=== PATIENT | female | born 1965 | race Caucasian/White ===

== ENCOUNTER → 2017-10-26 08:35 | Outpatient (CLI) | payer OTHER, MEDICARE, SELFPAY ==
[2017-03-03 15:40] VITALS: BMI 24.5
[2017-10-26 09:55] LABS: AST(SGOT) 18 U/L (15-37); Alanine Aminotransfer ALT/SGPT 27 U/L (13-56); Albumin, Serum 3.3 g/dL (3.2-5.0); Alkaline Phosphatase 72 U/L (45-117); Bilirubin, Direct 0.06 mg/dL (0.00-0.30); Cholesterol 113 mg/dL (200); Globulin 3.8 g/dL (2.2-4.2); High Density Lipoprotein 45 mg/dL; Protein, Total 7.1 g/dL (6.4-8.2); Triglycerides 105 mg/dL; Very Low Density Lipoprotein 21 mg/dL (5-40)
== END ==
PROVIDERS: Family Provider Family Medicine; PCP Family Medicine; Visit Provider Internal Medicine Cardiovascular Disease
DX: E78.5 Hyperlipidemia, unspecified (principal); Z79.899 Other long term (current) drug therapy
CPT/HCPCS: 36415; 80061; 80076

== ENCOUNTER 2018-01-06 17:26 | Emergency (ER) | payer OTHER, MEDICARE, SELFPAY ==
[2017-03-03 15:40] VITALS: BMI 24.5
[2018-01-06 17:27] VITALS: BP 118/72; PULSE 72; RESP 16; TEMP 36.8; O2SAT 99; BMI 22.3
--- NOTE | 2018-01-06 17:52 | RAD_ITS ---
STUDY: X-RAY CHEST REASON FOR EXAM: Female, 52 years old. CHEST PRESSURE SINCE YESTERDAY. HAD A HEART ATTACK WITH STENT A YEAR AGO TECHNIQUE: Single AP portable view of the chest. COMPARISON: 03.02.17 FINDINGS: There is hyperinflation of the lungs consistent with chronic obstructive lung disease (COPD). There is no demonstrated pleural abnormality. Normal size heart. Normal mediastinum and chata. Normal visualized pulmonary arteries. Normal visualized aortic arch and descending thoracic aorta. Normal visualized thoracic spine. Normal visualized ribs, clavicles, and shoulders. There is no demonstrated abnormality of the visualized soft tissue structures of the upper abdomen. RAD/Chest 1 View (Portable) IMPRESSION: COPD Electronically Signed: Shaq Chong MD at 18:21 EDT , Service support ,
--- NOTE | 2018-01-06 17:52 | EKG12_ITS ---
Test Reason : CP Blood Pressure : / mmHG Vent. Rate : 059 BPM Atrial Rate : 059 BPM P-R Int : 124 ms QRS Dur : 084 ms QT Int : 390 ms P-R-T Axes : 045 -26 036 degrees QTc Int : 386 ms Sinus bradycardia with sinus arrhythmia Low voltage QRS (LIMB LEADS) Confirmed by JUAN CARLOS MEYER, JO ANN ([id number]), fan mail editor KEISHA GUNDERSON ([id number]) on 01/11/2018 1:56:46 PM Referred By: ABHI Confirmed By:JO ANN RANGEL MD
[2018-01-06 18:18] LABS: Absolute Lymphocyte Count 1.43 X10^3/ul (0.83-4.51); Absolute Neutrophil Count 2.9 X10^3/uL (2.0-7.7); Basophil# 0.02 X10^3/uL; Basophil% 0.4 % (0-1); Eosinophils% 2.1 % (0-5); Hematocrit 40.5 % (37-47); Hemoglobin 13.5 g/dl (12.0-15.0); Lymphocyte # 1.43 X10^3/ul (4.0); Lymphocyte % 29.5 % (19-41); Mean Corp Hgb Conc 33.3 g/gl (32-36); Mean Corpuscular Hgb 29.7 pg (27.0-32.0); Mean Platelet Vol. 9.5 fl (6.2-12.0); Monocyte# 0.43 X10^3/uL; Monocyte% 8.9 % (0-10); Neutrophil # 2.85 X10^3/uL (2.7-7.7); Neutrophil % 58.9 % (47-70); POSITIVE COUNT NO; POSITIVE DIFFERENTIAL NO; POSITIVE MORPHOLOGY NO; Platelet Count 272 K/mm3 (150-450); RBC Distribution Width CV 13.1 % (11.6-14.6); Red Blood Count 4.55 M/mm3 (4.2-5.4); White Blood Count 4.8 K/mm3 (4.4-11.0)
[2018-01-06 18:27] LABS: Anion Gap 5 (5-15); BUN 10 mg/dL (7-18); Calcium,Total 9.2 mg/dL (8.5-10.1); Chloride 107 mmol/L (98-107); Creatinine, Serum 0.72 mg/dL (0.55-1.02); EST Glomerular Filtration Rate 91 mL/min (>60); Est Glom Filt Rate - Afr Amer 110 mL/min (>60); Estimated Creatinine Clearance 69.75 ml/min; Glucose 90 mg/dL (74-106); Potassium 3.3 mmol/L (3.5-5.1); Sodium Level 139 mmol/L (136-145)
[2018-01-06 18:32] VITALS: BP 102/57; PULSE 56; RESP 19; O2SAT 100; O2SAT 99
--- NOTE | 2018-01-06 18:56 | ED.VISSUMM ---
- ER Visit Summary Date of Service: 01/06/18 Chief Complaint: Chest pain History of Present Illness: The patient is a 52 F who presents for evaluation of chest pain described as an aching sensation and mild which began yesterday. She states it was not going away because she has had a stent in the past she wanted to get checked out. She thought perhaps it was related to caring wet laundry that was heavy the day before. She denies any nausea vomiting diaphoresis dyspnea lightheadedness or palpitations. Physical Examination: Afebrile vital signs are stable Gen: Well-nourished well-developed Head: Normocephalic atraumatic Eyes: Perrl EOMI ENT: TMs clear no rhinorrhea moist mucous membranes Neck: Supple no lymphadenopathy no JVD nontender CVS: Regular rate rhythm no murmurs normal S1-S2 Respiratory: No distress clear to auscultation bilaterally chest nontender barrel chested Abdomen: Soft nontender nondistended normal bowel sounds no masses Back: Nontender Extremity: Nontender no edema Skin: Normal color no rash Neuro: alert orientated ?3 CN II-XII intact normal strength sensation reflexes gait cerebellar Psych: Normal affect normal mood Test Results: EKG shows a sinus rhythm at a rate of 59. Potassium 3.3. Troponin is negative and this is greater than 24 hour troponin constant symptoms. Chest x-ray negative for acute. GERMÁN score 2 out of 7. Emergency Department Course and Treatment: Patient with a negative troponin after 24 hours of symptoms. To be discharged home to follow-up return if worsening Impression: 1. Chest pain This note was generated with [employer] dictation software. It may contain incorrect words, spelling, and punctuation that were not noted in review of the chart prior to signing ED Disposition - Plan for ED Patient: Disposition: Home or Assisted Living Chief Complaint: Chest Pain Instructions: ED Chest Pain Atypical Unkn Cause Referrals: Arron Soto MD [Primary Care Provider] - 3-5 Days if not improving
[2018-01-06 19:01] VITALS: BP 101/59; PULSE 55; PULSE 56; RESP 16; RESP 17; O2SAT 98; O2SAT 99
== END 2018-01-06 19:23 | disposition home or self-care (01) ==
PROVIDERS: Emergency Provider Emergency Medicine; Family Provider Family Medicine; PCP Family Medicine
DX: R07.9 Chest pain, unspecified (principal); I25.10 Atherosclerotic heart disease of native coronary artery without angina pectoris; E78.00 Pure hypercholesterolemia, unspecified; G35 Multiple sclerosis; Z95.5 Presence of coronary angioplasty implant and graft; Z87.891 Personal history of nicotine dependence; Z79.82 Long term (current) use of aspirin; Z79.899 Other long term (current) drug therapy
CPT/HCPCS: 71045; 80048; 84484; 85025; 93005; 99285; A4216

== ENCOUNTER → 2018-05-12 09:05 | Outpatient (CLI) | payer OTHER, MEDICARE, SELFPAY ==
[2017-03-03 15:40] VITALS: BMI 24.5
[2018-05-12 10:44] LABS: AST(SGOT) 25 U/L (15-37); Alanine Aminotransfer ALT/SGPT 29 U/L (13-56); Albumin, Serum 3.5 g/dL (3.2-5.0); Alkaline Phosphatase 61 U/L (45-117); Bilirubin, Direct 0.15 mg/dL (0.00-0.30); Cholesterol 138 mg/dL (200); Globulin 3.8 g/dL (2.2-4.2); High Density Lipoprotein 53 mg/dL; Protein, Total 7.3 g/dL (6.4-8.2); Triglycerides 89 mg/dL; Very Low Density Lipoprotein 18 mg/dL (5-40)
== END ==
PROVIDERS: Family Provider Family Medicine; PCP Family Medicine; Referring Provider Internal Medicine Cardiovascular Disease; Visit Provider Internal Medicine Cardiovascular Disease
DX: E78.5 Hyperlipidemia, unspecified (principal); Z79.899 Other long term (current) drug therapy
CPT/HCPCS: 36415; 80061; 80076

== ENCOUNTER → 2018-11-10 06:58 | Outpatient (CLI) | payer OTHER, MEDICARE, SELFPAY ==
[2017-03-03 15:40] VITALS: BMI 24.5
[2018-09-25 14:42] VITALS: BMI 22.4
[2018-11-10 07:49] LABS: AST(SGOT) 22 U/L (15-37); Alanine Aminotransfer ALT/SGPT 27 U/L (13-56); Albumin, Serum 3.5 g/dL (3.2-5.0); Alkaline Phosphatase 70 U/L (45-117); Bilirubin, Direct 0.09 mg/dL (0.00-0.30); Cholesterol 119 mg/dL (200); Globulin 3.3 g/dL (2.2-4.2); High Density Lipoprotein 48 mg/dL; Protein, Total 6.8 g/dL (6.4-8.2); Triglycerides 92 mg/dL; Very Low Density Lipoprotein 18 mg/dL (5-40)
== END ==
PROVIDERS: Family Provider Family Medicine; PCP Family Medicine; Referring Provider Internal Medicine Cardiovascular Disease; Visit Provider Internal Medicine Cardiovascular Disease
DX: I25.10 Atherosclerotic heart disease of native coronary artery without angina pectoris (principal); E78.5 Hyperlipidemia, unspecified; Z95.5 Presence of coronary angioplasty implant and graft
CPT/HCPCS: 36415; 80061; 80076

== ENCOUNTER → 2019-05-16 07:26 | Outpatient (CLI) | payer OTHER, MEDICARE, SELFPAY ==
[2017-03-03 15:40] VITALS: BMI 24.5
[2019-05-07 13:41] VITALS: BMI 21.7
[2019-05-16 08:54] LABS: AST(SGOT) 20 U/L (15-37); Alanine Aminotransfer ALT/SGPT 21 U/L (13-56); Albumin, Serum 3.4 g/dL (3.2-5.0); Alkaline Phosphatase 66 U/L (45-117); Cholesterol 120 mg/dL (200); Globulin 3.5 g/dL (2.2-4.2); High Density Lipoprotein 48 mg/dL; Protein, Total 6.9 g/dL (6.4-8.2); Triglycerides 81 mg/dL; Very Low Density Lipoprotein 16 mg/dL (5-40)
== END ==
PROVIDERS: Family Provider Family Medicine; PCP Family Medicine; Referring Provider Internal Medicine Cardiovascular Disease; Visit Provider Internal Medicine Cardiovascular Disease
DX: E78.00 Pure hypercholesterolemia, unspecified (principal)
CPT/HCPCS: 36415; 80061; 80076

== ENCOUNTER → 2019-05-18 12:42 | Outpatient (CLI) | payer OTHER, MEDICARE, SELFPAY ==
[2017-03-03 15:40] VITALS: BMI 24.5
[2019-05-07 13:41] VITALS: BMI 21.7
--- NOTE | 2019-05-18 12:43 | STEWCON_ITS ---
Reason For Study: Pre-Op, CAD Stress Results Protocol: Gerard Protocol Maximum Predicted HR: 167 bpm Target HR: 142 bpm % Maximum Predicted HR: 81 % DurationHeart Rate Stage (mm:ss) (bpm) BP Comment Baseline 57 118/70No Chest Pain; 4 ML Diluted Definity Given Gerard Protocol Stage I 3:00 91 128/72No Chest Pain Gerard Protocol Stage II 3:00 108 134/66No Chest Pain Gerard Protocol Stage III 4:00 136 164/70No Chest Pain; Mild Dyspnea Recovery 69 114/68No Chest Pain Stress Duration: 10:00 mm:ss Maximum Stress HR: 136 bpm METS: 10 Baseline Echocardiogram Findings The estimated ejection fraction is 65 %. Stress Echo Wall motion Data Resting WM Intermediate WM Stress WM Resting Wall Motion Wall Motion Stress No regional wall motion No regional wall motion abnormalities noted. abnormalities noted. EKG Data Normal intervals are noted. The baseline ECG displays normal sinus rhythm. The patient exercised according to the regular Gerard protocol for a total duration of 10:00. The maximum heart rate attained was 151 beats per minute. This was 90% of maximum predicted heart rate. The patient exercised into stage 3 of the Gerard protocol. During stress, there were no ST or T wave changes noted to suggest ischemia. No clinical angina was noted. Interpretation Summary The estimated ejection fraction is 65 %. Normal, adequate, treadmill echocardiogram. Negative for ischemia by EKG and echocardiographic criteria. No anginal symptoms noted. Rare PACs noted. Appropriate blood pressure response to exercise. Average exercise capacity for age. Test terminated due to dyspnea. Final LVEF of 75%. Decreased sensitivity due to poor echo windows requiring Definity enhancing agent. Patient tolerated procedure well. No complications. The study was technically difficult. Contrast injection was performed. Ordering Physician: Carson De La Torre Referring Physician: Arron Soto Performed By: Ashwini Thomson, DARVIN, RVT
== END ==
PROVIDERS: Family Provider Family Medicine; PCP Family Medicine; Referring Provider Internal Medicine Cardiovascular Disease; Visit Provider Internal Medicine Cardiovascular Disease
DX: Z01.818 Encounter for other preprocedural examination (principal); I25.10 Atherosclerotic heart disease of native coronary artery without angina pectoris; Z95.5 Presence of coronary angioplasty implant and graft
CPT/HCPCS: 93017; 93350; Q9957; A4216; C8928

== ENCOUNTER → 2019-06-28 09:50 | Outpatient (CLI) | payer OTHER, MEDICARE, SELFPAY ==
[2017-03-03 15:40] VITALS: BMI 24.5
[2019-05-07 13:41] VITALS: BMI 21.7
--- NOTE | 2019-06-28 10:00 | RAD_ITS ---
STUDY: X-RAY - LUMBAR SPINE REASON FOR EXAM: Female, 54 years old. Chronic low back pain with radiation into the right. TECHNIQUE: 5 view(s) of the lumbar spine were obtained. COMPARISON: None FINDINGS: Increased lumbar lordosis. There is no substantial scoliosis. There is a normal alignment of the vertebrae. Advanced disc narrowing with discogenic sclerosis at L4-5. Normal to minimal disc narrowing at other lumbar levels. Mild degenerative facet arthrosis at L4-5. The soft tissue structures are unremarkable. RAD/L/S Spine Min 4 Views IMPRESSION: Exaggerated lumbar lordosis without scoliosis. Advanced focal degenerative disc findings with discogenic sclerosis and mild posterior facet arthrosis at L4-5. Minimal degenerative changes at other lumbar levels. Electronically Signed: Estefani Denney MD at 17:05 EST , Service support ,
== END ==
PROVIDERS: Family Provider Family Medicine; PCP Family Medicine; Referring Provider Anesthesiology Pain Medicine; Visit Provider Anesthesiology Pain Medicine
DX: M51.37 Other intervertebral disc degeneration, lumbosacral region (principal)
CPT/HCPCS: 72110

== ENCOUNTER → 2019-09-04 11:06 | Outpatient (CLI) | payer MEDICARE, SELFPAY ==
[2017-03-03 15:40] VITALS: BMI 24.5
[2019-05-07 13:41] VITALS: BMI 21.7
--- NOTE | 2019-09-04 11:16 | MRI_ITS ---
STUDY: MRI LUMBAR SPINE WITHOUT CONTRAST REASON FOR EXAM: Female, 54 years old. Spondylosis radiculopathy TECHNIQUE: Standardized fat and water weighted pulse sequences were obtained in the sagittal and axial planes. COMPARISON: 28 June 2019 plain films FINDINGS: Lumbar spine is intact and aligned. There is mixed marrow osteopenic and degenerative conversion. There are age-related changes in the discs, endplates and facets. Paraspinous soft tissues are intact with a dilated cisterna chyli. Conus medullaris terminates at L1 with normal cauda equina. Canal is widely patent at all levels. L4-L5 has an asymmetric right disc bulge with proximity of disc material to the right exiting L4 nerve root in the lateral recess without anatomic compression. The right foramen is mildly stenotic with patent left foramen. Remainder of the levels are patent foramen. Lateral recesses are patent at all levels. MRI/Spine Lumbar (Routine) IMPRESSION: 1. Widely patent canal, no neural compression. 2. Age-related spondylosis. 3. Presumed osteopenia, possible osteoporosis. Attention to bone density advised. Electronically Signed: Keanu Ledezma, at 18:19 EST Tel , Service support ,
== END ==
PROVIDERS: PCP Family Medicine; Referring Provider Anesthesiology Pain Medicine; Visit Provider Anesthesiology Pain Medicine
DX: M51.17 Intervertebral disc disorders with radiculopathy, lumbosacral region (principal); M47.27 Other spondylosis with radiculopathy, lumbosacral region
CPT/HCPCS: 72148

== ENCOUNTER → 2019-12-13 07:22 | Outpatient (CLI) | payer OTHER, MEDICARE, SELFPAY ==
[2017-03-03 15:40] VITALS: BMI 24.5
[2019-12-07 10:23] VITALS: BMI 21.5
[2019-12-13 08:03] LABS: AST(SGOT) 23 U/L (15-37); Alanine Aminotransfer ALT/SGPT 29 U/L (13-56); Albumin, Serum 3.5 g/dL (3.2-5.0); Alkaline Phosphatase 77 U/L (45-117); Bilirubin, Direct 0.14 mg/dL (0.00-0.30); Cholesterol 116 mg/dL (200); Globulin 3.5 g/dL (2.2-4.2); High Density Lipoprotein 48 mg/dL; Triglycerides 93 mg/dL; Very Low Density Lipoprotein 19 mg/dL (5-40)
== END ==
PROVIDERS: PCP Family Medicine; Referring Provider Internal Medicine Cardiovascular Disease; Visit Provider Internal Medicine Cardiovascular Disease
DX: E78.00 Pure hypercholesterolemia, unspecified (principal); E78.5 Hyperlipidemia, unspecified
CPT/HCPCS: 36415; 80061; 80076

== ENCOUNTER 2020-01-03 12:08 | Emergency (ER) | payer OTHER, MEDICARE, SELFPAY ==
[2017-03-03 15:40] VITALS: BMI 24.5
[2019-12-07 10:23] VITALS: BMI 21.5
[2020-01-03 12:09] VITALS: BP 113/77; PULSE 75; RESP 16; TEMP 35.5; O2SAT 97; BMI 21.7
--- NOTE | 2020-01-03 12:25 | RAD_ITS ---
STUDY: X-RAY - LEFT FOOT CLINICAL: Female, 54 years old. PAIN/STS. HX FALL TECHNIQUE: 3 view(s) of the foot. COMPARISON: None. FINDINGS: Normal talus, calcaneus, and tarsal bones. Normal visualized subtalar, talonavicular, calcaneocuboid, tarsal and tarsometatarsal articulations. There is nondisplaced fracture at the base of the fifth metatarsal. Normal metatarsophalangeal joint of the great toe. Normal tibial and fibular sesamoid bones. Normal interphalangeal joint of the great toe. Normal phalanges of the great toe. Normal second through fifth metatarsophalangeal joints. Normal interphalangeal joints and phalanges of the lesser toes. The soft tissue structures are unremarkable. RAD/Foot min 3 Views IMPRESSION: There is nondisplaced fracture at the base of the fifth metatarsal. Electronically Signed: Michael Resendiz, at 13:16 EDT Tel , Service support ,
--- NOTE | 2020-01-03 12:25 | RAD_ITS ---
STUDY: X-RAY - LEFT ANKLE REASON FOR EXAM: Female, 54 years old. PAIN/STS. HX FALL TECHNIQUE: 3 view(s) of the ankle. COMPARISON: None. FINDINGS: Normal visualized distal tibia and fibula. Normal medial and lateral malleoli. Normal tibiotalar articulation and ankle mortise. Normal visualized talus and calcaneus. There is nondisplaced fracture at the base of the fifth metatarsal. The visualized subtalar, talonavicular, calcaneocuboid and tarsal articulations are normal. The soft tissue structures are unremarkable. RAD/Ankle min 3 Views IMPRESSION: There is nondisplaced fracture at the base of the fifth metatarsal. Electronically Signed: Michael Resendiz, at 13:17 EDT Tel , Service support ,
--- NOTE | 2020-01-03 12:25 | ED.DCSUM_ITS ---
History of Present Illness Chief Complaint: Lower Extremity Injury Informant: Patient Onset: Days Mechanism/Context: Fall, Trip Quality of Pain: Aching Narrative: Patient is a 54-year-old female presenting with pain and injury to her left foot and ankle. Patient's foot became tangled in the chair she was sitting in on Tuesday, when she fell off. Patient twisted her left foot and landed on her left elbow. Her elbow has gotten better but she is had persistent pain and swelling of her left foot. Patient taken Tylenol for pain relief with no significant relief. She did start wrapping with an Philip bandage today at the recommendation of her daughter. Her sustain any head injury. She is on Plavix. She denies any other complaints at this time. Past Medical History - Allergies and Home Meds Allergies/Adverse Reactions: Allergies egg Allergy (Verified 01/03/20 12:16) Hives sulfamethoxazole [From Bactrim] Allergy (Verified 01/03/20 12:16) Unknown trimethoprim [From Bactrim] Allergy (Verified 01/03/20 12:16) Unknown Penicillins Adverse Reaction (Verified 01/03/20 12:16) Vomiting Primary Care Physician: Arron Soto MD [Primary Care Provider] - Past Medical History: - - Coronary artery disease, hyperlipidemia, history of SVT, multiple sclerosis Surgical History: cholecystectomy, - - , breast biopsy Smoking Status: Former smoker - Family History Maternal Family History: Family History (Last Reviewed 12/07/19 @ 10:23 by Yamilex Gutiérrez) Mother CAD (coronary artery disease) Father CAD (coronary artery disease) Family History: Reports: Heart Disease Paternal Family History: Family History (Last Reviewed 12/07/19 @ 10:23 by Yamilex Gutiérrez) Mother CAD (coronary artery disease) Father CAD (coronary artery disease) Family History: Reports: Heart Disease Review of Systems General: Denies: Chills, Fever, Sweats Eyes: Denies: Visual changes - bilaterally, Diplopia ENT: Denies: Rhinorrhea, Sore throat Cardiovascular: Denies: Chest pain, Palpitations Respiratory: Denies: Dyspnea, Cough, Dyspnea on exertion Gastrointestinal: Denies: Abdominal pain, Nausea, Vomiting, Diarrhea Genitourinary: Denies: Dysuria, Hematuria, Frequency Musculoskeletal: Reports: Swelling - Left foot, Extremity Pain - Left foot. Denies: Back pain Skin: Denies: Rash, Wounds Neurological: Denies: Headache, Weakness, Numbness Physical Exam Vital Signs/Narrative: Vital Signs Temp Pulse Resp BP Pulse Ox 01/03/20 12:09 96 F L 75 16 113/77 97 Inital Vital Signs reviewed: Yes General: Well nourished, Well developed Head: Normocephalic, Atraumatic Eyes: Perrl, EOMI ENT: No trauma. Negative for: Nasal trauma Neck: Nontender, Full ROM Cardiovascular: Regular rate, Regular rhythm, No murmurs Respiratory: No distress, CTA bilaterally, Chest nontender Back: Nontender Extremeties: Upper extremities, normal range of motion, no joint effusions, no deformity. Left lower extremity: Knee?normal range of motion, no swelling. Lower leg?no fibular head tenderness, no deformity, no significant edema, no calf tenderness. Ankle?no bony tenderness, normal range of motion, edema present. Normal Azul test. Foot?tenderness palpation over the lateral distal metatarsals. No obvious deformity. Soft tissue swelling is present. No ecchymosis present. Normal range of motion. Skin: Normal color, No rash Neurological: Alert, Oriented x3, Cranial nerves II-XII grossly intact, Normal Strength, Normal Sensation Psychological: Normal affect Diagnostic/Tx/Re-eval Clinical Impression(s) from Imaging Studies Ankle X-Ray 01/03/20 12:25 IMPRESSION: There is nondisplaced fracture at the base of the fifth metatarsal. Electronically Signed: Michael Resendiz, at 13:17 EDT Tel , Service support , Foot X-Ray 01/03/20 12:25 IMPRESSION: There is nondisplaced fracture at the base of the fifth metatarsal. Electronically Signed: Michael Resendiz, at 13:16 EDT Tel , Service support , - Medical Decision Making Is evaluated for injury to her left foot 3 days ago. She is been walking on it since. She is been taking Tylenol with some relief of her pain. She has swelling with tenderness palpation at the lateral midfoot but no obvious deformity. She is neurovascular intact. X-ray of the ankle and foot obtained. Patient does have fracture of the fifth metatarsal. Discussed the case with hugo olson on-call, Dr. Andrews, follow-up in 1 week as well as a walking boot. Patient supplied with a walking boot emergency room. She will take ibuprofen at home. She declined a prescription for [place]. Patient is counseled on signs and symptoms requiring return to the emergency room. Patient verbalizes agreement and understand this plan. Patient discharged home in stable and improved condition. ED Disposition - Plan for ED Patient: Disposition: Home or Assisted Living Diagnosis: Nondisplaced fracture of fifth left metatarsal bone Instructions: ED FOOT FRACTURE Referrals: Arron Soto MD [Primary Care Provider] - Talya Andrews DPM [STAFF PHYSICIAN] - Additional Instructions: Alternate Tylenol and ibuprofen for pain. Please wear your boot whenever you are walking. You may continue to walk on it. Try to rest, ice and elevate the leg as much as possible. Please follow-up with podiatry in 1 week.
== END 2020-01-03 13:55 | disposition home or self-care (01) ==
PROVIDERS: Emergency Provider Emergency Medicine; PCP Family Medicine
DX: S92.355A Nondisplaced fracture of fifth metatarsal bone, left foot, initial encounter for closed fracture (principal); W01.0XXA Fall on same level from slipping, tripping and stumbling without subsequent striking against object, initial encounter; Y93.9 Activity, unspecified; Y92.9 Unspecified place or not applicable; I25.10 Atherosclerotic heart disease of native coronary artery without angina pectoris; E78.5 Hyperlipidemia, unspecified; G35 Multiple sclerosis; I47.1 Supraventricular tachycardia; Z79.02 Long term (current) use of antithrombotics/antiplatelets; Z79.82 Long term (current) use of aspirin; Z79.899 Other long term (current) drug therapy; Z87.891 Personal history of nicotine dependence
CPT/HCPCS: 73610; 73630; 99283

== ENCOUNTER → 2020-01-10 14:36 | Outpatient (CLI) | payer OTHER, MEDICARE, SELFPAY ==
[2017-03-03 15:40] VITALS: BMI 24.5
[2020-01-03 12:09] VITALS: BMI 21.7
[2020-01-10 17:57] LABS: Vitamin D,25 Hydroxy 40.4 ng/mL
== END ==
PROVIDERS: PCP Family Medicine; Referring Provider Podiatrist; Visit Provider Podiatrist
DX: E55.9 Vitamin D deficiency, unspecified (principal); S92.353A Displaced fracture of fifth metatarsal bone, unspecified foot, initial encounter for closed fracture
CPT/HCPCS: 36415; 82306

== ENCOUNTER → 2020-06-26 07:30 | Outpatient (CLI) | payer OTHER, MEDICARE, SELFPAY ==
[2017-03-03 15:40] VITALS: BMI 24.5
[2020-06-16 11:24] VITALS: BMI 21.4
[2020-06-26 09:18] LABS: AST(SGOT) 24 U/L (15-37); Alanine Aminotransfer ALT/SGPT 33 U/L (13-56); Albumin, Serum 3.6 g/dL (3.2-5.0); Alkaline Phosphatase 75 U/L (45-117); Bilirubin, Direct 0.12 mg/dL (0.00-0.30); Cholesterol 114 mg/dL (200); Globulin 3.6 g/dL (2.2-4.2); High Density Lipoprotein 51 mg/dL; Protein, Total 7.2 g/dL (6.4-8.2); Triglycerides 70 mg/dL; Very Low Density Lipoprotein 14 mg/dL (5-40)
== END ==
PROVIDERS: PCP Family Medicine; Referring Provider Internal Medicine Cardiovascular Disease; Visit Provider Internal Medicine Cardiovascular Disease
DX: E78.00 Pure hypercholesterolemia, unspecified (principal)
CPT/HCPCS: 36415; 80061; 80076

== ENCOUNTER → 2020-12-08 10:49 | Outpatient (CLI) | payer OTHER, MEDICARE, SELFPAY ==
[2017-03-03 15:40] VITALS: BMI 24.5
[2020-06-16 11:24] VITALS: BMI 21.4
--- NOTE | 2020-12-08 10:55 | MRI_ITS ---
STUDY: MRI BRAIN WITH AND WITHOUT CONTRAST REASON FOR EXAM: Female, 55 years old. MS TECHNIQUE: Standardized multiplanar fat and water weighted pulse sequences were obtained. iv dotarem 10cc was administered for the contrast portion of the examination. COMPARISON: None. FINDINGS: There is mild cerebral atrophy with widening of the extra-axial spaces and ventricular dilatation. There are periventricular white matter hyperintensities and typical geographic distribution of multiple sclerosis without evidence of restricted diffusion or enhancement to suggest active demyelination. There is no thinning of the corpus callosum or myelin vacuolization. There is no demonstrated infratentorial involvement. Normal bilateral basal ganglia. Normal thalami. There is no extra-axial fluid accumulation. Normal venous enhancement. There is no enhancing intra-axial or extra-axial abnormality. Normal sella turcica, pituitary gland, infundibular stalk, optic chiasm and hypothalamus. Normal tectal plate and pineal gland. Normal midbrain, nae and medulla. Normal cerebellum. Normal basal cisterns. MRI/Brain W/WO Contrast IMPRESSION: White matter plaques without evidence of active demyelination. Electronically Signed: Tianna Oconnor MD at 8:31 EDT Tel , Service support ,
== END ==
PROVIDERS: PCP Family Medicine; Referring Provider Psychiatry & Neurology Neurology; Visit Provider Psychiatry & Neurology Neurology
DX: G35 Multiple sclerosis (principal)
CPT/HCPCS: 70553; A9575

== ENCOUNTER → 2021-01-06 10:50 | Outpatient (CLI) | payer OTHER, MEDICARE, SELFPAY ==
[2017-03-03 15:40] VITALS: BMI 24.5
[2020-12-26 10:39] VITALS: BMI 21.4
[2021-01-01 09:37] LABS: AST(SGOT) 22 U/L (15-37); Alanine Aminotransfer ALT/SGPT 28 U/L (13-56); Albumin, Serum 3.6 g/dL (3.2-5.0); Alkaline Phosphatase 74 U/L (45-117); Bilirubin, Direct 0.12 mg/dL (0.00-0.30); Cholesterol 128 mg/dL (200); Globulin 3.5 g/dL (2.2-4.2); High Density Lipoprotein 51 mg/dL; Protein, Total 7.1 g/dL (6.4-8.2); Triglycerides 77 mg/dL; Very Low Density Lipoprotein 15 mg/dL (5-40)
--- NOTE | 2021-01-06 10:51 | ECHOCS_ITS ---
Reason For Study: CAD Procedure This was a 2D Doppler, Color Flow transthoracic echocardiogram. Technically difficult study due to patients body habitus. Contrast injection performed. The study was technically difficult. Contrast injection was performed. Exam performed in department. Left Ventricle Normal LV size. Left ventricular systolic function is normal. The estimated ejection fraction is 55 %. No evidence for diastolic dysfunction. No regional wall motion abnormalities noted. Right Ventricle Normal RV size. Normal systolic function. Atria Normal left atrium. Normal right atrium. No doppler evidence for ASD. Mitral Valve There is no mitral annular calcification. Normal mitral valve. Trivial mitral valve insufficiency. Tricuspid Valve Normal tricuspid valve. Mild to moderate (1-2+) tricuspid valve insufficiency. Right ventricular systolic pressure estimated to be 32 mmHg. Aortic Valve Trisinus/trileaflet aortic valve. Mild diffuse aortic valve thickening. Mild focal aortic valve calcification. Pulmonic Valve The pulmonic valve is not well visualized. Great Vessels The aortic root is not well visualized. Pericardium/Pleural No pericardial effusion. Medication 22 gauge I.V. with prn adaptor inserted into right arm. Diluted definity 3ml given slow IV push to enhance endocardial definition. MMode/2D Measurements & Calculations LVIDd: 3.8 cm IVSd: 0.69 cm LA dimension: 2.6 cm LVIDs: 2.6 cm LVPWd: 0.86 cm RVDd: 2.9 cm FS: 31.2 % LAV(MOD-sp4): 32.3 ml LA A4 area: 13.3 cm2 RA A4 area: 11.2 cm2 Time Measurements MV dec time: 0.17 sec Doppler Measurements & Calculations MV E max valdemar: 86.7 cm/sec Med Peak E' Valdemar: 10.7 cm/sec MV V2 max: 83.9 cm/sec MV A max valdemar: 66.6 cm/sec E/E' med: 8.1 MV max P.8 mmHg MV E/A: 1.3 MV V2 mean: 39.3 cm/sec MV mean P.78 mmHg MV V2 VTI: 28.9 cm MV P1/2t max valdemar: 83.9 cm/sec Ao V2 max: 95.3 cm/sec LV V1 max: 83.8 cm/sec MV P1/2t: 82.4 msec Ao max P.6 mmHg LV V1 max P.8 mmHg MV dec slope: 298.3 cm/sec2 MVA(P1/2t): 2.7 cm2 PA V2 max: 65.7 cm/sec TR max valdemar: 268.2 cm/sec TR max P.8 mmHg ECHO/Echo Complete W/ Contrast Interpretation Summary The study was technically difficult. Contrast injection was performed. Left ventricular systolic function is normal. The estimated ejection fraction is 55 %. Trivial mitral valve insufficiency. Mild to moderate (1-2+) tricuspid valve insufficiency. Mild diffuse aortic valve thickening. Mild focal aortic valve calcification. Right ventricular systolic pressure estimated to be 32 mmHg. No evidence for diastolic dysfunction. Ordering Physician: Tan Luque Referring Physician: Arron Soto Performed By: Alec Payan RCS
== END ==
PROVIDERS: Internal Medicine Cardiovascular Disease; PCP Family Medicine; Referring Provider Internal Medicine Cardiovascular Disease; Visit Provider Internal Medicine Cardiovascular Disease
DX: E78.00 Pure hypercholesterolemia, unspecified (principal); Z95.5 Presence of coronary angioplasty implant and graft; I25.10 Atherosclerotic heart disease of native coronary artery without angina pectoris; I25.5 Ischemic cardiomyopathy; I47.1 Supraventricular tachycardia; E78.5 Hyperlipidemia, unspecified
CPT/HCPCS: 36415; 80061; 80076; 93306; Q9957; A4216; C8929; J3490

== ENCOUNTER → 2021-01-19 10:13 | Outpatient (CLI) | payer OTHER, MEDICARE, SELFPAY ==
[2017-03-03 15:40] VITALS: BMI 24.5
[2020-06-16 11:24] VITALS: BMI 21.4
[2020-12-26 10:39] VITALS: BMI 21.4
--- NOTE | 2021-01-19 12:32 | NEURO ---
NCS and/or EMG Patient Report Ordering Doctor: Talya Andrews DATE OF SERVICE: 01/19/21 Indication: Intermittent pain involving the left foot. Symptoms have been present since a 5th metatarsal fracture in 2019. The distribution of the discomfort is variable, sometimes affecting the instep, other times involving the hell or lateral aspect of the foot. No associated numbness or weakness of intrinsic foot muscles. Chronic back pain without clear radicular features. Findings: Nerve conduction studies were performed in the right and left lower extremities. The right peroneal motor study recording the extensor digitorum brevis showed a normal amplitude, normal distal latency and normal conduction velocity. No conduction block or focal slowing was present across the fibular neck. The right tibial motor study recording the abductor hallucis brevis showed a normal amplitude, normal distal latency and normal conduction velocity. Right sural sensory response showed a normal amplitude and conduction velocity. Right superficial peroneal sensory response showed a borderline amplitude and normal conduction velocity. Right medial plantar sensory response showed a normal amplitude and conduction velocity. Right lateral plantar sensory response showed a normal amplitude and conduction velocity. The left peroneal motor study recording the extensor digitorum brevis showed a normal amplitude, normal distal latency and normal conduction velocity. No conduction block or focal slowing was present across the fibular neck. The left tibial motor study recording the abductor hallucis brevis showed a normal amplitude, normal distal latency and normal conduction velocity. Left sural sensory response showed a normal amplitude and conduction velocity. Left superficial peroneal sensory response showed a slightly reduced amplitude and normal conduction velocity. Left medial plantar sensory response showed a normal amplitude and conduction velocity. Left lateral plantar sensory response was not obtainable due to technical limitations (excessive artifact). Needle EMG of the left lower extremity muscles was performed. The lumbar paraspinal muscles could not be sample due to presence of a skin rash at the sampling site. No denervation was present in any muscle. All motor unit morphology, activation and recruitment patterns were normal (sampled muscles included: tibialis anterior, extensor hallucis longus, gastrocnemius, vastus medialis, peroneus longus). Needle EMG of the right lower extremity was not performed due to a paucity of abnormal findings in the symptomatic (left) extremity. Impression: This is an equivocal study. There is no electrophysiologic evidence of lumbosacral radiculopathy or peripheral neuropathy in the left lower extremity. The slightly reduced and asymmetric left superficial peroneal sensory response is of unclear significance. This may be a red carrizales, as the expected distribution of sensory deficit with this type of lesion does not match the patient's current symptomatology. That said, an isolated, non-localizing, left superficial peroneal sensory neuropathy cannot be entirely excluded by this study. Barron Chandler D.O.
== END ==
PROVIDERS: PCP Family Medicine; Referring Provider Podiatrist; Visit Provider Podiatrist
DX: G57.52 Tarsal tunnel syndrome, left lower limb (principal); M54.17 Radiculopathy, lumbosacral region
CPT/HCPCS: 95886; 95912

== ENCOUNTER → 2021-03-13 07:55 | Outpatient (CLI) | payer OTHER, MEDICARE, SELFPAY ==
[2017-03-03 15:40] VITALS: BMI 24.5
[2020-12-26 10:39] VITALS: BMI 21.4
[2021-03-13 09:35] LABS: Anion Gap 2 (5-15); BUN 12 mg/dL (7-18); BUN/Creat Ratio 21.8 RATIO (10-20); Calcium,Total 8.7 mg/dL (8.5-10.1); Chloride 105 mmol/L (98-107); Creatinine, Serum 0.55 mg/dL (0.55-1.02); EST Glomerular Filtration Rate 122 mL/min (>60); Est Glom Filt Rate - Afr Amer 147 mL/min (>60); Glucose 87 mg/dL (74-106); Sodium Level 137 mmol/L (136-145)
== END ==
PROVIDERS: PCP Family Medicine; Referring Provider Internal Medicine Cardiovascular Disease; Visit Provider Internal Medicine Cardiovascular Disease
DX: R60.9 Edema, unspecified (principal)
CPT/HCPCS: 36415; 80048

== ENCOUNTER 2021-07-26 08:53 | Inpatient (IN) | payer OTHER, MEDICARE, SELFPAY ==
[2017-03-03 15:40] VITALS: BMI 24.5
[2021-07-26] VITALS (13 sets, daily range): BP systolic 79–147; BP diastolic 43–84; PULSE 76–122; RESP 16–20; TEMP 36.3–37.4; O2SAT 92–100; BMI 22.1; BMI 21.7
--- NOTE | 2021-07-26 09:19 | CT_ITS ---
STUDY: CT ABDOMEN AND PELVIS WITH CONTRAST REASON FOR EXAM: Female, 56 years old. abdominal pain RADIATION DOSAGE (If Supplied By Facility): CTDIvol = ( 12.96 ) mGy, DLP = ( 284.48 ) mGycm TECHNIQUE: Transaxial images were obtained from the dome of the diaphragm to the symphysis pubis without oral contrast. IV 100mL Isovue-370 was administered. Sagittal and coronal images were reconstructed. Individualized dose optimization techniques were used for this CT. COMPARISON: None. FINDINGS: The visualized lung bases are unremarkable. The visualized portions of the heart are within normal limits. 1.5 cm cyst in the anterior segment the right lobe of the liver. There is non-visualization of the gallbladder, which may be secondary to either contraction or a prior cholecystectomy. Normal spleen. Normal pancreas. Normal bilateral adrenal glands. Normal right kidney. Normal left kidney. Normal visualized stomach. Normal small intestine. There are multiple colonic diverticula consistent with diverticulosis. There is non-visualization of the appendix. Normal abdominal aorta. Normal inferior vena cava. Normal retroperitoneum. Normal urinary bladder. Normal abdominal wall. Normal osseous structures. CT/Abdomen/Pelvis W IV Cont ONLY IMPRESSION: Normal enhanced CT of the abdomen and pelvis. Electronically Signed: Jarad Rascon MD at 11:42 EST Tel , Service support ,
--- NOTE | 2021-07-26 09:21 | EKG12_ITS ---
Test Reason : Blood Pressure : / mmHG Vent. Rate : 103 BPM Atrial Rate : 103 BPM P-R Int : 114 ms QRS Dur : 068 ms QT Int : 350 ms P-R-T Axes : 045 001 056 degrees QTc Int : 458 ms Sinus tachycardia Low voltage QRS (Limb Leads) Confirmed by JUAN CARLOS MYEER, JO ANN ([id number]), city editor EVA PETERS ([id number]) on 07/29/2021 10:44:17 AM Referred By: ANI Confirmed By:JO ANN RANGEL MD
--- NOTE | 2021-07-26 09:21 | EDS_ITS ---
HPI HPI - GI History of Present Illness Chief Complaint: GI Bleed Narrative Narrative: 56-year-old female with history of hyperlipidemia, hypertension, CAD, cardiac stent, currently taking aspirin and Plavix presenting with nausea/vomiting. She admits to some epigastric pain as well. She states that yesterday she vomited and thought it was due to eating some [place] style hot dogs. She states that earlier this morning she started vomiting again and noticed some blood in her vomit. Patient states her epigastric pain is much worse now. She denies history of GERD or gastric ulcers. Patient states has had her gallbladder removed. Patient had 2 bowel movements with out melena or blood. Patient has a history of pancreatitis and states she is not a drinker. She is not had fever or chills. Denies any trauma. No urinary complaints. [facility] Medical History Acute ST elevation myocardial infarction Atherosclerotic heart disease of [place] coronary artery without angina pectoris Hyperlipidemia Ischemic cardiomyopathy Long-term use of high-risk medication Multiple sclerosis Paroxysmal supraventricular tachycardia Smoking addiction SVT (supraventricular tachycardia) Home Medications aspirin 81 mg PO DAILY@0800 tab 03/06/17 [Rx Last Taken Unknown] Rebif 44 mcg SC DIRECTED 07/20/17 [History Last Taken Unknown] baclofen 10 mg tablet 10 mg PO Q8H PRN tab 05/07/19 [History Last Taken Unknown] gabapentin 300 mg capsule 300 mg PO TID 05/07/19 [History Last Taken Unknown] pramipexole 0.75 mg tablet 0.375 mg PO TID tab 05/07/19 [History Last Taken Unknown] lidocaine 5 % topical patch 1 patch TOPICAL DAILY PRN 12/07/19 [History Last Taken Unknown] atorvastatin 80 mg tablet 80 mg PO QHS #90 tab 11/07/20 [Rx Last Taken Unknown] clopidogrel 75 mg tablet 75 mg PO QDAY #90 tab 11/07/20 [Rx Last Taken Unknown] metoprolol tartrate 25 mg tablet 25 mg PO BID #180 tab 11/07/20 [Rx Last Taken Unknown] furosemide 20 mg tablet 20 mg PO DAILY #30 tab 03/05/21 [Rx Last Taken Unknown] potassium chloride 20 mEq tablet,extended release 20 meq PO DAILY #30 tab 03/05/21 [Rx Last Taken Unknown] azithromycin 250 mg tablet See Rx Instructions PO .COMPLEX #6 tab 06/20/21 [Rx Last Taken Unknown] Allergy/AdvReac Type Severity Reaction Status Date / Time egg Allergy Hives Verified 07/26/21 08:56 sulfamethoxazole Allergy Unknown Verified 07/26/21 08:56 [From Bactrim] trimethoprim [From Bactrim] Allergy Unknown Verified 07/26/21 08:56 Penicillins AdvReac Vomiting Verified 07/26/21 08:56 Family History Mother CAD (coronary artery disease) Father CAD (coronary artery disease) Surgical History History of History of coronary artery stent placement (03/02/17) Social History Smoking Status: Never smoker how long ago did patient quit smokin03/02/2017 alcohol intake: never substance use type: does not use ROS ROS ED Constitutional Constitutional ED: Denies chills or fever(s) ENT ENT ED: Denies rhinorrhea or sore throat Cardiovascular Cardiovascular: Denies chest pain or palpitations Respiratory/Chest Respiratory/Chest: Denies cough or dyspnea Gastrointestinal Gastrointestinal: Reports abdominal pain, nausea, vomiting and other Details: Hematemesis Genitourinary Genitourinary ED: Denies dysuria or hematuria Musculoskeletal Musculoskeletal: Denies arthralgias, myalgias or neck pain Integumentary Denies rash Neurologic Neurologic: Denies headache(s), paresthesias or weakness Psychiatric Psychiatric: Denies anxiety or depression EXAM Physical Exam Const Vital Signs: 07/26/21 08:54 07/26/21 12:49 Temperature 97.4 F L Temperature Source Temporal Pulse Rate 103 H 76 Respiratory Rate 16 16 Blood Pressure 147/84 H 142/80 H Blood Pressure Mean 105 100 Pulse Ox 98 97 Oxygen Delivery Method Room Air Room Air Positive well nourished General Appearance ED: NAD; Negative for pallor HEENT Reports moist mucous membranes normocephalic and atraumatic Eyes PERRL and EOMs intact bilaterally General Eye ED: Negative for pale conjunctiva or scleral icterus Neck no lymphadenopathy and supple Resp normal respiratory effort and clear to auscultation bilaterally Cardio regular rate and regular rhythm GI Palpation: tender epigastric Neuro CN's II-XII intact bilaterally Sensorium / Orientation: alert, oriented to person, oriented to place and o riented to time Motor Exam: strength 5/5 throughout Psych mental status grossly normal and thought process normal Skin General Skin Exam: Negative for jaundice or pallor MDM MDM MDM Narrative Medical decision making narrative: 56-year-old female presenting with nausea/vomiting and hematemesis. She states is not dizzy or lightheaded. She is unsure why she is vomiting. New onset nausea vomiting yesterday while eating hotdogs and then later this morning she had hematemesis. Patient is reporting epigastric pain as well. No history of gastric ulcer that she knows of. She states she has no history of GI bleed. Patient given morphine, Zofran, Protonix and a Protonix drip was started. EKG is performed and shows a sinus rhythm with a ventricular rate of 103 bpm. There is no sign of ischemic change. CBC shows no leukocytosis however hemoglobin is 8.3 initially acutely dropped from greater than 13 but his comparison is many years ago. Patient was typed and screened. Platelets are normal. Renal function and electrolytes are normal. Her BUN is slightly elevated with a similar creatinine from previous and likely this is due to blood in the bowel. LFTs are unremarkable. Urinalysis negative. CT of the abdomen pelvis is performed and there is no acute intra-abdominal abnormality. Patient was reevaluated and she is feeling comfortable. I spoke with Dr. Rutledge regarding this patient and he did also recommend admission and Protonix drip. Patient was discussed with hospitalist for admission. Impression: 1. Upper GI bleed 2. Epigastric pain Lab Data Attestation: I reviewed the patient's lab results. Labs: Laboratory Results - last 24 hr 07/26/21 07/26/21 07/26/21 09:33 09:33 10:20 WBC 5.6 RBC 3.56 L Hgb 8.3 L Hct 28.1 L MCV 78.9 L MCH 23.3 L MCHC 29.5 L RDW Std Deviation 46.3 H RDW Coeff of [place] 16.1 H Plt Count 332 MPV 9.1 Immature Gran % (Auto) 0.200 Neut % (Auto) 69.6 Lymph % (Auto) 18.8 L [place] % (Auto) 8.8 Eos % (Auto) 2.1 Baso % (Auto) 0.5 Absolute Neuts (auto) 3.9 Absolute Lymphs (auto) 1.05 Nucleated RBC % 0 Sodium 139 Potassium 4.5 Chloride 109 H Carbon Dioxide 26.0 Anion Gap 4 L BUN 31 H Creatinine 0.49 L Estim Creat Clear Calc 97.89 Est GFR (MDRD) Af Amer 170 Est GFR (MDRD) Non-Af 140 BUN/Creatinine Ratio 63.7 H Glucose 92 Calcium 8.1 L Total Bilirubin 0.20 AST 17 ALT 33 Alkaline Phosphatase 51 Total Protein 6.1 L Albumin 2.7 L Globulin 3.4 Albumin/Globulin Ratio 0.8 L Lipase 99 Urine Color Urine Clarity Urine pH Ur Specific [place] Urine Protein Urine Glucose (UA) Urine Ketones Urine Occult Blood Urine Nitrite Urine Bilirubin Urine Urobilinogen Ur Leukocyte Esterase Urine RBC Urine WBC Ur Squamous Epith Cells Urine Bacteria Urine Mucus Blood Type AB POSITIVE Antibody Screen NEGATIVE 07/26/21 10:20 WBC RBC Hgb Hct MCV MCH MCHC RDW Std Deviation RDW Coeff of [place] Plt Count MPV Immature Gran % (Auto) Neut % (Auto) Lymph % (Auto) [place] % (Auto) Eos % (Auto) Baso % (Auto) Absolute Neuts (auto) Absolute Lymphs (auto) Nucleated RBC % Sodium Potassium Chloride Carbon Dioxide Anion Gap BUN Creatinine Estim Creat Clear Calc Est GFR (MDRD) Af Amer Est GFR (MDRD) Non-Af BUN/Creatinine Ratio Glucose Calcium Total Bilirubin AST ALT Alkaline Phosphatase Total Protein Albumin Globulin Albumin/Globulin Ratio Lipase Urine Color Yellow Urine Clarity Clear Urine pH 6.5 Ur Specific [place] 1.010 Urine Protein Negative Urine Glucose (UA) Normal Urine Ketones 5 H Urine Occult Blood Negative Urine Nitrite Negative Urine Bilirubin Negative Urine Urobilinogen Normal Ur Leukocyte Esterase Negative Urine RBC 0 SEEN Urine WBC 0 SEEN Ur Squamous Epith Cells 0 SEEN Urine Bacteria 0 SEEN Urine Mucus 0 SEEN Blood Type Antibody Screen Radiography Diagnostic Testing: Clinical Impression(s) from Imaging Studies Abdomen/Pelvis CT 07/26/21 09:19 IMPRESSION: Normal enhanced CT of the abdomen and pelvis. Electronically Signed: Jarad Rascon MD at 11:42 EST Tel , Service support , Discharge Plan Triage Chief Complaint: GI Bleed ED Provider: Ludwig Flannery Dx/Rx/DC Orders Prescriptions: No Action pramipexole 0.75 mg tablet 0.375 mg PO TID RF: 0 gabapentin 300 mg capsule 300 mg PO TID RF: 0 lidocaine 5 % adhesive patch,medicated 1 patch TOPICAL DAILY PRN (Reason: Pain Score 1-10) RF: 0 azithromycin [Zithromax Z-Lobo] 250 mg tablet See Rx Instructions PO .COMPLEX Qty: 6 RF: 0 aspirin 81 MG tablet 81 mg PO DAILY@0800 RF: 0 Rebif 44 mcg SC DIRECTED RF: 0 baclofen 10 mg tablet 10 mg PO Q8H PRN (Reason: Pain Score 1-10) RF: 0 atorvastatin 80 mg tablet 80 mg PO QHS Qty: 90 RF: 4 clopidogrel 75 mg tablet 75 mg PO QDAY Qty: 90 RF: 4 metoprolol tartrate 25 mg tablet 25 mg PO BID Qty: 180 RF: 4 furosemide 20 mg tablet 20 mg PO DAILY Qty: 30 RF: 11 potassium chloride 20 mEq tablet extended release 20 meq PO DAILY Qty: 30 RF: 11 Primary Care Provider: Francisco Hong
[2021-07-26 09:44] LABS: Absolute Lymphocyte Count 1.05 X10^3/uL (0.83-4.51); Absolute Neutrophil Count 3.9 X10^3/uL (2.0-7.7); Basophil# 0.03 X10^3/uL; Basophil% 0.5 % (0-1); Eosinophil# 0.12 X10^3/uL; Eosinophils% 2.1 % (0-5); Hematocrit 28.1 % (37-47); Hemoglobin 8.3 g/dL (12.0-15.0); Lymphocyte # 1.05 X10^3/ul (0.83-4.51); Lymphocyte % 18.8 % (19-41); Mean Corp Hgb Conc 29.5 g/dL (32-36); Mean Corpuscular Hgb 23.3 pg (27.0-32.0); Mean Corpuscular Volume 78.9 fL (81-99); Mean Platelet Vol. 9.1 fl (6.2-12.0); Monocyte# 0.49 X10^3/uL; Monocyte% 8.8 % (0-10); NRBC Flagged by Analyzer 0 % (0-5); Neutrophil # 3.89 X10^3/uL (2.7-7.7); Neutrophil % 69.6 % (47-70); Platelet Count 332 K/mm3 (150-450); RBC Distribution Width CV 16.1 % (11.6-14.6); RBC Distribution Width SD 46.3 fl (35.1-43.9); Red Blood Count 3.56 M/mm3 (4.2-5.4); White Blood Count 5.6 K/mm3 (4.4-11.0)
[2021-07-26 09:58] LABS: ALB/GLOB Ratio 0.8 RATIO (0.9-2.4); AST(SGOT) 17 U/L (15-37); Alanine Aminotransfer ALT/SGPT 33 U/L (13-56); Albumin, Serum 2.7 g/dL (3.2-5.0); Alkaline Phosphatase 51 U/L (45-117); Anion Gap 4 (5-15); BUN 31 mg/dL (7-18); BUN/Creat Ratio 63.7 RATIO (10-20); Calcium,Total 8.1 mg/dL (8.5-10.1); Chloride 109 mmol/L (98-107); Creatinine, Serum 0.49 mg/dL (0.55-1.02); EST Glomerular Filtration Rate 140 mL/min (>60); Est Glom Filt Rate - Afr Amer 170 mL/min (>60); Estimated Creatinine Clearance 97.89 ml/min; Globulin 3.4 g/dL (2.2-4.2); Glucose 92 mg/dL (74-106); Lipase 99 U/L (73-393); Potassium 4.5 mmol/L (3.5-5.1); Protein, Total 6.1 g/dL (6.4-8.2); Sodium Level 139 mmol/L (136-145)
[2021-07-26] MEDS: Morphine 4 MG/ML Syringe IV ×2 (10:05→15:24)
[2021-07-26] MEDS: Ondansetron 4 MG/2 ML Vial IV ×2 (10:05→23:48)
[2021-07-26] MEDS: 0.9% Normal Saline 1,000 ML 1000 ML IV (10:05)
[2021-07-26 10:30] LABS: Bacteria 0 SEEN /hpf (None Seen); Mucous, Urine 0 SEEN /hpf (<or=2+); Red Blood Cells-Urine 0 SEEN /hpf (0-5); Squamous Epithelial Cells - UA 0 SEEN /hpf (5-10); White Blood Cells 0 SEEN /hpf (0-5)
[2021-07-26 10:36] LABS: Color, Urine Yellow (Yellow); Glucose, Dipstick Normal (Normal); Ketone-Dipstick 5 mg/dl (Negative); Leukocyte Esterase-Dipstick Negative /ul (Negative); Nitrite-Dipstick Negative (Negative); Occult Blood-Urine Negative /ul (Negative); Protein-Dipstick Negative (Negative); Urine Bilirubin Dipstick Negative (Negative); Urine Clarity Clear (Clear); Urine Urobilinogen Normal (Normal); Urine pH 6.5 (5.0 - 8.0)
--- NOTE | 2021-07-26 13:23 | NURSING ---
MED SURG TERELETSREID UPPER GI BLEED
--- NOTE | 2021-07-26 13:53 | PCM.HP.STD ---
Documented by User: Taj DICKINSON 07/26/21 14:31 HPI - General General Date of Admission: 07/26/21 Date of Service: 07/26/21 Chief Complaint: Hematemesis HPI Narrative GENNY PIERCE is a 56-year-old female who presents to the ED at [facility] on 07/26/2021 with a 1 day history of hematemesis. Patient reports that last night and shortly after having dinner she suffered an episode of hematemesis, patient ignored this initial episode and proceeded to go to bed. Patient states that earlier this morning she started vomiting again and noticed blood in her vomit once more. Patient is now also reporting some epigastric pain that is progressively gotten worse over the course of the evening. Patient denies any bright red blood per rectum or dark melanotic stools. Patient denies any recent NSAID use, although she is on aspirin and Plavix for CAD status post stenting placed in 2016. Patient follows with Dr. Luque. Patient denies chest pain, shortness of breath, palpitations, sputum production, fever, or chills. Vital signs in the ED are temperature of 97.4 ?F, HR of 103, BP of 147/84, RR of 16 and patient is currently satting 98% on room air. CBC shows WBCs of 5.6, hemoglobin of 8.3 and platelets at 332. BMP shows sodium at 139, potassium 4.5, creatinine at 0.49 and calcium at 8.1. UA obtained in the ED was unremarkable. CT of the abdomen/pelvis was unremarkable. Patient was started on Protonix in the ED and will be transferred to the floor for management and evaluation of hematemesis. [facility] Medical History (Updated 07/26/21 @ 14:18 by Taj DICKINSON) Acute ST elevation myocardial infarction Atherosclerotic heart disease of [place] coronary artery without angina pectoris Hyperlipidemia Ischemic cardiomyopathy Long-term use of high-risk medication Multiple sclerosis Paroxysmal supraventricular tachycardia Smoking addiction SVT (supraventricular tachycardia) Home Medications aspirin 81 mg PO DAILY@0800 tab 03/06/17 [Rx Last Taken Unknown] Rebif 44 mcg SC DIRECTED 07/20/17 [History Last Taken Unknown] baclofen 10 mg tablet 10 mg PO Q8H PRN tab 05/07/19 [History Last Taken Unknown] gabapentin 300 mg capsule 300 mg PO TID 05/07/19 [History Last Taken Unknown] pramipexole 0.75 mg tablet 0.375 mg PO TID tab 05/07/19 [History Last Taken Unknown] lidocaine 5 % topical patch 1 patch TOPICAL DAILY PRN 12/07/19 [History Last Taken Unknown] atorvastatin 80 mg tablet 80 mg PO QHS #90 tab 11/07/20 [Rx Last Taken Unknown] clopidogrel 75 mg tablet 75 mg PO QDAY #90 tab 11/07/20 [Rx Last Taken Unknown] metoprolol tartrate 25 mg tablet 25 mg PO BID #180 tab 11/07/20 [Rx Last Taken Unknown] furosemide 20 mg tablet 20 mg PO DAILY #30 tab 03/05/21 [Rx Last Taken Unknown] potassium chloride 20 mEq tablet,extended release 20 meq PO DAILY #30 tab 03/05/21 [Rx Last Taken Unknown] azithromycin 250 mg tablet See Rx Instructions PO .COMPLEX #6 tab 06/20/21 [Rx Last Taken Unknown] Allergy/AdvReac Type Severity Reaction Status Date / Time egg Allergy Hives Verified 07/26/21 08:56 sulfamethoxazole Allergy Unknown Verified 07/26/21 08:56 [From Bactrim] trimethoprim [From Bactrim] Allergy Unknown Verified 07/26/21 08:56 Penicillins AdvReac Vomiting Verified 07/26/21 08:56 Family History (Updated 07/26/21 @ 14:13 by Taj DICKINSON) Mother CAD (coronary artery disease) Father CAD (coronary artery disease) CVA (cerebral vascular accident) Surgical History History of History of coronary artery stent placement (03/02/17) Social History (Updated 07/26/21 @ 14:14 by Taj DICKINSON) Smoking Status: Former smoker quit date: 07/26/17 pack-years: 18 how long ago did patient quit smokin03/02/2017 alcohol intake: current alcohol intake frequency: holidays/special occasions only substance use type: does not use ROS Constitutional Constitutional: Reports weakness; Denies anorexia, change in weight, chills, fatigue, fever(s), malaise, night sweats or other Eyes Eyes: Denies blurry vision, change in eye color, change in vision, discharge from eye(s), double vision, erythema, eye pain, loss of vision or other ENT HEENT: Denies abnormal hearing, dysphagia, ear pain, epistaxis, headache(s), hearing loss, nasal congestion, nasal discharge, post nasal drip, sinus pressure, sore throat or other Cardiovascular Cardiovascular: Denies chest pain, claudication, dyspnea on exertion, edema, lightheadedness, orthopnea, palpitations, paroxysmal nocturnal dyspnea, rapid heart rate, syncope or other Respiratory/Chest Respiratory/Chest: Denies cough, dyspnea, excessive phlegm production, hemoptysis, productive cough, shortness of breath at rest, shortness of breath with exertion, wheezing or other Gastrointestinal Gastrointestinal: Reports abdominal pain, hematemesis and vomiting; Denies coffee ground emesis, constipation, diarrhea, dyspepsia, hematochezia, loose stools, melena, nausea or other Genitourinary Genitourinary: Denies burning urination, difficulty urinating, dysuria, hematuria, nocturia, urinary frequency, urinary hesitancy, urinary incontinence, urinary urgency or other Musculoskeletal Musculoskeletal: Denies arthralgias, back pain, joint pain, joint stiffness, joint swelling, myalgias, neck pain or other Neurologic Neurologic: Denies abnormal gait, abnormal speech, confusion, disequilibrium, dizziness, focal weakness, headache(s), numbness, paresthesias, seizure-like activity, seizures, syncope, tingling, tremor(s) or other Psychiatric Psychiatric: Denies anxiety, depression, homicidal ideation, suicidal ideation or other Endocrine Endocrinology: Denies change in body appearance, cold intolerance, excessive sweating, heat intolerance, polydipsia, polyuria or other Hematologic/Lymphatic Hematologic/Lymphatic: Denies anemia, easy bleeding, easy bruising, lymphadenopathy or other Allergic/Immunologic Allergic/Immunologic: Denies rhinitis, hives, eczemia, asthma or other Vital Signs Vital Signs Vital Signs: 07/26/21 08:54 07/26/21 12:49 Temperature 97.4 F L Temperature Source Temporal Pulse Rate 103 H 76 Respiratory Rate 16 16 Blood Pressure 147/84 H 142/80 H Blood Pressure Mean 105 100 Pulse Ox 98 97 Oxygen Delivery Method Room Air Room Air Weight Weight: 117 lb Body Mass Index (BMI) 22.1 Physical Exam Const alert and oriented x3 General Appearance: cooperative HEENT normocephalic, head/scalp atraumatic and hearing grossly normal bilaterally Eyes PERRL, EOMs intact bilaterally and conjunctivae normal Neck no lymphadenopathy, supple and no JVD Resp normal respiratory effort, no retractions, no use of accessory muscles and clear to auscultation bilaterally Cardio regular rate, regular rhythm, no murmurs and no JVD GI normal to inspection, nondistended, normoactive bowel sounds and soft to palpation Palpation: tender epigastric Extremity normal to inspection, full ROM and no clubbing, cyanosis or edema Skin no rashes or lesions noted, no wounds, skin turgor normal and no jaundice Neuro CN's II-XII intact bilaterally Psych affect normal Results Lab / Micro Data Result Diagrams: 07/26/21 09:33 07/26/21 09:33 Labs: Laboratory Results - last 24 hr 07/26/21 09:33: WBC 5.6, RBC 3.56 L, Hgb 8.3 L, Hct 28.1 L, MCV 78.9 L, MCH 23.3 L, MCHC 29.5 L, RDW Std Deviation 46.3 H, RDW Coeff of [place] 16.1 H, Plt Count 332, MPV 9.1, Immature Gran % (Auto) 0.200, Neut % (Auto) 69.6, Lymph % (Auto) 18.8 L, [place] % (Auto) 8.8, Eos % (Auto) 2.1, Baso % (Auto) 0.5, Absolute Neuts (auto) 3.9, Absolute Lymphs (auto) 1.05, Nucleated RBC % 0 07/26/21 09:33: Sodium 139, Potassium 4.5, Chloride 109 H, Carbon Dioxide 26.0, Anion Gap 4 L, BUN 31 H, Creatinine 0.49 L, Estim Creat Clear Calc 97.89, Est GFR (MDRD) Af Amer 170, Est GFR (MDRD) Non-Af 140, BUN/Creatinine Ratio 63.7 H, Glucose 92, Calcium 8.1 L, Total Bilirubin 0.20, AST 17, ALT 33, Alkaline Phosphatase 51, Total Protein 6.1 L, Albumin 2.7 L, Globulin 3.4, Albumin/Globulin Ratio 0.8 L, Lipase 99 07/26/21 10:20: Blood Type AB POSITIVE, Antibody Screen NEGATIVE 07/26/21 10:20: Urine Color Yellow, Urine Clarity Clear, Urine pH 6.5, Ur Specific [place] 1.010, Urine Protein Negative, Urine Glucose (UA) Normal, Urine Ketones 5 H, Urine Occult Blood Negative, Urine Nitrite Negative, Urine Bilirubin Negative, Urine Urobilinogen Normal, Ur Leukocyte Esterase Negative, Urine RBC 0 SEEN, Urine WBC 0 SEEN, Ur Squamous Epith Cells 0 SEEN, Urine Bacteria 0 SEEN, Urine Mucus 0 SEEN Radiology Impression Abdomen/Pelvis CT 07/26/21 09:19 IMPRESSION: Normal enhanced CT of the abdomen and pelvis. Electronically Signed: Jarad Rascon MD at 11:42 EST Tel , Service support , Assessment & Plan Assessment/Plan (1) Hematemesis: (2) Acute blood loss anemia: PLAN: Patient is a 56-year-old female who presents to the ED at [facility] on 07/26/2021 with a chief complaint of hematemesis. Patient will be admitted for management and evaluation of suspected upper GI bleed. 1) hematemesis with acute blood loss anemia Patient presents with a 1 day history of multiple episodes of hematemesis with progressively worsening epigastric pain. Vital signs are currently stable and do not demonstrate any evidence of hemodynamic compromise. Hemoglobin is 8.3, baseline appears around 10. Patient denies any bright red blood per rectum, blood on the toilet paper or dark melanotic stools. Plan; admit to PCU, continue PPI infusion, GI consult ordered, n.p.o. at midnight for suspected endoscopy in a.m., hold aspirin and Plavix regimen, serial H&H every 6 hours ordered, CBC and BMP in a.m. 2) CAD status post stent Patient had prior PCI with stent to the LAD in 2016. Patient follows with Dr. Luque and is on aspirin and Plavix. Hold aspirin and Plavix secondary to #1. 3) ischemic cardiomyopathy Echocardiogram obtained in December 2020 demonstrated normal LV systolic function and an estimated EF of 55% with no evidence of diastolic dysfunction. Patient home medication regimen includes Lasix and metoprolol. We will continue once verified. 4) history of multiple sclerosis Not in acute exacerbation, on Rebif. DVT prophylaxis - Low risk, not indicated. CODE STATUS: Full code Advance care planning: Patient does not have a healthcare power of creel cleaner or living will. Patients Letha Pierce is to make medical decisions for patient in the event that she could not herself. Patient seen by Taj Fernández PA-C, under the supervision of Dr. Reyes. Documented by User: Dr. Иван Reyes, DO 07/26/21 19:06 HPI - General General Date of Admission: 07/26/21 [facility] Medical History (Updated 07/26/21 @ 14:18 by Taj DICKINSON) Acute ST elevation myocardial infarction Atherosclerotic heart disease of [place] coronary artery without angina pectoris Hyperlipidemia Ischemic cardiomyopathy Long-term use of high-risk medication Multiple sclerosis Paroxysmal supraventricular tachycardia Smoking addiction SVT (supraventricular tachycardia) Home Medications aspirin 81 mg PO DAILY@0800 tab 03/06/17 [Rx Last Taken Unknown] Rebif 44 mcg SC DIRECTED 07/20/17 [History Last Taken Unknown] baclofen 10 mg tablet 10 mg PO Q8H PRN tab 05/07/19 [History Last Taken Unknown] gabapentin 300 mg capsule 300 mg PO TID 05/07/19 [History Last Taken Unknown] pramipexole 0.75 mg tablet 0.375 mg PO TID tab 05/07/19 [History Last Taken Unknown] lidocaine 5 % topical patch 1 patch TOPICAL DAILY PRN 12/07/19 [History Last Taken Unknown] atorvastatin 80 mg tablet 80 mg PO QHS #90 tab 11/07/20 [Rx Last Taken Unknown] clopidogrel 75 mg tablet 75 mg PO QDAY #90 tab 11/07/20 [Rx Last Taken Unknown] metoprolol tartrate 25 mg tablet 25 mg PO BID #180 tab 11/07/20 [Rx Last Taken Unknown] furosemide 20 mg tablet 20 mg PO DAILY #30 tab 03/05/21 [Rx Last Taken Unknown] potassium chloride 20 mEq tablet,extended release 20 meq PO DAILY #30 tab 03/05/21 [Rx Last Taken Unknown] azithromycin 250 mg tablet See Rx Instructions PO .COMPLEX #6 tab 06/20/21 [Rx Last Taken Unknown] Allergy/AdvReac Type Severity Reaction Status Date / Time egg Allergy Hives Verified 07/26/21 08:56 sulfamethoxazole Allergy Unknown Verified 07/26/21 08:56 [From Bactrim] trimethoprim [From Bactrim] Allergy Unknown Verified 07/26/21 08:56 Penicillins AdvReac Vomiting Verified 07/26/21 08:56 Family History (Updated 07/26/21 @ 14:13 by Taj DICKINSON) Mother CAD (coronary artery disease) Father CAD (coronary artery disease) CVA (cerebral vascular accident) Surgical History History of History of coronary artery stent placement (03/02/17) Social History (Updated 07/26/21 @ 14:14 by Taj DICKINSON) Smoking Status: Former smoker quit date: 07/26/17 pack-years: 18 how long ago did patient quit smokin03/02/2017 alcohol intake: current alcohol intake frequency: holidays/special occasions only substance use type: does not use Results Lab / Micro Data Result Diagrams: 07/26/21 09:33 07/26/21 09:33 Charges/Coding Addendum Addendum: Patient was seen and examined independently of Taj Fernández, she came to the ER today at [facility] with complaints of vomiting of blood today. Patient has had no previous history of gastric ulcer or gastritis according to the patient. On examination she appeared frail and older than her stated age, she does not appear to be in any distress. Vital signs as documented. Skin warm and dry and without overt rashes. Neck without JVD, thyroid appears normal, trachea is midline, neck is supple. Lungs clear, normal air movement was noted. Heart exam notable for regular rhythm, normal sounds and absence of murmurs, rubs or gallops. Abdomen unremarkable and without evidence of organomegaly, masses, or abdominal aortic enlargement, bowel sounds are present in all 4 quadrants, no abdominal tenderness was noted. Extremities nonedematous, no cyanosis was noted, no clubbing was noted. Neuro: Cranial nerves II through XII are grossly intact, no focal motor deficits were noted, sensation to light touch and pinprick is intact, motor exam 5/5 throughout. Psych: Patient is alert and oriented x3, she does not appear anxious or depressed, she does not appear agitated. Labs were remarkable for hemoglobin of 8.3, BUN was 31, urinalysis was unremarkable. Dr. Rutledge was contacted by the emergency room, he advised to place the patient on a Protonix drip, patient will be admitted to the hospital, she will be transfused 2 units of packed red blood cells, she will undergo endoscopy tomorrow. Her Plavix and aspirin will be held at this time. I have reviewed Taj Fernández's history and physical including his medical assessment and plan of care and endorse it. Visit Charges Inpatient E&M: 22876 Init Hosp L3
--- NOTE | 2021-07-26 18:57 | ED.RN ---
1840: Dr Deng notified of VS. Orders infusion of 1 unit. Recheck BP at 92/67, 116, 95% Physician aware.
[2021-07-26 19:18] LABS: Hematocrit 21.1 % (37-47); Hemoglobin 6.1 g/dL (12.0-15.0)
--- NOTE | 2021-07-26 19:55 | ED.RN ---
This RN took over care at 1900. Morphine reassessment not done.
--- NOTE | 2021-07-26 22:15 | PCS.PANDOC ---
PANDEMIC DOCUMENTATION INITIATED: Date: 03/30/2021 Time: 190
[2021-07-26] MEDS: Atorvastatin Calcium 80 MG Tablet PO (22:46)
--- NOTE | 2021-07-26 23:00 | CON.PCM.GI_ITS ---
HPI Consult Data Date of Consult: 07/27/21 HPI Narrative HPI Narrative: GENNY PIERCE, is a 56 F who presents to the ED at [facility] on 07/26/2021 with a 1 day history of hematemesis. She has a past medical history of ST segment elevation DE status post PTCA with stents in LAD in 2017. She also has a history of hyperlipidemia, multiple sclerosis and SVT. Patient reports that last night and shortly after having dinner she suffered an episode of hematemesis, patient ignored this initial episode and proceeded to go to bed. Patient states that earlier this morning she started vomiting again and noticed blood in her vomit once more. Vital signs in the ED are temperature of 97.4 ?F, HR of 103, BP of 147/84, RR of 16 and patient is currently satting 98% on room air. CBC shows WBCs of 5.6, hemoglobin of 8.3 and platelets at 332. BMP shows sodium at 139, potassium 4.5, creatinine at 0.49 and calcium at 8.1. UA obtained in the ED was unremarkable. CT of the abdomen/pelvis was unremarkable. Patient was started on Protonix in the ED and will be transferred to the floor for management and evaluation of hematemesis. [facility] Medical History (Updated 07/26/21 @ 14:18 by Taj DICKINSON) Acute ST elevation myocardial infarction Atherosclerotic heart disease of [place] coronary artery without angina pectoris Hyperlipidemia Ischemic cardiomyopathy Long-term use of high-risk medication Multiple sclerosis Paroxysmal supraventricular tachycardia Smoking addiction SVT (supraventricular tachycardia) Home Medications aspirin 81 mg PO DAILY@0800 tab 03/06/17 [Rx Last Taken Unknown] Rebif 44 mcg SC DIRECTED 07/20/17 [History Last Taken Unknown] baclofen 10 mg tablet 10 mg PO PRN PRN tab 05/07/19 [History Last Taken Unknown] gabapentin 300 mg capsule 300 mg PO TID 05/07/19 [History Last Taken Unknown] pramipexole 0.75 mg tablet 0.375 mg PO TID tab 05/07/19 [History Last Taken Unknown] lidocaine 5 % topical patch 1 patch TOPICAL PRN PRN 12/07/19 [History Last Taken Unknown] atorvastatin 80 mg tablet 80 mg PO QHS #90 tab 11/07/20 [Rx Last Taken Unknown] clopidogrel 75 mg tablet 75 mg PO QDAY #90 tab 11/07/20 [Rx Last Taken Unknown] azithromycin [Zithromax Z-Lobo] See Rx Instructions PO .COMPLEX 07/26/21 [History Last Taken Unknown] furosemide 20 mg PO DAILY 07/26/21 [History Last Taken Unknown] metoprolol tartrate 25 mg PO BID 07/26/21 [History Last Taken Unknown] potassium chloride 20 meq PO DAILY 07/26/21 [History Last Taken Unknown] Allergy/AdvReac Type Severity Reaction Status Date / Time egg Allergy Hives Verified 07/26/21 08:56 sulfamethoxazole Allergy Unknown Verified 07/26/21 08:56 [From Bactrim] trimethoprim [From Bactrim] Allergy Unknown Verified 07/26/21 08:56 Penicillins AdvReac Vomiting Verified 07/26/21 08:56 Family History (Updated 07/26/21 @ 14:13 by Taj DICKINSON) Mother CAD (coronary artery disease) Father CAD (coronary artery disease) CVA (cerebral vascular accident) Surgical History History of History of coronary artery stent placement (03/02/17) Social History (Updated 07/26/21 @ 14:14 by Taj DICKINSON) Smoking Status: Former smoker quit date: 07/26/17 pack-years: 18 how long ago did patient quit smokin03/02/2017 alcohol intake: current alcohol intake frequency: holidays/special occasions only substance use type: does not use ROS Review of Systems ROS Unobtainable: other Constitutional Constitutional: Denies fatigue, fever(s), poor appetite, weight gain or weight loss ENT HEENT: Denies mouth lesions Cardiovascular Cardiovascular: Denies abdominal bloating, abdominal edema or abdominal pain Respiratory/Chest Respiratory/Chest: Denies change in mental status, change in phlegm color, chest congestion or chest tightness Gastrointestinal Gastrointestinal: Reports hematemesis and nausea; Denies belching, bloating, change in bowel habits, change in stool character, chewing difficulty, coffee ground emesis, constipation, cramping, diarrhea, dyspepsia, dysphagia, early satiety, excessive flatus, fecal incontinence, heartburn, hematochezia, hemorrhoids, loose stools, melena, odynophagia, rectal bleeding, tenesmus, vomiting or weight changes Genitourinary Genitourinary: Denies abdominal discomfort, burning urination or itching Musculoskeletal Musculoskeletal: Reports as per HPI; Denies muscle weakness or myalgias Integumentary Integumentary: Denies jaundice Neurologic Neurologic: Denies lack of coordination or weakness Psychiatric Psychiatric: Denies confusion, depression, memory loss, mood swings, paranoia or suicidal ideation Endocrine Endocrinology: Denies systems reviewed and no addt'l complaints, except as documented Hematologic/Lymphatic Hematologic/Lymphatic: Denies anemia, easy bleeding, easy bruising or lymphadenopathy Allergic/Immunologic Allergic/Immunologic: Denies systems reviewed and no addt'l complaints, except as documented Physical Exam Const alert General Appearance: cooperative Orientation / Consciousness: oriented to person HEENT hearing grossly normal bilaterally Head and Scalp: normal to inspection Face and Sinus: face symmetric Nose: external nose normal Mouth: oral and palatal mucosa normal Eyes conjunctivae normal General Eye: normal appearance of both eyes Neck full ROM General: normal visual inspection Lymph Lymphatic: no lymphadenopathy noted Chest inspection of chest normal and palpation of chest normal Chest: symmetrical chest wall rise Resp normal respiratory effort Effort and Inspection: able to speak in complete sentences Cardio regular rate GI non-distended Percussion: normal to percussion Rectal Exam: deferred Neuro Speech: speech normal Gait (Neuro): normal gait Lab / Micro Data Result Diagrams: 07/27/21 05:58 07/27/21 05:58 Labs: Laboratory Results - last 24 hr 07/26/21 10:10: Crossmatch See Detail 07/26/21 10:10: Crossmatch See Detail 07/26/21 10:20: Blood Type AB POSITIVE, Antibody Screen NEGATIVE 07/26/21 18:54: Hgb 6.1 L, Hct 21.1 L 07/27/21 01:37: Hgb 7.3 L, Hct 23.4 L 07/27/21 05:58: WBC 5.6, RBC 2.75 L, Hgb 7.4 L, Hct 23.7 L, MCV 86.2 D, MCH 26.9 L, MCHC 31.2 L D, RDW Std Deviation 51.2 H, RDW Coeff of Rosette 16.4 H, Plt Count 261, MPV 9.6, Immature Gran % (Auto) 0.200, Neut % (Auto) 57.9, Lymph % (Auto) 30.4, [place] % (Auto) 10.1 H, Eos % (Auto) 0.9, Baso % (Auto) 0.5, Absolute Neuts (auto) 3.3, Absolute Lymphs (auto) 1.71, Nucleated RBC % 0 07/27/21 05:58: Sodium 142, Potassium 4.0, Chloride 115 H, Carbon Dioxide 23.0, Anion Gap 4 L, BUN 39 H, Creatinine 0.46 L, Estim Creat Clear Calc 104.27, Est GFR (MDRD) Af Amer 181, Est GFR (MDRD) Non-Af 150, BUN/Creatinine Ratio 84.8 H, Glucose 104, Calcium 7.1 L 07/27/21 05:58: PT 15.0 H, INR 1.2, APTT 28.9 Micro: Microbiology 07/27/21 10:15 Nasal Secretion SARS-CoV-2 Antigen (Rapid) - Final Radiology Impression Abdomen/Pelvis CT 07/26/21 09:19 IMPRESSION: Normal enhanced CT of the abdomen and pelvis. Electronically Signed: Jarad Rascon MD at 11:42 EST Tel , Service support , Assessment & Plan Assessment/Plan (1) Hematemesis: PLAN: The differential diagnosis does include a Ligia-Weiner tear in the setting of anticoagulation and antiplatelet therapy. Also differential diagnosis would be peptic ulcer disease, AVMs and less likely malignancy. She was explained alternatives, risk, benefits including not withstanding bleeding, infection, sepsis, perforation, need for emergent surgery . She will have an ASA of 3. (2) Acute blood loss anemia: Charges/Coding Visit Charges Inpatient E&M: 28470 Init Hosp L2
[2021-07-26] MEDS: 0.9% Normal Saline 1,000 ML 125 ML IV (23:21)
[2021-07-26] MEDS: Pramipexole Di-HCl 0.25 MG Tablet 0.75 MG PO (23:49)
[2021-07-26] MEDS: Acetaminophen 325 MG Tablet 650 MG PO (23:49)
[2021-07-27] VITALS (20 sets, daily range): BP systolic 81–130; BP diastolic 51–79; PULSE 97–131; RESP 16–18; TEMP 36.6–37.6; O2SAT 83–100; BMI 22.1
[2021-07-27 01:54] LABS: Hematocrit 23.4 % (37-47); Hemoglobin 7.3 g/dL (12.0-15.0)
[2021-07-27] MEDS: proCHLORPERazine 10 MG/2 ML Vial 5 MG IV (05:32)
[2021-07-27] MEDS: Morphine 2 MG/ML Syringe 1 MG IV (05:33)
--- NOTE | 2021-07-27 05:55 | EKG12_ITS ---
Test Reason : AM EKG Blood Pressure : / mmHG Vent. Rate : 111 BPM Atrial Rate : 111 BPM P-R Int : 126 ms QRS Dur : 064 ms QT Int : 290 ms P-R-T Axes : 068 -11 031 degrees QTc Int : 394 ms Sinus tachycardia Nonspecific ST and T wave abnormality Abnormal ECG When compared with ECG of 26-JUL-2021 09:52, MANUAL COMPARISON REQUIRED, DATA IS UNCONFIRMED Confirmed by CATHERINE MEYER, MINDY ([id number]), acquisition editor EVA PETERS ([id number]) on 07/28/2021 7:38:11 AM Referred By: DR BALBUENA Confirmed By:MINDY ALEXANDER MD
[2021-07-27 07:01] LABS: Absolute Lymphocyte Count 1.71 X10^3/uL (0.83-4.51); Absolute Neutrophil Count 3.3 X10^3/uL (2.0-7.7); Basophil# 0.03 X10^3/uL; Basophil% 0.5 % (0-1); Eosinophil# 0.05 X10^3/uL; Eosinophils% 0.9 % (0-5); Hematocrit 23.7 % (37-47); Hemoglobin 7.4 g/dL (12.0-15.0); Lymphocyte # 1.71 X10^3/ul (0.83-4.51); Lymphocyte % 30.4 % (19-41); Mean Corp Hgb Conc 31.2 g/dL (32-36); Mean Corpuscular Hgb 26.9 pg (27.0-32.0); Mean Corpuscular Volume 86.2 fL (81-99); Mean Platelet Vol. 9.6 fl (6.2-12.0); Monocyte# 0.57 X10^3/uL; Monocyte% 10.1 % (0-10); NRBC Flagged by Analyzer 0 % (0-5); Neutrophil # 3.26 X10^3/uL (2.7-7.7); Neutrophil % 57.9 % (47-70); Platelet Count 261 K/mm3 (150-450); RBC Distribution Width CV 16.4 % (11.6-14.6); RBC Distribution Width SD 51.2 fl (35.1-43.9); Red Blood Count 2.75 M/mm3 (4.2-5.4); White Blood Count 5.6 K/mm3 (4.4-11.0)
[2021-07-27 07:06] LABS: International Normalized Ratio 1.2
[2021-07-27 07:07] LABS: Partial Thromboplast Time 28.9 Seconds (24.1-36.2)
[2021-07-27 07:20] LABS: Anion Gap 4 (5-15); BUN 39 mg/dL (7-18); BUN/Creat Ratio 84.8 RATIO (10-20); Calcium,Total 7.1 mg/dL (8.5-10.1); Chloride 115 mmol/L (98-107); Creatinine, Serum 0.46 mg/dL (0.55-1.02); EST Glomerular Filtration Rate 150 mL/min (>60); Est Glom Filt Rate - Afr Amer 181 mL/min (>60); Estimated Creatinine Clearance 104.27 ml/min; Glucose 104 mg/dL (74-106); Sodium Level 142 mmol/L (136-145)
[2021-07-27] MEDS: 0.9% Saline Lock 10 ML Syringe IV (09:20)
[2021-07-27] MEDS: Lactated Ringers 1,000 ML 100 ML IV (11:00)
--- NOTE | 2021-07-27 11:02 | OP.CCLET_ITS ---
04/21/2022 Francisco Hong Re : Upper GI endoscopy procedure for Helena Azul Dear Hal This procedure was performed on Tuesday, July 27, 2021. My impressions and recommendations are as follows: Impressions : - LA Grade B reflux esophagitis. - Dieulafoy lesion of stomach. - Clotted blood in the entire stomach. - Normal second portion of the duodenum. - No specimens collected. Recommendations : - Return [facility] to [facility] care. - Use a proton pump inhibitor IV 8 mg every 8 hours via drip today. - Clear liquid diet today. - Return to my office in 2 weeks. - The patient has taken no previous anticoagulant or antiplatelet agents. - No aspirin, ibuprofen, naproxen, or other non-steroidal anti-inflammatory drugs for 7 days. My findings are described in the full procedure note, which is enclosed. If I can be of further assistance, please feel free to contact me at . Sincerely, Mike Rutledge, 07/27/2021 11:02:29 AM This report has been signed electronically.
--- NOTE | 2021-07-27 11:02 | OP.EGD_ITS ---
Patient Name: Helena Azul Procedure Date: 07/27/2021 10:12 AM Date of : 1965 Age: 56 Procedure: Upper GI endoscopy Indications: Coffee-ground emesis, Hematemesis Providers: Mike Rutledge DO Medicines: See the Anesthesia note for documentation of the administered medications Patient Profile: This is a 56 year old female. Refer to note in patient chart for documentation of history and physical. Patient has symptoms of acute vomiting. The symptoms first began 01,. Complications: No immediate complications. Procedure: Pre-Anesthesia Assessment: - Prior to the procedure, a History and Physical was performed, and patient medications and allergies were reviewed. The patient is competent. The risks and benefits of the procedure and the sedation options and risks were discussed with the patient. All questions were answered and informed consent was obtained. Patient identification and proposed procedure were verified by the physician in the pre-procedure area. Mental Status Examination: alert and oriented. Airway Examination: normal oropharyngeal airway and neck mobility. Respiratory Examination: clear to auscultation. CV Examination: normal. Prophylactic Antibiotics: The patient does not require prophylactic antibiotics. Prior Anticoagulants: The patient has taken no previous anticoagulant or antiplatelet agents. After reviewing the risks and benefits, the patient was deemed in satisfactory condition to undergo the procedure. The anesthesia plan was to use moderate sedation / analgesia (conscious sedation). Immediately prior to administration of medications, the patient was re-assessed for adequacy to receive sedatives. The heart rate, respiratory rate, oxygen saturations, blood pressure, adequacy of pulmonary ventilation, and response to care were monitored throughout the procedure. The physical status of the patient was re-assessed after the procedure. After obtaining informed consent, the endoscope was passed under direct vision. Throughout the procedure, the patient's blood pressure, pulse, and oxygen saturations were monitored continuously. The Endoscope was introduced through the mouth, and advanced to the second part of duodenum. The upper GI endoscopy was accomplished without difficulty. The patient tolerated the procedure well. Moderate Sedation: Moderate (conscious) sedation was administered by the endoscopy nurse and supervised by the endoscopist. The patient's oxygen saturation, heart rate, blood pressure and response to care were monitored. Total physician intraservice time was 15 minutes. Moderate (conscious) sedation was personally administered by an anesthesia professional. The following parameters were monitored: oxygen saturation, heart rate, blood pressure, and response to care. Total physician intraservice time was 15 minutes. Scope In: 10:25:16 AM Scope Out: 10:47:50 AM Total Procedure Duration Time 0 hours 22 minutes 34 seconds Findings: LA Grade B (one or more mucosal breaks greater than 5 mm, not extending between the tops of two mucosal folds) esophagitis with no bleeding was found 34 to 35 cm from the incisors. A Dieulafoy lesion with oozing bleeding and stigmata of recent bleeding was found in the gastric fundus. Area was successfully injected with 5 mL of a 1:10,000 solution of epinephrine for drug delivery. Coagulation for hemostasis using argon beam at 0.3 liters/minute and 20 [place]mond was successful. To repair the defect, the tissue edges were approximated and four hemostatic clips were successfully placed. Closure of the defect was successful. There was no bleeding at the end of the procedure. Clotted blood was found in the entire examined stomach. The second portion of the duodenum was normal. Impression: - LA Grade B reflux esophagitis. - Dieulafoy lesion of stomach. - Clotted blood in the entire stomach. - Normal second portion of the duodenum. - No specimens collected. Recommendation: - Return patient to [facility] for ongoing care. - Use a proton pump inhibitor IV 8 mg every 8 hours via drip today. - Clear liquid diet today. - Return to my office in 2 weeks. - The patient has taken no previous anticoagulant or antiplatelet agents. - No aspirin, ibuprofen, naproxen, or other non-steroidal anti-inflammatory drugs for 7 days. Procedure Code(s): --- Professional --- 59215, Esophagogastroduodenoscopy, flexible, transoral; with control of bleeding, any method 09635, 59, Esophagogastroduodenoscopy, flexible, transoral; with directed submucosal injection(s), any substance 44521, 59, Moderate sedation services provided by the same physician or other qualified health managed care liaison performing the diagnostic or therapeutic service that the sedation supports, requiring the presence of an independent trained observer to assist in the monitoring of the patient's level of consciousness and physiological status; initial 15 minutes of intraservice time, patient age 5 years or older 76677, 59, Moderate sedation services provided by the same physician or other qualified health managed care liaison performing the diagnostic or therapeutic service that the sedation supports, requiring the presence of an independent trained observer to assist in the monitoring of the patient's level of consciousness and physiological status; initial 15 minutes of intraservice time, patient age 5 years or older CPT copyright 2017 [employer]. All rights reserved. The codes documented in this report are preliminary and upon asbestos siding mechanic review may be revised to meet current compliance requirements. Mike Rutledge DO 07/27/2021 11:02:29 AM This report has been signed electronically. Number of Addenda: 1 Note Initiated On: 07/27/2021 10:12 AM Addendum Number: 1 Addendum Date: 04/21/2022 7:08:42 AM MAC was used instead of moderate sedation for the patient. Mike Rutledge DO 04/21/2022 7:08:49 AM This report has been signed electronically.
--- NOTE | 2021-07-27 11:34 | CASEMGMT ---
Addendum entered by Laurita Rubi 07/27/21 13:05: 1208 Pt still out of dept for testing. Gilberto RN CM Original Note: This RN CM to room to complete CM assessment and pt is out of dept for EGD. This RN CM to attempt again later. Gilberto ESCALONA CM
[2021-07-27] MEDS: Pramipexole Di-HCl 0.25 MG Tablet 0.75 MG PO (12:32)
--- NOTE | 2021-07-27 13:12 | PN.HOSP_ITS ---
Documented by User: Taj DICKINSON 07/27/21 13:38 Subjective Subjective Patient is a 56-year-old female comfortably resting in bed status post endoscopy. Patient denies development of any new symptoms overnight. Does not appear in acute distress. Objective Data Objective Data Vital Signs: Vital Signs Temp Pulse Resp BP Pulse Ox 98.2 F 110 H 16 109/79 93 07/27/21 12:30 07/27/21 12:30 07/27/21 12:30 07/27/21 12:30 07/27/21 12:30 Oxygen Flow Rate (L/min) 2 Oxygen Delivery Method Room Air Weight: 117 lb 1.047 oz Body Mass Index (BMI) 22.1 Intake & Output: Intake and Output for Last 24 Hours 07/25/21 07/26/21 07/27/21 23:59 23:59 23:59 Intake Total 2089 1361.25 / 1361.25 Balance 2089 1361.25 / 1361.25 Lab / Micro Data Result Diagrams: 07/27/21 05:58 07/27/21 05:58 Labs: Laboratory Results - last 24 hr 07/26/21 10:10: Crossmatch See Detail 07/26/21 10:10: Crossmatch See Detail 07/26/21 18:54: Hgb 6.1 L, Hct 21.1 L 07/27/21 01:37: Hgb 7.3 L, Hct 23.4 L 07/27/21 05:58: WBC 5.6, RBC 2.75 L, Hgb 7.4 L, Hct 23.7 L, MCV 86.2 D, MCH 26.9 L, MCHC 31.2 L D, RDW Std Deviation 51.2 H, RDW Coeff of Rosette 16.4 H, Plt Count 261, MPV 9.6, Immature Gran % (Auto) 0.200, Neut % (Auto) 57.9, Lymph % (Auto) 30.4, [place] % (Auto) 10.1 H, Eos % (Auto) 0.9, Baso % (Auto) 0.5, Absolute Neuts (auto) 3.3, Absolute Lymphs (auto) 1.71, Nucleated RBC % 0 07/27/21 05:58: Sodium 142, Potassium 4.0, Chloride 115 H, Carbon Dioxide 23.0, Anion Gap 4 L, BUN 39 H, Creatinine 0.46 L, Estim Creat Clear Calc 104.27, Est GFR (MDRD) Af Amer 181, Est GFR (MDRD) Non-Af 150, BUN/Creatinine Ratio 84.8 H, Glucose 104, Calcium 7.1 L 07/27/21 05:58: PT 15.0 H, INR 1.2, APTT 28.9 Micro: Microbiology 07/27/21 10:15 Nasal Secretion SARS-CoV-2 Antigen (Rapid) - Final Physical Exam Const alert, oriented x3 and no apparent distress HEENT head/scalp atraumatic and moist oral mucous membranes Head and Scalp: normocephalic Eyes PERRL, EOMs intact bilaterally and conjunctivae normal Neck no lymphadenopathy, supple and no JVD Resp normal respiratory effort, no retractions, no use of accessory muscles and clear to auscultation bilaterally Cardio regular rate, regular rhythm, no murmurs and no JVD GI normal to inspection, nondistended, normoactive bowel sounds, soft to palpation and non-tender Extremity normal to inspection, full ROM and no clubbing, cyanosis or edema Peripheral Pulses: Yes pulses 2+ throughout Neuro CN's II-XII intact bilaterally Psych affect normal Assessment & Plan Assessment/Plan (1) Hematemesis: (2) Acute blood loss anemia: PLAN: Day 1 Discharge planning: Current plan is for patient to be discharged home. 1) hematemesis with acute blood loss anemia Patient transfused 2 units of PRBCs overnight due to hemoglobin dropping below 7. Hemoglobin currently 7.4. Patient underwent EGD this morning and results are as follows; grade B reflux esophagitis, dielufoy lesion of the stomach and clotted blood throughout the stomach, normal duodenum. Patient is to maintain on IV PPI today, remain on a clear liquid diet, follow-up with Dr. Rutledge in 2 weeks, hold aspirin, Plavix and NSAIDs for the next 7 days. We will continue to monitor overnight. 2) CAD status post stent Patient had prior PCI with stent to the LAD in 2016. Patient follows with Dr. Luque and is on aspirin and Plavix. Hold aspirin and Plavix secondary to #1. 3) ischemic cardiomyopathy Echocardiogram obtained in December 2020 demonstrated normal LV systolic function and an estimated EF of 55% with no evidence of diastolic dysfunction. Patient home medication regimen includes Lasix and metoprolol. We will continue once verified. 4) history of multiple sclerosis Not in acute exacerbation, on Rebif. 5) HTN Continue metoprolol, hold Lasix. DVT prophylaxis - Low risk, not indicated. Patient seen by Taj Fernández PA-C, under the supervision of Dr. Davis. Documented by User: Dr. Clive Davis MD 07/27/21 14:16 Objective Data Lab / Micro Data Result Diagrams: 07/27/21 05:58 07/27/21 05:58 Assessment & Plan Addt'l Comments This patient was seen in conjunction with Taj Fernández PA-C. I have independently interviewed and examined the patient and reviewed pertinent histor ical, laboratory, and other data. Please refer to Taj Fernández PA-C's note for details of this patient's presentation, findings, and recommendations. I have reviewed Taj Fernández PA-C's note and concur with documented findings. In brief, patient is a 56-year-old lady who presented with hematemesis admitted to monitored bed with consultation placed to general surgery. Patient underwent EGD findings - LA Grade B reflux esophagitis. - Dieulafoy lesion of stomach. - Clotted blood in the entire stomach. - Normal second portion of the duodenum. - No specimens collected. Physical Examination: GENERAL: cooperative HEENT: Atraumatic; EYES; Anicteric, Normal Conjunctiva NECK; supple, normal thyroid, RESPIRATORY: Diminished to auscultation CARDIOVASCULAR: Regular S1 S2, GI: soft, normoactive bowel sounds, : No Renal angle tenderness; EXTREMITIES: No edema, no clubbing, MUSCULOSKELETAL: no muscle waisting NEURO: Awake; no lateralizing signs. SKIN: No Rash PSYCH; Flat affect Assessment: 1. Upper GI bleed secondary to esophagitis as well as Dieulafoy lesion of stomach 2. Coronary artery disease with previous stent placement in LAD 3. Multiple sclerosis 4. Essential hypertension 5. PSVT Recommendations: 1. I have discussed the results of my overview and impressions with the patient 2. Options for management were reviewed Charges/Coding Visit Charges Inpatient E&M: 53155 Subs Hosp L3
[2021-07-27] MEDS: CLARIFY ORDER NOTE (13:54)
[2021-07-27] MEDS: Gabapentin 300 MG Capsule PO ×2 (13:54→21:19)
[2021-07-27] MEDS: Acetaminophen 325 MG Tablet 650 MG PO (13:58)
[2021-07-27 14:33] LABS: Magnesium 1.7 mg/dL (1.6-2.6)
--- NOTE | 2021-07-27 14:50 | CASEMGMT ---
IQRA TAMAYO assessment: Face to face with pt for initial transition planning/care coordination assessment. IQRA TAMAYO introduced self and role at [facility], pt voices understanding and consents to assessment. Pt is sitting up in bed in no distress on room air. Pt is A/Ox4 and answers all questions appropriately. Care providers, pharmacy, and demographics verified. Presentation: Pt c/o blood in emesis x2, abd burning and pt is on blood thinners Admitting dx: Hematemesis PCP: Hal Specialists: Ene, cardio; Fadi, neuro for MS Preferred [facility]acy[facility] Insurance: [employer] A/B Prescription Benefit: [employer] Living Will/HPOA: Pt states does not have LW/HPOA but would like AD info and info provided. LNOK: Letha Azul, ; Iram Hope, daughter Living Arrangements: Pt lives with in mobile home with 2 steps in and states no concerns at home. Pt is independent with ADL's. Transportation: Pt states drives self and states no transportation concerns. DME/HHC: Pt has a walker and walk-in shower. Pt states no need for any further DME. Pt states no hx of HHC or SNF. Pt states no concerns with going home at time of discharge. Pt is on disability. Pt states does not smoke cigarettes or drink ETOH. Pt voices no further concerns/needs. CM to follow for any further discharge planning/needs. Advised pt to ask for CM if any further questions/concerns/needs arise, voices understanding. Pt Goal: Home Plan: [place] IQRA TAMAYO
[2021-07-27] MEDS: Pramipexole Di-HCl 0.125 MG Tablet 0.375 MG PO (21:19)
[2021-07-27] MEDS: Atorvastatin Calcium 80 MG Tablet PO (21:22)
[2021-07-27] MEDS: Baclofen 10 MG Tablet PO (21:22)
[2021-07-28] VITALS (13 sets, daily range): BP systolic 83–100; BP diastolic 46–64; PULSE 89–108; RESP 16–18; TEMP 36.7–38; O2SAT 89–100
[2021-07-28] MEDS: Gabapentin 300 MG Capsule PO ×3 (05:44→21:36)
[2021-07-28] MEDS: Pramipexole Di-HCl 0.125 MG Tablet 0.375 MG PO ×3 (05:44→21:36)
[2021-07-28] MEDS: 0.9% Saline Lock 10 ML Syringe IV ×2 (08:05→14:46)
[2021-07-28 08:46] LABS: Absolute Lymphocyte Count 1.34 X10^3/uL (0.83-4.51); Absolute Neutrophil Count 7.2 X10^3/uL (2.0-7.7); Basophil# 0.03 X10^3/uL; Basophil% 0.3 % (0-1); Eosinophil# 0.15 X10^3/uL; Eosinophils% 1.6 % (0-5); Lymphocyte # 1.34 X10^3/ul (0.83-4.51); Lymphocyte % 14.3 % (19-41); Mean Corp Hgb Conc 31.4 g/dL (32-36); Mean Corpuscular Volume 85.9 fL (81-99); Mean Platelet Vol. 9.7 fl (6.2-12.0); Monocyte# 0.65 X10^3/uL; Monocyte% 6.9 % (0-10); NRBC Flagged by Analyzer 0 % (0-5); Neutrophil # 7.15 X10^3/uL (2.7-7.7); Neutrophil % 76.5 % (47-70); POSITIVE COUNT YES; Platelet Count 202 K/mm3 (150-450); RBC Distribution Width CV 17.1 % (11.6-14.6); Red Blood Count 1.63 M/mm3 (4.2-5.4); White Blood Count 9.4 K/mm3 (4.4-11.0)
[2021-07-28 08:56] LABS: Differential Indicated SCAN CRITERIA MET; Hemoglobin 4.4 g/dL (12.0-15.0)
[2021-07-28 09:24] LABS: Anion Gap 3 (5-15); BUN 17 mg/dL (7-18); BUN/Creat Ratio 34.8 RATIO (10-20); Calcium,Total 7.5 mg/dL (8.5-10.1); Chloride 112 mmol/L (98-107); Creatinine, Serum 0.49 mg/dL (0.55-1.02); EST Glomerular Filtration Rate 140 mL/min (>60); Est Glom Filt Rate - Afr Amer 169 mL/min (>60); Estimated Creatinine Clearance 97.89 ml/min; Glucose 104 mg/dL (74-106); Potassium 3.3 mmol/L (3.5-5.1); Sodium Level 143 mmol/L (136-145)
[2021-07-28] MEDS: Potassium Chloride Oral Tablet 20 MEQ PO ×2 (09:52→10:28)
[2021-07-28] MEDS: Baclofen 10 MG Tablet PO ×2 (10:28→18:50)
--- NOTE | 2021-07-28 12:18 | PCM.PN.HOSP ---
Documented by User: Taj DICKINSON 07/28/21 12:25 Subjective Subjective Patient is a 56-year-old female lying in bed, alert and orient x3. Patient denies development of any new symptoms overnight. Does not appear in acute distress. Objective Data Objective Data Vital Signs: Vital Signs Temp Pulse Resp BP Pulse Ox 98.4 F 103 H 16 89/63 L 100 07/28/21 12:00 07/28/21 12:00 07/28/21 12:00 07/28/21 12:00 07/28/21 12:00 Oxygen Flow Rate (L/min) 2 Oxygen Delivery Method Nasal Cannula Weight: 117 lb 1.047 oz Body Mass Index (BMI) 22.1 Intake & Output: Intake and Output for Last 24 Hours 07/26/21 07/27/21 07/28/21 23:59 23:59 23:59 Intake Total 2089 2231.25 / 2231.25 340 / 340 Balance 2089 2231.25 / 2231.25 340 / 340 Lab / Micro Data Result Diagrams: 07/28/21 06:45 07/28/21 06:45 Labs: Laboratory Results - last 24 hr 07/26/21 10:10: Crossmatch See Detail 07/26/21 10:10: Crossmatch See Detail 07/27/21 13:00: Magnesium 1.7 07/28/21 06:45: WBC 9.4, RBC 1.63 L, Hgb 4.4 L*, Hct 14.0 L, MCV 85.9, MCH 27.0, MCHC 31.4 L, RDW Std Deviation 54.0 H, RDW Coeff of Rosette 17.1 H, Plt Count 202, MPV 9.7, Immature Gran % (Auto) 0.400, Neut % (Auto) 76.5 H, Lymph % (Auto) 14.3 L, [place] % (Auto) 6.9, Eos % (Auto) 1.6, Baso % (Auto) 0.3, Absolute Neuts (auto) 7.2, Absolute Lymphs (auto) 1.34, Nucleated RBC % 0, Differential Comment COMMENT, Diff Path Review December07/28/21 06:45: Sodium 143, Potassium 3.3 L, Chloride 112 H, Carbon Dioxide 28.0, Anion Gap 3 L, BUN 17, Creatinine 0.49 L, Estim Creat Clear Calc 97.89, Est GFR (MDRD) Af Amer 169, Est GFR (MDRD) Non-Af 140, BUN/Creatinine Ratio 34.8 H, Glucose 104, Calcium 7.5 L Micro: Microbiology 07/27/21 10:15 Nasal Secretion SARS-CoV-2 Antigen (Rapid) - Final Physical Exam Const alert, oriented x3 and no apparent distress HEENT head/scalp atraumatic and moist oral mucous membranes Head and Scalp: normocephalic Eyes PERRL, EOMs intact bilaterally and conjunctivae normal Neck no lymphadenopathy, supple and no JVD Resp normal respiratory effort, no retractions, no use of accessory muscles and clear to auscultation bilaterally Cardio regular rhythm, no murmurs and no JVD GI normal to inspection, nondistended, normoactive bowel sounds, soft to palpation and non-tender Extremity normal to inspection, full ROM and no clubbing, cyanosis or edema Peripheral Pulses: Yes pulses 2+ throughout Skin no rashes or lesions noted, no wounds, skin turgor normal and no jaundice Neuro CN's II-XII intact bilaterally Psych affect normal Assessment & Plan Assessment/Plan (1) Acute blood loss anemia: (2) Hematemesis: PLAN: Day 2 Discharge planning: Current plan is for patient to be discharged home. 1) hematemesis with acute blood loss anemia Patient hemoglobin dropped to 4.4 this morning, despite EGD management and prior transfusion. Patient underwent EGD on 07/27/21 and results are as follows; grade B reflux esophagitis, dielufoy lesion of the stomach and clotted blood throughout the stomach, normal duodenum. Patient is to maintain on IV PPI today, remain on a clear liquid diet, follow-up with Dr. Rutledge in 2 weeks, hold aspirin, Plavix and NSAIDs for the next 7 days. We will continue serial H&H's every 6 hours and transfuse patient 2 more units of PRBCs. 2) CAD status post stent Patient had prior PCI with stent to the LAD in 2016. Patient follows with Dr. Luque and is on aspirin and Plavix. Hold aspirin and Plavix secondary to #1. 3) ischemic cardiomyopathy Echocardiogram obtained in December 2020 demonstrated normal LV systolic function and an estimated EF of 55% with no evidence of diastolic dysfunction. Patient home medication regimen includes Lasix and metoprolol. We will continue once verified. 4) history of multiple sclerosis Not in acute exacerbation, on Rebif. 5) HTN Continue metoprolol, hold Lasix. DVT prophylaxis - Low risk, not indicated. Patient seen by Taj Fernández PA-C, under the supervision of Dr. Davis. Documented by User: Dr. Clive Davis MD 07/28/21 12:51 Objective Data Lab / Micro Data Result Diagrams: 07/28/21 06:45 07/28/21 06:45 Assessment & Plan Addt'l Comments This patient was seen in conjunction with Taj Fernández PA-C. I have independently interviewed and examined the patient and reviewed pertinent historical, laboratory, and other data. Please refer to Taj Fernández PA-C's note for details of this patient's presentation, findings, and recommendations. I have reviewed Taj Fernández PA-C's note and concur with documented findings. In brief, patient is a 56-year-old lady who presented with hematemesis admitted to monitored bed with consultation placed to general surgery. Patient underwent EGD findings - LA Grade B reflux esophagitis. - Dieulafoy lesion of stomach. - Clotted blood in the entire stomach. - Normal second portion of the duodenum. - No specimens collected. 07/28/2021. Significant drop in patient hemoglobin level down to 4.4. An order was given for patient to be transfused with 2 unit PRBC with posttransfusion H&H ordered did review patient electrolyte significant for potassium of 3.3 replace per protocol Physical Examination: GENERAL: cooperative HEENT: Atraumatic; EYES; Anicteric, Normal Conjunctiva NECK; supple, normal thyroid, RESPIRATORY: Diminished to auscultation CARDIOVASCULAR: Regular S1 S2, GI: soft, normoactive bowel sounds, : No Renal angle tenderness; EXTREMITIES: No edema, no clubbing, MUSCULOSKELETAL: no muscle waisting NEURO: Awake; no lateralizing signs. SKIN: No Rash PSYCH; Flat affect Assessment: 1. Upper GI bleed secondary to esophagitis as well as Dieulafoy lesion of stomach 2. Coronary artery disease with previous stent placement in LAD 3. Multiple sclerosis 4. Essential hypertension 5. PSVT 6. Hypokalemia Recommendations: 1. I have discussed the results of my overview and impressions with the patient 2. Options for management were reviewed Charges/Coding Visit Charges Inpatient E&M: 48696 [facility] Hosp L3
[2021-07-28] MEDS: Acetaminophen 325 MG Tablet 650 MG PO ×2 (12:35→18:50)
[2021-07-28 13:31] LABS: Pathologist Review Reviewed
[2021-07-28] MEDS: Potassium Chloride 10mEq/100mL 10 MEQ/100 ML IV.SOLN. 100 MEQ IV BOLUS ×4 (14:46→18:15)
[2021-07-28 15:58] LABS: Hematocrit 23.6 % (37-47); Hemoglobin 7.5 g/dL (12.0-15.0)
[2021-07-28 19:23] LABS: Hemoglobin 7.3 g/dL (12.0-15.0)
--- NOTE | 2021-07-28 20:51 | PN.GI_ITS ---
Subjective Subjective Helena says that she is feeling well. She denies headache. She does not have any abdominal pain. She says that she has not had any bowel movements. She tolerated a diet. She receives IV potassium and 2 units of packed red blood cells today. Objective Data Objective Data Vital Signs: Vital Signs Temp Pulse Resp BP Pulse Ox 98.2 F 90 16 95/54 L 96 07/28/21 15:50 07/28/21 15:50 07/28/21 15:50 07/28/21 15:50 07/28/21 15:50 Oxygen Flow Rate (L/min) 1 Oxygen Delivery Method Nasal Cannula Weight: 117 lb 1.047 oz Body Mass Index (BMI) 22.1 Intake & Output: Intake and Output for Last 24 Hours 07/26/21 07/27/21 07/28/21 23:59 23:59 23:59 Intake Total 2089 / 2089 2231.25 / 2231.25 1720 / 1720 Balance 2089 / 2089 2231.25 / 2231.25 1720 / 1720 Lab / Micro Data Result Diagrams: 07/28/21 19:00 07/28/21 06:45 Labs: Laboratory Results - last 24 hr 07/26/21 10:10: Crossmatch See Detail 07/26/21 10:10: Crossmatch See Detail 07/28/21 06:45: WBC 9.4, RBC 1.63 L, Hgb 4.4 L*, Hct 14.0 L, MCV 85.9, MCH 27.0, MCHC 31.4 L, RDW Std Deviation 54.0 H, RDW Coeff of [place] 17.1 H, Plt Count 202, MPV 9.7, Immature Gran % (Auto) 0.400, Neut % (Auto) 76.5 H, Lymph % (Auto) 14.3 L, [place] % (Auto) 6.9, Eos % (Auto) 1.6, Baso % (Auto) 0.3, Absolute Neuts (auto) 7.2, Absolute Lymphs (auto) 1.34, Nucleated RBC % 0, Differential Comment COMMENT, Diff Path Review Reviewed 07/28/21 06:45: Sodium 143, Potassium 3.3 L, Chloride 112 H, Carbon Dioxide 28.0, Anion Gap 3 L, BUN 17, Creatinine 0.49 L, Estim Creat Clear Calc 97.89, Est GFR (MDRD) Af Amer 169, Est GFR (MDRD) Non-Af 140, BUN/Creatinine Ratio 34.8 H, Glucose 104, Calcium 7.5 L 07/28/21 15:50: Hgb 7.5 L, Hct 23.6 L 07/28/21 19:00: Hgb 7.3 L, Hct 23.0 L Micro: Microbiology 07/27/21 10:15 Nasal Secretion SARS-CoV-2 Antigen (Rapid) - Final Physical Exam Const alert General Appearance: cooperative Orientation / Consciousness: oriented to person HEENT hearing grossly normal bilaterally Head and Scalp: normal to inspection Face and Sinus: face symmetric Nose: external nose normal Mouth: oral and palatal mucosa normal Eyes conjunctivae normal General Eye: normal appearance of both eyes Neck full ROM General: normal visual inspection Lymph Lymphatic: no lymphadenopathy noted Chest inspection of chest normal and palpation of chest normal Chest: symmetrical chest wall rise Resp normal respiratory effort Effort and Inspection: able to speak in complete sentences Cardio regular rate GI non-distended Percussion: normal to percussion Rectal Exam: deferred Neuro Speech: speech normal Gait (Neuro): normal gait Assessment & Plan Assessment/Plan (1) Acute blood loss anemia: PLAN: Blood loss anemia secondary to DeilaFoy lesion status post endoscopic treatment. She remains on PPI drip. Hopefully her hemoglobin is stable tomorrow. She cannot go back on anticoagulation for the next week. If she is DC tomorrow she will need to have a hemoglobin on Tuesday and Tuesday. I would like to see if stable for week on medical therapy which would be twice a day PPI therapy and liquid Carafate for the next 4 weeks before reintroducing aspirin. Charges/Coding Visit Charges Inpatient E&M: 77220 Subs Hosp L2
[2021-07-28] MEDS: Atorvastatin Calcium 80 MG Tablet PO (21:36)
[2021-07-29] VITALS (11 sets, daily range): BP systolic 96–116; BP diastolic 51–68; PULSE 94–106; RESP 16–18; TEMP 36.8–37.5; O2SAT 93–96
[2021-07-29] MEDS: Baclofen 10 MG Tablet PO ×2 (03:39→14:35)
[2021-07-29 05:25] LABS: Absolute Lymphocyte Count 0.91 X10^3/uL (0.83-4.51); Absolute Neutrophil Count 6.6 X10^3/uL (2.0-7.7); Basophil# 0.02 X10^3/uL; Basophil% 0.2 % (0-1); Eosinophil# 0.34 X10^3/uL; Hematocrit 22.4 % (37-47); Hemoglobin 7.1 g/dL (12.0-15.0); Lymphocyte # 0.91 X10^3/ul (0.83-4.51); Lymphocyte % 10.6 % (19-41); Mean Corp Hgb Conc 31.7 g/dL (32-36); Mean Corpuscular Hgb 28.5 pg (27.0-32.0); Mean Platelet Vol. 9.8 fl (6.2-12.0); Monocyte# 0.71 X10^3/uL; Monocyte% 8.3 % (0-10); NRBC Flagged by Analyzer 0 % (0-5); Neutrophil # 6.55 X10^3/uL (2.7-7.7); Neutrophil % 76.5 % (47-70); Platelet Count 179 K/mm3 (150-450); RBC Distribution Width CV 17.9 % (11.6-14.6); RBC Distribution Width SD 58.5 fl (35.1-43.9); Red Blood Count 2.49 M/mm3 (4.2-5.4); White Blood Count 8.6 K/mm3 (4.4-11.0)
[2021-07-29 05:49] LABS: Anion Gap 4 (5-15); BUN 10 mg/dL (7-18); BUN/Creat Ratio 26.7 RATIO (10-20); Calcium,Total 7.4 mg/dL (8.5-10.1); Chloride 107 mmol/L (98-107); Creatinine, Serum 0.37 mg/dL (0.55-1.02); EST Glomerular Filtration Rate 190 mL/min (>60); Est Glom Filt Rate - Afr Amer 230 mL/min (>60); Estimated Creatinine Clearance 129.64 ml/min; Glucose 98 mg/dL (74-106); Potassium 3.6 mmol/L (3.5-5.1); Sodium Level 139 mmol/L (136-145)
[2021-07-29] MEDS: Pramipexole Di-HCl 0.125 MG Tablet 0.375 MG PO ×3 (06:13→21:57)
[2021-07-29] MEDS: Gabapentin 300 MG Capsule PO ×3 (06:13→22:00)
--- NOTE | 2021-07-29 10:32 | PCM.DC ---
Discharge Instructions Diet Discharge Diet: No restrictions Activity Discharge Activity: Return to Normal Activity Weight Bearing Status: Weight bearing as tolerated Dressing / Incision Call your doctor if you observe: Fever of 101 or Higher, Numbness or Tingling, Shortness of breath, Dizziness, Chest pain, Increased palpitations (irregular heartbeat) and Calf discomfort Follow Up Care Please Follow Up With: Primary care provider When: Within the next two weeks. Test Results: Test results from this visit will be discussed in further detail at your follow-up appointment, if applicable. Discharge Plan Admission Admit Date/Time: 07/26/21 13:53 Primary Reason for Your Visit: Hematemesis Attending Provider: Clive Davis Primary Care Provider: Francisco Hong Discharge Orders/Prescriptions Prescriptions: New pantoprazole [Protonix] 40 mg tablet,delayed release (DR/EC) 40 mg PO BID Qty: 60 RF: 0 sucralfate [Carafate] 100 mg/mL suspension 10 ml PO BID Qty: 1000 RF: 0 Continued pramipexole 0.75 mg tablet 0.375 mg PO TID RF: 0 gabapentin 300 mg capsule 300 mg PO TID RF: 0 lidocaine 5 % adhesive patch,medicated 1 patch TOPICAL PRN PRN (Reason: Pain Score 1-10/10) RF: 0 furosemide 20 mg tablet 20 mg PO DAILY RF: 0 metoprolol tartrate 25 mg tablet 25 mg PO BID RF: 0 potassium chloride 20 mEq tablet extended release 20 meq PO DAILY RF: 0 Rebif 44 mcg SC MOWEFR RF: 0 baclofen 10 mg tablet 10 mg PO PRN PRN (Reason: Pain Score 1-10/10) RF: 0 atorvastatin 80 mg tablet 80 mg PO QHS Qty: 90 RF: 4 Held aspirin 81 MG tablet 81 mg PO DAILY@0800 RF: 0 Hold Instructions: Resume as instructed by Dr. Rutledge. clopidogrel 75 mg tablet 75 mg PO QDAY Qty: 90 RF: 4 Hold Instructions: Hold until told to resume by Dr. Rutledge. Discontinued azithromycin [Zithromax Z-Lobo] 250 mg tablet See Rx Instructions PO .COMPLEX RF: 0 Referrals / Follow Up: Mike Rutledge DO [STAFF PHYSICIAN] - Within 2 Weeks Francisco Hong MD [Primary Care Provider] - Within 1 Week Disposition Disposition (needs filled in before D/C Order can be placed): Home, Self Care
[2021-07-29] MEDS: Acetaminophen 325 MG Tablet 650 MG PO ×2 (10:34→18:39)
[2021-07-29] MEDS: Potassium Chloride Oral Tablet 20 MEQ 40 MEQ PO (11:28)
--- NOTE | 2021-07-29 12:05 | CASEMGMT ---
This RN CM to room and pt states no concerns with going home at time of discharge but pt/daughter do inquire about script for shower chair. Script obtained and provided to pt. Pt still c/o dizziness with ambulation to bathroom. Bree GUAMAN aware, voices understanding. Pt is still receiving blood transfusion at this time. SStaten IQRA CM
--- NOTE | 2021-07-29 14:00 | PCM.PN.HOSP ---
Documented by User: Taj DICKINSON 07/29/21 14:08 Subjective Subjective Patient is a 56-year-old female lying in bed, alert and orient x3. Patient denies development of any new symptoms overnight. Does not appear in acute distress. Objective Data Objective Data Vital Signs: Vital Signs Temp Pulse Resp BP Pulse Ox 98.5 F 101 H 16 116/63 96 07/29/21 12:33 07/29/21 12:33 07/29/21 12:33 07/29/21 12:33 07/29/21 12:33 Oxygen Flow Rate (L/min) 1 Oxygen Delivery Method Room Air Weight: 117 lb 1.047 oz Body Mass Index (BMI) 22.1 Intake & Output: Intake and Output for Last 24 Hours 07/27/21 07/28/21 07/29/21 23:59 23:59 23:59 Intake Total 2231.25 / 2231.25 2079 / 2079 420 / 420 Balance 2231.25 / 2231.25 2079 / 2079 420 / 420 Lab / Micro Data Result Diagrams: 07/29/21 04:48 07/29/21 04:48 Labs: Laboratory Results - last 24 hr 07/26/21 10:10: Crossmatch See Detail 07/28/21 15:50: Hgb 7.5 L, Hct 23.6 L 07/28/21 19:00: Hgb 7.3 L, Hct 23.0 L 07/29/21 04:48: WBC 8.6, RBC 2.49 L, Hgb 7.1 L, Hct 22.4 L, MCV 90.0, MCH 28.5, MCHC 31.7 L, RDW Std Deviation 58.5 H, RDW Coeff of [place] 17.9 H, Plt Count 179, MPV 9.8, Immature Gran % (Auto) 0.400, Neut % (Auto) 76.5 H, Lymph % (Auto) 10.6 L, [place] % (Auto) 8.3, Eos % (Auto) 4.0, Baso % (Auto) 0.2, Absolute Neuts (auto) 6.6, Absolute Lymphs (auto) 0.91, Nucleated RBC % 0 07/29/21 04:48: Sodium 139, Potassium 3.6, Chloride 107, Carbon Dioxide 28.0, Anion Gap 4 L, BUN 10, Creatinine 0.37 L, Estim Creat Clear Calc 129.64, Est GFR (MDRD) Af Amer 230, Est GFR (MDRD) Non-Af 190, BUN/Creatinine Ratio 26.7 H, Glucose 98, Calcium 7.4 L, Magnesium 2.0 Micro: Microbiology 07/27/21 10:15 Nasal Secretion SARS-CoV-2 Antigen (Rapid) - Final Physical Exam Const alert, oriented x3 and no apparent distress HEENT head/scalp atraumatic and moist oral mucous membranes Head and Scalp: normocephalic Eyes PERRL, EOMs intact bilaterally and conjunctivae normal Neck no lymphadenopathy, supple and no JVD Resp normal respiratory effort, no retractions, no use of accessory muscles and clear to auscultation bilaterally Cardio regular rate, regular rhythm, no murmurs and no JVD GI normal to inspection, nondistended, normoactive bowel sounds, soft to palpation and non-tender Extremity normal to inspection, full ROM and no clubbing, cyanosis or edema Skin no rashes or lesions noted, no wounds and skin turgor normal Neuro CN's II-XII intact bilaterally Psych affect normal Assessment & Plan Assessment/Plan (1) Hematemesis: (2) Acute blood loss anemia: PLAN: Day 3 Discharge planning: Current plan is for patient to be discharged home when medically ready. Patient was supposed to discharge home today 07/29/2021, although still anemic and with reports of dizziness. Discharge was subsequently delayed. 1) hematemesis with acute blood loss anemia Patient's hemoglobin has been difficult to manage as it is still 7.1, despite transfusion of 4 units of PRBCs since being admitted. Patient underwent EGD on 07/27/21 and results are as follows; grade B reflux esophagitis, dielufoy lesion of the stomach and clotted blood throughout the stomach, normal duodenum. Patient is to maintain on IV PPI today, advance diet as tolerated, follow-up with Dr. Rutledge in 2 weeks, hold aspirin, Plavix and NSAIDs for the next 7 days. We will continue serial H&H's every 6 hours and transfuse patient 1 more unit of PRBCs. 2) dizziness Likely secondary to #1. Plan as above, obtain orthostatic vitals. 3) CAD status post stent Patient had prior PCI with stent to the LAD in 2016. Patient follows with Dr. Luque and is on aspirin and Plavix. Hold aspirin and Plavix secondary to #1. 4) ischemic cardiomyopathy Echocardiogram obtained in December 2020 demonstrated normal LV systolic function and an estimated EF of 55% with no evidence of diastolic dysfunction. Patient home medication regimen includes Lasix and metoprolol. We will continue once verified. 5) history of multiple sclerosis Not in acute exacerbation, on Rebif. 6) HTN Continue metoprolol, hold Lasix. DVT prophylaxis - Low risk, not indicated. Patient seen by Taj Fernández PA-C, under the supervision of Dr. Davis. Documented by User: Dr. Clive Davis MD 07/29/21 14:33 Objective Data Lab / Micro Data Result Diagrams: 07/29/21 04:48 07/29/21 04:48 Assessment & Plan Addt'l Comments This patient was seen in conjunction with Taj Fernández PA-C. I have independently interviewed and examined the patient and reviewed pertinent historical, laboratory, and other data. Please refer to Taj Fernández PA-C's note for details of this patient's presentation, findings, and recommendations. I have reviewed Taj Fernández PA-C's note and concur with documented findings. In brief, patient is a 56-year-old lady who presented with hematemesis admitted to monitored bed with consultation placed to general surgery. Patient underwent EGD findings - LA Grade B reflux esophagitis. - Dieulafoy lesion of stomach. - Clotted blood in the entire stomach. - Normal second portion of the duodenum. - No specimens collected. 07/28/2021. Significant drop in patient hemoglobin level down to 4.4. An order was given for patient to be transfused with 2 unit PRBC with posttransfusion H&H ordered did review patient electrolyte significant for potassium of 3.3 replace per protocol 07/29/2021. Patient hemoglobin still remains low. Patient also complains of feeling lightheaded upon standing. Decision was made to keep patient for 1 additional day. She was also transfused 1 unit PRBC. Physical Examination: GENERAL: cooperative HEENT: Atraumatic; EYES; Anicteric, Normal Conjunctiva NECK; supple, normal thyroid, RESPIRATORY: Diminished to auscultation CARDIOVASCULAR: Regular S1 S2, GI: soft, normoactive bowel sounds, : No Renal angle tenderness; EXTREMITIES: No edema, no clubbing, MUSCULOSKELETAL: no muscle waisting NEURO: Awake; no lateralizing signs. SKIN: No Rash PSYCH; Flat affect Assessment: 1. Upper GI bleed secondary to esophagitis as well as Dieulafoy lesion of stomach 2. Coronary artery disease with previous stent placement in LAD 3. Multiple sclerosis 4. Essential hypertension 5. PSVT 6. Hypokalemia Recommendations: 1. I have discussed the results of my overview and impressions with the patient 2. Options for management were reviewed Charges/Coding Visit Charges Inpatient E&M: 71014 Subs Hosp L3
--- NOTE | 2021-07-29 19:04 | EX.PCM.PN.GI ---
Subjective Subjective Patient underwent endoscopy and was discovered to have bleeding at the GE junction. She received 3 units of packed red blood cells. She is not seeing any signs of bleeding today. She has been on PPI drip and has been tolerating her diet. Objective Data Objective Data Vital Signs: Vital Signs Temp Pulse Resp BP Pulse Ox 98.5 F 99 16 106/66 96 07/29/21 12:33 07/29/21 15:27 07/29/21 12:33 07/29/21 15:27 07/29/21 16:29 Oxygen Flow Rate (L/min) 1 Oxygen Delivery Method Room Air Weight: 117 lb 1.047 oz Body Mass Index (BMI) 22.1 Intake & Output: Intake and Output for Last 24 Hours 07/27/21 07/28/21 07/29/21 23:59 23:59 23:59 Intake Total 2231.25 / 2231.25 2079 / 0 1170 / 1170 Balance 2231.25 / 2231.25 2079 / 2079 1170 / 1170 Lab / Micro Data Result Diagrams: 07/29/21 04:48 07/29/21 04:48 Labs: Laboratory Results - last 24 hr 07/26/21 10:10: Crossmatch See Detail 07/28/21 19:00: Hgb 7.3 L, Hct 23.0 L 07/29/21 04:48: WBC 8.6, RBC 2.49 L, Hgb 7.1 L, Hct 22.4 L, MCV 90.0, MCH 28.5, MCHC 31.7 L, RDW Std Deviation 58.5 H, RDW Coeff of [place] 17.9 H, Plt Count 179, MPV 9.8, Immature Gran % (Auto) 0.400, Neut % (Auto) 76.5 H, Lymph % (Auto) 10.6 L, [place] % (Auto) 8.3, Eos % (Auto) 4.0, Baso % (Auto) 0.2, Absolute Neuts (auto) 6.6, Absolute Lymphs (auto) 0.91, Nucleated RBC % 0 07/29/21 04:48: Sodium 139, Potassium 3.6, Chloride 107, Carbon Dioxide 28.0, Anion Gap 4 L, BUN 10, Creatinine 0.37 L, Estim Creat Clear Calc 129.64, Est GFR (MDRD) Af Amer 230, Est GFR (MDRD) Non-Af 190, BUN/Creatinine Ratio 26.7 H, Glucose 98, Calcium 7.4 L, Magnesium 2.0 Micro: Microbiology 07/27/21 10:15 Nasal Secretion SARS-CoV-2 Antigen (Rapid) - Final Physical Exam Const alert General Appearance: cooperative Orientation / Consciousness: oriented to person HEENT hearing grossly normal bilaterally Head and Scalp: normal to inspection Face and Sinus: face symmetric Nose: external nose normal Mouth: oral and palatal mucosa normal Eyes conjunctivae normal General Eye: normal appearance of both eyes Neck full ROM General: normal visual inspection Lymph Lymphatic: no lymphadenopathy noted Chest inspection of chest normal and palpation of chest normal Chest: symmetrical chest wall rise Resp normal respiratory effort Effort and Inspection: able to speak in complete sentences Cardio regular rate GI non-distended Percussion: normal to percussion Neuro Gait (Neuro): normal gait Assessment & Plan Assessment/Plan (1) Acute blood loss anemia: PLAN: Patient is doing well and tolerating a diet. She will remain on PPI therapy. I would not want to start her anticoagulation back in time though her hemoglobin is stable. She also may require p.o. endoscopy tomorrow if her hemoglobin keeps trending down below 7. Transfuse for hemoglobin below 7. (2) Hematemesis: PLAN: Hematemesis secondary to upper GI bleed from anticoagulation and Charges/Coding Visit Charges Inpatient E&M: 33472 Subs Hosp L2
[2021-07-29] MEDS: Atorvastatin Calcium 80 MG Tablet PO (21:54)
[2021-07-30] MEDS: 0.9% Saline Lock 10 ML Syringe IV (00:13)
[2021-07-30 03:00] VITALS: BP 121/60; PULSE 99; RESP 16; TEMP 37; O2SAT 94
[2021-07-30 06:54] LABS: Absolute Lymphocyte Count 0.95 X10^3/uL (0.83-4.51); Absolute Neutrophil Count 6.8 X10^3/uL (2.0-7.7); Basophil# 0.04 X10^3/uL; Basophil% 0.4 % (0-1); Eosinophil# 0.36 X10^3/uL; Hematocrit 27.5 % (37-47); Lymphocyte # 0.95 X10^3/ul (0.83-4.51); Lymphocyte % 10.7 % (19-41); Mean Corp Hgb Conc 32.7 g/dL (32-36); Mean Corpuscular Hgb 29.1 pg (27.0-32.0); Mean Platelet Vol. 10.4 fl (6.2-12.0); Monocyte# 0.74 X10^3/uL; Monocyte% 8.3 % (0-10); NRBC Flagged by Analyzer 0 % (0-5); Neutrophil # 6.79 X10^3/uL (2.7-7.7); Neutrophil % 76.2 % (47-70); Platelet Count 205 K/mm3 (150-450); RBC Distribution Width CV 17.1 % (11.6-14.6); RBC Distribution Width SD 54.8 fl (35.1-43.9); Red Blood Count 3.09 M/mm3 (4.2-5.4); White Blood Count 8.9 K/mm3 (4.4-11.0)
[2021-07-30 07:08] LABS: Anion Gap 6 (5-15); BUN 7 mg/dL (7-18); Calcium,Total 7.7 mg/dL (8.5-10.1); Chloride 110 mmol/L (98-107); Creatinine, Serum 0.41 mg/dL (0.55-1.02); EST Glomerular Filtration Rate 171 mL/min (>60); Est Glom Filt Rate - Afr Amer 206 mL/min (>60); Estimated Creatinine Clearance 116.99 ml/min; Glucose 95 mg/dL (74-106); Potassium 3.7 mmol/L (3.5-5.1); Sodium Level 143 mmol/L (136-145)
[2021-07-30] MEDS: Acetaminophen 325 MG Tablet 650 MG PO (07:49)
[2021-07-30] MEDS: Potassium Chloride Oral Tablet 20 MEQ 40 MEQ PO (07:49)
[2021-07-30] MEDS: Pramipexole Di-HCl 0.125 MG Tablet 0.375 MG PO (07:50)
[2021-07-30 07:53] VITALS: O2SAT 93
[2021-07-30 09:11] VITALS: BP 121/72; PULSE 109; RESP 18; TEMP 36.8; O2SAT 93
--- NOTE | 2021-07-30 09:11 | PCM.DC ---
Discharge Instructions Diet Discharge Diet: No restrictions Activity Weight Bearing Status: Weight bearing as tolerated Dressing / Incision Call your doctor if you observe: Fever of 101 or Higher, Numbness or Tingling, Shortness of breath, Dizziness, Chest pain, Increased palpitations (irregular heartbeat) and Calf discomfort Follow Up Care Please Follow Up With: Primary care provider Test Results: Test results from this visit will be discussed in further detail at your follow-up appointment, if applicable. Discharge Plan Admission Admit Date/Time: 07/26/21 13:53 Primary Reason for Your Visit: Hematemesis Attending Provider: Clive Davis Primary Care Provider: Francisco Hong Discharge Orders/Prescriptions Prescriptions: New pantoprazole [Protonix] 40 mg tablet,delayed release (DR/EC) 40 mg PO BID Qty: 60 RF: 0 sucralfate [Carafate] 100 mg/mL suspension 10 ml PO BID Qty: 1000 RF: 0 sucralfate [Carafate] 100 mg/mL suspension 10 ml PO BID Qty: 600 RF: 0 polysaccharide iron complex [Ferrex 150] 150 mg iron Capsule 150 mg PO DAILYCM Qty: 0 RF: 0 Continued pramipexole 0.75 mg tablet 0.375 mg PO TID RF: 0 gabapentin 300 mg capsule 300 mg PO TID RF: 0 lidocaine 5 % adhesive patch,medicated 1 patch TOPICAL PRN PRN (Reason: Pain Score 1-10/10) RF: 0 furosemide 20 mg tablet 20 mg PO DAILY RF: 0 metoprolol tartrate 25 mg tablet 25 mg PO BID RF: 0 potassium chloride 20 mEq tablet extended release 20 meq PO DAILY RF: 0 Rebif 44 mcg SC MOWEFR RF: 0 baclofen 10 mg tablet 10 mg PO PRN PRN (Reason: Pain Score 1-10/10) RF: 0 atorvastatin 80 mg tablet 80 mg PO QHS Qty: 90 RF: 4 Held aspirin 81 MG tablet 81 mg PO DAILY@0800 RF: 0 Hold Instructions: Resume as instructed by Dr. Rutledge. clopidogrel 75 mg tablet 75 mg PO QDAY Qty: 90 RF: 4 Hold Instructions: Hold until told to resume by Dr. Rutledge. Discontinued azithromycin [Zithromax Z-Lobo] 250 mg tablet See Rx Instructions PO .COMPLEX RF: 0 Referrals / Follow Up: Mike Rutledge DO [STAFF PHYSICIAN] - 08/12/21 1:30 pm Francisco Hong MD [Primary Care Provider] - Within 1 Week (Please call to setup a follow up appointment. ) Disposition Disposition (needs filled in before D/C Order can be placed): Home, Self Care
[2021-07-30 09:14] VITALS: PULSE 109
[2021-07-30] MEDS: Baclofen 10 MG Tablet PO (09:14)
[2021-07-30] MEDS: Metoprolol Tartrate 25 MG Tablet PO (09:14)
--- NOTE | 2021-07-30 09:16 | PCM.DC.SUM ---
Documented by User: SHAHRAM Cade 07/30/21 09:25 Providers Date of Admission: 07/26/21 Primary Care Physician: Dr. Francisco Hong MD Consultations 07/26/21 13:58 Consult: Gastroenterology Routine Consulting Provider: [facility] Reason for Consult: Hematemesis EMERGENT Consult: No MD Notified: Yes Date Notified: 07/26/21 Time Notified: 13:58 Method of Notification: Verbal Reason For Visit: HEMATEMESIS Diagnosis Discharge Diagnosis (1) Acute blood loss anemia: Status: Acute Code(s): D62 - Acute posthemorrhagic anemia (2) Hematemesis: Status: Acute Code(s): K92.0 - Hematemesis Medications at Discharge Home Medications aspirin 81 mg PO DAILY@0800 tab 03/06/17 Rebif 44 mcg SC MOWEFR 07/20/17 baclofen 10 mg tablet 10 mg PO PRN PRN tab 05/07/19 gabapentin 300 mg capsule 300 mg PO TID 05/07/19 pramipexole 0.75 mg tablet 0.375 mg PO TID tab 05/07/19 lidocaine 5 % topical patch 1 patch TOPICAL PRN PRN 12/07/19 atorvastatin 80 mg tablet 80 mg PO QHS #90 tab 11/07/20 clopidogrel 75 mg tablet 75 mg PO QDAY #90 tab 11/07/20 furosemide 20 mg PO DAILY 07/26/21 metoprolol tartrate 25 mg PO BID 07/26/21 potassium chloride 20 meq PO DAILY 07/26/21 pantoprazole [Protonix] 40 mg PO BID #60 tab 07/29/21 sucralfate [Carafate] 10 ml PO BID #1000 ml 07/29/21 polysaccharide iron complex [Ferrex 150] 150 mg PO DAILYCM #0 cap 07/30/21 sucralfate [Carafate] 10 ml PO BID #600 ml 07/30/21 Hospital Course Operations None Procedures EGD Summary of Care Provided Minutes Spent on Discharge: 25 Hospital Course: Patient is a 56-year-old female who originally came in with a GI bleed. Patient underwent EGD with Dr. Rutledge which demonstrated LA grade B esophagitis with no bleeding, until Delfin lesion with oozing bleeding and stigmata of recent bleeding was found at the gastric fundus and was injected with epinephrine and treated with argon beam for hemostasis. 4 hemostatic clips were successfully placed. Patient will be discharged home on pantoprazole, sucralfate, iron. Patient given instructions to follow-up with Dr. Rutledge as scheduled. Patient will need to contact her primary care physician for follow-up blood work. It is recommended that patient have a CBC on 07/31/2021 as well as 08/03/2021 to monitor hemoglobin levels. Patient is to avoid aspirin, ibuprofen, naproxen and other nonsteroidal anti-inflammatory drugs for 7 days. Physical Exam Const alert, oriented x3 and no apparent distress General Appearance: cooperative HEENT normocephalic and head/scalp atraumatic Eyes conjunctivae normal and no scleral icterus Neck supple General: trachea midline Resp normal respiratory effort, normal air movement and clear to auscultation bilaterally Cardio regular rate, regular rhythm, S1 normal heart sound, S2 normal heart sound and peripheral pulses 2+ throughout GI normal to inspection, nondistended, normoactive bowel sounds, soft to palpation and non-tender Extremity no clubbing, cyanosis or edema General Extremity: no tenderness to palpation of joints or extremities Skin skin turgor normal General Skin Exam: no breakdown Lesions: no lesions Rashes: no rashes Neuro oriented x3, moves all extremities, no focal motor deficits and no sensory deficits noted Psych affect normal Appearance: appropriate Weight / BMI Weight Weight: 117 lb 1.047 oz Body Mass Index (BMI) 22.1 ABG / Lab / Microbiology Data Result Diagrams: 07/30/21 06:35 07/30/21 05:35 Laboratory: Laboratory Results - last 24 hr 07/26/21 10:10: Crossmatch See Detail 07/30/21 05:35: Sodium 143, Potassium 3.7, Chloride 110 H, Carbon Dioxide 27.0, Anion Gap 6, BUN 7, Creatinine 0.41 L, Estim Creat Clear Calc 116.99, Est GFR (MDRD) Af Amer 206, Est GFR (MDRD) Non-Af 171, BUN/Creatinine Ratio 17.0, Glucose 95, Calcium 7.7 L 07/30/21 06:35: WBC 8.9, RBC 3.09 L, Hgb 9.0 L, Hct 27.5 L, MCV 89.0, MCH 29.1, MCHC 32.7, RDW Std Deviation 54.8 H, RDW Coeff of Rosette 17.1 H, Plt Count 205, MPV 10.4, Immature Gran % (Auto) 0.400, Neut % (Auto) 76.2 H, Lymph % (Auto) 10.7 L, [place] % (Auto) 8.3, Eos % (Auto) 4.0, Baso % (Auto) 0.4, Absolute Neuts (auto) 6.8, Absolute Lymphs (auto) 0.95, Nucleated RBC % 0 Microbiology: Microbiology 07/27/21 10:15 Nasal Secretion SARS-CoV-2 Antigen (Rapid) - Final D/C Instructions Discharge Diet: No restrictions Weight Bearing Status: Weight bearing as tolerated Call your doctor if you observe: Fever of 101 or Higher, Numbness or Tingling, Shortness of breath, Dizziness, Chest pain, Increased palpitations (irregular heartbeat) and Calf discomfort Please Follow Up With: Primary care provider When: Within the next two weeks. Meaningful Use Info Meaningful Use Diagnoses (Choose all that apply): None applicable Discharge Plan Admission Admit Date/Time: 07/26/21 13:53 Primary Reason for Your Visit: Hematemesis Attending Provider: Clive Davis Primary Care Provider: Francisco Hong Discharge Orders/Prescriptions Prescriptions: New pantoprazole [Protonix] 40 mg tablet,delayed release (DR/EC) 40 mg PO BID Qty: 60 RF: 0 sucralfate [Carafate] 100 mg/mL suspension 10 ml PO BID Qty: 1000 RF: 0 sucralfate [Carafate] 100 mg/mL suspension 10 ml PO BID Qty: 600 RF: 0 polysaccharide iron complex [Ferrex 150] 150 mg iron Capsule 150 mg PO DAILYCM Qty: 0 RF: 0 Continued pramipexole 0.75 mg tablet 0.375 mg PO TID RF: 0 gabapentin 300 mg capsule 300 mg PO TID RF: 0 lidocaine 5 % adhesive patch,medicated 1 patch TOPICAL PRN PRN (Reason: Pain Score 1-1010) RF: 0 furosemide 20 mg tablet 20 mg PO DAILY RF: 0 metoprolol tartrate 25 mg tablet 25 mg PO BID RF: 0 potassium chloride 20 mEq tablet extended release 20 meq PO DAILY RF: 0 Rebif 44 mcg SC MOWEFR RF: 0 baclofen 10 mg tablet 10 mg PO PRN PRN (Reason: Pain Score 1-1010) RF: 0 atorvastatin 80 mg tablet 80 mg PO QHS Qty: 90 RF: 4 Held aspirin 81 MG tablet 81 mg PO DAILY@0800 RF: 0 Hold Instructions: Resume as instructed by Dr. Rutledge. clopidogrel 75 mg tablet 75 mg PO QDAY Qty: 90 RF: 4 Hold Instructions: Hold until told to resume by Dr. Rutledge. Discontinued azithromycin [Zithromax Z-Lobo] 250 mg tablet See Rx Instructions PO .COMPLEX RF: 0 Referrals / Follow Up: Mike Rutledge DO [STAFF PHYSICIAN] - 08/12/21 1:30 pm Francisco Hong MD [Primary Care Provider] - Within 1 Week (Please call to set up an appointment as well as have follow up CBC ordered. ) Disposition Disposition (needs filled in before D/C Order can be placed): Home, Self Care Documented by User: Dr. Clive Davis MD 07/30/21 11:37 Providers Date of Admission: 07/26/21 Reason For Visit: HEMATEMESIS Medications at Discharge Home Medications aspirin 81 mg PO DAILY@0800 tab 03/06/17 Rebif 44 mcg SC MOWEFR 07/20/17 baclofen 10 mg tablet 10 mg PO PRN PRN tab 05/07/19 gabapentin 300 mg capsule 300 mg PO TID 05/07/19 pramipexole 0.75 mg tablet 0.375 mg PO TID tab 05/07/19 lidocaine 5 % topical patch 1 patch TOPICAL PRN PRN 12/07/19 atorvastatin 80 mg tablet 80 mg PO QHS #90 tab 11/07/20 clopidogrel 75 mg tablet 75 mg PO QDAY #90 tab 11/07/20 furosemide 20 mg PO DAILY 07/26/21 metoprolol tartrate 25 mg PO BID 07/26/21 potassium chloride 20 meq PO DAILY 07/26/21 pantoprazole [Protonix] 40 mg PO BID #60 tab 07/29/21 sucralfate [Carafate] 10 ml PO BID #1000 ml 07/29/21 polysaccharide iron complex [Ferrex 150] 150 mg PO DAILYCM #0 cap 07/30/21 sucralfate [Carafate] 10 ml PO BID #600 ml 07/30/21 Hospital Course Operations None Summary of Care Provided Minutes Spent on Discharge: 35 Hospital Course: This patient was seen in conjunction with SHAHRAM Cade . I have independently interviewed and examined the patient and reviewed pertinent historical, laboratory, and other data. Please refer to SHAHRAM Cade note for details of this patient's presentation, findings, and recommendations. I have reviewed SHAHRAM Cade note and concur with documented findings. In brief, patient is a 56-year-old lady who presented with hematemesis admitted to monitored bed with consultation placed to general surgery. Patient underwent EGD findings - LA Grade B reflux esophagitis. - Dieulafoy lesion of stomach. - Clotted blood in the entire stomach. - Normal second portion of the duodenum. - No specimens collected. 07/28/2021. Significant drop in patient hemoglobin level down to 4.4. An order was given for patient to be transfused with 2 unit PRBC with posttransfusion H&H ordered did review patient electrolyte significant for potassium of 3.3 replace per protocol 07/29/2021. Patient hemoglobin still remains low. Patient also complains of feeling lightheaded upon standing. Decision was made to keep patient for 1 additional day. She was also transfused 1 unit PRBC. Assessment: 1. Upper GI bleed secondary to esophagitis as well as Dieulafoy lesion of stomach 2. Coronary artery disease with previous stent placement in LAD 3. Multiple sclerosis 4. Essential hypertension 5. PSVT 6. Hypokalemia Hospital course: As documented above ed ABG / Lab / Microbiology Data Result Diagrams: 07/30/21 06:35 07/30/21 05:35 Discharge Plan Admission Admit Date/Time: 07/26/21 13:53 Primary Reason for Your Visit: Hematemesis Attending Provider: Clive Davis Primary Care Provider: Francisco Hong Discharge Orders/Prescriptions Prescriptions: New pantoprazole [Protonix] 40 mg tablet,delayed release (DR/EC) 40 mg PO BID Qty: 60 RF: 0 sucralfate [Carafate] 100 mg/mL suspension 10 ml PO BID Qty: 1000 RF: 0 sucralfate [Carafate] 100 mg/mL suspension 10 ml PO BID Qty: 600 RF: 0 polysaccharide iron complex [Ferrex 150] 150 mg iron Capsule 150 mg PO DAILYCM Qty: 0 RF: 0 Continued pramipexole 0.75 mg tablet 0.375 mg PO TID RF: 0 gabapentin 300 mg capsule 300 mg PO TID RF: 0 lidocaine 5 % adhesive patch,medicated 1 patch TOPICAL PRN PRN (Reason: Pain Score 1-1010) RF: 0 furosemide 20 mg tablet 20 mg PO DAILY RF: 0 metoprolol tartrate 25 mg tablet 25 mg PO BID RF: 0 potassium chloride 20 mEq tablet extended release 20 meq PO DAILY RF: 0 Rebif 44 mcg SC MOWEFR RF: 0 baclofen 10 mg tablet 10 mg PO PRN PRN (Reason: Pain Score 1-1010) RF: 0 atorvastatin 80 mg tablet 80 mg PO QHS Qty: 90 RF: 4 Held aspirin 81 MG tablet 81 mg PO DAILY@0800 RF: 0 Hold Instructions: Resume as instructed by Dr. Rutledge. clopidogrel 75 mg tablet 75 mg PO QDAY Qty: 90 RF: 4 Hold Instructions: Hold until told to resume by Dr. Rutledge. Discontinued azithromycin [Zithromax Z-Lobo] 250 mg tablet See Rx Instructions PO .COMPLEX RF: 0 Referrals / Follow Up: Mike Rutledge DO [STAFF PHYSICIAN] - 08/12/21 1:30 pm Francisco Hong MD [Primary Care Provider] - Within 1 Week (Please call to set up an appointment as well as have follow up CBC ordered. ) Disposition Disposition (needs filled in before D/C Order can be placed): Home, Self Care Charges/Coding Visit Charges Inpatient E&M: 38043 Disch Hosp Hospital Course Consultations Consultations: Consultations 07/26/21 13:58 Consult: Gastroenterology Routine Consulting Provider: [facility] Reason for Consult: Hematemesis EMERGENT Consult: No MD Notified: Yes Date Notified: 07/26/21 Time Notified: 13:58 Method of Notification: Verbal Operations None
== END 2021-07-30 11:05 | disposition home or self-care (01) | DRG 378 ==
LOC: ED 10:05 → PCU 17:47
PROVIDERS: Anesthesiology; Emergency Medicine; Internal Medicine Gastroenterology; Physician Assistant; Admitting Provider Internal Medicine; Emergency Provider Student in an Organized Health Care Education/Training Program; PCP Family Medicine; Visit Provider Internal Medicine
PROC: 0DJ08ZZ Inspection of Upper Intestinal Tract, Via Natural or Artificial Opening Endoscopic (ICD-10-PCS; CPT 43235; principal; 2021-07-27 11:55)
DX: K31.82 Dieulafoy lesion (hemorrhagic) of stomach and duodenum (principal); D62 Acute posthemorrhagic anemia; I47.1 Supraventricular tachycardia; K21.00 Gastro-esophageal reflux disease with esophagitis, without bleeding; I95.9 Hypotension, unspecified; E78.5 Hyperlipidemia, unspecified; R42 Dizziness and giddiness; E83.51 Hypocalcemia; E87.6 Hypokalemia; G35 Multiple sclerosis; I10 Essential (primary) hypertension; I25.10 Atherosclerotic heart disease of native coronary artery without angina pectoris; I25.2 Old myocardial infarction; I25.5 Ischemic cardiomyopathy; Z87.19 Personal history of other diseases of the digestive system; Z95.5 Presence of coronary angioplasty implant and graft; Z90.49 Acquired absence of other specified parts of digestive tract; Z79.82 Long term (current) use of aspirin; Z79.02 Long term (current) use of antithrombotics/antiplatelets; Z79.899 Other long term (current) drug therapy; Z87.891 Personal history of nicotine dependence
CPT/HCPCS: 36415; 74177; 80048; 80053; 81001; 83690; 83735; 85014; 85018; 85025; 85610; 85730; 86850; 86900; 86901; 86920; 87426; 93005; 99284; 99406; J7030; J7040; J7120; P9016; Q9967; A4216; J0610; J2405

== ENCOUNTER → 2021-07-31 07:01 | Outpatient (CLI) | payer OTHER, MEDICARE, SELFPAY ==
[2017-03-03 15:40] VITALS: BMI 24.5
[2021-07-31 08:17] LABS: Absolute Lymphocyte Count 1.05 X10^3/uL (0.83-4.51); Absolute Neutrophil Count 7.8 X10^3/uL (2.0-7.7); Basophil# 0.04 X10^3/uL; Basophil% 0.4 % (0-1); Eosinophil# 0.21 X10^3/uL; Eosinophils% 2.1 % (0-5); Hemoglobin 10.2 g/dL (12.0-15.0); Lymphocyte # 1.05 X10^3/ul (0.83-4.51); Lymphocyte % 10.5 % (19-41); Mean Corp Hgb Conc 31.9 g/dL (32-36); Mean Corpuscular Hgb 28.8 pg (27.0-32.0); Mean Corpuscular Volume 90.4 fL (81-99); Mean Platelet Vol. 10.5 fl (6.2-12.0); Monocyte# 0.83 X10^3/uL; Monocyte% 8.3 % (0-10); NRBC Flagged by Analyzer 0 % (0-5); Neutrophil # 7.84 X10^3/uL (2.7-7.7); Neutrophil % 78.2 % (47-70); Platelet Count 286 K/mm3 (150-450); RBC Distribution Width CV 17.5 % (11.6-14.6); RBC Distribution Width SD 57.8 fl (35.1-43.9); Red Blood Count 3.54 M/mm3 (4.2-5.4)
[2021-07-31 08:18] LABS: Erythrocyte Sedimentation Rate 13 mm/hr (0-30)
[2021-07-31 08:35] LABS: ALB/GLOB Ratio 0.6 RATIO (0.9-2.4); AST(SGOT) 19 U/L (15-37); Alanine Aminotransfer ALT/SGPT 30 U/L (13-56); Albumin, Serum 2.3 g/dL (3.2-5.0); Alkaline Phosphatase 51 U/L (45-117); Anion Gap 6 (5-15); BUN 12 mg/dL (7-18); BUN/Creat Ratio 23.5 RATIO (10-20); Calcium,Total 8.3 mg/dL (8.5-10.1); Chloride 107 mmol/L (98-107); Creatinine, Serum 0.51 mg/dL (0.55-1.02); EST Glomerular Filtration Rate 133 mL/min (>60); Est Glom Filt Rate - Afr Amer 161 mL/min (>60); Globulin 3.7 g/dL (2.2-4.2); Glucose 94 mg/dL (74-106); Potassium 3.6 mmol/L (3.5-5.1); Sodium Level 141 mmol/L (136-145)
[2021-07-31 08:39] LABS: Vitamin B12 > 2000 pg/mL (211-911)
[2021-07-31 08:40] LABS: Ferritin 11 ng/mL (8-252); Iron 21 ug/dL (50-170); Iron Binding Capacity,Total 292 ug/dL (250-450); PERCENT IRON SATURATION 7.2 % (15.0-55.0)
== END ==
PROVIDERS: PCP Family Medicine; Referring Provider Internal Medicine Gastroenterology; Visit Provider Internal Medicine Gastroenterology
DX: D62 Acute posthemorrhagic anemia (principal)
CPT/HCPCS: 36415; 80053; 82607; 82728; 83540; 83550; 85025; 85652; 86140

== ENCOUNTER → 2021-08-03 07:16 | Outpatient (CLI) | payer OTHER, MEDICARE, SELFPAY ==
[2017-03-03 15:40] VITALS: BMI 24.5
[2021-08-03 08:02] LABS: Erythrocyte Sedimentation Rate 44 mm/hr (0-30)
== END ==
PROVIDERS: PCP Family Medicine; Referring Provider Internal Medicine Gastroenterology; Visit Provider Internal Medicine Gastroenterology
DX: D62 Acute posthemorrhagic anemia (principal)
CPT/HCPCS: 36415; 85652

== ENCOUNTER → 2021-08-04 10:47 | Outpatient (CLI) | payer OTHER, MEDICARE, SELFPAY ==
[2017-03-03 15:40] VITALS: BMI 24.5
[2021-08-04 11:10] LABS: Absolute Lymphocyte Count 1.42 X10^3/uL (0.83-4.51); Absolute Neutrophil Count 6.5 X10^3/uL (2.0-7.7); Basophil# 0.05 X10^3/uL; Basophil% 0.5 % (0-1); Eosinophil# 0.31 X10^3/uL; Eosinophils% 3.3 % (0-5); Hematocrit 30.1 % (37-47); Hemoglobin 9.4 g/dL (12.0-15.0); Lymphocyte # 1.42 X10^3/ul (0.83-4.51); Lymphocyte % 15.3 % (19-41); Mean Corp Hgb Conc 31.2 g/dL (32-36); Mean Corpuscular Hgb 28.7 pg (27.0-32.0); Monocyte# 0.96 X10^3/uL; Monocyte% 10.4 % (0-10); NRBC Flagged by Analyzer 0 % (0-5); Neutrophil # 6.47 X10^3/uL (2.7-7.7); Platelet Count 506 K/mm3 (150-450); RBC Distribution Width CV 18.1 % (11.6-14.6); RBC Distribution Width SD 61.2 fl (35.1-43.9); Red Blood Count 3.27 M/mm3 (4.2-5.4); White Blood Count 9.3 K/mm3 (4.4-11.0)
== END ==
PROVIDERS: PCP Family Medicine; Referring Provider Nurse Practitioner Family; Visit Provider Nurse Practitioner Family
DX: D62 Acute posthemorrhagic anemia (principal)
CPT/HCPCS: 36415; 85025

== ENCOUNTER → 2021-08-10 08:34 | Outpatient (CLI) | payer OTHER, MEDICARE, SELFPAY ==
[2017-03-03 15:40] VITALS: BMI 24.5
[2021-08-10 09:03] LABS: Absolute Lymphocyte Count 1.72 X10^3/uL (0.83-4.51); Absolute Neutrophil Count 4.9 X10^3/uL (2.0-7.7); Basophil# 0.04 X10^3/uL; Basophil% 0.5 % (0-1); Eosinophil# 0.21 X10^3/uL; Eosinophils% 2.8 % (0-5); Hematocrit 34.2 % (37-47); Hemoglobin 10.3 g/dL (12.0-15.0); Lymphocyte # 1.72 X10^3/ul (0.83-4.51); Lymphocyte % 23.1 % (19-41); Mean Corp Hgb Conc 30.1 g/dL (32-36); Mean Corpuscular Volume 96.3 fL (81-99); Mean Platelet Vol. 8.3 fl (6.2-12.0); Monocyte% 8.1 % (0-10); NRBC Flagged by Analyzer 0 % (0-5); Neutrophil # 4.85 X10^3/uL (2.7-7.7); Neutrophil % 65.2 % (47-70); Platelet Count 517 K/mm3 (150-450); RBC Distribution Width CV 18.2 % (11.6-14.6); RBC Distribution Width SD 64.5 fl (35.1-43.9); Red Blood Count 3.55 M/mm3 (4.2-5.4); White Blood Count 7.4 K/mm3 (4.4-11.0)
== END ==
PROVIDERS: PCP Family Medicine; Referring Provider Nurse Practitioner Family; Visit Provider Nurse Practitioner Family
DX: D62 Acute posthemorrhagic anemia (principal)
CPT/HCPCS: 36415; 85025

== ENCOUNTER → 2021-08-12 14:15 | Outpatient (CLI) | payer OTHER, MEDICARE, SELFPAY ==
[2017-03-03 15:40] VITALS: BMI 24.5
[2021-08-14 13:07] LABS: Anti-Centromere B Ab <0.2 AI (0.0-0.9); Anti-Chromatin <0.2 AI (0.0-0.9); Anti-Jo <0.2 AI (0.0-0.9); Anti-Scleroderma-70 AB <0.2 AI (0.0-0.9); RNP Ab 0.3 AI (0.0-0.9); SJOGREN'S Anti-SS-A test < 0.2 AI (0.0-0.9); SJOGREN'S Anti-SS-B test < 0.2 AI (0.0-0.9); Smith Ab <0.2 AI (0.0-0.9)
[2021-08-14 23:38] LABS: Anti-dsDNA Ab <1 IU/mL (0-9)
[2021-08-18 16:08] LABS: Dilute Prothrombin Time (dPT) 40.8 sec (0.0-47.6); Dilute Russell Viper Venom 36.7 sec (0.0-47.0); PTT-LA 31.8 sec (0.0-51.9); Protein C Antigen 115 % (60-150); Protein C, Functional 148 % (73-180); Protein S, Free 94 % (61-136); Thrombin Time 18.4 sec (0.0-23.0); dPT Confirm Ratio 1.22 Ratio (0.00-1.34)
[2021-08-18 18:26] LABS: Anti-Thrombin 3 AG, Immunol 111 % (72-124); Antithrombin 3 Function 134 % (75-135); Interpretation Comment: (.); Protein S, Funtional 97 % (63-140); Protein S, Total 139 % (60-150)
== END ==
PROVIDERS: PCP Family Medicine; Visit Provider Internal Medicine Gastroenterology
DX: I21.3 ST elevation (STEMI) myocardial infarction of unspecified site (principal)
CPT/HCPCS: 36415; 81241; 85245; 85300; 85301; 85302; 85303; 85305; 85306; 86225; 86235

== ENCOUNTER 2021-12-03 06:29 | Day surgery (SDC) | payer OTHER, MEDICARE, SELFPAY ==
[2017-03-03 15:40] VITALS: BMI 24.5
[2021-12-03] VITALS (7 sets, daily range): BP systolic 90–109; BP diastolic 55–75; PULSE 60–71; RESP 16; TEMP 36.3–36.6; O2SAT 93–97; BMI 21.7
[2021-12-03] MEDS: Lactated Ringers 1,000 ML 15 ML IV (06:54)
--- NOTE | 2021-12-03 07:44 | PCM.HP.BLA ---
History and Physical Date of Admission: 12/03/21 GENNY PIERCE, is a 56 F who presents to the office today for Last seen as [facility] inpatient 07/29/21 for acute blood loss anemia and hematemesis. She presented to [facility] ED 07/26/21 following repeated episodes of hematemesis. At last visit she was doing well and was discharged 07/30/21. EGD performed 07/27/21 with LA Grade B reflux esophagitis; Dieulafoy lesion of stomach; Clotted blood in entire stomach. During hospitalization she required blood transfusion, 2 units PRBC on 07/28/21. Hemoglobin 10.3 on 08/10/21. States she is doing overall well since discharged. Continues to feel tired but is feeling more energetic each day. Denies repeat episodes of bleeding. Reporting all day headaches that last all day and are not affected by Tylenol, states it may be related to MS diagnosis. States she is hungry more often. ROS Const Constitutional: Positive for fatigue, headache(s) and weight change Eyes Eyes: Positive for blurry vision, irritation and eye pain ENT ENT: Positive for headache(s) Resp Respiratory: Positive for wheezing Gastro GI: Positive for constipation Musc Musculoskeletal: Positive for back pain, stiffness and restless legs Neuro Neurology: Positive for headache(s) and restless legs Endo Endocrine: Positive for fatigue, increased hunger and weight change Aller/Imm Allergy/Immunologic: Positive for wheezing Exam Const General: cooperative and comfortable Nutritional Appearance: average body habitus and well nourished [facility] Head: normal to inspection Ears: hearing grossly normal bilaterally Nose: external nose normal Face and sinus: normal facial exam Mouth: oral mucosae normal Throat: posterior oropharynx normal Eyes General: appearance normal, both eyes and all related structures Neck Neck: normal visual inspection Chest Chest palpation & inspection: normal inspection of the chest and normal palpation of entire chest wall Resp Effort & Inspection: normal respiratory effort Auscultation: Bilateral: Clear to Auscultation Cardio Palpation: normal PMI Rate: regular rate Rhythm: regular rhythm GI Inspection: normal to inspection Auscultation: normal bowel sounds Percussion: normal to percussion Palpation: no hepatosplenomegaly Skin General: no rashes or lesions noted Neuro General: patient alert Extrem General: normal to inspection Psych Affect: normal affect Quality Reporting Tobacco Screening ([facility]) Smoking Status: Former smoker Assessment and Plan Assessment and Plan (1) Acute ST elevation myocardial infarction: Status: Chronic Orders: Orders: AT III Func / Immunol Today Lupus Anticoagulant Comp Today Protein C Defic. Profile Today Protein S Defic. Profile Today Fact V Leiden Mutation Today Von Willebrand Factor Activity Today Plan - Dr. Mckeon Friend, DO: Or work-up to see why she reported arterial thrombus and Bactrim 2014 when she had her acute contact. (2) Anemia: Status: Acute Plan - Dr. Mckeon Friend, DO: Was found to be anemic secondary to upper GI bleed. This was secondary to a delafouy lesion. It was treated endoscopically and hemoglobin has increased from 4.4-10.7. Repeat upper endoscopy. I have re-examined the patient. There are no clinical changes since date of exam.
--- NOTE | 2021-12-03 07:45 | EGD_PTH ---
PATIENT: GENNY PIERCE LOC: EN U#:[id number] AGE/SX: 56/F ROOM: RE12/03/[address]: Dr. Mike Rutledge DO : 1965 BED: DIS: 12/03/2021 SPEC #: [id number] RECD: 12/03/21 10:28 STATUS: IRIS WILLAM #: [id number] WILLI: 12/03/21 07:[address]: Mike Rutledge DEPT: SURGICAL PATHOLOGY RECD BY: Lawanda Montalvo ENTERED: 12/03/21 13:32 SP TYPE: EGD BIOPSY MIGUEL DR: Dr. Francisco Hong MD Tissues: A - Esophagus, NOS B - Gastric mucous membrane C - Duodenum, NOS Procedures: Special Stain Group II Surgery Specimen Level IV Alcian Blue/PAS (control) HEADER OPERATION: EGD ([facility] [place]) with biopsies PRE-OP DIAGNOSIS: Anemia TISSUE SUBMITTED: A ? Distal esophagus biopsy, B ? Gastric antrum biopsy, C ? Duodenum biopsy MICROSCOPIC DIAGNOSIS A. Distal esophagus, biopsy: Fragments of gastroesophageal mucosa with moderate chronic inflammation. Intestinal metaplasia (goblet cell metaplasia) is not identified. See comment. B. Gastric antrum, biopsy: Moderate chronic active gastritis. See comment. C. Duodenum, biopsy: Fragments of duodenal mucosa, no pathologic diagnosis. SJ:rg 12/04/2021 COMMENT A. Alcian blue/PAS stain with matched control is used in the evaluation of the specimen. B. The results of immunohistochemistry for Helicobacter pylori will be reported separately ([id number]). MICROSCOPIC DESCRIPTION Slides are reviewed. GROSS DESCRIPTION A - Received in fixative is one container labeled with the patient's name and designated distal esophagus biopsy. The specimen consists of multiple irregular fragments of light peck soft tissue that in aggregate measure 1 x 0.4 x 0.1 cm. The specimen is totally submitted in one cassette. B - Received in fixative is one container labeled with the patient's name and designated gastric antrum biopsy. The specimen consists of two irregular fragments of light peck soft tissue that in aggregate measure 0.6 x 0.3 x 0.1 cm. The specimen is totally submitted in one cassette. C - Received in fixative is one container labeled with the patient's name and designated duodenum biopsy. The specimen consists of two irregular fragments of light peck soft tissue that in aggregate measure 1 x 0.3 x 0.1 cm. The specimen is totally submitted in one cassette. / SJ:rg 12/03/2021 TC:3 CPT: 63221 x3, 13419
--- NOTE | 2021-12-03 07:45 | IMM_PTH ---
PATIENT: GENNY PIERCE LOC: EN U#:[id number] AGE/SX: 56/F ROOM: RE12/03/[address]: Dr. Mike Rutledge DO : 1965 BED: DIS: 12/03/2021 SPEC #: [id number] RECD: 12/03/21 12:58 STATUS: IRIS WILLAM #: [id number] WILLI: 12/03/21 07:[address]: Mike Rutledge DEPT: IMMUNOHISTOCHEMISTRY RECD BY: Lina Almaguer ENTERED: 12/03/21 12:58 SP TYPE: IMMUNO OTHR DR: Dr. Francisco Hong MD Tissues: B - Stomach, NOS Procedures: H Pylori (initial) PHYSICIAN & INSTITUTION [place] [address] SPECIMEN INFORMATION: Tissue Source: B ? Gastric antrum, biopsy Clinical Info: Anemia Specimen Number: [id number] CPT code: 35297 METHODOLOGY: Deparaffinized sections of prefer/formalin-fixed tissue or PAP/DQ stained slides are incubated with monoclonal/polyclonal antibodies/oligonucleotide probes. Localization is made via biotin free immunoperoxidase method. Appropriate controls are performed and reacted as expected. Results on target cell population are indicated in the following table: RESULTS: ANTIBODY / CLONE RESULT Block B H Pylori (polyclonal) positive These tests were developed and their performance characteristics determined by [facility]. They may not have been cleared or approved by the U.S. Food and Drug Administration. The FDA has determined that such clearance or approval is not necessary. The above immunohistochemical/dualISH markers are ordered and reviewed by the Pathologist. INTERPRETATION: B. Gastric antrum, biopsy: Positive for a few Helicobacter pylori organisms. SJ:juliet 12/04/2021
--- NOTE | 2021-12-03 08:06 | OP.CCLET_ITS ---
05/13/2022 Francisco Hong Re : Upper GI endoscopy procedure for Helena Azul Dear Hal This procedure was performed on November. My impressions and recommendations are as follows: Impressions : - LA Grade A reflux esophagitis. Biopsied. - Small hiatal hernia. - Non-bleeding erosive gastropathy. Biopsied. - Erythematous duodenopathy. Biopsied. Recommendations : - Discharge patient to home. - Resume previous diet. - Continue present medications. - Await pathology results. - Repeat upper endoscopy in 1 year for surveillance based on pathology results. My findings are described in the full procedure note, which is enclosed. If I can be of further assistance, please feel free to contact me at . Sincerely, Mike Rutledge, 12/03/2021 8:06:09 AM This report has been signed electronically.
--- NOTE | 2021-12-03 08:06 | OP.EGD_ITS ---
Patient Name: Helena Azul Procedure Date: 12/03/2021 7:43 AM Date of : 1965 Age: 56 Procedure: Upper GI endoscopy Indications: Iron deficiency anemia, Hematemesis Providers: Mike Rutledge DO Medicines: Sedation Required Anesthesia Staff Assistance Patient Profile: This is a 56 year old female. Refer to note in patient chart for documentation of history and physical. Patient has symptoms. She is status post EGD for treatment of bleeding within the past three months. Complications: No immediate complications. Procedure: Pre-Anesthesia Assessment: - Prior to the procedure, a History and Physical was performed, and patient medications and allergies were reviewed. The risks and benefits of the procedure and the sedation options and risks were discussed with the patient. All questions were answered and informed consent was obtained. Patient identification and proposed procedure were verified by the physician in the pre-procedure area. Mental Status Examination: alert and oriented. Airway Examination: normal oropharyngeal airway and neck mobility. Respiratory Examination: clear to auscultation. CV Examination: normal. Prophylactic Antibiotics: The patient does not require prophylactic antibiotics. Prior Anticoagulants: The patient has taken no previous anticoagulant or antiplatelet agents. After reviewing the risks and benefits, the patient was deemed in satisfactory condition to undergo the procedure. The anesthesia plan was to use moderate sedation / analgesia (conscious sedation). Immediately prior to administration of medications, the patient was re-assessed for adequacy to receive sedatives. The heart rate, respiratory rate, oxygen saturations, blood pressure, adequacy of pulmonary ventilation, and response to care were monitored throughout the procedure. The physical status of the patient was re-assessed after the procedure. After obtaining informed consent, the endoscope was passed under direct vision. Throughout the procedure, the patient's blood pressure, pulse, and oxygen saturations were monitored continuously. The gastroscope was introduced through the mouth, and advanced to the second part of duodenum. The upper GI endoscopy was accomplished without difficulty. The patient tolerated the procedure well. Moderate Sedation: Moderate (conscious) sedation was personally administered by an anesthesia professional. The following parameters were monitored: oxygen saturation, heart rate, blood pressure, respiratory rate, EKG, adequacy of pulmonary ventilation, and response to care. Total physician intraservice time was 15 minutes. Scope In: 7:52:25 AM Scope Out: 7:59:04 AM Total Procedure Duration Time 0 hours 6 minutes 39 seconds Findings: LA Grade A (one or more mucosal breaks less than 5 mm, not extending between tops of 2 mucosal folds) esophagitis with no bleeding was found 37 to 40 cm from the incisors. Biopsies were taken with a cold forceps for histology. Verification of patient identification for the specimen was done. Estimated blood loss was minimal. A small hiatal hernia was present. A few localized, 5 mm non-bleeding erosions were found in the gastric antrum. There were no stigmata of recent bleeding. Biopsies were taken with a cold forceps for histology. Verification of patient identification for the specimen was done. Estimated blood loss was minimal. Patchy mildly erythematous mucosa without active bleeding and with no stigmata of bleeding was found in the first portion of the duodenum. Biopsies were taken with a cold forceps for histology. Verification of patient identification for the specimen was done. Estimated blood loss was minimal. Impression: - LA Grade A reflux esophagitis. Biopsied. - Small hiatal hernia. - Non-bleeding erosive gastropathy. Biopsied. - Erythematous duodenopathy. Biopsied. Recommendation: - Discharge patient to home. - Resume previous diet. - Continue present medications. - Await pathology results. - Repeat upper endoscopy in 1 year for surveillance based on pathology results. Procedure Code(s): --- Professional --- 68339, Esophagogastroduodenoscopy, flexible, transoral; with biopsy, single or multiple CPT copyright 2017 [employer]. All rights reserved. The codes documented in this report are preliminary and upon sales product manager review may be revised to meet current compliance requirements. Mike Rutledge DO 12/03/2021 8:06:09 AM This report has been signed electronically. Number of Addenda: 1 Note Initiated On: 12/03/2021 7:43 AM Addendum Number: 1 Addendum Date: 05/13/2022 6:29:32 AM MAC was used as sedation for this procedure. Mike Rutledge DO 05/13/2022 6:29:38 AM This report has been signed electronically.
== END 2021-12-03 23:59 | disposition home or self-care (01) ==
LOC: EN 06:30 → AC 06:30
PROVIDERS: PCP Family Medicine; Referring Provider Family Medicine; Visit Provider Internal Medicine Gastroenterology
PROC: 0DJ08ZZ Inspection of Upper Intestinal Tract, Via Natural or Artificial Opening Endoscopic (ICD-10-PCS; CPT 43235; principal; 2021-12-03 07:40)
DX: K21.00 Gastro-esophageal reflux disease with esophagitis, without bleeding (principal); G35 Multiple sclerosis; K44.9 Diaphragmatic hernia without obstruction or gangrene; K31.9 Disease of stomach and duodenum, unspecified; B96.81 Helicobacter pylori [H. pylori] as the cause of diseases classified elsewhere; D50.9 Iron deficiency anemia, unspecified; I25.10 Atherosclerotic heart disease of native coronary artery without angina pectoris; I10 Essential (primary) hypertension; E78.5 Hyperlipidemia, unspecified; G25.81 Restless legs syndrome; Z78.0 Asymptomatic menopausal state; I25.2 Old myocardial infarction; Z79.899 Other long term (current) drug therapy; Z87.891 Personal history of nicotine dependence; Z95.5 Presence of coronary angioplasty implant and graft
CPT/HCPCS: 43239; 87426; 88305; 88313; 88342; C9803; J7120

== ENCOUNTER → 2022-01-18 | Outpatient (CLI) | payer OTHER, MEDICARE, SELFPAY ==
[2017-03-03 15:40] VITALS: BMI 24.5
[2022-01-18 12:36] LABS: Absolute Lymphocyte Count 1.67 X10^3/uL (0.83-4.51); Absolute Neutrophil Count 3.6 X10^3/uL (2.0-7.7); Basophil# 0.02 X10^3/uL; Basophil% 0.3 % (0-1); Eosinophil# 0.15 X10^3/uL; Eosinophils% 2.5 % (0-5); Hematocrit 40.8 % (37-47); Hemoglobin 13.6 g/dL (12.0-15.0); Lymphocyte # 1.67 X10^3/ul (0.83-4.51); Lymphocyte % 28.1 % (19-41); Mean Corp Hgb Conc 33.3 g/dL (32-36); Mean Corpuscular Hgb 30.8 pg (27.0-32.0); Mean Corpuscular Volume 92.5 fL (81-99); Monocyte# 0.52 X10^3/uL; Monocyte% 8.8 % (0-10); NRBC Flagged by Analyzer 0 % (0-5); Neutrophil # 3.56 X10^3/uL (2.7-7.7); Platelet Count 232 K/mm3 (150-450); RBC Distribution Width CV 12.8 % (11.6-14.6); RBC Distribution Width SD 43.5 fl (35.1-43.9); Red Blood Count 4.41 M/mm3 (4.2-5.4); Reticulocyte Count 1.36 % (0.5-1.5); White Blood Count 5.9 K/mm3 (4.4-11.0)
[2022-01-18 13:34] LABS: Ferritin 124 ng/mL (8-252); Iron 69 ug/dL (50-170); Iron Binding Capacity,Total 233 ug/dL (250-450); PERCENT IRON SATURATION 29.6 % (15.0-55.0)
[2022-01-20 21:00] LABS: H. PYLORI STOOL AG Negative (Negative)
== END | disposition home or self-care (01) ==
LOC: LAB 12:00
PROVIDERS: PCP Family Medicine; Referring Provider Nurse Practitioner Adult Health; Visit Provider Nurse Practitioner Adult Health
DX: D64.9 Anemia, unspecified (principal)
CPT/HCPCS: 36415; 82728; 83540; 83550; 85025; 85045

== ENCOUNTER → 2022-02-05 | Outpatient (CLI) | payer OTHER, MEDICARE, SELFPAY ==
[2017-03-03 15:40] VITALS: BMI 24.5
[2022-02-05 08:59] LABS: AST(SGOT) 27 U/L (15-37); Alanine Aminotransfer ALT/SGPT 29 U/L (13-56); Albumin, Serum 3.3 g/dL (3.2-5.0); Alkaline Phosphatase 62 U/L (45-117); Bilirubin, Direct 0.12 mg/dL (0.00-0.30); Cholesterol 115 mg/dL (200); Globulin 3.7 g/dL (2.2-4.2); High Density Lipoprotein 51 mg/dL; Triglycerides 65 mg/dL; Very Low Density Lipoprotein 13 mg/dL (5-40)
== END | disposition home or self-care (01) ==
LOC: LAB 07:23
PROVIDERS: PCP Family Medicine; Referring Provider Internal Medicine Cardiovascular Disease; Visit Provider Internal Medicine Cardiovascular Disease
DX: E78.00 Pure hypercholesterolemia, unspecified (principal); E78.5 Hyperlipidemia, unspecified
CPT/HCPCS: 36415; 80061; 80076

== ENCOUNTER → 2022-02-08 | Outpatient (CLI) | payer OTHER, MEDICARE, SELFPAY ==
[2017-03-03 15:40] VITALS: BMI 24.5
[2022-02-08 11:36] LABS: T4 Free Direct 1.04 ng/dL (0.76-1.46); Thyroid Stim Hormone (TSH) 1.89 uIU/mL (0.358-3.74)
== END | disposition home or self-care (01) ==
LOC: LAB 09:54
PROVIDERS: Nurse Practitioner Family; PCP Family Medicine; Referring Provider Internal Medicine Cardiovascular Disease; Visit Provider Internal Medicine Cardiovascular Disease
DX: R53.83 Other fatigue (principal); R00.2 Palpitations
CPT/HCPCS: 36415; 84439; 84443

== ENCOUNTER → 2022-02-19 | Outpatient (CLI) | payer OTHER, MEDICARE, SELFPAY ==
[2017-03-03 15:40] VITALS: BMI 24.5
--- NOTE | 2022-02-19 11:29 | STRESSREP ---
Stress Test Report Date: 02-19-2022 Procedure: Pharmacologic stress nuclear imaging study Indications: Chest pain; CAD; PCI Consent: Per the patient Procedure: The patient underwent pharmacologic (Regadenoson 0.4mg ) evaluation with a peak heart rate of 118 beats per minute (71%predicted maximal heart rate) and a peak blood pressure of 110/78 mmHg. The baseline ECG demonstrated normal sinus rhythm. The peak pharmacologic ECG demonstrated no obvious ECG changes. There were no cardiac dysrhythmias pretest, during pharmacologic infusion, or recovery. There was no complaint of chest discomfort during pharmacologic infusion or recovery. The examination was discontinued secondary to completion of protocol. Impression: 1. Pharmacologic (Regadenoson) evaluation 2. Peak pharmacologic ECG with no obvious ECG changes. 3. There were no cardiac dysrhythmias pretest, during pharmacologic infusion, or recovery. 4. Nuclear images pending Myocardial perfusion imaging study: Technique: The patient was injected with 11.6 millicuries of technetium 99m Cardiolite and subsequently rest SPECT Cardiolite nuclear imaging was obtained in the horizontal long, vertical long, and short axis views. The patient underwent pharmacologic (Regadenoson) evaluation with a peak heart rate of 118 beats per minute (71% percent predicted maximal heart rate) and a peak blood pressure of 110/78 mmHg. The patient was injected with 33.7 millicuries of technetium 99m Cardiolite and subsequently stress SPECT Cardiolite nuclear imaging was obtained in the horizontal long, vertical long, and short axis views. A gated Cardiolite study at peak stress was obtained. Interpretation: Rest and stress SPECT Cardiolite nuclear imaging status post realignment, normalization, and attenuation correction demonstrate relative uniform tracer uptake and myocardial perfusion appearing within normal limits. There is end systolic thickening and brightening. The gated Cardiolite study demonstrates myocardial thickening and inward wall motion. The reported LVEF is 83%. Impression: 1. Rest and stress SPECT Cardiolite nuclear imaging demonstrate relative uniform tracer uptake and myocardial perfusion appearing within normal limits. 2. The gated Cardiolite study reports an LVEF of 83%. This note was generated with [employer] software. It may contain incorrect words, spelling, and punctuation that were not noted in checking the note before signing.
== END | disposition home or self-care (01) ==
LOC: CVS 06:07
PROVIDERS: PCP Family Medicine; Referring Provider Nurse Practitioner Family; Visit Provider Nurse Practitioner Family
DX: I25.5 Ischemic cardiomyopathy (principal); I47.1 Supraventricular tachycardia; Z95.5 Presence of coronary angioplasty implant and graft; R53.83 Other fatigue; I25.10 Atherosclerotic heart disease of native coronary artery without angina pectoris
CPT/HCPCS: 78452; 93017; A9500; A4216; J2785

== ENCOUNTER → 2022-03-03 | Outpatient (CLI) | payer OTHER, MEDICARE, SELFPAY ==
[2017-03-03 15:40] VITALS: BMI 24.5
--- NOTE | 2022-03-03 09:41 | US_ITS ---
STUDY: ABDOMINAL ULTRASOUND - RIGHT UPPER QUADRANT REASON FOR VISIT: Female, 56 years old . Six-month history of right upper quadrant pain. Prior cholecystectomy. TECHNIQUE: Ultrasound evaluation of the right upper quadrant was performed with real-time and static douglass-scale imaging. TECHNICAL QUALITY: Adequate. COMPARISON: None. FINDINGS: Liver: The liver measures 13.1 cm. There is normal echogenicity of the liver. The bile ducts are within normal limits. There is hepatic color flow. The direction of portal flow is hepatopetal. There is a 1.9 cm x 1.4 cm x 0.9 cm cyst in the right lobe of the liver. Gallbladder: The patient is status post cholecystectomy. Common Bile Duct (C.B.D.): The common bile duct measures 2.9 mm. Pancreas: Normal size of the head, body and tail of the pancreas. There is normal echogenicity of the pancreas. There is no demonstrated pancreatic mass or cyst. Right Kidney: Normal size of the right kidney. The right kidney measures 11.7 cm x 5 cm x 3.8 cm. Normal renal cortex. The right cortex measures 1.0 cm. There is no demonstrated renal mass or cyst. There is no right hydronephrosis. US/Abdomen Limited IMPRESSION: Status post cholecystectomy. Small cyst in the anterior aspect of the right lobe of the liver. Electronically Signed: Owen Dobson MD at 14:21 EDT ,
== END | disposition home or self-care (01) ==
LOC: US 09:40
PROVIDERS: PCP Family Medicine; Referring Provider Nurse Practitioner Adult Health; Visit Provider Nurse Practitioner Adult Health
DX: R10.11 Right upper quadrant pain (principal)
CPT/HCPCS: 76705

== ENCOUNTER → 2022-04-01 | Outpatient (CLI) | payer OTHER, MEDICARE, SELFPAY ==
[2017-03-03 15:40] VITALS: BMI 24.5
[2022-04-01 10:03] LABS: Absolute Lymphocyte Count 0.82 X10^3/uL (0.83-4.51); Basophil# 0.04 X10^3/uL; Basophil% 0.7 % (0-1); Eosinophil# 0.41 X10^3/uL; Eosinophils% 6.9 % (0-5); Hematocrit 43.6 % (37-47); Hemoglobin 14.1 g/dL (12.0-15.0); Lymphocyte # 0.82 X10^3/ul (0.83-4.51); Lymphocyte % 13.9 % (19-41); Mean Corp Hgb Conc 32.3 g/dL (32-36); Mean Corpuscular Hgb 30.4 pg (27.0-32.0); Mean Platelet Vol. 9.8 fl (6.2-12.0); Monocyte# 0.64 X10^3/uL; Monocyte% 10.8 % (0-10); NRBC Flagged by Analyzer 0 % (0-5); Neutrophil % 67.5 % (47-70); Platelet Count 209 K/mm3 (150-450); RBC Distribution Width CV 12.2 % (11.6-14.6); RBC Distribution Width SD 42.4 fl (35.1-43.9); Red Blood Count 4.64 M/mm3 (4.2-5.4); White Blood Count 5.9 K/mm3 (4.4-11.0)
[2022-04-01 10:31] LABS: ALB/GLOB Ratio 0.9 RATIO (0.9-2.4); AST(SGOT) 22 U/L (15-37); Alanine Aminotransfer ALT/SGPT 30 U/L (13-56); Albumin, Serum 3.4 g/dL (3.2-5.0); Alkaline Phosphatase 58 U/L (45-117); Amylase 44 U/L (25-115); Anion Gap 2 (5-15); BUN 13 mg/dL (7-18); BUN/Creat Ratio 22.6 RATIO (10-20); Calcium,Total 8.9 mg/dL (8.5-10.1); Chloride 104 mmol/L (98-107); Creatinine, Serum 0.57 mg/dL (0.55-1.02); EST Glomerular Filtration Rate 116 mL/min (>60); Est Glom Filt Rate - Afr Amer 140 mL/min (>60); Globulin 3.7 g/dL (2.2-4.2); Glucose 86 mg/dL (74-106); LDH 171 U/L (84-246); Lipase 155 U/L (73-393); Potassium 4.9 mmol/L (3.5-5.1); Protein, Total 7.1 g/dL (6.4-8.2); Sodium Level 138 mmol/L (136-145)
[2022-04-02 15:08] LABS: Endomysial Antibody IgA Negative (Negative)
[2022-04-03 14:26] LABS: Immunoglobulin A 171 mg/dL (87-352); t-Transglutaminase IgA <2 U/mL (0-3)
[2022-04-08 08:09] LABS: Albumin 3.7 g/dL (2.9-4.4); Alpha-1-Globulins 0.2 g/dL (0.0-0.4); Alpha-2-Globulins 0.7 g/dL (0.4-1.0); Cytoplasmic Ab (C-ANCA) <1:20 titer (Neg:<1:20); IgG, Quant 1038 mg/dL (586-1602); Immunoglobulin A 160 mg/dL (87-352); Immunoglobulin E 1245 IU/mL (6-495); Immunoglobulin G, Subclass 1 742 mg/dL (248-810); Immunoglobulin G, Subclass 2 147 mg/dL (130-555); Immunoglobulin G, Subclass 3 41 mg/dL (15-102); Immunoglobulin G, Subclass 4 25 mg/dL (2-96); Immunoglobulin M 31 mg/dL (26-217); PROEL- TOTAL PROTEIN 6.4 g/dL (6.0-8.5)
[2022-04-08 10:25] LABS: Carbohydrate AG 19-9 5 U/mL (0-35); IMMUNOFIXATION RESULT,S Comment: (.)
[2022-04-08 10:26] LABS: Gastrin, Serum 35 pg/mL (0-115); Perinuclear Ab (P-ANCA) <1:20 titer (Neg:<1:20)
[2022-04-09 18:45] LABS: Immunoglobulin G 1038
== END | disposition home or self-care (01) ==
PROVIDERS: PCP Family Medicine; Visit Provider Nurse Practitioner Adult Health
DX: R10.816 Epigastric abdominal tenderness (principal); R10.11 Right upper quadrant pain
CPT/HCPCS: 36415; 80053; 82150; 82784; 82785; 82787; 82941; 83516; 83615; 83690; 84165; 85025; 86255; 86256; 86301; 86334

== ENCOUNTER → 2022-04-11 | Outpatient (CLI) | payer OTHER, MEDICARE, SELFPAY ==
[2017-03-03 15:40] VITALS: BMI 24.5
[2022-04-15 17:05] LABS: Fats, Neutral Normal (.); Fats, Total Normal (.)
[2022-04-18 14:15] LABS: Pancreatic Elastase, Fecal 128 (>200)
== END | disposition home or self-care (01) ==
LOC: LABSPEC 08:37
PROVIDERS: PCP Family Medicine; Visit Provider Nurse Practitioner Adult Health
DX: R10.816 Epigastric abdominal tenderness (principal); R10.11 Right upper quadrant pain
CPT/HCPCS: 82653; 82705

== ENCOUNTER → 2022-05-27 | Outpatient (CLI) | payer OTHER, MEDICARE, SELFPAY ==
[2017-03-03 15:40] VITALS: BMI 24.5
[2022-05-27 10:22] LABS: Erythrocyte Sedimentation Rate 6 mm/hr (0-30)
[2022-05-27 10:24] LABS: Absolute Neutrophil Count 4.4 X10^3/uL (2.0-7.7); Basophil# 0.04 X10^3/uL; Basophil% 0.6 % (0-1); Eosinophil# 0.21 X10^3/uL; Eosinophils% 3.3 % (0-5); Lymphocyte % 15.7 % (19-41); Mean Corp Hgb Conc 32.6 g/dL (32-36); Mean Corpuscular Hgb 30.8 pg (27.0-32.0); Mean Corpuscular Volume 94.5 fL (81-99); Mean Platelet Vol. 9.8 fl (6.2-12.0); Monocyte# 0.69 X10^3/uL; Monocyte% 10.8 % (0-10); NRBC Flagged by Analyzer 0 % (0-5); Neutrophil % 69.3 % (47-70); Platelet Count 234 K/mm3 (150-450); RBC Distribution Width CV 12.5 % (11.6-14.6); RBC Distribution Width SD 43.3 fl (35.1-43.9); Red Blood Count 4.55 M/mm3 (4.2-5.4); White Blood Count 6.4 K/mm3 (4.4-11.0)
[2022-05-27 11:05] LABS: ALB/GLOB Ratio 0.9 RATIO (0.9-2.4); AST(SGOT) 26 U/L (15-37); Alanine Aminotransfer ALT/SGPT 32 U/L (13-56); Albumin, Serum 3.4 g/dL (3.2-5.0); Alkaline Phosphatase 59 U/L (45-117); Amylase 47 U/L (25-115); Anion Gap 6 (5-15); BUN 14 mg/dL (7-18); BUN/Creat Ratio 23.5 RATIO (10-20); CRP < 2.90 mg/L (0.0-3.0); Calcium,Total 9.2 mg/dL (8.5-10.1); Chloride 103 mmol/L (98-107); EST Glomerular Filtration Rate 111 mL/min (>60); Est Glom Filt Rate - Afr Amer 134 mL/min (>60); Globulin 3.7 g/dL (2.2-4.2); Glucose 86 mg/dL (74-106); Lipase 145 U/L (73-393); Potassium 4.3 mmol/L (3.5-5.1); Protein, Total 7.1 g/dL (6.4-8.2); Sodium Level 137 mmol/L (136-145)
[2022-05-29 12:24] LABS: Anti-Mitochondrial AB <20.0 Units (0.0-20.0)
[2022-06-04 15:08] LABS: Albumin 3.6 g/dL (2.9-4.4); Alpha-1-Globulins 0.3 g/dL (0.0-0.4); Alpha-2-Globulins 0.8 g/dL (0.4-1.0); Gamma Globulin 1.1 g/dL (0.4-1.8); Immunoglobulin A 164 mg/dL (87-352); Immunoglobulin E 1320 IU/mL (6-495); Immunoglobulin G 1078 mg/dL (586-1602); Immunoglobulin M 34 mg/dL (26-217); PROEL- TOTAL PROTEIN 6.7 g/dL (6.0-8.5)
[2022-06-06 15:51] LABS: Anti-Smooth Muscle ABS 6 Units (0-19)
== END | disposition home or self-care (01) ==
LOC: LAB 09:38
PROVIDERS: PCP Family Medicine; Visit Provider Nurse Practitioner Adult Health
DX: R10.13 Epigastric pain (principal)
CPT/HCPCS: 36415; 80053; 82150; 82784; 82785; 83516; 83690; 84165; 85025; 85652; 86140; 86334

== ENCOUNTER → 2022-06-03 | Outpatient (CLI) | payer OTHER, MEDICARE, SELFPAY ==
[2017-03-03 15:40] VITALS: BMI 24.5
--- NOTE | 2022-06-03 08:49 | RAD_ITS ---
STUDY: UPPER GI, SMALL BOWEL FOLLOW-THROUGH REASON FOR EXAM: Female, 57 years old. Persistent stomach pain getting worse RADIATION DOSAGE (If Supplied By Facility): CTDIvol = ( ) mGy, DLP = ( ) mGycm. Individualized dose optimization techniques were used for this CT.? FLUOROSCOPY TIME (if supplied): ( 1:07 ) minutes/seconds. 8 fluoroscopic films obtained along with 4 AP films of the small bowel follow-through and a spot film of the terminal ileum. TECHNIQUE: Air-contrast COMPARISON: None. FINDINGS: Telesales Manager film demonstrates retained stool throughout the colon. There is no evidence of free air, mild degenerative bony changes. Swallowing was initiated normally, no nasopharyngeal reflux or aspiration. No Zenker''s diverticulum on the lateral view. Normal peristaltic activity noted in the proximal mid and distal esophagus. There is a small hiatal hernia and evidence of GE reflux. Stomach distends normally without evidence of rugal fold enlargement or mucosal ulceration. The duodenal C-loop is not elongated and demonstrates a normal mucosal pattern. Barium was then followed through the small bowel with serial films. There is a normal mucosal pattern of the jejunum and ileum, no submucosal thickening or abnormal separation of bowel loops noted. Transit time to the terminal ileum was 15 minutes, which is suggestive of hypermotility. Spot films of the terminal ileum do not show any mucosal abnormality. RAD/Upper GI/w Small Bowel IMPRESSION: Small hiatal hernia and evidence of GE reflux No evidence of suspicious mucosal ulceration in the esophagus stomach or duodenum No evidence of mucosal thickening or abnormal separation of bowel loops to suspect an inflammatory process Transit time to the terminal ileum was only about 15 minutes which suggests hypermotility Electronically Signed: Dioni Oconnell MD at 10:22 EDT ,
== END | disposition home or self-care (01) ==
LOC: RAD 08:48
PROVIDERS: PCP Family Medicine; Referring Provider Nurse Practitioner Adult Health; Visit Provider Nurse Practitioner Adult Health
DX: R10.13 Epigastric pain (principal)
CPT/HCPCS: 74246; 74248

== ENCOUNTER → 2022-06-16 | Outpatient (CLI) | payer OTHER, MEDICARE, SELFPAY ==
[2017-03-03 15:40] VITALS: BMI 24.5
--- NOTE | 2022-06-16 06:31 | MRI_ITS ---
STUDY: MR MRCP WITHOUT CONTRAST REASON FOR EXAM: Female, 57 years old. epigastric pain, radiates to back TECHNIQUE: Standard MRCP technique was utilized. Three-dimensional reconstruction images of the biliary tree provided. COMPARISON: CT 07/26/2021 FINDINGS: Gall Bladder: Gall bladder is surgically absent. Cystic duct: Normal with no demonstrated fixed filling defect. Intrahepatic ducts: Normal visualized intrahepatic ducts with no demonstrated fixed filling defect, dilation or stricture. Common hepatic duct: Normal with no demonstrated fixed filling defect, dilation or stricture. Common bile duct: Normal with no demonstrated fixed filling defect, dilation or stricture. Pancreatic duct: Normal with no demonstrated fixed filling defect, dilation or stricture. Simple T2 bright well-defined hepatic cysts measure up to 1.2 cm. No solid hepatic masses. No required imaging follow-up needed given high likelihood of benign nature. T2 bright cystic lesion in the right retrocrural region is stable since prior CT of 2020, likely representing a benign developmental cyst, doubtful significance. No required imaging follow-up needed given high likelihood of benign nature. Heterogeneous signal intensity of bone marrow without bone marrow edema demonstrated. MRI/MRCP Abdomen without Contrast IMPRESSION: Normal MR Cholangiopancreatography (MRCP). Electronically Signed: Morro Pearce (Brooks), at 9:22 EDT ,
== END | disposition home or self-care (01) ==
LOC: MRI 06:31
PROVIDERS: PCP Family Medicine; Referring Provider Nurse Practitioner Adult Health; Visit Provider Nurse Practitioner Adult Health
DX: R10.13 Epigastric pain (principal)
CPT/HCPCS: 74181

== ENCOUNTER → 2022-10-15 | Outpatient (CLI) | payer OTHER, MEDICARE, SELFPAY ==
[2017-03-03 15:40] VITALS: BMI 24.5
[2022-10-15 09:14] LABS: AST(SGOT) 26 U/L (15-37); Alanine Aminotransfer ALT/SGPT 32 U/L (13-56); Albumin, Serum 3.5 g/dL (3.2-5.0); Alkaline Phosphatase 59 U/L (45-117); Bilirubin, Direct 0.15 mg/dL (0.00-0.30); Cholesterol 112 mg/dL (200); Globulin 3.6 g/dL (2.2-4.2); High Density Lipoprotein 43 mg/dL; Protein, Total 7.1 g/dL (6.4-8.2); Triglycerides 65 mg/dL; Very Low Density Lipoprotein 13 mg/dL (5-40)
== END | disposition home or self-care (01) ==
LOC: LAB 07:47
PROVIDERS: PCP Family Medicine; Referring Provider Internal Medicine Cardiovascular Disease; Visit Provider Internal Medicine Cardiovascular Disease
DX: E78.00 Pure hypercholesterolemia, unspecified (principal)
CPT/HCPCS: 36415; 80061; 80076

== ENCOUNTER → 2022-12-06 | Outpatient (CLI) | payer OTHER, MEDICARE, SELFPAY ==
[2017-03-03 15:40] VITALS: BMI 24.5
--- NOTE | 2022-12-06 11:35 | MRI_ITS ---
HISTORY: MS. Sharp head and neck pain for several months. TECHNIQUE: Multiplanar and multisequence MR images of the brain were obtained before and after the intravenous administration of 10 cc Clariscan. 366 images. COMPARISON: 12/08/2020. FINDINGS: BRAIN PARENCHYMA: Multiple foci and small zones of increased T2 FLAIR signal in the bilateral cerebral white matter, some with a perpendicular orientation to the lateral ventricles, as well as involvement of the callosal septal interface similar to prior. No enhancing lesion in the brain parenchyma. No abnormal focus of restricted diffusion. No acute intracranial hemorrhage identified. CSF SPACES: Chronic mild volume loss. No significant midline shift or other mass effect.No extra-axial fluid collection. VASCULAR SYSTEM: Major intracranial flow voids are maintained. PARANASAL SINUSES AND MASTOID AIR CELLS: Bilateral maxillary sinus because of thickening. ORBITS: Symmetric contents. Symmetric signal and morphology of the optic nerves. MRI/Brain W/WO Contrast IMPRESSION: Chronic white matter changes without enhancement or restricted diffusion, compatible with nonacute demyelinating disease in a patient with a history of multiple sclerosis. Electronically Signed: Nohemy Craig MD at 12:38 EDT ,
[2022-12-06 12:06] LABS: CREATININE FINGERSTICK < 0.9 mg/dL (0.55-1.02); EGFR FINGERSTICK > 60.0000 mL/min (>60)
== END | disposition home or self-care (01) ==
LOC: MRI 10:58
PROVIDERS: PCP Family Medicine; Referring Provider Psychiatry & Neurology Neurology; Visit Provider Psychiatry & Neurology Neurology
DX: G35 Multiple sclerosis (principal)
CPT/HCPCS: 70553; A9575

== ENCOUNTER → 2023-03-08 | Outpatient (CLI) | payer OTHER, MEDICARE, SELFPAY ==
[2017-03-03 15:40] VITALS: BMI 24.5
--- NOTE | 2023-03-08 08:08 | MRI_ITS ---
INDICATION: NECK PAIN, headaches, hx MS EXAMINATION: MRI - MR Spine Cervical WO/W Contrast TECHNIQUE: Multiplanar and multisequence MR images of the cervical spine were performed. COMPARISON: FINDINGS: VERTEBRAE: Normal vertebral bodies and posterior elements. VERTEBRAL ALIGNMENT: Normal, including the craniocervical junction and cervicothoracic junction. No spondylolisthesis. There is preservation of the normal cervical lordosis. CERVICAL SPINAL CORD: Unremarkable in signal and morphology. C2/C3: Normal disc height and morphology. Normal spinal canal and neuroforamina. C3/C4: Normal disc height and morphology. Normal spinal canal and neuroforamina. C4/C5: Normal disc height and morphology. Normal spinal canal and neuroforamina. C5/C6: There is mild disc osteophyte complex with effacement of the ventral CSF space. There is no significant foraminal or spinal canal stenosis. . C6/C7: There is mild disc osteophyte complex with effacement of the ventral CSF space. There is no significant foraminal or spinal canal stenosis. C7/T1: There is mild disc osteophyte complex with effacement of the ventral CSF space. There is no significant foraminal or spinal canal stenosis NECK SOFT TISSUES: No prevertebral soft tissue swelling. There is no cervical adenopathy. No abnormal contrast enhancement is identified although post contrast images are limited secondary to patient motion. MRI/Spine Cervical W/WO Contrast IMPRESSION: Mild disc osteophyte complexes in the lower cervical spine with mild effacement of the ventral CSF space as described. No abnormal contrast enhancement is identified although post contrast images are limited secondary to patient motion. Electronically Signed: Carson Jerome, at 11:20 EDT ,
[2023-03-08 08:46] LABS: CREATININE FINGERSTICK < 0.9 mg/dL (0.55-1.02); EGFR FINGERSTICK > 60.0000 mL/min (>60)
== END | disposition home or self-care (01) ==
LOC: MRI 08:03
PROVIDERS: PCP Family Medicine; Referring Provider Physician Assistant; Visit Provider Physician Assistant
DX: M54.2 Cervicalgia (principal)
CPT/HCPCS: 72156; A9575

== ENCOUNTER → 2023-04-04 | Outpatient (CLI) | payer OTHER, MEDICARE, SELFPAY ==
[2017-03-03 15:40] VITALS: BMI 24.5
--- NOTE | 2023-04-04 09:05 | RAD_ITS ---
INDICATION: SOB, EXAMINATION/TECHNIQUE: X-RAY - XR Chest 2 Views COMPARISON: Chest x-ray from 01/06/2018. FINDINGS: Support devices: None. No focal consolidations, effusions, or sizable pneumothorax. Cardiomediastinal silhouette is within normal limits. Stable coronary stent is noted. No acute findings in the bones or soft tissues. RAD/Chest PA and Lateral IMPRESSION: No radiographic evidence of acute cardiopulmonary disease. Electronically Signed: Kwabena Capellan DO at 10:44 EDT ,
[2023-04-04 09:45] LABS: Absolute Lymphocyte Count 1.26 X10^3/uL (0.83-4.51); Absolute Neutrophil Count 3.3 X10^3/uL (2.0-7.7); Basophil# 0.02 X10^3/uL; Basophil% 0.4 % (0-1); Eosinophil# 0.16 X10^3/uL; Hematocrit 44.7 % (37-47); Hemoglobin 14.6 g/dL (12.0-15.0); Lymphocyte # 1.26 X10^3/ul (0.83-4.51); Lymphocyte % 23.8 % (19-41); Mean Corp Hgb Conc 32.7 g/dL (32-36); Mean Corpuscular Hgb 30.7 pg (27.0-32.0); Mean Corpuscular Volume 94.1 fL (81-99); Mean Platelet Vol. 9.5 fl (6.2-12.0); Monocyte# 0.55 X10^3/uL; Monocyte% 10.4 % (0-10); NRBC Flagged by Analyzer 0 % (0-5); Neutrophil # 3.29 X10^3/uL (2.7-7.7); Platelet Count 214 K/mm3 (150-450); RBC Distribution Width CV 12.3 % (11.6-14.6); RBC Distribution Width SD 42.8 fl (35.1-43.9); Red Blood Count 4.75 M/mm3 (4.2-5.4); White Blood Count 5.3 K/mm3 (4.4-11.0)
[2023-04-04 10:41] LABS: BNP,B-Type NATRIURETIC PEPTIDE 26.7 pg/mL (0-100)
[2023-04-04 11:31] LABS: Anion Gap 4 (5-15); BUN 16 mg/dL (7-18); BUN/Creat Ratio 24.5 RATIO (10-20); Calcium,Total 9.4 mg/dL (8.5-10.1); Chloride 103 mmol/L (98-107); Creatinine, Serum 0.65 mg/dL (0.55-1.02); EST Glomerular Filtration Rate 99 mL/min (>60); Est Glom Filt Rate - Afr Amer 120 mL/min (>60); Glucose 92 mg/dL (74-106); Sodium Level 136 mmol/L (136-145); T4 Free Direct 1.05 ng/dL (0.76-1.46); Thyroid Stim Hormone (TSH) 2.62 uIU/mL (0.358-3.74)
== END | disposition home or self-care (01) ==
LOC: RAD 09:04
PROVIDERS: PCP Family Medicine; Referring Provider Nurse Practitioner Family; Visit Provider Nurse Practitioner Family
DX: R06.09 Other forms of dyspnea (principal); I47.1 Supraventricular tachycardia; I25.10 Atherosclerotic heart disease of native coronary artery without angina pectoris; I25.5 Ischemic cardiomyopathy; E78.5 Hyperlipidemia, unspecified; R53.83 Other fatigue
CPT/HCPCS: 36415; 71046; 80048; 83880; 84439; 84443; 85025

== ENCOUNTER → 2023-04-27 | Outpatient (CLI) | payer OTHER, MEDICARE, SELFPAY ==
[2017-03-03 15:40] VITALS: BMI 24.5
--- NOTE | 2023-04-27 06:00 | ECHOD_ITS ---
Reason For Study: SOB Procedure This was a 2D Doppler, Color Flow transthoracic echocardiogram. Exam performed in department. Left Ventricle Normal size and thickness. The left ventricular ejection fraction is 65 %. Normal diastology for age. Right Ventricle Normal right ventricle. Atria The left and right atria are normal. Mitral Valve Trivial mitral valve insufficiency. Tricuspid Valve Mild tricuspid valve insufficiency. Normal pulmonary artery pressure. Aortic Valve The aortic valve is not well visualized in the short axis view. Pulmonic Valve The pulmonic valve is not well visualized. Great Vessels Normal sized aortic root. Pericardium/Pleural No pericardial effusion. MMode/2D Measurements & Calculations LVIDd: 4.3 cm IVSd: 0.79 cm LAV(MOD-sp4): 19.7 ml LVIDs: 2.8 cm LVPWd: 0.80 cm RVDd: 2.5 cm FS: 34.2 % LVAd ap4: 18.0 cm2 SV(MOD-sp4): 23.1 ml SV(sp4-el): 25.2 ml LVLd ap4: 6.6 cm EDV(MOD-sp4): 39.7 ml EDV(sp4-el): 41.6 ml LVAs ap4: 10.4 cm2 LVLs ap4: 5.6 cm ESV(MOD-sp4): 16.6 ml ESV(sp4-el): 16.4 ml EF(MOD-sp4): 58.2 % EF(sp4-el): 60.6 % LA A4 area: 10.0 cm2 LA dimension(2D): 3.0 cm RA A4 area: 6.5 cm2 TAPSE: 2.2 cm Time Measurements MV dec time: 0.26 sec Doppler Measurements & Calculations MV E max valdemar: 52.1 cm/sec Lat Peak E' Valdemar: 10.1 cm/sec Med Peak E' Valdemar: 11.5 cm/sec MV A max valdemar: 59.2 cm/sec E/E' lat: 5.2 E/E' med: 4.5 MV E/A: 0.88 MV V2 max: 63.1 cm/sec MV dec slope: 207.1 cm/sec2 Ao V2 max: 99.7 cm/sec MV max P.6 mmHg Ao max P.0 mmHg MV V2 mean: 46.8 cm/sec Ao V2 mean: 70.3 cm/sec MV mean P.93 mmHg Ao mean P.2 mmHg MV V2 VTI: 23.3 cm Ao V2 VTI: 21.9 cm AV (velocity ratio): 0.76 LV V1 max: 79.2 cm/sec TR max valdemar: 255.3 cm/sec LV V1 max P.5 mmHg TR max P.1 mmHg LV V1 mean P.3 mmHg LV V1 mean: 52.5 cm/sec LV V1 VTI: 16.6 cm ECHO/Echo Complete Interpretation Summary The left ventricular ejection fraction is 65 %. Mild tricuspid valve insufficiency. Ordering Physician: Taj Lang Referring Physician: Taj Lang Performed By: Khalida Vera RCS
--- NOTE | 2023-04-27 12:46 | STRESSREP_ITS ---
Stress Test Report Date: 04/27/2023 Procedure: Pharmacologic stress nuclear imaging study Indications: Dyspnea Consent: Per the patient Procedure: The patient underwent pharmacologic (Regadenoson 0.4mg ) evaluation with a peak heart rate of 98 beats per minute (59%predicted maximal heart rate) and a peak blood pressure of 102/72 mmHg. The baseline ECG demonstrated nonspecific ST changes. The peak pharmacologic ECG demonstrated no ischemic changes There was no complaint of chest discomfort during pharmacologic infusion or recovery. The patient was injected with 10.7 millicuries of technetium 99m Cardiolite and subsequently rest SPECT Cardiolite nuclear imaging was obtained in the horizontal long, vertical long, and short axis views. The patient underwent pharmacologic (Regadenoson) evaluation. The patient was injected with 32.7 millicuries of technetium 99m Cardiolite and subsequently stress SPECT Cardiolite nuclear imaging was obtained in the horizontal long, vertical long, and short axis views. A gated Cardiolite study at peak stress was obtained. The examination was stopped secondary to completion of protocol. Rest and stress SPECT Cardiolite nuclear imaging status post realignment, normalization, and attenuation correction demonstrate no fixed or reversible perfusion defects. There is end systolic thickening and brightening. The gated Cardiolite study demonstrates myocardial thickening and inward wall motion. The reported LVEF is 79%. Impression: 1. Pharmacologic (Regadenoson) evaluation 2. Peak pharmacologic ECG with no ischemic changes. 3. There were no cardiac dysrhythmias pretest, during pharmacologic infusion, or recovery. 5. Rest and stress SPECT Cardiolite nuclear imaging demonstrate relative uniform tracer uptake and myocardial perfusion appearing within normal limits. 6. The gated Cardiolite study reports an LVEF of 79%. This note was generated with [employer] software. It may contain incorrect words, spelling, and punctuation that were not noted in checking the note before signing.
== END | disposition home or self-care (01) ==
LOC: CVS 05:56
PROVIDERS: PCP Family Medicine; Referring Provider Nurse Practitioner Family; Visit Provider Nurse Practitioner Family
DX: G35 Multiple sclerosis (principal); I47.1 Supraventricular tachycardia; R06.09 Other forms of dyspnea; I25.10 Atherosclerotic heart disease of native coronary artery without angina pectoris; I25.5 Ischemic cardiomyopathy; E78.5 Hyperlipidemia, unspecified; R53.83 Other fatigue
CPT/HCPCS: 78452; 93017; 93306; A9500; A4216; J2785

== ENCOUNTER → 2023-05-13 | Outpatient (CLI) | payer OTHER, MEDICARE, SELFPAY ==
[2017-03-03 15:40] VITALS: BMI 24.5
[2023-05-13 08:10] LABS: Hematocrit 44.2 % (37-47); Hemoglobin 14.2 g/dL (12.0-15.0); Mean Corp Hgb Conc 32.1 g/dL (32-36); Mean Corpuscular Hgb 30.2 pg (27.0-32.0); Mean Platelet Vol. 9.4 fl (6.2-12.0); Platelet Count 243 K/mm3 (150-450); RBC Distribution Width CV 12.4 % (11.6-14.6); RBC Distribution Width SD 43.5 fl (35.1-43.9); White Blood Count 4.7 K/mm3 (4.4-11.0)
[2023-05-13 08:48] LABS: AST(SGOT) 22 U/L (15-37); Alanine Aminotransfer ALT/SGPT 30 U/L (13-56); Albumin, Serum 3.5 g/dL (3.2-5.0); Alkaline Phosphatase 65 U/L (45-117); Anion Gap 1 (5-15); BUN 10 mg/dL (7-18); BUN/Creat Ratio 15.6 RATIO (10-20); Bilirubin, Direct 0.13 mg/dL (0.00-0.30); Calcium,Total 9.3 mg/dL (8.5-10.1); Chloride 104 mmol/L (98-107); Cholesterol 126 mg/dL (200); Creatinine, Serum 0.64 mg/dL (0.55-1.02); EST Glomerular Filtration Rate 102 mL/min (>60); Est Glom Filt Rate - Afr Amer 123 mL/min (>60); Globulin 3.6 g/dL (2.2-4.2); Glucose 92 mg/dL (74-106); High Density Lipoprotein 55 mg/dL; Potassium 4.3 mmol/L (3.5-5.1); Protein, Total 7.1 g/dL (6.4-8.2); Sodium Level 136 mmol/L (136-145); Triglycerides 74 mg/dL; Very Low Density Lipoprotein 15 mg/dL (5-40)
== END | disposition home or self-care (01) ==
LOC: LAB 07:37
PROVIDERS: Nurse Practitioner Family; PCP Family Medicine; Referring Provider Physician Assistant; Visit Provider Physician Assistant
DX: G35 Multiple sclerosis (principal); E78.00 Pure hypercholesterolemia, unspecified
CPT/HCPCS: 36415; 80053; 80061; 82248; 85027

== ENCOUNTER → 2023-11-04 | Outpatient (CLI) | payer OTHER, MEDICARE, SELFPAY ==
[2017-03-03 15:40] VITALS: BMI 24.5
[2023-11-04 10:45] LABS: AST(SGOT) 23 U/L (15-37); Alanine Aminotransfer ALT/SGPT 27 U/L (13-56); Albumin, Serum 3.5 g/dL (3.2-5.0); Alkaline Phosphatase 60 U/L (45-117); Anion Gap 5 (5-15); BUN 15 mg/dL (7-18); BUN/Creat Ratio 26.5 RATIO (10-20); Calcium,Total 9.3 mg/dL (8.5-10.1); Chloride 105 mmol/L (98-107); Creatinine, Serum 0.57 mg/dL (0.55-1.02); EST Glomerular Filtration Rate 117 mL/min (>60); Est Glom Filt Rate - Afr Amer 142 mL/min (>60); Globulin 3.5 g/dL (2.2-4.2); Glucose 81 mg/dL (74-106); Magnesium 2.4 mg/dL (1.6-2.6); Potassium 4.3 mmol/L (3.5-5.1); Sodium Level 138 mmol/L (136-145)
[2023-11-04 11:18] LABS: Cholesterol 122 mg/dL (200); High Density Lipoprotein 54 mg/dL; Triglycerides 76 mg/dL; Very Low Density Lipoprotein 15 mg/dL (5-40)
== END | disposition home or self-care (01) ==
LOC: LAB 08:12
PROVIDERS: Nurse Practitioner Family; PCP Family Medicine; Referring Provider Internal Medicine Cardiovascular Disease; Visit Provider Internal Medicine Cardiovascular Disease
DX: R00.2 Palpitations (principal); R06.09 Other forms of dyspnea; E78.00 Pure hypercholesterolemia, unspecified
CPT/HCPCS: 36415; 80053; 80061; 83735

== ENCOUNTER 2023-11-17 08:52 | Day surgery (SDC) | payer OTHER, MEDICARE, SELFPAY ==
[2017-03-03 15:40] VITALS: BMI 24.5
[2023-11-17] VITALS (8 sets, daily range): BP systolic 87–104; BP diastolic 58–66; PULSE 64–86; RESP 14–16; TEMP 36.1–36.4; O2SAT 94–100; BMI 20.8
--- NOTE | 2023-11-17 | GASB_PTH ---
PATIENT: GENNY PIERCE LOC: EN U#:[id number] AGE/SX: 58/F ROOM: RE11/17/[address]: Dr. Mike Rutledge DO : 1965 BED: DIS: 11/17/2023 SPEC #: [id number] RECD: 11/17/23 13:28 STATUS: IRIS WILLAM #: [id number] WILLI: 11/17/23 00:[address]: Mike Rutledge DEPT: SURGICAL PATHOLOGY RECD BY: Audi Pedersen ENTERED: 11/17/23 13:29 SP TYPE: Gastric Bx MIGUEL DR: Dr. Francisco Hong MD Tissues: A - Gastric mucous membrane B - Duodenum, NOS Procedures: Surgery Specimen Level IV HEADER OPERATION: EGD biopsy PRE-OP DIAGNOSIS: Right upper quadrant abdominal pain, Constipation TISSUE SUBMITTED: A- Antrum biopsy, B- Duodenum biopsy MICROSCOPIC DIAGNOSIS A. Antrum, biopsy: Moderate gastritis. See microscopic description and comment. B. Duodenum, biopsy: Fragments of duodenal mucosa with mild non-specific chronic inflammation. [facility] 11/18/23 COMMENT A. The results of immunohistochemistry for Helicobacter pylori will be reported separately ([id number]). MICROSCOPIC DESCRIPTION Slides are reviewed. A. The specimen shows fragments of gastric mucosa with chronic inflammatory cell infiltrates in the lamina propria consisting of lymphocytes and plasma cells, consistent with moderate chronic gastritis. GROSS DESCRIPTION A. Received in fixative is one container labeled with the patient's name and designated Antrum biopsy. The specimen consists of two irregular fragments of light peck soft tissue that in aggregate measure 0.6 x 0.5 x 0.1 cm. The specimen is totally submitted in one cassette. B. Received in fixative is one container labeled with the patient's name and designated Duodenum biopsy. The specimen consists of two irregular fragments of light peck soft tissue that in aggregate measure 0.6 x 0.3 x 0.1 cm. The specimen is totally submitted in one cassette. [facility] 11/17/23 TC:3 CPT:08527w9
[2023-11-17] MEDS: Lactated Ringers 1,000 ML 15 ML IV (09:16)
--- NOTE | 2023-11-17 10:00 | IMM_PTH ---
PATIENT: GENNY PIERCE LOC: EN U#:[id number] AGE/SX: 58/F ROOM: RE11/17/[address]: Dr. Mike Rutledge DO : 1965 BED: DIS: 11/17/2023 SPEC #: [id number] RECD: 11/17/23 16:06 STATUS: IRIS WILLAM #: [id number] WILLI: 11/17/23 10:[address]: Mike Rutledge DEPT: IMMUNOHISTOCHEMISTRY RECD BY: Quique Claudio ENTERED: 11/17/23 16:06 SP TYPE: IMMUNO OTHR DR: Dr. Francisco Hong MD Tissues: A - Stomach, NOS Procedures: H Pylori (initial) PHYSICIAN & INSTITUTION [place] [id number] SPECIMEN INFORMATION: Tissue Source: A. Antrum biopsy Clinical Info: Right upper quadrant abdominal pain, Constipation Specimen Number: [id number] CPT code: 87928 METHODOLOGY: Deparaffinized sections of prefer/formalin-fixed tissue or PAP/DQ stained slides are incubated with monoclonal/polyclonal antibodies/oligonucleotide probes. Localization is made via biotin free immunoperoxidase method. Appropriate controls are performed and reacted as expected. Results on target cell population are indicated in the following table: RESULTS: ANTIBODY / CLONE RESULT Block A H Pylori (polyclonal) negative These tests were developed and their performance characteristics determined by [facility]. They may not have been cleared or approved by the U.S. Food and Drug Administration. The FDA has determined that such clearance or approval is not necessary. The above immunohistochemical/dualISH markers are ordered and reviewed by the Pathologist. INTERPRETATION: A. Antrum, biopsy: Negative for Helicobacter pylori organisms. BRYAN/ 11/18/23
--- NOTE | 2023-11-17 10:10 | HP.PCM_ITS ---
History and Physical Date of Admission: 11/17/23 GENNY PIERCE, is a 58 F who presents to the office today for *[facility] hospitalization 07.26.21-07.30.21 for management of GIB with PRBC transfusion required. ? CT abd/pel 07.26.21 hepatic cyst; colonic diverticulosis ? EGD 07.27.21 LA Grade B esophagitis; dieulafoy lesion of stomach; clotted blood throughout stomach. No specimens. GI outpatient: ? Biochemical 07.31.21 CBC, ESR, CMP, TIBC, ferritin without pertinent abnormality? Iron L21, CRP H17.3, B12 >2000 ? Biochemical 08.03.21 ESR H44 OV 08.12.21 doing well since discharge and feeling more energetic each day ? Biochemical 08.12.21 Anti-dbl strand DNA, AT III, Factor V leiden, lupus, CONCEPCIÓN comp, protein C, protein S, von Willebrand without pertinent abnormality ? EGD 12.03.21 LA Grade A esophagitis; small hiatal hernia; non- bleeding erosive gastropathy, gastritis; erythematous duodenopathy. 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 H.pylori + OV 5.01.03 with intermittent dysphagia that she feels is r/t MS diagnosis. Start flagyl and tetracycline ? Biochemical 6.02.03 CBC, LFT, ferritin, iron, TIBC (L233), retic, lipid, TSH, T4 without pertinent abnormality ? Stool h.pylori WNL OV 7.03.05 with RUQ discomfort ? US abd 03.03.22 hepatic measurement 13.1cm with normal echogenicity, cyst remains; normal pancreas; s/p cholecystectomy OV 04.01.22 RUQ pain, sometimes postprandial continues. ? Biochemical 04.01.22 CBC, CMP, LDH, gastrin, amylase, lipase, CA 19-9, LAKESHA, CONCEPCIÓN comp, ANCA, celiac, MADDISON without pertinent abnormality ? IgE H1245 ? Stool fat WNL? Elastase L128 OV 05.27.22 continues to have pain ? Biochemical 05.27.22 CBC, ESR, CMP/LFT, CRP, lipase, LAKESHA, MADDISON, AMA, ASM without pertinent abnormality? IgE H1320 ? Upper GI SBFT 06.03.22 colonic fecal retention; small hiatal hernia; GE reflux; ?hypermotility of small bowel ? MRCP 11.2.22 without acute/chronic finding OV 11.8.22 with epigastric pain. Zenpep continues increase of dosing caused nausea; did not improve pain. OV 1.10.23 Start amitriptyline, continue Zenpep OV 3..23 attempt baclofen next time pain occurs. Stop zenpep and amitriptyline OV 3..24 RUQ burning or aching pain progressively worsening over the last month that can last hours 3-4 days a week.Pressure or laying down with help. Unsure of aggravating factors, although at times it may occur soon after eating. Nausea frequent after eating, vomiting infrequently but did occur couple days ago. Taking baclofen taken rarely. ROS Const Constitutional: Positive for fatigue; No fever(s), frequent falls, headache(s), weakness or weight change ENT ENT: No headache(s) or difficulty swallowing Cardio Cardiology: No leg pain with exertion Gastro GI: Positive for abdominal pain, nausea/dyspepsia and vomiting; No bloating, change in bowel habits, constipation, diarrhea, heartburn, difficulty swallowing, excessive flatus, Vomiting blood/hematemesis or Blood in stool Musc Musculoskeletal: Positive for back pain and restless legs; No joint pain, joint swelling, muscle cramps, muscle weakness, numbness, stiffness, tingling, Arthritis, sciatica, leg pain at night or leg pain with exertion Skin Skin: No dry skin, lesions, itchy eyes or rash Neuro Neurology: Positive for restless legs; No behavioral changes, unsteady gait/balance, weakness, frequent falls, headache(s), numbness, tingling, tremor(s), Increased tone in limbs, paralysis or seizures Psych Psychiatric: No anxiety, No behavioral changes, No depression, No paranoia, No Compulsive Behavior, No hyperactivity, No inattentiveness, No obsessions/compulsions, No Temper Tantrums and No suicidal ideation Endo Endocrine: Positive for fatigue; No weight change Aller/Imm Allergy/Immunologic: No itchy eyes Peter/Lymp Hematologic/Lymphatic: No easy bleeding or easy bruising Exam Const General: cooperative, healthy appearing and comfortable Nutritional Appearance: average body habitus Orientation: alert, awake and oriented x3 Quality Reporting Tobacco Screening ([facility] 138) Smoking Status: Former smoker Assessment and Plan Assessment and Plan (1) RUQ abdominal pain: Status: Chronic (2) Constipation: Status: Chronic Plan: 57-year-old white female months for outpatient cardiovascular follow-up of her history of hypercholesterolemia, hypertension, CAD status post STEMI status post LAD thrombectomy and DONNIE, PSVT, multiple sclerosis and continued smoker.?She presented on 03/02/17 with right-sided chest pain and her EKG showed acute anterior ST elevation myocardial infarction.? She underwent emergent angioplasty and stenting of her ostial LAD receiving a 3.5X 16 Synergy drug-eluting stent.? Her RCA and left circumflex were angiographically normal.? Her LV at the time was 45%. An echocardiogram post procedure on 03/03/17 showed an EF of 45% with anterior apex and inferior apex akinesis. Repeat echocardiogram dated 04/21/17 demonstrated complete resolution of her anterior ischemia with an EF around 55- 60%, and an RVSP of 23 mmHg. She was evaluated at [facility] emergency department on 07/26/2021 for GI bleed. 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 she received 4 hemostatic clips and total 5 units PRBC. She had a repeat upper endoscopy that did show it was healed and she had normal improvement of her hemoglobin. Currently she is on aspirin and Plavix, atorvastatin and metoprolol for her coronary artery disease. She comes back in for the evaluation of Persistent epigastric and right upper quadrant pain. She was determined to be H. pylori positive on her repeat upper endoscopy and was treated for H. pylori. She had stool antigen that confirmed H. pylori was resolved. She still maintains a same weight around 112 pounds but she does not eat much because of her abdominal pain. She denies any chest pain or shortness of breath. Her CT scan abdomen pelvis had shown severe constipation along with retained food in her stomach. She has not had a gastric emptying study. She does have daily nausea but does not throw up on a daily basis. She still does suffer from nicotine addiction. The differential diagnosis for her abdominal pain does include superior mesenteric artery syndrome, gastroparesis, celiac artery syndrome, IBS. She will undergo gastric emptying study, CT angiography of the abdomen pelvis. Pending with a show she would likely also need an upper endoscopy. She is okay with this plan. Orders: Orders CTA Abd/Pelvis W/WO Contrast Today K55.1 - Chronic vascular disorders of intestine Gastric Emptying Study Today R14.0 - Abdominal distension (gaseous) I have examined the patient and the H&P has been reviewed. There are no clinical changes since date of exam.
--- NOTE | 2023-11-17 10:53 | OP.CCLET_ITS ---
11/17/2023 Francisco Hong Re : Upper GI endoscopy procedure for Helena Azul Dear Hal This procedure was performed on November. My impressions and recommendations are as follows: Impressions : - Normal esophagus. - Erythematous mucosa in the gastric body. Biopsied. - Erythematous duodenopathy. Biopsied. Recommendations : - Discharge patient to home. - Resume previous diet. - Continue present medications. My findings are described in the full procedure note, which is enclosed. If I can be of further assistance, please feel free to contact me at . Sincerely, Mike Rutledge, 11/17/2023 10:52:48 AM This report has been signed electronically.
--- NOTE | 2023-11-17 10:53 | OP.EGD_ITS ---
Patient Name: Helena Azul Procedure Date: 11/17/2023 10:11 AM Date of : 1965 Age: 58 Procedure: Upper GI endoscopy Indications: Epigastric abdominal pain Providers: Mike Rutledge DO Medicines: Monitored Anesthesia Care Patient Profile: This is a 58 year old female. Refer to note in patient chart for documentation of history and physical. Complications: No immediate complications. Procedure: Pre-Anesthesia Assessment: - Prior to the procedure, a History and Physical was performed, and patient medications and allergies were reviewed. The patient is competent. The risks and benefits of the procedure and the sedation options and risks were discussed with the patient. All questions were answered and informed consent was obtained. Patient identification and proposed procedure were verified by the physician in the pre-procedure area. Mental Status Examination: alert and oriented. Airway Examination: normal oropharyngeal airway and neck mobility. Respiratory Examination: clear to auscultation. CV Examination: normal. Prophylactic Antibiotics: The patient does not require prophylactic antibiotics. Prior Anticoagulants: The patient has taken no anticoagulant or antiplatelet agents. ASA Grade Assessment: II - A patient with mild systemic disease. After reviewing the risks and benefits, the patient was deemed in satisfactory condition to undergo the procedure. The anesthesia plan was to use monitored anesthesia care (MAC). Immediately prior to administration of medications, the patient was re-assessed for adequacy to receive sedatives. The heart rate, respiratory rate, oxygen saturations, blood pressure, adequacy of pulmonary ventilation, and response to care were monitored throughout the procedure. The physical status of the patient was re-assessed after the procedure. After obtaining informed consent, the endoscope was passed under direct vision. Throughout the procedure, the patient's blood pressure, pulse, and oxygen saturations were monitored continuously. The Endoscope was introduced through the mouth, and advanced to the second part of duodenum. The upper GI endoscopy was accomplished without difficulty. The patient tolerated the procedure well. Scope In: 10:40:26 AM Scope Out: 10:43:48 AM Total Procedure Duration Time 0 hours 3 minutes 22 seconds Findings: The examined esophagus was normal. Patchy mildly erythematous mucosa without bleeding was found in the gastric body. Biopsies were taken with a cold forceps for histology. Verification of patient identification for the specimen was done. Estimated blood loss was minimal. Biopsies were taken with a cold forceps for Helicobacter pylori testing. Verification of patient identification for the specimen was done. Patchy mildly erythematous mucosa without active bleeding and with no stigmata of bleeding was found in the duodenal bulb. Biopsies were taken with a cold forceps for histology. Verification of patient identification for the specimen was done. Estimated blood loss was minimal. Impression: - Normal esophagus. - Erythematous mucosa in the gastric body. Biopsied. - Erythematous duodenopathy. Biopsied. Recommendation: - Discharge patient to home. - Resume previous diet. - Continue present medications. Procedure Code(s): --- Professional --- 54362, Esophagogastroduodenoscopy, flexible, transoral; with biopsy, single or multiple CPT copyright 2021 [employer]. All rights reserved. The codes documented in this report are preliminary and upon news photographer review may be revised to meet current compliance requirements. Mike Rutledge DO 11/17/2023 10:52:48 AM This report has been signed electronically. Number of Addenda: 0 Note Initiated On: 11/17/2023 10:11 AM
== END 2023-11-17 11:57 | disposition home or self-care (01) ==
LOC: EN 08:53 → AC 08:56
PROVIDERS: PCP Family Medicine; Referring Provider Family Medicine; Visit Provider Internal Medicine Gastroenterology
PROC: 0DJ08ZZ Inspection of Upper Intestinal Tract, Via Natural or Artificial Opening Endoscopic (ICD-10-PCS; CPT 43235; principal; 2023-11-17 09:55)
DX: R10.11 Right upper quadrant pain (principal); K59.00 Constipation, unspecified; I10 Essential (primary) hypertension; I25.10 Atherosclerotic heart disease of native coronary artery without angina pectoris; I25.2 Old myocardial infarction; E78.00 Pure hypercholesterolemia, unspecified; K31.89 Other diseases of stomach and duodenum; Z79.899 Other long term (current) drug therapy; Z79.02 Long term (current) use of antithrombotics/antiplatelets; K29.70 Gastritis, unspecified, without bleeding
CPT/HCPCS: 43239; 88305; 88342; J7120; J2405

== ENCOUNTER → 2023-11-18 | Outpatient (CLI) | payer OTHER, MEDICARE, SELFPAY ==
[2017-03-03 15:40] VITALS: BMI 24.5
--- NOTE | 2023-11-18 07:03 | CT_ITS ---
STUDY: CTA ABDOMEN AND PELVIS WITH CONTRAST REASON FOR EXAM: Female, 58 years old. Weight loss and abdominal pain. Patient has history of superior mesenteric artery syndrome. RADIATION DOSAGE (If Supplied By Facility): CTDIvol = ( 17.38 ) mGy, DLP = ( 295.70 ) mGycm TECHNIQUE: Transaxial images were obtained from the dome of the diaphragm to the symphysis pubis without oral contrast. IV 75mL [id number]-[id number] was administered. Sagittal and coronal images were reconstructed. Individualized dose optimization techniques were used for this CT. COMPARISON: Comparison is made with prior examination dated July 26, 2021. FINDINGS: The visualized lung bases are unremarkable. The visualized portions of the heart are within normal limits. Stable 1.5 cm x 1.2 cm cyst in the anterior aspect of the medial portion of the right lobe of the liver. The patient is status post cholecystectomy. There is an 8.5 mm x 6.9 mm cyst in the central portion of the spleen. Normal pancreas. Normal bilateral adrenal glands. Normal right kidney. Normal left kidney. Normal visualized stomach. Normal small intestine. There are multiple colonic diverticula consistent with diverticulosis. The appendix is visualized and appears normal. There is scattered atherosclerotic calcification of the abdominal aorta, without a demonstrated aneurysm. No evidence of superior mesenteric artery syndrome. Normal inferior vena cava. Normal retroperitoneum. Normal urinary bladder. Enlarged fibroid uterus. Normal abdominal wall. Normal osseous structures. CT/CTA Abd/Pelvis W/WO Contrast IMPRESSION: Small hepatic cysts. Small splenic cyst. Scattered sigmoid diverticulosis. Electronically Signed: Owen Dobson MD at 9:41 EDT ,
== END | disposition home or self-care (01) ==
LOC: CT 07:02
PROVIDERS: PCP Family Medicine; Referring Provider Internal Medicine Gastroenterology; Visit Provider Internal Medicine Gastroenterology
DX: K55.1 Chronic vascular disorders of intestine (principal)
CPT/HCPCS: 74174; Q9967; A4216

== ENCOUNTER → 2023-11-22 | Outpatient (CLI) | payer OTHER, MEDICARE, SELFPAY ==
[2017-03-03 15:40] VITALS: BMI 24.5
--- NOTE | 2023-11-22 10:06 | NM_ITS ---
CLINICAL: 58-year-old female with history of postprandial abdominal pain. SEMI-SOLID PHASE 99m Tc SULFUR COLLOID GASTRIC EMPTYING STUDY COMPARISON: None available FINDINGS: The patient was administered 1.2 mCi of 99m Tc sulfur colloid mixed with oatmeal and consumed per os. Image acquisitions in the anterior-posterior projections were obtained for 60 minutes. There is prompt visualization of the stomach. There is no gastroesophageal reflux identified. First order kinetics are maintained throughout the duration of the acquisitions. The T ? linear fit was extrapolated to be 76.43 minutes, (Normal: 12-56 minutes). NM/Gastric Emptying Study IMPRESSION: 1. ABNORMAL 99m Tc sulfur colloid semi-solid phase (oatmeal) gastric emptying imaging examination. A. There is delayed semi-solid phase gastric emptying compared to normal controls. (Vicky et al, J Nucl Med Tech 38: 186, 2010). Electronically Signed: Jarad Yip DO at 10:05 EDT ,
== END | disposition home or self-care (01) ==
LOC: NM 10:06
PROVIDERS: PCP Family Medicine; Referring Provider Internal Medicine Gastroenterology; Visit Provider Internal Medicine Gastroenterology
DX: R14.0 Abdominal distension (gaseous) (principal)
CPT/HCPCS: 78264; A9541

== ENCOUNTER → 2024-03-30 | Outpatient (CLI) | payer OTHER, MEDICARE, SELFPAY ==
[2017-03-03 15:40] VITALS: BMI 24.5
[2024-03-30 07:58] LABS: AST(SGOT) 23 U/L (15-37); Alanine Aminotransfer ALT/SGPT 25 U/L (13-56); Albumin, Serum 3.3 g/dL (3.2-5.0); Alkaline Phosphatase 63 U/L (45-117); Bilirubin, Direct 0.15 mg/dL (0.00-0.30); Cholesterol 117 mg/dL (200); Globulin 3.5 g/dL (2.2-4.2); High Density Lipoprotein 57 mg/dL; Protein, Total 6.8 g/dL (6.4-8.2); Triglycerides 90 mg/dL; Very Low Density Lipoprotein 18 mg/dL (5-40)
== END | disposition home or self-care (01) ==
LOC: LAB 07:06
PROVIDERS: PCP Family Medicine; Referring Provider Nurse Practitioner Family; Visit Provider Nurse Practitioner Family
DX: E78.00 Pure hypercholesterolemia, unspecified (principal)
CPT/HCPCS: 36415; 80061; 80076

== ENCOUNTER → 2024-04-09 | Outpatient (CLI) | payer OTHER, MEDICARE, SELFPAY ==
[2017-03-03 15:40] VITALS: BMI 24.5
[2024-04-09 10:44] LABS: Absolute Lymphocyte Count 1.38 X10^3/uL (0.83-4.51); Absolute Neutrophil Count 4.1 X10^3/uL (2.0-7.7); Basophil# 0.04 X10^3/uL; Basophil% 0.6 % (0-1); Eosinophil# 0.18 X10^3/uL; Eosinophils% 2.9 % (0-5); Hematocrit 43.8 % (37-47); Hemoglobin 13.9 g/dL (12.0-15.0); Lymphocyte # 1.38 X10^3/ul (0.83-4.51); Lymphocyte % 22.3 % (19-41); Mean Corp Hgb Conc 31.7 g/dL (32-36); Mean Corpuscular Volume 91.3 fL (81-99); Mean Platelet Vol. 9.5 fl (6.2-12.0); Monocyte% 8.1 % (0-10); NRBC Flagged by Analyzer 0 % (0-5); Neutrophil # 4.07 X10^3/uL (2.7-7.7); Neutrophil % 65.6 % (47-70); Platelet Count 242 K/mm3 (150-450); RBC Distribution Width CV 13.1 % (11.6-14.6); White Blood Count 6.2 K/mm3 (4.4-11.0)
[2024-04-09 11:23] LABS: BNP,B-Type NATRIURETIC PEPTIDE 71.1 pg/mL (0-100)
[2024-04-09 12:11] LABS: Anion Gap 4 (5-15); BUN 13 mg/dL (7-18); BUN/Creat Ratio 24.5 RATIO (10-20); Calcium,Total 9.7 mg/dL (8.5-10.1); Chloride 102 mmol/L (98-107); Creatinine, Serum 0.53 mg/dL (0.55-1.02); EST Glomerular Filtration Rate 126 mL/min (>60); Est Glom Filt Rate - Afr Amer 152 mL/min (>60); Glucose 88 mg/dL (74-106); Magnesium 2.4 mg/dL (1.6-2.6); Potassium 4.8 mmol/L (3.5-5.1); Sodium Level 134 mmol/L (136-145)
== END | disposition home or self-care (01) ==
LOC: LAB 10:13
PROVIDERS: PCP Family Medicine; Referring Provider Nurse Practitioner Family; Visit Provider Nurse Practitioner Family
DX: R00.2 Palpitations (principal); R06.09 Other forms of dyspnea; I25.5 Ischemic cardiomyopathy
CPT/HCPCS: 36415; 80048; 83735; 83880; 85025

== ENCOUNTER → 2024-04-12 | Outpatient (CLI) | payer OTHER, MEDICARE, SELFPAY ==
[2017-03-03 15:40] VITALS: BMI 24.5
== END | disposition home or self-care (01) ==
LOC: PSN 10:28
PROVIDERS: PCP Family Medicine; Referring Provider Nurse Practitioner Family; Visit Provider Nurse Practitioner Family
DX: R06.09 Other forms of dyspnea (principal)
CPT/HCPCS: 94060; 94726; 94729

== ENCOUNTER → 2024-10-05 | Outpatient (CLI) | payer OTHER, MEDICARE, SELFPAY ==
[2017-03-03 15:40] VITALS: BMI 24.5
[2024-10-05 07:50] LABS: Absolute Lymphocyte Count 1.15 X10^3/uL (0.83-4.51); Absolute Neutrophil Count 4.7 X10^3/uL (2.0-7.7); Basophil# 0.03 X10^3/uL; Basophil% 0.5 % (0-1); Eosinophil# 0.17 X10^3/uL; Eosinophils% 2.6 % (0-5); Hematocrit 42.9 % (37-47); Hemoglobin 13.9 g/dL (12.0-15.0); Lymphocyte # 1.15 X10^3/ul (0.83-4.51); Lymphocyte % 17.5 % (19-41); Mean Corp Hgb Conc 32.4 g/dL (32-36); Mean Corpuscular Hgb 29.5 pg (27.0-32.0); Mean Corpuscular Volume 91.1 fL (81-99); Mean Platelet Vol. 9.3 fl (6.2-12.0); Monocyte# 0.51 X10^3/uL; Monocyte% 7.8 % (0-10); NRBC Flagged by Analyzer 0 % (0-5); Neutrophil % 71.3 % (47-70); Platelet Count 239 K/mm3 (150-450); RBC Distribution Width CV 12.2 % (11.6-14.6); RBC Distribution Width SD 41.1 fl (35.1-43.9); Red Blood Count 4.71 M/mm3 (4.2-5.4); White Blood Count 6.6 K/mm3 (4.4-11.0)
[2024-10-05 08:22] LABS: AST(SGOT) 16 U/L (15-37); Alanine Aminotransfer ALT/SGPT 27 U/L (13-56); Albumin, Serum 3.5 g/dL (3.2-5.0); Alkaline Phosphatase 64 U/L (45-117); Anion Gap 6 (5-15); BUN 12 mg/dL (7-18); BUN/Creat Ratio 19.4 RATIO (10-20); Bilirubin, Direct 0.15 mg/dL (0.00-0.30); Calcium,Total 9.6 mg/dL (8.5-10.1); Chloride 106 mmol/L (98-107); Cholesterol 117 mg/dL (200); Creatinine, Serum 0.62 mg/dL (0.55-1.02); EST Glomerular Filtration Rate 105 mL/min (>60); Est Glom Filt Rate - Afr Amer 128 mL/min (>60); Globulin 3.6 g/dL (2.2-4.2); Glucose 88 mg/dL (74-106); High Density Lipoprotein 54 mg/dL; Protein, Total 7.1 g/dL (6.4-8.2); Sodium Level 139 mmol/L (136-145); Triglycerides 67 mg/dL; Very Low Density Lipoprotein 13 mg/dL (5-40)
== END | disposition home or self-care (01) ==
LOC: LAB 07:24
PROVIDERS: Internal Medicine Cardiovascular Disease; PCP Family Medicine; Referring Provider Physician Assistant; Visit Provider Physician Assistant
DX: G35 Multiple sclerosis (principal); E78.00 Pure hypercholesterolemia, unspecified
CPT/HCPCS: 80053; 80061; 82248; 85025

== ENCOUNTER → 2025-03-01 | Outpatient (CLI) | payer OTHER, MEDICARE, SELFPAY ==
[2017-03-03 15:40] VITALS: BMI 24.5
[2025-03-01 09:31] LABS: AST(SGOT) 23 U/L (<=31); Alanine Aminotransfer ALT/SGPT 20 U/L (<=34); Albumin, Serum 3.9 g/dL (3.5-5.0); Alkaline Phosphatase 58 U/L (35-104); Anion Gap 10 (5-15); BUN 13 mg/dL (4-19); BUN/Creat Ratio 19.6 RATIO (10-20); Bilirubin, Direct 0.14 mg/dL (0.00-0.30); Calcium,Total 9.5 mg/dL (7.6-11.0); Carbon Dioxide 25.9 mmol/L (21.0-32.0); Chloride 103 mmol/L (98-108); Cholesterol 128 mg/dL (<=200); Globulin 2.8 g/dL (2.2-4.2); Glucose 90 mg/dL (70-99); Low Density Lipoprotein Calc. 64 mg/dL; Potassium 4.3 mmol/L (3.3-5.1); Triglycerides 72 mg/dL; Very Low Density Lipoprotein 14 mg/dL (5-40); cholesterol:hdl ratio screen 2.57
== END | disposition home or self-care (01) ==
LOC: LAB 07:58
PROVIDERS: Internal Medicine Cardiovascular Disease; PCP Family Medicine; Referring Provider Nurse Practitioner Family; Visit Provider Nurse Practitioner Family
DX: I21.3 ST elevation (STEMI) myocardial infarction of unspecified site (principal); I25.10 Atherosclerotic heart disease of native coronary artery without angina pectoris; R00.2 Palpitations; Z79.899 Other long term (current) drug therapy; E78.5 Hyperlipidemia, unspecified
CPT/HCPCS: 36415; 80053; 80061; 82248

== ENCOUNTER → 2025-04-04 | Outpatient (CLI) | payer OTHER, MEDICARE, SELFPAY ==
[2017-03-03 15:40] VITALS: BMI 24.5
== END | disposition home or self-care (01) ==
LOC: LAB 10:14
PROVIDERS: PCP Family Medicine; Visit Provider Physician Assistant Medical
DX: Z00.00 Encounter for general adult medical examination without abnormal findings (principal)

== ENCOUNTER → 2025-05-02 | Outpatient (CLI) | payer OTHER, MEDICARE, SELFPAY ==
[2017-03-03 15:40] VITALS: BMI 24.5
--- OUTSIDE RECORDS SUMMARY | 2025-05-02 06:09 | XMS RPT_ITS | CCD ---
Author Organization [facility] Care Team Providers Care Application Manager Name Role Phone Gregorio Byrd Unavailable Unavailable MD Wil, Carson Kovacs Unavailable [phone] Roof POST ADOPTION COORDINATOR, Taj Arcos Unavailable Vero Hyde Unavailable Unavailable IQRA Barrios, Cielo Chawla Unavailable Unavailabl latanya Barrios RN, Cielo Chawla Unavailable Unavailwilner Barrios RN, Cielo M Unavailable Unavailwilner Barrios RN, Cielo M Unavailable UnavailVero Goss Unavailable Unavailable IQRA Barrios, Cielo Chawla Unavailable UnavailDr. Francisco Calixto Primary Care Provider Dr. Francisco Matthews Referring Provider [phone] Mckeon Attending Provider [phone] Maria Del Rosario DICKINSON, TEENA Cahwla Attending Provider Dr. Mike Rutledge Other Provider [phone] Francisco Matthews Primary Care Provider Dr. Francisco Matthews Referring Provider [phone][address] Mckeon Attending Provider [phone] Neema POST ADOPTION COORDINATOR, POST ADOPTION COORDINATOR-C Cara Chawla Attending Provider Roof POST ADOPTION COORDINATOR, POST ADOPTION COORDINATOR-C Taj Arcos Attending Provider Roof POST ADOPTION COORDINATOR, POST ADOPTION COORDINATOR-C Taj Arcos Referring Provider Roof POST ADOPTION COORDINATOR, POST ADOPTION COORDINATOR-C Taj Arcos Other Provider [phone] Dr. Tan Luque Attending Provider Dr. Francisco Matthesw Primary Care Provider Dr. Francisco Matthews Referring Provider Dr. Francisco Matthews Primary Care Provider Hal, Dr. Singh Referring Provider Neema POST ADOPTION COORDINATOR, POST ADOPTION COORDINATOR-C Cara Chawla Attending Provider Dr. Francisco Matthews Primary Care Provider Hal, Dr. Singh Referring Provider Dr. Francisco Matthews Primary Care Provider Hal, Dr. Singh Referring Provider Roof POST ADOPTION COORDINATOR, POST ADOPTION COORDINATOR-C Taj Arcos Attending Provider Roof POST ADOPTION COORDINATOR, POST ADOPTION COORDINATOR-C Taj Arcos Referring Provider Roof POST ADOPTION COORDINATOR, POST ADOPTION COORDINATOR-C Taj Arcos Other Provider TEENA Smith Other Provider Dr. Loreta Duvall Attending Provider Víctor GUAMAN, Cara Kovacs Unavailable Milind MEYER, Dr. Barnard Unavailable Gamal MEYER, Dr. Chan Unavailable Abel MEYER, Genny Recinos Unavailable Hal MEYER, Francisco Rosas Unavailable Boy GRAYN, Norma Recinos Unavailable Unavailable Romana Lux MA Unavailable Unavailable Ese ([facility]), Hemanta Unavailable Unavailrebeca Soto MD, Arron Jose Unavailable Arnulfo GUAMAN, Sarah Cadena Unavailable Manjinder GUAMAN, Fermin Recinos Unavailable Sheila Dunbar Unavailable Unavailable Manjinder ESCALONA, Pepper L Unavailable Unavail able John GRAYN, Neida Unavailable Unavailable Lo ESCALONA, Sarah Jose Unavailable Unavaila era Pedersen LPN, Pao Unavailable Unavailable Hemant GRAYN, Jennifer K Unavailable Unavai krystian Baker PA-C, Amita Kovacs Unavailable [facility]Harrison Unavailable Unavailab le Car SUPERVISOR PASTE MIXING, Genny Chawla Unavailable Unavailab le [place] SUPERVISOR PASTE MIXING, Irene Leach Unavailable Unavailab le Vess SUPERVISOR PASTE MIXING, Neilee L Unavailable Unavailable Wengerd SUPERVISOR PASTE MIXING, Veronica Unavailable Unavailabl e [place] SUPERVISOR PASTE MIXING, Sulema N Unavailable Unavaila ble Unavailable Unavailable Dr. Francisco Matthews Primary Care Provider Dr. Francisco Matthews Referring Provider Dr. Loreta Duvall Attending Provider Dr. Mike Rutledge Attending Provider [phone] Maty, Dr. Mckeon Other Provider [phone] Hailey Carrasco MA Unavailable Unavailable FRANCISCO MATTHEWS Consulting Unavailable GARZA, CARA PAC Admitting Unavailable GARZA, CARA PAC Primary Care Unavailable GARZA, CARA PAC Attending Unavailable PROVIDER, UNKNOWN Consulting Unavailable PROVIDER, UNKNOWN Consulting Unavailable PROVIDER, UNKNOWN Consulting Unavailable KENDALL NAVARRO MD Primary Care Unavailable FRANCISCO MATTHEWS Consulting Unavailable KENDALL NAVARRO MD Attending Unavailable KENDALL NAVARRO MD Admitting Unavailable PROVIDER, UNKNOWN Consulting Unavailable PROVIDER, UNKNOWN Consulting Unavailable PROVIDER, UNKNOWN Consulting Unavailable KENDALL NAVARRO MD Primary Care Unavailable KENDALL NAVARRO MD Attending Unavailable FRANCISCO MATTHEWS Consulting Unavailable KENDALL NAVARRO MD Admitting Unavailable PROVIDER, UNKNOWN Consulting Unavailable PROVIDER, UNKNOWN Consulting Unavailable PROVIDER, UNKNOWN Consulting Unavailable Dr. Francisco Matthews MD Primary Care Provider Luisa Mcnair Attending Provider Luisa Mcnair Referring Provider Dr. Loreta Duvall MD Other Provider Dr. Francisco Matthews MD Referring Provider Dr. Loreta Duvall MD Attending Provider Dr. Francisco Matthews MD Primary Care Provider Precious POST ADOPTION COORDINATOR-CTaj Attending Provider Precious POST ADOPTION COORDINATOR-CTaj Referring Provider Dr. Francisco Matthews MD Referring Provider Neida Gamble Attending Provider Francisco Matthews Referring Unavailable Precious POST ADOPTION COORDINATORTaj Attending Unavailable Francisco Matthews Primary Care Unavailable Francisco Matthews Referring Unavailable Loreta Duvall Attending Unavailable Francisco Matthews Primary Care Unavailable Francisco Matthews Primary [facility] Unavailable Loreta Duvall Consulting Unavailable Luisa Smith Attending Unavailable Luisa Smith Referring Unavailable Neida Gamble Attending Unavail able Francisco Matthews Primary Care Unavailable Roof POST ADOPTION COORDINATOR, Taj H Attending Unavailable Roof POST ADOPTION COORDINATOR, Taj H Referring Unavailable Francisco Matthews Primary Care Unavailable Francisco Matthews Primary Care Unavailable Roof POST ADOPTION COORDINATOR, Taj H Attending Unavailable Roof POST ADOPTION COORDINATOR, Taj H Referring Unavailable Allergies Allergy Classification Reported Allergen(s) Allergy Type Date of Onset Reaction(s) Facility Eggs (1 source) egg Food Allergy [facility] Penicillin V (1 source) Penicillin V Drug Allergy Vomiting [facility]; [facility] Sulfonamides (antibiotic) (1 source) Sulfonamides (Antibiotic) Drug Allergy [facility]; [facility] (20 sources) egg; Translations: [EGGS] food allergy 03-09-20 17 [facility] Work Phone: (10 sources) Penicillins (Antibiotic) drug allergy 03-09-20 17 vomiting [facility] Work Phone: (11 sources) sulfamethoxazole / trimethoprim; Translations: [BACTRIM] drug allergy 03-09-20 17 [facility] Work Phone: (20 sources) Sulfonamides (Antibiotic) drug allergy 04-08-20 17 [facility] Work Phone: (19 sources) egg extract Drug Allergy 12-04-19 22 [facility] (20 sources) Penicillins; Translations: [Penicillins] Propensity to adverse reactions 12-04-19 22 Vomiting [facility] (19 sources) Sulfamethoxazole Drug Allergy 12-04-19 22 Unknown [facility] (19 sources) Trimethoprim Drug Allergy 12-04-19 22 Unknown [facility] (20 sources) Penicillin V Drug Allergy Vomiting [facility]; [facility] ([facility] source) Egg Drug allergy (disorder) [facility] (1 source) Penicillins Drug allergy (disorder) [facility] (1 source) egg extract Drug Allergy 04-04-20 25 [facility] (1 source) Sulfamethoxazole Drug Allergy 04-04-20 [facility] (1 source) Trimethoprim Drug Allergy 04-04-20 [facility] Medications Current Medications Medication Drug Class(es) Dates Sig (Normalized) Sig (Original) [id number] 200 actuat albuterol 0.09 mg/actuat metered dose inhaler (20 sources) beta2-Adrenergic Agonist Start: 10-08-2024 Albuterol Sulfate 90 mcg/actuation HFA aerosol inhaler Active 2 NMA INHALATION EVERY 4-6 HOURS as needed October 08, 2024 1:00am Start: 04-23-2024 take 2 puff(s) by in halation every four to six hours as needed Ventolin HFA 90 mcg/actuation aerosol inhaler ; 2 (two) puff(s) every 4-6hrs prn for 0 days Quantity: 1 {Each} Refills: 2 Ordered: 23-Apr-2024 ISI Carrasco Start: 23-Apr-2024 Start: 04-20-2018 End: 07-05-2019 take 2 puff(s) by inhalation every four hours as needed for cough Ventolin HFA 108 (90 Base) MCG/ACT Inhalation Aerosol Solution ; 2 (two) Puff Puff every four hours PRN cough or wheeze for 0 days Quantity: 1 {Inhalation} Refills: 0 Ordered: 05-Jul-2019 IQRA Blanchard Start: 20-Apr-2018 End: 05-Jul-2019 Status: Inactive Comments: pharm: change to VentolinDISPENSE WITH SPACER DEVICE Comment on above: pharm: change to Eduin tolinDISPENSE WITH SPACER DEVICE aspirin 81 mg delayed release oral tablet (20 sources) Nonsteroidal Anti-inflammatory Drug Start: 03-06-2017 take 1 tablet by mouth once daily Aspirin 81 MG tablet Active 81 mg PO DAILY@0800 0 March 06, 2017 12:00am take 1 tablet by mouth once ramsey y Aspirin 81 MG Oral Tablet Chewable ; 1 daily (81 MG) Atogepant (8 sources) Start: 10-11-2023 take 1 tablet by kyle th once daily Atogepant (Qulipta) 30 mg tablet Active 30 mg PO DAILY October 11, 2023 1:00am Start: 10-11-2023 take 1 tablet by kyle th once daily Atogepant (Qulipta) 30 mg tablet Active 30 mg PO DAILY October 11, 2023 12:00am Start: 10-11-2023 take 1 tablet by kyle th once daily Atogepant (Qulipta) 30 mg tablet Active 30 MG PO DAILY October 11, 2023 1:00am atorvastatin 40 mg oral tablet (20 sources) HMG-CoA Reductase Inhibitor Start: 10-08-2024 take 1 tablet by mouth once daily Atorvastatin 40 mg tablet Active 40 mg PO daily 90 3 October 08, 2024 1:00am Start: 03-06-2017 End: 10-08-2024 take 1 tablet by mouth at bedtime Atorvastatin 80 mg tablet Discontinued 80 mg PO AT BEDTIME 90 4 November 17, 2021 3:41pm October 04, 2022 10:50am baclofen 10 mg oral tablet (20 sources) gamma-Aminobutyric Acid-ergic Agonist Start: 04-09-2024 take 1 tablet by mouth twice daily Baclofen 10 mg tablet Active 10 mg PO TWICE A DAY April 09, 2024 9:18am Pain Score 1-10 Start: 05-07-2019 End: 10-11-2023 Baclofen 10 mg tablet Discon tinued 10 mg PO NEEDED as needed for Pain Score 1-10May 07, 2019 1:45pm October 11, 2023 1:15pm Start: 05-07-2019 End: 04-09-2024 take 1 tablet by mouth every eight hours as needed for pain Baclofen 10 mg tablet Discontinued 10 mg PO Q8H as needed for Pain Score 1-05/24October 11, 2023 1:14pm April 09, 2024 9:19am Start: 08-25-2017 End: 05-07-2019 take 5 mg by mouth every eight hours as needed Baclofen 10 mg tablet Discontinued 5 mg PO Q8H as needed September 25, 2018 3:43pm May 07, 2019 1:48pm Start: 08-25-2017 End: 05-07-2019 take 5 mg by mouth every eight hours Baclofen Discontinued 5 MG PO Q8H September 25, 2018 3:43pm May 07, 2019 1:48pm Start: 07-20-2017 End: 08-25-2017 take 1 tablet by mouth four times daily Baclofen 10 MG tablet Discontinued 10 mg PO .qid July 20, 2017 1:28pm August 25, 2017 11:59am Start: 03-09-2017 take 1 tablet by kyle four times daily BACLOFEN 10 MG TABS One tablet by mouth four times daily BACLOFEN [id number] Cielo Barrios RN Start: 03-02-2017 End: 07-20-2017 Baclofen 10 MG tablet Discon tinued 10 mg EVERY 8 HOURS March 02, 2017 12:00am July 20, 2017 1:34pm Comment on above: Medication taken as needed. takes 1/2 to 1 tab gabapentin 400 mg oral capsule (20 sources) Anti-epileptic Agent Start: 10-11-2023 take 1 capsule by mouth three times daily Gabapentin 400 mg capsule Active 400 mg PO THREE TIMES A DAY October 11, 2023 1:00am Start: 04-04-2023 End: 10-11-2023 Gabapentin 300 mg capsule Discontinued 400 mg PO THREE TIMES A DAY April 04, 2023 8:27am October 11, 2023 1:14pm nerve pain Start: 04-04-2023 End: 10-11-2023 take 400 mg by mouth three times daily Gabapentin Discontinued 400 MG PO THREE TIMES A DAY April 04, 2023 8:27am October 11, 2023 1:14pm Start: 05-07-2019 End: 04-04-2023 take 1 capsule by mouth three times daily Gabapentin 300 mg capsule Discontinued 300 mg PO THREE TIMES A DAY May 07, 2019 12:00am April 04, 2023 8:28am nerve pain 0.5 ml interferon beta-1a 0.088 mg/ml prefilled syringe (20 sources) Recombinant Human Interferon beta Start: 10-11-2023 Interferon Beta-1a (Albumin) (Rebif (With Albumin)) 44 mcg/0.5 mL syringe Active 0.5 ML SC 3 TIMES A WEEK October 11, 2023 1:13pm 44mcg mwf inj Start: 04-04-2023 End: 10-11-2023 Interferon Beta-1a (Albumin) (Rebif (With Albumin)) 44 mcg/0.5 mL syringe Active 0.5 mL SC MOWEFR October 11, 2023 1:13pm 44mcg mwf inj Start: 08-04-2021 End: 04-04-2023 Interferon Beta-1a (Albumin) (Rebif (With Albumin)) 44 mcg/0.5 mL syringe Discontinued 0.5 mL SC .COMPLEX August 04, 2021 1:00am April 04, 2023 8:28am 0.5 mL subcut Tuesday, Tuesday, Tuesday; Start: 08-04-2021 End: 04-04-2023 Interferon Beta-1a (Albumin) (Rebif (With Albumin)) 44 mcg/0.5 mL syringe Discontinued 0.5 ML SC .COMPLEX August 04, 2021 1:00am April 04, 2023 8:28am 0.5 mL subcut Tuesday, Tuesday, Tuesday; Start: 07-20-2017 End: 08-04-2021 Rebif Discontinued 44 ug SC MOWEFR July 20, 2017 1:32pm August 04, 2021 10:59am MS Start: 07-20-2017 End: 08-04-2021 Rebif Discontinued 44 ug SC MOWEFR July 20, 2017 12:32pm August 04, 2021 9:59am Start: 07-20-2017 End: 08-04-2021 Rebif Discontinued 44 MCG SC MOWEFR July 20, 2017 1:32pm August 04, 2021 10:59am Start: 03-09-2017 REBIF 44 MCG/0 .5ML SOSY as directed INTERFERON BETA-1A [id number] Cielo Barrios RN Start: 03-09-2017 REBIF 44 MCG/0 .5ML SOSY as directed INTERFERON BETA-1A [id number] Cielo Barrios RN Start: 03-02-2017 End: 07-20-2017 Rebif Discontinued 44 MCG SC EVERY OTHER DAY March 02, 2017 4:26pm July 20, 2017 1:34pm Start: 03-02-2017 End: 07-20-2017 Rebif Discontinued 44 ug SC EVERY OTHER DAY March 02, 2017 12:00am July 20, 2017 1:34pm Start: 03-02-2017 End: 07-20-2017 Rebif Discontinued 44 ug SC EVERY OTHER DAY March 01, 2017 11:00pm July 20, 2017 12:34pm Start: 03-02-2017 End: 07-20-2017 Rebif Discontinued 44 MCG SC EVERY OTHER DAY March 02, 2017 12:00am July 20, 2017 1:34pm VADIM, 44MCG/0.5 ML (Subcutaneous Solution) ; three times weekly (44 MCG/0.5ML) Comments: Tuesday, Tuesday, and Tuesday Comment on above: Tuesday, Tuesday, a nd Tuesday lidocaine 0.05 mg/mg medicated patch (20 sources) Antiarrhythmic, Amide Local Anesthetic Start: 12-07-2019 End: 10-11-2023 Lidocaine 5 % adhesive patch,medicated Active 1 NMA TOPICAL DAILY as needed for Pain Score -05/24October 11, 2023 1:15pm leave on most painful area for up to 12 hrs Start: 12-07-2019 End: 10-11-2023 Lidocaine 5 % adhesive patch ,medicated Discontinued 1 NMA TOPICAL NEEDED as needed for Pain Score -05/24December 07, 2019 12:00am October 11, 2023 1:15pm leave on most painful area for up to 12 hrs End: 03-06-2025 Lidocaine 5 % External Patch ; as needed (5 %) End: 06-Mar-2025 Status: Inactive Comments: Medication taken as needed. Comment on above: Medication taken as needed. pramipexole dihydrochloride 1 mg oral tablet (20 sources) Nonergot Dopamine Agonist Start: 04-09-2024 Pramipexole 1 mg tablet Active mg PO April 09, 2024 12:00am Start: 02-08-2022 End: 04-09-2024 take 1 tablet by mouth three times daily Pramipexole 0.75 mg tablet Discontinued 0.75 mg PO THREE TIMES A DAY February 08, 2022 8:58am April 09, 2024 9:17am restless legs Start: 05-07-2019 End: 02-08-2022 take 0.375 mg by mouth three times daily Pramipexole 0.75 mg tablet Discontinued 0.375 mg PO THREE TIMES A DAY May 07, 2019 12:00am February 08, 2022 8:59am restless legs Start: 05-07-2019 End: 02-08-2022 take 0.375 mg by mouth three times daily Pramipexole Discontinued 0.375 MG PO THREE TIMES A DAY May 07, 2019 12:00am February 08, 2022 8:59am Start: 03-02-2017 End: 05-07-2019 take 1 tablet by mouth three times daily as needed Pramipexole 0.5 MG tablet Discontinued 0.5 mg PO THREE TIMES A DAY as needed for RESTLESS LEG July 22, 2017 8:41pm May 07, 2019 1:46pm Pramipexole Dihy drochloride ; 1mg three times daily Comment on above: Medication taken as needed. Qulipta 30 mg tablet (20 sources) Qulipta 30 mg tablet ; 1 daily (30 mg) 60 actuat tiotropium 0.0025 mg/actuat inhalation spray (20 sources) Anticholinergic Start: 03-19-20 take 2 puff(s) by inhalation once daily tiotropium bromide 2.5 mcg/actuation mist for inhalation ; 2 puffs daily for 0 days Quantity: 1 {Each} Refills: 3 Ordered: 19-Mar-2025 ROWENA Garza Start: 19-Mar-2025 Start: 11-27-2024 take 2 puff(s) by in halation once daily tiotropium bromide 2.5 mcg/actuation mist for inhalation ; 2 puffs daily for 0 days Quantity: 1 {Each} Refills: 3 Ordered: 27-Nov-2024 ROWENA Garza Start: 27-Nov-2024 Start: 10-08-2024 take 2.5 ug by inhal ation once daily Tiotropium [place] (Spiriva Respimat) 2.5 mcg/actuation mist Active INHALATION DAILY October 08, 2024 1:00am Start: 07-18-2024 take 2 puff(s) by in halation once daily tiotropium bromide 2.5 mcg/actuation mist for inhalation ; 2 puffs daily for 0 days Quantity: 1 {Each} Refills: 3 Ordered: 18-Jul-2024 ROWENA Garza Start: 18-Jul-2024 Start: 04-23-2024 take 2 puff(s) by in halation once daily tiotropium bromide 2.5 mcg/actuation mist for inhalation ; 2 puffs daily for 0 days Quantity: 1 {Each} Refills: 3 Ordered: 23-Apr-2024 ISI Carrasco Start: 23-Apr-2024 Completed/Discontinued Medications Medication Drug Class(es) Dates Sig (Normalized) Sig (Original) amitriptyline hydrochloride 25 mg oral tablet (10 sources) Tricyclic Antidepressant Start: 08-24-2022 End: 11-10-2022 take 1 tablet by mouth at bedtime Amitriptyline 25 mg tablet Discontinued 25 mg PO AT BEDTIME 30 5 August 24, 2022 1:00am November 10, 2022 10:37am amylase [id number] unt / lipase [id number] unt / protease [id number] unt delayed release oral capsule (20 sources) take 1 capsule by mouth three times daily at mealtime Zenpep [id number] UNIT Oral Capsule Delayed Release Particles ; 1 three times daily with meals ([id number] UNIT) Status: Inactive ascorbic acid 500 mg oral tablet (20 sources) Start: 08-04-2021 End: 10-04-2022 take 1 tablet by mouth once daily Ascorbic Acid (Vitamin C) 500 mg tablet Discontinued 500 mg PO DAILY August 04, 2021 1:00am October 04, 2022 10:21am Start: 03-02-2017 End: 05-07-2019 take 1 tablet by mouth once daily Ascorbic Acid (Vitamin C) 1,000 MG tablet Discontinued 1000 mg PO DAILY March 02, 2017 12:00am May 07, 2019 1:45pm azithromycin 250 mg oral tablet (20 sources) Macrolide Antimicrobial Start: 06-20-2021 End: 07-29-2021 Azithromycin (Zithromax Z-Lobo) 250 mg tablet Discontinued 0 PO .COMPLEX July 26, 2021 9:55pm July 29, 2021 11:35am Check with primary doctor For 250 mg dose pack: take 500 mg today (day 1), then 250 mg for 4 days (days 2-5) PO Start: 01-01-2019 End: 01-04-2019 take 1 tablet by mouth once daily Azithromycin 500 MG Oral Tablet ; 1 (one) Tablet daily for 3 days Quantity: 3 {Tablet} Refills: 0 Ordered: 01-Jan-2019 MD Arron Soto Start: 01-Jan-2019 End: 04-Jan-2019 Status: Inactive benzonatate 100 mg oral capsule (20 sources) Non-narcotic Antitussive Start: 07-24-2024 End: 03-06-2025 benzonatate 100 mg capsule ; 1 (one) capsule three times daily, as needed for 0 days Quantity: 30 {Capsule} Refills: 0 Ordered: 06-Mar-2025 ISI Carrasco Start: 27-Aug-2024 End: 06-Mar-2025 Status: Inactive Comments: Medication taken as needed. Start: 06-25-2021 End: 08-06-2021 take 1 capsule by mouth three times daily as needed Tessalon Perles 100 MG Oral Capsule ; 1 (one) Cap three times daily as needed for cough for 0 days Quantity: 30 {Capsule} Refills: 0 Ordered: 06-Aug-2021 CESAR Pedersen Start: 25-Jun-2021 End: 06-Aug-2021 Status: Inactive Comments: Medication taken as needed. swallow whole Comment on above: Medication taken as needed. swallow whole Medication taken as needed. cephalexin 500 mg oral capsule (20 sources) Cephalosporin Antibacterial Start: 0 End: 0 take 1 capsule by mouth three times daily Cephalexin 500 MG Oral Capsule ; 1 (one) Capsule three times daily for 10 days Quantity: 30 {Capsule} Refills: 0 Ordered: 17-Mar-2020 MD Arron Soto Start: 17-Mar-2020 End: 27-Mar-2020 Status: Inactive Start: 10-11-2015 End: 10-21-2015 take 1 capsule by mouth three times daily CEPHALEXIN, 500MG (Oral Capsule) ; 1 Capsule three times daily for 10 days Quantity: 30 {Capsule} Refills: 0 Ordered: 05-Dec-2015 MD Francisco Matthews Start: 11-Oct-2015 End: 21-Oct-2015 Status: Inactive cetirizine hydrochloride 10 mg oral tablet (20 sources) Histamine-1 Receptor Antagonist Start: 01-01-2019 End: 12-03-2020 take 1 tablet by mouth once daily Cetirizine HCl 10 MG Oral Tablet ; 1 (one) Tablet Tablet daily for 0 days Quantity: 1 {Tablet} Refills: 0 Ordered: 03-Dec-2020 CESAR Lopez Start: 01-Jan-2019 End: 03-Dec-2020 Status: Inactive Comments: takes occasionally Comment on above: takes occasionally chlordiazePOXIDE hydrochloride 5 mg / clidinium bromide 2.5 mg oral capsule (20 sources) Anticholinergic, Benzodiazepine Start: 03-12-2016 End: 08-27-2016 take 1 capsule by mouth three times daily as needed for pain Librax 5-2.5 MG Oral Capsule ; 1 (one) Capsule Capsule three times daily PRN abdominal pain for 0 days Quantity: 12 {Capsule} Refills: 0 Ordered: 27-Aug-2016 CESAR Marcos Start: 12-Mar-2016 End: 27-Aug-2016 Status: Inactive clopidogrel 75 mg oral tablet (20 sources) [id number] Platelet Inhibitor Start: 08-11-2018 End: 05-23-2024 take 1 tablet by mouth once daily Clopidogrel 75 mg tablet Discontinued 75 mg PO daily 90 4 November 17, 2021 3:43pm October 04, 2022 10:50am Start: 08-25-2017 End: 08-11-2018 take 4 tablets by mouth once daily, then take 1 tablet by mouth once daily Clopidogrel 75 mg tablet Discontinued 75 mg PO daily 14 07August 25, 2017 12:10pm August 11, 2018 1:56pm Take 300 mg 1, followed by 75 mg daily. Start: 08-25-2017 End: 08-11-2018 take 300 mg by mouth once daily, then take 75 mg by mouth once daily Clopidogrel Discontinued 75 MG PO daily August 25, 2017 12:10pm August 11, 2018 1:56pm Take 300 mg 1, followed by 75 mg daily. Start: 08-25-2017 End: 08-25-2017 take 1 tablet by mouth once daily Clopidogrel 75 mg tablet Discontinued 75 mg PO daily August 25, 2017 1:00am August 25, 2017 12:11pm doxycycline hyclate 100 mg oral tablet (20 sources) Tetracycline-class Drug Start: 08-27-2024 End: 09-03-2024 doxycycline hyclate 100 mg tablet ; 1 (one) tablet two times daily for 7 days Quantity: 14 {Tablet} Refills: 0 Ordered: 27-Aug-2024 ROWENA Garza Start: 27-Aug-2024 End: 03-Sep-2024 Status: Inactive Start: 07-24-2024 End: 08-03-2024 doxycycline monohydrate 100 mg tablet ; 1 (one) tablet two times daily for 10 days Quantity: 20 {Tablet} Refills: 0 Ordered: 24-Jul-2024 ROWENA Garza Start: 24-Jul-2024 End: 03-Aug-2024 Status: Inactive Start: 06-28-2022 End: 07-08-2022 take 1 tablet by mouth twice daily Doxycycline Hyclate 100 MG Oral Tablet ; 1 (one) Tablet two times daily for 10 days Quantity: 20 {Tablet} Refills: 0 Ordered: 28-Jun-2022 ROWENA Garza Start: 28-Jun-2022 End: 08-Jul-2022 Status: Inactive Start: 06-25-2021 End: 07-02-2021 take 1 tablet by mouth twice daily Doxycycline Hyclate 100 MG Oral Tablet ; 1 (one) Tablet two times daily for 7 days Quantity: 14 {Tablet} Refills: 0 Ordered: 25-Jun-2021 ROWENA Garza Start: 25-Jun-2021 End: 02-Jul-2021 Status: Inactive Start: 08-16-2014 End: 08-26-2014 take 1 tablet by mouth twice daily DOXYCYCLINE HYCLATE, 100MG (Oral Tablet) ; 1 (one) Tablet BID for 10 days Quantity: 20 {Tablet} Refills: 0 Ordered: 16-Aug-2014 ROWENA Baker Start: 16-Aug-2014 End: 26-Aug-2014 Status: Inactive DULoxetine 60 mg delayed release oral capsule (19 sources) Serotonin and Norepinephrine Reuptake Inhibitor Start: 09-25-2018 End: 05-07-2019 take 1 capsule by mouth once daily Duloxetine 60 mg capsule,delayed release(DR/EC) Discontinued 60 mg PO DAILY September 25, 2018 1:00am May 07, 2019 1:46pm estrogens, conjugated (retirement) 0.625 mg/ml vaginal cream (20 sources) Estrogen Start: 03-13-2015 End: 08-27-2016 Premarin 0.625 MG/GM Vaginal Cream ; apply Cream Cream daily for 2 weeks and then 1-3 times per week to control symptoms for 0 days Quantity: 42.5 {Gram} Refills: 0 Ordered: 27-Aug-2016 CESAR Marcos Start: 13-Mar-2015 End: 27-Aug-2016 Status: Inactive Comments: apply to outer vaginal area and sana-urethral area Comment on above: apply to outer vaginal area and sana-ure thral area ferrous sulfate 325 mg oral tablet (20 sources) Start: 09-25-2018 End: 05-07-2019 take 1 tablet by mouth once daily Ferrous Sulfate (Feosol) 325 mg (65 mg iron) tablet Discontinued 325 mg PO DAILY September 25, 2018 1:00am May 07, 2019 1:46pm Start: 03-09-2017 take 1 tablet by kyle th once daily IRON 325 (65 Fe) MG TABS One tablet by mouth daily FERROUS SULFATE [id number] Cielo Barrios RN Start: 08-05-2016 End: 07-05-2019 take 1 tablet by mouth once daily Ferrous Sulfate 325 (65 Fe) MG Oral Tablet Delayed Release ; 1 (one) Tablet DR Tablet DR daily for 0 days Quantity: 30 {Tablet} Refills: 0 Ordered: 05-Jul-2019 IQRA Blanchard Start: 05-Aug-2016 End: 05-Jul-2019 Status: Inactive fluconazole 100 mg oral tablet (20 sources) Azole Antifungal Start: 08-10-2016 End: 08-15-2016 take 1 tablet by mouth once daily Fluconazole 100 MG Oral Tablet ; 1 (one) Tablet daily for 5 days Quantity: 5 {Tablet} Refills: 0 Ordered: 10-Aug-2016 MD Arron Soto Start: 10-Aug-2016 End: 15-Aug-2016 Status: Inactive Start: 10-16-2015 End: 12-05-2015 DIFLUCAN, 150MG (Oral Tablet ) ; 1 Tab single dose for 1 days Quantity: 1 {Tube} Refills: 1 Ordered: 05-Dec-2015 IQRA Blanchard Start: 16-Oct-2015 End: 05-Dec-2015 Status: Inactive furosemide 20 mg oral tablet (20 sources) Loop Diuretic Start: 03-05-2021 End: 02-08-2022 take 1 tablet by mouth once daily Furosemide 20 mg tablet Discontinued 20 mg PO DAILY July 26, 2021 9:55pm August 04, 2021 11:33am diuretic imipramine hydrochloride 25 mg oral tablet (20 sources) Tricyclic Antidepressant take 1 mg by mouth once daily IMIPRAMINE HCL, 25MG (Oral Tablet) ; daily (25 MG) Status: Inactive Comments: 1 to 2 tabs, rarely needs Comment on above: 1 to 2 tabs, rarely needs Iron (20 sources) Start: 07-20-2017 End: 09-25-2018 take 325 mg by mouth once daily Iron Discontinued 325 mg PO DAILY July 20, 2017 1:29pm September 25, 2018 3:43pm Start: 07-20-2017 End: 09-25-2018 take 325 mg by mouth once daily Iron Discontinued 325 mg PO DAILY July 20, 2017 12:29pm September 25, 2018 2:43pm Start: 07-20-2017 End: 09-25-2018 take 325 mg by mouth once daily Iron Discontinued 325 MG PO DAILY July 20, 2017 1:29pm September 25, 2018 3:43pm Start: 03-02-2017 End: 07-20-2017 take 65 mg by mouth once daily Iron Discontinued 65 MG PO DAILY March 02, 2017 4:34pm July 20, 2017 1:34pm Start: 03-02-2017 End: 07-20-2017 take 65 mg by mouth once daily Iron Discontinued 65 mg PO DAILY March 02, 2017 12:00am July 20, 2017 1:34pm Start: 03-02-2017 End: 07-20-2017 take 65 mg by mouth once daily Iron Discontinued 65 mg PO DAILY March 01, 2017 11:00pm July 20, 2017 12:34pm Start: 03-02-2017 End: 07-20-2017 take 65 mg by mouth once daily Iron Discontinued 65 MG PO DAILY March 02, 2017 12:00am July 20, 2017 1:34pm levoFLOXacin 500 mg oral tablet (20 sources) Quinolone Antimicrobial Start: 04-25-2019 End: 05-05-2019 take 1 tablet by mouth once daily Levaquin 500 MG Oral Tablet ; 1 (one) Tablet daily for 10 days Quantity: 10 {Tablet} Refills: 0 Ordered: 25-Apr-2019 MD Francisco Matthews Start: 25-Apr-2019 End: 05-May-2019 Status: Inactive Start: 06-27-2015 End: 07-07-2015 take 1 tablet by mouth once daily LEVOFLOXACIN, 500MG (Oral Tablet) ; 1 (one) Tablet daily for 10 days Quantity: 10 {Tablet} Refills: 0 Ordered: 27-Jun-2015 MD Genny Roman Start: 27-Jun-2015 End: 07-Jul-2015 Status: Inactive Dzglnv-Zypusewl-Oczvhdb (Zenpep) 40,000-126,000- 168,000 unit capsule,delayed release(DR/EC) (20 sources) Start: 08-24-2022 End: 11-10-2022 take 1 capsule by mouth once daily at mealtime Zuvxhb-Vweanznw-Magnzlt (Zenpep) 40,000-126,000- 168,000 unit capsule,delayed release(DR/EC) Discontinued 1 NMA PO THREE TIMES A DAY 300 3 August 24, 2022 2:45pm November 10, 2022 10:42am take one capsule with every meals and every snack Start: 08-24-2022 End: 11-10-2022 take 1 capsule by mouth once daily at mealtime Xavmyv-Wblynizf-Cruvmpt (Zenpep) 40,000-126,000- 168,000 unit capsule,delayed release(DR/EC) Discontinued 1 NMA PO THREE TIMES A DAY 300 August 24, 2022 1:45pm November 10, 2022 9:42am take one capsule with every meals and every snack Start: 08-24-2022 End: 11-10-2022 take 1 capsule by mouth once daily at mealtime Uonzun-Xplwqchn-Dkwifpw (Zenpep) 40,000-126,000- 168,000 unit capsule,delayed release(DR/EC) Discontinued 1 CAP PO THREE TIMES A DAY 300 August 24, 2022 2:45pm November 10, 2022 10:42am take one capsule with every meals and every snack Start: 04-20-2022 End: 08-24-2022 take 1 capsule by mouth once daily at mealtime Zlqpzh-Gxqtbkcq-Iozxvwh (Zenpep) 40,000-126,000- 168,000 unit capsule,delayed release(DR/EC) Discontinued 1 NMA PO THREE TIMES A DAY 300 1 April 20, 2022 12:00am August 24, 2022 2:46pm take one capsule with every meals and every snack Start: 04-20-2022 End: 08-24-2022 take 1 capsule by mouth once daily at mealtime Hsursz-Xicdnqps-Aenhssf (Zenpep) 40,000-126,000- 168,000 unit capsule,delayed release(DR/EC) Discontinued 1 NMA PO THREE TIMES A DAY 300 April 19, 2022 11:00pm August 24, 2022 1:46pm take one capsule with every meals and every snack Start: 04-20-2022 End: 08-24-2022 take 1 capsule by mouth once daily at mealtime Hmrjza-Khbltkht-Hjtcdbn (Zenpep) 40,000-126,000- 168,000 unit capsule,delayed release(DR/EC) Discontinued 1 CAP PO THREE TIMES A DAY 300 April 20, 2022 12:00am August 24, 2022 2:46pm take one capsule with every meals and every snack Start: 04-20-2022 take 1 capsule by [facility] once daily at mealtime Bneyaj-Ragwpilv-Yjjmbna (Zenpep) 40,000-126,000- 168,000 unit capsule,delayed release(DR/EC) Active 1 CAP PO THREE TIMES A DAY 300 April 20, 2022 12:00am take one capsule with every meals and every snack methylPREDNISolone 4 mg oral tablet (20 sources) Corticosteroid Start: 02-24-2017 End: 02-28-2017 Medrol 4 MG Oral Tablet Therapy Pack ; 1 (one) Tab Ther Pack as directed for 0 days Quantity: 1 {Package} Refills: 0 Ordered: 28-Feb-2017 ROWENA Baker Start: 24-Feb-2017 End: 28-Feb-2017 Status: Inactive metoclopramide 5 mg oral tablet (4 sources) Dopamine-2 Receptor Antagonist Start: 12-26-2023 End: 01-25-2024 take 1 tablet by mouth every six hours 30 minutes before mealtime Metoclopramide Hcl (Reglan) 5 mg tablet Discontinued 5 mg PO EVERY 6 HOURS 120 30 0 December 26, 2023 12:00am January 24, 2024 12:00am January 25, 2024 12:04am administer 30 minutes before meals metoprolol tartrate 25 mg oral tablet (20 sources) beta-Adrenergic Sukumar Start: 03-06-2017 End: 01-30-2025 take 1 tablet by mouth twice daily Metoprolol Tartrate 25 mg tablet Discontinued 25 mg PO TWICE A DAY 180 3 January 24, 2024 1:04pm January 30, 2025 8:11am blood pressure Hold for SBP metroNIDAZOLE 500 mg oral tablet (18 sources) Nitroimidazole Antimicrobial Start: 12-17-2021 End: 12-31-2021 take 1 tablet by mouth three times daily Metronidazole 500 mg tablet Discontinued 500 mg PO THREE TIMES A DAY 42 14 0 December 17, 2021 12:00am December 30, 2021 12:00am December 31, 2021 12:06am mirtazapine 15 mg oral tablet (4 sources) Start: 12-26-2023 End: 01-09-2024 take 1 tablet by mouth at bedtime Mirtazapine 15 mg tablet Discontinued 15 mg PO AT BEDTIME 14 14 December 26, 2023 12:00am January 08, 2024 12:00am January 09, 2024 12:05am nitrofurantoin, macrocrystals 25 mg / nitrofurantoin, monohydrate 75 mg oral capsule (20 sources) Nitrofuran Antibacterial Start: 03-07-2015 End: 03-13-2015 take 1 capsule by mouth twice daily MACROBID, 100MG (Oral Capsule) ; 1 (one) Capsule Capsule two times daily for 7 days Quantity: 14 {Capsule} Refills: 0 Ordered: 07-Mar-2015 MD Genny Roman Start: 07-Mar-2015 End: 13-Mar-2015 Status: Discontinued Drug Treatment Unknown - unknown (1 source) No information available. omeprazole 40 mg delayed release oral capsule (20 sources) Proton Pump Inhibitor Start: 02-05-2016 End: 08-27-2016 take 1 capsule by mouth once daily Omeprazole 40 MG Oral Capsule Delayed Release ; 1 (one) Capsule DR Capsule DR daily for 0 days Quantity: 30 {Capsule} Refills: 2 Ordered: 27-Aug-2016 CESAR Marcos Start: 05-Feb-2016 End: 27-Aug-2016 Status: Inactive pantoprazole 40 mg delayed release oral tablet (20 sources) Proton Pump Inhibitor Start: 02-01-2022 End: 12-21-2024 take 1 tablet by mouth once daily Pantoprazole (Protonix) 40 mg tablet,delayed release (DR/EC) Discontinued 40 mg PO DAILY 90 January 10, 2024 7:54am December 21, 2024 8:20am Start: 07-29-2021 End: 02-01-2022 take 1 tablet by mouth twice daily Pantoprazole (Protonix) 40 mg tablet,delayed release (DR/EC) Discontinued 40 mg PO TWICE A DAY 60 3 September 25, 2021 7:04pm February 01, 2022 11:25am polysaccharide iron complex 150 mg oral capsule (20 sources) Start: 07-30-2021 End: 02-18-2022 Polysaccharide Iron Complex (Ferrex 150) 150 mg iron Capsule Discontinued 150 mg PO DAILY WITH MEALS 0 0 July 30, 2021 1:00am February 18, 2022 8:14am potassium chloride 20 meq extended release oral tablet (20 sources) Start: 03-05-2021 End: 10-04-2022 take 1 tablet by mouth once daily Potassium Chloride 20 mEq tablet extended release Discontinued 20 meq PO DAILY July 26, 2021 9:55pm August 04, 2021 11:33am supplement predniSONE 20 mg oral tablet (20 sources) Start: 04-20-2018 End: 05-08-2018 take 3 tablets by mouth once daily, then take 2 tablets by mouth once daily, then take 1 tablet by mouth once daily, then take 0.5 tablet by mouth once daily PredniSONE 20 MG Oral Tablet ; 1 (one) Tablet as directed for 0 days Quantity: 20 {Tablet} Refills: 0 Ordered: 08-May-2018 CESAR Leiva Irene Leach Start: 20-Apr-2018 End: 08-May-2018 Status: Inactive Comments: Take 3tabs qd for 3 days thenTake 2tabs qd for 3 days thenTake 1tab qd for 3 days thenTake 1/2tab qd for 4 days. Comment on above: Take 3tabs qd for 3 days thenTake 2tabs qd for 3 days thenTake 1tab qd for 3 days thenTake 1/2tab qd for 4 days. rimegepant 75 mg disintegrating oral tablet (20 sources) Nurtec ODT 75 mg disintegrating tablet ; 1 every other day (75 mg) Status: Inactive sucralfate 100 mg/ml oral suspension (20 sources) Aluminum Complex Start: 12-11-2021 End: 02-08-2022 Sucralfate (Carafate) 100 mg/mL suspension Discontinued 10 mL PO before meals 1000 0 December 11, 2021 12:00am February 08, 2022 8:59am take three times a day, one hour before meals and two hours away from other medications for thirty days. Start: 07-30-2021 End: 08-04-2021 take 1 mL by mouth twice daily Sucralfate (Carafate) 1 00 mg/mL suspension Discontinued 10 mL PO TWICE A DAY 600 0 July 30, 2021 1:00am August 04, 2021 10:59am tetracycline hydrochloride 500 mg oral capsule (18 sources) Tetracycline-class Antimicrobial Start: 12-17-2021 End: 12-31-2021 take 1 capsule by mouth every six hours Tetracycline 500 mg capsule Discontinued 500 mg PO EVERY 6 HOURS 56 14 0 December 17, 2021 12:00am December 30, 2021 12:00am December 31, 2021 12:06am ticagrelor 90 mg oral tablet (20 sources) Start: 03-06-2017 End: 08-25-2017 take 1 tablet by mouth twice daily Ticagrelor 90 MG tablet Discontinued 90 mg PO TWICE A DAY 60 0 March 06, 2017 12:00am August 25, 2017 12:03pm End: 09-26-2017 take 1 tablet by mouth once daily Brilinta 90 MG Oral Tablet ; 1 daily (90 MG) End: 26-Sep-2017 Status: Discontinued tiZANidine 2 mg oral tablet (20 sources) Central alpha-2 Adrenergic Agonist Start: 03-09-2017 take 1 tablet by mouth three times daily TIZANIDINE HCL 2 MG TABS One tablet by mouth three times daily TIZANIDINE HCL [id number] Cielo Barrios RN Start: 03-02-2017 End: 09-25-2018 take 1 tablet by mouth every eight hours as needed for pain Tizanidine 2 MG tablet Discontinued 2 mg PO EVERY 8 HOURS NEEDED as needed for Pain March 02, 2017 12:00am September 25, 2018 3:44pm Problems Active Problems Problem Classification Problem Date Documented Da te Episodic/Chronic Abdominal pain (20 sources) Right upper quadrant pain; Translations: [Right upper quadrant pain] Episodic Acute bronchitis (20 sources) Acute bronchitis; Translations: [Acute bronchitis, unspecified] 06-25-2021 Episodic Acute myocardial infarction (20 sources) Acute ST segment elevation myocardial infarction; Translations: [ST elevation (STEMI) myocardial infarction of unspecified site] Onset: 03-07-2017 Chronic Acute posthemorrhagic anemia (19 sources) Acute posthemorrhagic anemia; Translations: [Acute posthemorrhagic anemia] 08-07-2021 Episodic Calculus of urinary tract (20 sources) History of calculus of kidney; Translations: [Personal history of urinary calculi] 06-20-2023 Episodic Cardiac dysrhythmias (20 sources) Paroxysmal supraventricular tachycardia; Translations: [Supraventricular tachycardia] Onset: 7 03-09-2017 Chronic Cardiac dysrhythmias (20 sources) Palpitations; Translations: [Palpitations] Onset: 5 Episodic Chronic obstructive pulmonary disease and bronchiectasis (20 sources) Chronic obstructive lung disease; Translations: [Chronic obstructive pulmonary disease, unspecified] Onset: 5 04-23-2024 Chronic Chronic obstructive pulmonary disease and bronchiectasis (20 sources) Bronchitis; Translations: [Bronchitis, not specified as acute or chronic] 09-21-2022 Episodic Conditions associated with dizziness or vertigo (20 sources) Vertigo; Translations: [Dizziness and giddiness] 02-28-2015 Episodic Coronary atherosclerosis and other heart disease (20 sources) Generalized ischemic myocardial dysfunction; Translations: [Atherosclerotic heart disease of [place] coronary artery without angina pectoris] Onset: 7 03-09-2017 Chronic Comment on above: Dr De La Torre, single LA D stent, nl stress echo 2019 PCI-DONNIE-LAD 03/02/17 Coronary atherosclerosis and other heart disease (11 sources) Presence of coronary angioplasty implant and graft; Translations: [Percutaneous transluminal coronary angioplasty status] Onset: 7 Episodic Deficiency and other anemia (19 sources) Anemia; Translations: [Anemia, unspecified] 08-12-2021 Episodic Deficiency and other anemia (1 source) Anemia, unspecified; Translations: [Anemia, unspecified] Episodic Deficiency and other anemia (20 sources) Iron deficiency anemia; Translations: [Iron deficiency anemia, unspecified] 07-08-2019 Episodic Disorders of lipid metabolism (20 sources) Hyperlipidemia; Translations: [Hyperlipidemia, unspecified] Onset: 7 03-09-2017 Chronic Comment on above: On high dose atorvas tatin 80 Esophageal disorders (20 sources) Gastro-esophageal reflux disease with esophagitis; Translations: [Gastroesophageal reflux disease with esophagitis] Chronic Fracture of lower limb (19 sources) Metatarsal bone fracture; Translations: [Nondisplaced fracture of fifth metatarsal bone, left foot, initial encounter for closed fracture] 01-04-2020 Episodic Gastritis and duodenitis (20 sources) Gastritis; Translations: [Gastritis, unspecified, without bleeding] Episodic Gastroduodenal ulcer (except hemorrhage) (6 sources) Peptic ulcer; Translations: [Peptic ulcer, site unspecified, unspecified as acute or chronic, without hemorrhage or perforation] Onset: 5 10-08-2024 Chronic Gastrointestinal hemorrhage (20 sources) Hematemesis; Translations: [Hematemesis] 08-07-2021 Episodic Genitourinary congenital anomalies (20 sources) 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; Translations: [Other specified congenital malformations of kidney] 06-20-2023 Chronic Genitourinary symptoms and ill-defined conditions (20 sources) Dysuria; Translations: [Dysuria] 03-07-2015 Episodic Headache; including migraine (20 sources) Pain in face; Translations: [Headache] 01-01-2019 Episodic Immunizations and screening for infectious disease (20 sources) Patient encounter status; Translations: [Encounter for screening for COVID-19] Episodic Intestinal infection (20 sources) Infection caused by Helicobacter pylori; Translations: [Other specified bacterial intestinal infections] Episodic Malaise and fatigue (20 sources) Fatigue; Translations: [Other fatigue] Episodic Menopausal disorders (20 sources) Atrophic vaginitis; Translations: [Postmenopausal atrophic vaginitis] 06-20-2023 Chronic Multiple sclerosis (20 sources) Multiple sclerosis; Translations: [Multiple sclerosis] Onset: 7 03-09-2017 Chronic Comment on above: Dr Logan Mycoses (20 sources) Candidiasis of mouth; Translations: [Candidal stomatitis] 01-01-2019 Episodic Nonmalignant breast conditions (20 sources) Mastodynia; Translations: [Mastodynia] 02-28-2015 Episodic Nonspecific chest pain (6 sources) Chest pain; Translations: [Chest pain, unspecified] Onset: 5 04-04-2025 Episodic Other aftercare (19 sources) H/O: high risk medication; Translations: [Other chcf (current) drug therapy] 07-22-2017 Episodic Other aftercare (3 sources) Long-term current use of drug therapy; Translations: [Other chcf (current) drug therapy] 05-01-2018 Episodic Other gastrointestinal disorders (18 sources) Dysphagia; Translations: [Dysphagia, unspecified] 12-17-2021 Episodic Other gastrointestinal disorders (12 sources) Dysphagia, unspecified; Translations: [Dysphagia, unspecified] Episodic Other gastrointestinal disorders (12 sources) Constipation; Translations: [Constipation, unspecified] 11-10-2022 Episodic Other gastrointestinal disorders (6 sources) Constipation, unspecified; Translations: [Constipation, unspecified] Episodic Other hematologic conditions (12 sources) Protein electrophoresis abnormal; Translations: [Other specified abnormalities of plasma proteins] 11-10-2022 Episodic Other infections; including parasitic (16 sources) History of Helicobacter pylori infection; Translations: [Personal history of other infectious and parasitic diseases] 09-21-2022 Episodic Other infections; including parasitic (6 sources) Personal history of other infectious and parasitic diseases; Translations: [Personal history of other infectious and parasitic diseases] Episodic Other lower respiratory disease (20 sources) Cough; Translations: [Acute cough] 09-21-2022 Episodic Other lower respiratory disease (10 sources) Dyspnea on exertion; Translations: [Other forms of dyspnea] 04-04-2023 Episodic Other lower respiratory disease (2 sources) Other forms of dyspnea; Translations: [Other respiratory abnormalities] 04-04-2023 Episodic Other lower respiratory disease (4 sources) Cough; Translations: [Acute cough] 09-21-2022 Episodic Other nervous system disorders (20 sources) Bilateral carpal tunnel syndrome; Translations: [Carpal tunnel syndrome, bilateral upper limbs] 06-20-2023 Chronic Other screening for suspected conditions (not mental disorders or infectious disease) (20 sources) Breast neoplasm screening status; Translations: [Encounter for screening mammogram for malignant neoplasm of breast] Onset: 01-01-2019 Episodic Other upper respiratory infections (20 sources) Sinusitis; Translations: [Chronic sinusitis, unspecified] 03-17-2020 Chronic Other upper respiratory infections (20 sources) Upper respiratory infection; Translations: [Acute upper respiratory infection, unspecified] Episodic Pancreatic disorders (not diabetes) (14 sources) Exocrine pancreatic insufficiency; Translations: [Exocrine pancreatic insufficiency] Episodic Residual codes; unclassified (19 sources) Edema; Translations: [Edema, unspecified] 03-05-2021 Episodic Residual codes; unclassified (20 sources) Body mass index 20-24 - normal; Translations: [Body mass index (BMI) 21.0-21.9, adult] 08-16-2017 Episodic Residual codes; unclassified (20 sources) Influenza vaccination declined; Translations: [Immunization not carried out because of patient refusal] 01-01-2019 Episodic Residual codes; unclassified (20 sources) Tobacco user; Translations: [Tobacco use] 06-20-2023 Episodic Spondylosis; intervertebral disc disorders; other back problems (20 sources) Backache; Translations: [Dorsalgia, unspecified] 01-01-2019 Episodic Substance-related disorders (19 sources) Tobacco smoking behavior - finding; Translations: [Nicotine dependence, unspecified, uncomplicated] 01-03-2020 Chronic Superficial injury; contusion (20 sources) Contusion of upper limb; Translations: [Contusion of unspecified upper arm, initial encounter] 06-20-2023 Episodic Unclassified (7 sources) Placement of stent in coronary artery ; Translations: [Presence of coronary angioplasty implant and graft] Onset: 7 03-07-2017 Unclassified (2 sources) Long-term drug therapy; Translations: [Other chcf (current) drug therapy] Onset: 7 04-11-2017 Unclassified (20 sources) deliveries 06-20-2023 Comment on above: 2. Unclassified (20 sources) Number of Children 06-20-2023 Comment on above: 2. Unclassified (20 sources) Number of Pregnancies 06-20-2023 Comment on above: 2. Unclassified (20 sources) Follow up from hospital stay - Name of Hospital: [facility]. Date of Admission: 07/26/2021. Date of Discharge: 07/30/2021. The patient was hospitalized for GI bleed. New medications include pantoprazole, carafate, polysaccharide iron complex. Consultations ordered while in the hospital include gastroenterology (Dr. Rutledge - patient has follow up with him again on 08/12). No post hospital therapies were ordered. Patient was discharged to home. Current Symptoms: fatigue and headache. Note for Follow up from hospital stay: she is going to get her HGB checked on tuesday in [place].Patient reports that she is feeling better overall, but is still having some fatigue. She has not had any further hematemesis or bloody stool.Her IV infiltrated while in the hospital and she still has a large lump on her right forearm. She denies any pain associated with this lump, but does report some itching. She has been using warm compresses on the area and reports that it seems to be getting smaller. 08-06-2021 Unclassified (20 sources) [facility] Routine Follow up - The patient is here for follow-up of hyperlipidemia and iron deficiency anemia (MS). The patient always takes the prescribed medications. No side effects noted. The patient engages in regular program 3-5 time(s) per week (tries to use treadmill daily). The patient's out of office blood pressure checks occur frequently (been running about 90-100's/60'70's) and dietary compliance is fairly good usually adhering to recommendations. The patient states that breathing effort is stable, there are no vision changes or weakness, pain is generally stable, weight has increased (3#) and headaches have been noticed occasionally (recently had neck xray and Brain MRI ordered by Dr. Logan). Note for Routine chronic follow-up: MUSHTAQ 08/16/2017. Last routine visit 03/21/2017. Last CBC and CMP 07/27/2017. Last Lipid and Hepatic function panel 04/27/2017. (ordered by Dr. Logan and Dr. De La Torre)Will occasionally have achiness of her chest, wonders if related to using treadmill with incline.Continues to have body aches.Has an upcoming appt with Dr. Logan 10/19/2017. 09-26-2017 Unclassified (20 sources) [facility] Routine Follow up - The patient is here for follow-up of hyperlipidemia and iron deficiency anemia. The patient always takes the prescribed medications. No side effects noted. The patient has an active lifestyle but no regular program. The patient's out of office blood pressure checks occur rarely and dietary compliance is fairly good usually adhering to recommendations. The patient states that there is no recent angina or dyspnea, there are no vision changes or weakness and they do not have headaches. Note for Routine chronic follow-up: MUSHTAQ 06/09/15. Last Hepatic and Lipiase 12/05/15. Last Lipid 03/06/15. Last CBC and CMP 07/29/[address] Logan.Patient has had both colonoscopy and EGD in 2015 (no significant findings). Menses irregular and occasionally heavy. 08-27-2016 Unclassified (1 source) Follow up diagnostic procedure results - Diagnostic tests performed on : (04/12/2024) include other (PFT, was ordered by General Office Associate.). Current symptoms include other (patient is noticing worsening shortness of breath with walking and doing normal activities that used to not make her short of breath. Denies having chest pain. She has noticed wheezing for awhile.). Note for Diagnostic procedure results follow-up: She does not see a geothermal installer currently. She is a former smoker. 04-23-2024 Unclassified (20 sources) Follow up diagnostic procedure results - Diagnostic tests performed on : (04/12/2024) include other (PFT, was ordered by General Office Associate.). Current symptoms include other (patient is noticing worsening shortness of breath with walking and doing normal activities that used to not make her short of breath. Denies having chest pain. She has noticed wheezing for awhile.). Note for Diagnostic procedure results follow-up: She does not see a geothermal installer currently. She has never been treated for COPD in the past.She is a former smoker. Patient reports that she was able to quit smoking following her heart attack. 04-23-2024 Unclassified (1 source) Well adult female - The patient feels well with no complaints, has good energy level and is sleeping well. The current method of contraception is: tubal ligation. The patient has a balanced diet and takes no supplemental vitamins & iron. The patient exercises none (active lifestyle). The patient sleeps 4 hours per night. Note for Well adult female: 08/2024 [id number] colonoscopy good for 10 years repeat at age 61 03-06-2025 Unclassified (8 sources) Well adult female - The patient feels well with no complaints, has good energy level and is sleeping well. The current method of contraception is: tubal ligation. The patient has a balanced diet and takes no supplemental vitamins & iron. The patient exercises none (active lifestyle). The patient sleeps 4 hours per night. Note for Well adult female: 08/2024 [id number] colonoscopy good for 10 years repeat at age 61Patient had labs recently with cardiology.Patient reports no new symptoms with her MS and that her breathing has been stable. She reports minimal use of her rescue inhaler. 03-06-2025 Urinary tract infections (20 sources) Acute cystitis; Translations: [Acute cystitis without hematuria] 03-07-2015 Episodic Viral infection (20 sources) Viral disease; Translations: [Viral infection, unspecified] 12-03-2020 Episodic Past or Other Problems Problem Classification Problem Date Documented Date Episodic/Chronic Other aftercare (3 sources) Other chcf (current) drug therapy; Translations: [Other chcf (current) drug therapy] Onset: 04-11-2017 04-11-2017 Episodic Unclassified (20 sources) Well adult female - The patient does not feel well (legs have been bothering her more lately, wonders if related to MS), has decreased energy level (gets tired more) and is sleeping poorly. The first day of the last menstrual period was : (no longer having periods). The patient has a balanced diet and takes no supplemental vitamins & iron. The patient does not exercise. The patient sleeps 5 (or less) hours per night. Note for Well adult female: Last Mammogram 07/07/2022 - normalLast Colonoscopy 02/11/2016. - repeat in 10 yearsLast PAP 05/08/2018 Negative HPV. - normal 06-20-2023 Unclassified (20 sources) [ADDITIONAL REASON] Transition into care - The patient is transitioning into care from another physician (General Office Associate 10/04/2022, she saw the General Office Associate 04/04/23) and a summary of care was reviewed. 06-20-2023 Unclassified (20 sources) Sore throat - The sore throat has been occurring for 5 days. The course has been gradually worsening. The sore throat is described as mild to moderate. Symptoms include sore throat, headache, cough and ear pain, but do not include fever. The symptoms are aggravated by swallowing. Medical history includes recurrent sinusitis, but does not include seasonal allergies, recurrent strep pharyngitis or tonsillectomy. 04-20-2023 Unclassified (20 sources) Cold Symptoms - Symptoms include sneezing, runny nose, sore throat, scratchy throat, hoarseness, dry cough, headache and facial pain (sinus pain and pressure. my head is killing me.), but do not include nasal congestion, ear pain, ear fullness, productive cough, wheezing (no shortness of breath), fever, chills or general malaise. The onset was gradual 5 day(s) ago. The symptoms occur constantly. The patient describes this as moderate in severity and worsening (headache is getting worse). Current treatment includes non-prescription cold medication (Coricidin). Risk factors do not include smoking (is a former smoker). The patient has been exposed to an individual with a cough (grandchildren). Medical history includes recurrent sinusitis, but patient denies history of seasonal allergies, asthma or tonsillectomy. 06-28-2022 Unclassified (20 sources) Cold Symptoms - Symptoms include nasal congestion, runny nose, sore throat, productive cough, wheezing (States at times it is hard to catch her breath.), general malaise, headache and facial pain, but do not include sneezing, non-purulent sputum, purulent discharge, ear pain, ear fullness, scratchy throat, hoarseness, dry cough, fever or chills. The onset was gradual 1 week(s) ago. The symptoms occur constantly. The patient describes this as moderate in severity and unchanged. Current treatment includes non-prescription cold medication, cough suppressants and acetaminophen. Risk factors do not include child in daycare or smoking. The patient has been exposed to an individual with similar symptoms (niece had a cold over a week ago.), but has not been exposed to an individual with a cough, an individual with an upper respiratory infection, an individual with strep or secondhand smoke. Patient denies history of seasonal allergies, recurrent sinusitis, recurrent strep pharyngitis, asthma, tonsillectomy or recurrent ear infections. Note for Upper respiratory infection: Was in urgent care 06/20/21. finished azithromycin 250mg yesterday. Does not feel that the antibiotic has helped at all at this time. 06-25-2021 Unclassified (20 sources) Cold Symptoms - Symptoms include sneezing, nasal congestion, runny nose, sore throat, productive cough, general malaise (achy), headache and facial pain, but do not include ear pain, fever or chills. The onset was gradual 6 day(s) ago. The symptoms occur frequently. The patient describes this as moderate in severity and unchanged. Current treatment includes non-prescription cold medication (coricidin) and NSAIDs. Risk factors do not include smoking. The patient has not been exposed to an individual with a cough, an individual with an upper respiratory infection, an individual with similar symptoms, an individual with strep or secondhand smoke. Medical history includes recurrent sinusitis, but patient denies history of seasonal allergies, recurrent strep pharyngitis, asthma, tonsillectomy or recurrent ear infections. Note for Upper respiratory infection: pt has also been dizzy and upset stomach 12-03-2020 Unclassified (20 sources) Cold Symptoms - Symptoms include sneezing, nasal congestion, ear pain (right side), scratchy throat and headache, but do not include runny nose, sore throat, dry cough, productive cough, fever, chills or general malaise. The onset was sudden 1 week(s) ago. The symptoms occur constantly. The patient describes this as moderate in severity and unchanged. Current treatment includes non-prescription cold medication. Patient denies history of seasonal allergies or asthma. Note for Upper respiratory infection: Also complains of dizziness for 1 week. 03-17-2020 Unclassified (20 sources) Well adult female - The patient feels well with minor complaints (some days does not feel well), has good energy level (states about her normal) and is sleeping well (some nights, will have trouble falling back to sleep). The first day of the last menstrual period was : (12/2017). The patient has a balanced diet and takes no supplemental vitamins & iron. The patient exercises none (has not exercised the past month, is planning to start using treadmill again once her treadmill gets oiled). The patient sleeps 6 hours per night. Note for Well adult female: [facility] 04/25/2019. Last rtn 05/08/2018. Labs printed to review today.Had steriod injection in back 06/01/2019, would like to get flu shot today if able to. 07-08-2019 Unclassified (20 sources) [ADDITIONAL REASON] Transition into care - The patient is transitioning into care from another physician (05/07/[address] De La Torre and 05/23/[address] Logan) and a summary of care was reviewed. 07-08-2019 Unclassified (20 sources) Cold Symptoms - Symptoms include sneezing, nasal congestion, runny nose, sore throat, hoarseness, productive cough, general malaise and headache, but do not include ear pain, ear fullness, fever or facial pain. The onset was sudden 5 day(s) ago. The symptoms occur constantly. The patient describes this as moderate in severity and unchanged. Current treatment includes non-prescription cold medication. Patient denies history of seasonal allergies or asthma. Note for Upper respiratory infection: reviewed by [facility] 04-25-2019 Unclassified (20 sources) Cold Symptoms - Symptoms include runny nose, ear fullness (itching), scratchy throat, productive cough, headache and facial pain, but do not include sneezing, nasal congestion, fever, chills or general malaise. The onset was sudden 5 week(s) ago. The symptoms occur constantly. The patient describes this as moderate in severity and unchanged. Current treatment includes non-prescription cold medication. Patient denies history of seasonal allergies or asthma. 01-01-2019 Unclassified (20 sources) Well Adult, female - The patient feels well with minor complaints (red painful right eye lid), has decreased energy level and is sleeping well. The first day of the last menstrual period was : (10/2017). The current method of contraception is: tubal ligation. The patient has a balanced diet and takes supplemental vitamins. The patient exercises 3 - 4 times per week (treadmill). The patient sleeps 5 hours per night. 05-08-2018 Unclassified (20 sources) Cold Symptoms - Symptoms include sneezing, runny nose, sore throat (started with sore throat), productive cough (yellow sputum), wheezing (shortness of breath), fever (low grade 99.6 F.), general malaise (body aches) and headache, but do not include ear pain, ear fullness or chills. The onset was sudden 4 day(s) ago. The symptoms occur constantly. The patient describes this as moderate in severity and worsening (sore throat is improving but the cough is getting worse). Current treatment includes non-prescription cold medication (coricidin). Risk factors do not include smoking. The patient has not been exposed to an individual with an upper respiratory infection. Medical history includes recurrent sinusitis, but patient denies history of asthma or tonsillectomy. 04-20-2018 Unclassified (20 sources) Cold Symptoms - Symptoms include sneezing, nasal congestion, runny nose, non-purulent sputum, sore throat, dry cough (occasionally), general malaise (back pain, feels dizzy and lightheaded) and headache (neck pain), but do not include ear pain, ear fullness, wheezing, fever or chills. The onset was gradual 1 week(s) ago. The symptoms occur constantly. The patient describes this as moderate in severity and worsening. Current treatment includes coricidin. Risk factors do not include smoking (former smoker). The patient has been exposed to an individual with strep ([id number] diagnosed with strep on ). Patient denies history of seasonal allergies, asthma or tonsillectomy. Note for Upper respiratory infection: Diarrhea started last . 08-16-2017 Unclassified (20 sources) Follow up consultation - The patient is here to follow-up after hospitalization (Patient seen at [facility] for ST elevation myocardial infarction, Ischemic cardiomyathy, SVT, low HDL, status post PTCA with DONNIE to LAD. Heart cath preformed and stent placed. Patient was discharged to home. ) on : (03/02 to 03/06/2017). Note for Consultation follow-up: Been checking BP at home, this morning was 95/67. Denies having any chest pain or shortness of breath. Been having lower back pain, headaches and dizziness at times. Continues to feel tired. Has appt with Dr. De La Torre General Office Associate on 04/11/2017. 03-21-2017 Unclassified (20 sources) [ADDITIONAL REASON] Transition into care - The patient is transitioning into care from a hospital ([facility] 03/02 to 03/06/2017) and a summary of care was reviewed. 03-21-2017 Unclassified (20 sources) Back pain - The onset of the back pain has been acute and has been occurring in a persistent pattern for 5 days. The course has been increasing. The pain is characterized as stabbing. The pain is located in the lumbar area. The symptoms are relieved by nothing (tried ibuprofen but did not help; has history of back problems). The pain has been associated with abdominal pain (epigastric area) and paresthesias in leg (tingling and burning from knees down bilateral - has this sometimes but usually only in one leg), while there has been no associated dysuria. Note for Back pain: No bowel/bladder issues.Mowed lawn last which is sometimes a trigger for her back pain.No heartburn.Has done PT in the past for her back issues. 02-24-2017 Unclassified (20 sources) Cold Symptoms - Symptoms include nasal congestion (right), runny nose, purulent discharge, ear pain (right), ear fullness, dry cough, general malaise, headache and facial pain, but do not include sneezing, scratchy throat, fever or chills. The onset was gradual 6 day(s) ago. The symptoms occur constantly. The patient describes this as moderate in severity and worsening. Current treatment includes NSAIDs. Risk factors do not include smoking. The patient has not been exposed to an individual with similar symptoms. Medical history includes seasonal allergies, but patient denies history of recurrent sinusitis, asthma, tonsillectomy or recurrent ear infections. 10-13-2016 Unclassified (20 sources) Mouth pain - Symptoms include sore tongue, mouth lesions and loss of taste. Symptoms are located in the tongue. There is no radiation. The patient describes the pain as aching. Onset was gradual 3 day(s) ago. There is no known event that preceded symptom onset. The symptoms occur constantly. The patient describes this as moderate in severity and worsening. Associated symptoms do not include fever. Note for Mouth pain: Dentist did give patient Clindamycin 300mg for a tooth infection which she is having removed next week. She feels this may be causing a yeast infection which she would like treated as well. 08-10-2016 Unclassified (20 sources) Phone encounter - Received call from specialist. Patient has anemia. Needs evaluation. 08-04-2016 Unclassified (20 sources) Abdominal pain - The onset of the abdominal pain has been acute and has been occurring in a persistent pattern for months. The course has been increasing. The pain is described as a moderate burning, sharp pain and dull ache. The pain is located in the right upper quadrant and radiates to the right flank. The symptoms have no aggravating factors but have no relieving factors. The symptoms have been associated with constipation and nausea, while the symptoms have not been associated with fever or heartburn. Note for Abdominal pain: Had normal gallbladder work up in December. Colonoscopy in January,. Was worse on Whole 30 diet. Stopped after 2 weeks. 03-29-2016 Unclassified (20 sources) Abdominal pain - The onset of the abdominal pain has been sudden and has been occurring in a persistent pattern for 3 months. The course has been increasing. The pain is described as a moderate dull ache. The pain is located in the right upper quadrant and does not radiate. The symptoms have no aggravating factors but have no relieving factors. The symptoms have been associated with diarrhea and nausea (dry heaving ). Note for Abdominal pain: HIDA scan, CT scan and ultrasound order by SUJATA = all negative. Referred to Dr. Garcia, he did colonoscopy and throat scope = all negative except for some inflammation of the stomach lining. 03-14-2016 Unclassified (20 sources) Follow up consultation - The patient is here to follow-up after Emergency Room/Urgent Care on : (12/13). Note for Consultation follow-up: -Went to ER for assesment of abdominal pain. Dx possible diverticulitis (mild changes noted on CT). Sent home with percocet, FLagyl and Cipro. She states she is taking those meds and has not yet improved. She now has loose stools and nausea. No bloody stools or melena.Was seen here 12/04 for epigastric pain and labs and RUQ u/s normal; PPI started. No difference noted.Pt not sure if pain is better or worse related to meals. 12-18-2015 Unclassified (20 sources) [ADDITIONAL REASON] Transition into care - The patient is transitioning into care from an emergency room and a summary of care was reviewed . 12-18-2015 Unclassified (20 sources) Abdominal pain - The abdominal pain has been occurring in an intermittent pattern for 1 week. The course has been increasing (has worsened the past couple of days). The pain is described as a moderate burning and pressure sensation (feels that she has ate too much food). The pain is located in the epigastrium (sometimes of the right upper abdomen, middle of back on right side. The center area of her upper abdomen is sore and painful to palpation. No known injury. ). The symptoms are aggravated by meals (1/2 to 1 hour after eating). The symptoms have been associated with heartburn (this past weekend) and nausea (this morning), while the symptoms have not been associated with bloody stools, constipation, dark urine, diarrhea (had two bowel movements this morning that were soft but not loose watery diarrhea), fever or vomiting. Note for Abdominal pain: Wonder if her pain is related to her gallbladder. Symptoms worsened yesterday after eating (mac and cheese, chicken and salad). Pain is located epigastrium and to right side.Had about 1 1/2 cups of coffee this morning.No recent steroid use. Does use NSAIDs prn for headache and did have 2 tabs this AM. 12-05-2015 Unclassified (20 sources) Cold Symptoms - Symptoms include sneezing, nasal congestion, ear pain (right side), ear fullness, sore throat, hoarseness, dry cough and headache, but do not include runny nose, fever, chills, general malaise or facial pain. The onset was sudden 5 day(s) ago. The symptoms occur constantly. The patient describes this as moderate in severity and worsening. Current treatment includes NSAIDs. Note for Upper respiratory infection: reviewed by [facility] 10-11-2015 Unclassified (20 sources) Cold Symptoms - Symptoms include general malaise, headache and facial pain (of the right side), but do not include sneezing, nasal congestion (Does have pressure on the right side of the head and face), runny nose, ear pain, sore throat, dry cough, productive cough or fever. The onset was gradual 6 week(s) ago. The symptoms occur constantly. The patient describes this as moderate in severity and unchanged. Current treatment includes antibiotics (levofloxacin), a decongestant nasal spray and NSAIDs. Risk factors include smoking. The patient has not been exposed to an individual with a cough, an individual with an upper respiratory infection, an individual with similar symptoms or an individual with strep. Patient denies history of seasonal allergies or asthma. Note for Upper respiratory infection: After taking the levofloxacin for a couple of days she felt better. Then after taking for 7 days, reports that she did not feel good and her throat felt funny. So she stopped taking the medication. Reports that she has had some numbness and a funny feeling on the right side of the face. Reports the sensation is like having lidocaine being injected and then starting to have feeling again. This past Tuesday, her right hand had an achiness. Patient notes fluctuation of symptoms and changing locations (sometimes right side, others left) 07-07-2015 Unclassified (20 sources) Cold Symptoms - Symptoms include sneezing, nasal congestion (left side), sore throat (may have PND), general malaise, headache and facial pain (bilateral), but do not include runny nose, ear pain, dry cough, productive cough or fever. The onset was gradual 1 month(s) ago. The symptoms occur constantly. The patient describes this as moderate in severity and worsening. Current treatment includes a decongestant nasal spray and NSAIDs. Risk factors include smoking. The patient has not been exposed to an individual with a cough, an individual with an upper respiratory infection, an individual with similar symptoms or an individual with strep. Patient denies history of seasonal allergies or asthma. 06-27-2015 Unclassified (20 sources) Follow-up - Patient is here today for a pap test and a flu vaccination. Had been on period at recent PE, so was asked to come back for pap only. 06-09-2015 Unclassified (20 sources) [facility] well adult - In general the patient does not feel well, has decreased energy level and is sleeping well (with her medication). The patient has a balanced diet and takes no supplemental vitamins & iron. The patient does not exercise and sleeps 8 hours per night. Over the past 2 weeks, the patient has not been feeling down, depressed, or hopeless or feeling little interest or pleasure in doing things. The patient denies having trouble with bathing, dressing/grooming, toileting, preparing meals and ambulating. The patient denies having trouble with grocery shopping, driving, use of telephone, housework, laundry, preparing/taking medications and finances. The first day of the last menstrual period was : (05/31/2015). The patient performs monthly self breast exam. The patient denies falling more than once in the past 12 months. The patient does not have Healthcare Power of Resident Director or Living Will. Note for MCR well adult: Reports that her head and face has been hurting since last Tuesday. Has been having a headache, facial pain, head pressure, sneezing. Woke up this morning with a sore throat. Hurts when swallowing. No cough, upset stomach, fever. Has been taking ibuprofen that has been ineffective at relieving the pain. 06-02-2015 Unclassified (20 sources) follow-up complaint - Was seen on 03/07/15 for acute cystitis without hematuria and was started on macrobid. Patient reports that the ATB did not help to resolve her symptoms and burning sensation. Urine culture was subsequently negative. Called in yesterday and reported this. Was prescribed Diflucan 150mg yesterday and took at that time. Reports not feeling right since taking this medication (tongue and throat hurt; headache). Continues to have burning on urination and will have a burning sensation when not urinating as well. Is constant. Yesterday, was worse than today. Denies having any lower back pain. Has been drinking lots of water and believes that is the reason for the frequency of urination. Denies having any urgency. This morning, had a low grade temp of 99.6 and felt warm. No chills. Has been having a headache since last night. Has been having dizziness. No nausea. Last night felt like her whole body was burning. was treated Herpes on his neck and was thought to have been shingles prior. Patient reports having intercourse with prior to be treated for the Herpes. Wonders if that could be related to her symptoms. Has been on multiple courses of steroids since November for her MS. 03-13-2015 Unclassified (20 sources) UTI - Symptoms include dysuria (may be more related to urine hitting skin), urinary frequency (during the night) and urinary urgency (during the night), but do not include hematuria, dark urine, malodorous urine, flank pain, abdominal pain or back pain. The pain is located in the suprapubic area (left side this morning). The patient describes the pain as dull and aching (bloaty gas feeling that went away after getting up this morning). Onset was 1 week(s) ago. The symptoms occur intermittently. The patient describes this as moderate in severity and worsening. Symptoms are not relieved by phenazopyridine, urinary anesthetics or cranberry juice. Associated symptoms do not include fever, chills, nausea, vomiting, urethral discharge or vaginal discharge (no vaginal itching). Note for UTI: no new soaps/detergents; no condom use 03-07-2015 Unclassified (20 sources) Numbness - The symptoms first began 1 week(s) ago (of the hands and fingers, numbness in the right foot has been occuring for a longer period of time). The numbness is getting worse. The patient describes the numbness as burning and tingling. The numbess affects the hands, fingers and foot (right). Associated features include dizziness (since last Tuesday and has had headaches for the last two days. ), lightheadedness (sometimes) and palpitations (sometimes), but there is no associated chest pain or shortness of breath. Precipitating factors include change in position. There is no medical history of CAD, CHF, CVA or TIA. Note for Numbness: Patient had numbness of the right foot and lower back pain. Completed physical therapy and helped to relieve the numbness and back pain some. Reports being able to lift her right leg higher and the pain is not as bad. Patient had a MRI recently at [facility] and showed having degenerative joint disease of lumbar 4 & [address] Logan, but no flare in her MS. Patient reports having MS and sees neurology regularly No trigger for hand numbness. She tries to limit lifting due to low back issues. No neck pain or numbness in arms. No trouble lifting arms. Finger numbness is intermittent in severity and usually in fingers. Affects all fingers left>right hand. Right handed . No new repetitive hand activities.Has had dizziness since Tuesday; worse that day and better since; no associated nausea; h/o minor dizziness; no apparent trigger or h/o motion sickness. No recent URI or allergy sx other than itchy eyes. Has had headache since yesterday that is relieved with ibuprofen. Headache is like the MS ACUNA she has had in the past. 02-28-2015 Unclassified (20 sources) [ADDITIONAL REASON] Transition into care - The patient is transitioning into care from another physician (Dr. Logna of Neurology January 2015) and a summary of care was not provided . 02-28-2015 Unclassified (20 sources) Breast pain - The breast pain is in the right breast. The onset of the breast pain has been gradual and has been occurring in a persistent pattern for 2 weeks. The breast pain is described as moderate. Note for Breast pain: When first occurred was a dull achy pain that patient thought was due to having her menses, but has now progressed to a burning stinging pain that is constant. Is have trouble sleeping at night due to the pain and discomfort. Drinks about a cup and a half of coffee daily and then iced tea (not change in this). LMP 01/02/15. No new activity or trigger, altho she is doing some PT for recent MS flareNo family hx breast cancerLast year, her right breast was biopsied after having a mammogram that showed calcifications.Is scheduled to have a mammogram on 02/04/15 at [facility]. 01-24-2015 Unclassified (20 sources) Cold Symptoms - Symptoms include runny nose, sore throat, productive cough (yellow phlegm), general malaise and headache, but do not include ear pain, fever or facial pain. The onset was gradual 1 week(s) ago. The symptoms occur constantly. The patient describes this as moderate in severity and unchanged. Current treatment includes NSAIDs. The patient has not been exposed to an individual with similar symptoms. Patient denies history of seasonal allergies, recurrent sinusitis, recurrent strep pharyngitis, asthma, tonsillectomy or recurrent ear infections. Note for Upper respiratory infection: Has noticed a little SOB/wheezing. 08-16-2014 Unclassified (14 sources) Transition into care - The patient is transitioning into care from another physician (05/07/[address] De La Torre and 05/23/[address] Logan) and a summary of care was reviewed. 07-08-2019 Unclassified (14 sources) [ADDITIONAL REASON] Well adult female - The patient feels well with minor complaints (some days does not feel well), has good energy level (states about her normal) and is sleeping well (some nights, will have trouble falling back to sleep). The first day of the last menstrual period was : (12/2017). The patient has a balanced diet and takes no supplemental vitamins & iron. The patient exercises none (has not exercised the past month, is planning to start using treadmill again once her treadmill gets oiled). The patient sleeps 6 hours per night. Note for Well adult female: [facility]HTAQ 04/25/2019. Last rtn 05/08/2018. Labs printed to review today.Had steriod injection in back 06/01/2019, would like to get flu shot today if able to. 07-08-2019 Unclassified (11 sources) Transition into care - The patient is transitioning into care from a hospital ([facility] 03/02 to 03/06/2017) and a summary of care was reviewed. 03-21-2017 Unclassified (11 sources) [ADDITIONAL REASON] Follow up consultation - The patient is here to follow-up after hospitalization (Patient seen at [facility] for ST elevation myocardial infarction, Ischemic cardiomyathy, SVT, low HDL, status post PTCA with DONNIE to LAD. Heart cath preformed and stent placed. Patient was discharged to home. ) on : (03/02 to 03/06/2017). Note for Consultation follow-up: Been checking BP at home, this morning was 95/67. Denies having any chest pain or shortness of breath. Been having lower back pain, headaches and dizziness at times. Continues to feel tired. Has appt with Dr. De La Torre [facility] on 04/11/2017. 03-21-2017 Unclassified (9 sources) Transition into care - The patient is transitioning into care from an emergency room and a summary of care was reviewed . 12-18-2015 Unclassified (9 sources) [ADDITIONAL REASON] Follow up consultation - The patient is here to follow-up after Emergency Room/Urgent Care on : (12/13). Note for Consultation follow-up: -Went to ER for assesment of abdominal pain. Dx possible diverticulitis (mild changes noted on CT). Sent home with percocet, FLagyl and Cipro. She states she is taking those meds and has not yet improved. She now has loose stools and nausea. No bloody stools or melena.Was seen here 12/04 for epigastric pain and labs and RUQ u/s normal; PPI started. No difference noted.Pt not sure if pain is better or worse related to meals. 12-18-2015 Unclassified (12 sources) Transition into care - The patient is transitioning into care from another physician ([facility] Office Associate 10/04/2022, she saw the General Office Associate 04/04/23) and a summary of care was reviewed. 06-20-2023 Unclassified (12 sources) [ADDITIONAL REASON] Well adult female - The patient does not feel well (legs have been bothering her more lately, wonders if related to MS), has decreased energy level (gets tired more) and is sleeping poorly. The first day of the last menstrual period was : (no longer having periods). The patient has a balanced diet and takes no supplemental vitamins & iron. The patient does not exercise. The patient sleeps 5 (or less) hours per night. Note for Well adult female: Last Mammogram 07/07/2022 - normalLast Colonoscopy 02/11/2016. - repeat in 10 yearsLast PAP 05/08/2018 Negative HPV. - normal 06-20-2023 Unclassified (7 sources) Transition into care - The patient is transitioning into care from another physician (Dr. Logan of Neurology January 2015) and a summary of care was not provided . 02-28-2015 Unclassified (7 sources) [ADDITIONAL REASON] Numbness - The symptoms first began 1 week(s) ago (of the hands and fingers, numbness in the right foot has been occuring for a longer period of time). The numbness is getting worse. The patient describes the numbness as burning and tingling. The numbess affects the hands, fingers and foot (right). Associated features include dizziness (since last Tuesday and has had headaches for the last two days. ), lightheadedness (sometimes) and palpitations (sometimes), but there is no associated chest pain or shortness of breath. Precipitating factors include change in position. There is no medical history of CAD, CHF, CVA or TIA. Note for Numbness: Patient had numbness of the right foot and lower back pain. Completed physical therapy and helped to relieve the numbness and back pain some. Reports being able to lift her right leg higher and the pain is not as bad. Patient had a MRI recently at [facility] and showed having degenerative joint disease of lumbar 4 & [address] Logan, but no flare in her MS. Patient reports having MS and sees neurology regularly No trigger for hand numbness. She tries to limit lifting due to low back issues. No neck pain or numbness in arms. No trouble lifting arms. Finger numbness is intermittent in severity and usually in fingers. Affects all fingers left>right hand. Right handed . No new repetitive hand activities.Has had dizziness since Tuesday; worse that day and better since; no associated nausea; h/o minor dizziness; no apparent trigger or h/o motion sickness. No recent URI or allergy sx other than itchy eyes. Has had headache since yesterday that is relieved with ibuprofen. Headache is like the MS ACUNA she has had in the past. 02-28-2015 Unclassified (1 source) Well adult female - The patient feels well with no complaints, has good energy level and is sleeping well. The current method of contraception is: tubal ligation. The patient has a balanced diet. The patient does not exercise. The patient sleeps 5 hours per night. Note for Well adult female: mammogram 08/19/23PAP 06/202305-30-2024 Unclassified (20 sources) Well adult female - The patient feels well with no complaints, has good energy level and is sleeping well. The current method of contraception is: tubal ligation. The patient has a balanced diet. The patient does not exercise. The patient sleeps 5 hours per night. Note for Well adult female: mammogram 08/19/23 - normalPAP 06/2023 - normalPatient had fasting labs completed with her specialist in March 2024. 05-30-2024 Unclassified (20 sources) Cold Symptoms - Symptoms include nasal congestion, runny nose, scratchy throat, productive cough, general malaise and headache, but do not include ear pain, sore throat, dry cough, wheezing, fever, chills or facial pain. The onset was gradual 4 day(s) ago. The symptoms occur constantly. The patient describes this as moderate in severity and unchanged. Current treatment includes non-prescription cold medication and cough suppressants. Risk factors do not include child in daycare or smoking. The patient has not been exposed to an individual with similar symptoms. Patient denies history of seasonal allergies, recurrent sinusitis or recurrent ear infections. Note for Upper respiratory infection: Patient has a history of COPD. 07-20-2024 Unclassified (20 sources) Cold Symptoms - Symptoms include nasal congestion, sore throat, scratchy throat, hoarseness, productive cough, general malaise and headache, but do not include ear pain, ear fullness, wheezing, fever, chills or facial pain. The onset was gradual 8 day(s) ago. The symptoms occur constantly. The patient describes this as moderate in severity and worsening. Current treatment includes allergy medications, acetaminophen and humidifier use. Risk factors do not include child in daycare or smoking. The patient has been exposed to an individual with similar symptoms (coworkers). Note for Upper respiratory infection: pt was seen 07/20/24 for URI - she feels that she has been worsening since then 07-24-2024 Unclassified (1 source) Cold Symptoms 08-27-2024 Unclassified (17 sources) Cold Symptoms - Symptoms include sneezing (occasionally), runny nose, sore throat (from coughing), productive cough, wheezing and headache, but do not include nasal congestion, ear pain, ear fullness, hoarseness, fever, chills, general malaise or facial pain. The onset was gradual 1 week(s) ago. The symptoms occur constantly. The patient describes this as moderate in severity and unchanged. Current treatment includes non-prescription cold medication (Coricidin), allergy medications (generic Zyrtec) and Tessalon perles, will help for about 30 minutes (prescribed inhalers). Risk factors include smoking (she is a former smoker, has COPD). The patient has not been exposed to an individual with an upper respiratory infection. Medical history includes seasonal allergies and recurrent sinusitis, but patient denies history of asthma or tonsillectomy. 08-27-2024 Results Test Name Value Interpretation Reference Range Facility Absolute lymphocyte countOrd ered By: Taj Lang on 04-04-2025 Lymphocytes Auto (Unsp spec) [#/Vol] 1.19 10*3/uL 0.83-4.51 [facility] Absolute neutrophil countOrd ered By: Taj Lang on 04-04-2025 Neutrophils (Bld) [#/Vol] 4.1 10*3/uL 2.0-7.7 [facility] Anion gap in Serum or Plasma Ordered By: Taj Lang on 04-04-2025 Anion gap [Moles/Vol] 10 mmol/L 5-15 [facility] Automated lymphocyte count a s percentage of total leukocytesOrdered By: Taj Lang on 04-04-2025 Lymphocytes/100 WBC Auto (Unsp spec) 19.2 % [facility] BUN/creatinine ratioOrdered By: Taj Lang on 04-04-2025 Urea nitrogen/Creatinine [Mass ratio] 16.9 mg/mg 06-03 [facility] Basic Metabolic Profile (BMP )on 04-04-2025 BUN/CRE 16.9 RATIO Normal 06-03 [facility] Comment on above: Performed By: #### L 100.0100, L500.4050, L500.4100, L501.4700 #### [facility] [address] [place], [place], [id number] Calcium [Mass/Vol] 9.6 mg/dL Normal 7.6-11.0 [facility] Comment on above: Performed By: #### L 100.0100, L500.4050, L500.4100, L501.4700 #### [facility] [address] [place], [address] Chloride [Moles/Vol] 102 mmol/L Normal 98-108 [facility] Comment on above: Performed By: #### L 100.0100, L500.4050, L500.4100, L501.4700 #### [facility] [address] [place], [address] CO2 [Moles/Vol] 25.7 mmol/L Normal 21.0-32.0 [facility] Comment on above: Performed By: #### L 100.0100, L500.4050, L500.4100, L501.4700 #### [facility] [address] [place], [address] Creatinine [Mass/Vol] 0.57 mg/dL Low 0.70-1.20 [facility] Comment on above: Performed By: #### L 100.0100, L500.4050, L500.4100, L501.4700 #### [facility] [address] [place], [address] GAP 10 Normal 5-15 [facility] Comment on above: Performed By: #### L 100.0100, L500.4050, L500.4100, L501.4700 #### [facility] [address] [place], [address] GFR/1.73 sq M.predicted among non-blacks MDRD (S/P/Bld) [Vol rate/Area] 105 mL/min/{1.73_m2} Normal >60 [facility] Comment on above: Result Comment: mL/m in/1.73m2 CKD-EPI Creatinine Equation (2020) Performed By: #### L 100.0100, L500.4050, L500.4100, L501.4700 #### [facility] [address] [place], [address] Glucose [Mass/Vol] 99 mg/dL Normal 70-99 [facility] Comment on above: Performed By: #### L 100.0100, L500.4050, L500.4100, L501.4700 #### [facility] [address] [place], [address] Potassium [Moles/Vol] 4.3 mmol/L Normal 3.3-5.1 [facility] Comment on above: Performed By: #### L 100.0100, L500.4050, L500.4100, L501.4700 #### [facility] [address] [place], [address] Sodium [Moles/Vol] 138 mmol/L Normal 133-145 [facility] Comment on above: Performed By: #### L 100.0100, L500.4050, L500.4100, L501.4700 #### [facility] [address] [place], [address] Urea nitrogen [Mass/Vol] 10 mg/dL Normal 4-19 [facility] Comment on above: Performed By: #### L 100.0100, L500.4050, L500.4100, L501.4700 #### [facility] [address] [place], [address] Basophil percentageOrdered B y: Taj Lang on 04-04-2025 Basophils/100 WBC (Bld) 0.6 % 0-1 [facility] Bilirubin directOrdered By: Taj Lang on 04-04-2025 Bilirubin.direct [Mass/Vol] 0.20 mg/dL 0.00-0.30 [facility] Bilirubin, totalOrdered By: Taj Lang on 04-04-2025 Bilirubin [Mass/Vol] 0.45 mg/dL 0.00-1.30 [facility] CBC W/Diff, Automatedon 03-16 Absolute Lymph 1.19 X10 3/uL Normal 0.83-4.51 [facility] Comment on above: Performed By: #### L 100.0100, L501.9520, L500.4100, L501.5200, L500.2500, L500.3400, L506.0400 #### [facility] [address] [place], [address] Absolute Neut 4.1 X10 3/uL Normal 2.0-7.7 [facility] Comment on above: Performed By: #### L 100.0100, L501.9520, L500.4100, L501.5200, L500.2500, L500.3400, L506.0400 #### [facility] [address] [place], [address] Basophils/100 WBC (Bld) 0.6 % Normal 0-1 [facility] Comment on above: Performed By: #### L 100.0100, L501.9520, L500.4100, L501.5200, L500.2500, L500.3400, L506.0400 #### [facility] [address] [place], [address] Eosinophils/100 WBC (Bld) 2.6 % Normal 0-5 [facility] Comment on above: Performed By: #### L 100.0100, L501.9520, L500.4100, L501.5200, L500.2500, L500.3400, L506.0400 #### [facility] [address] [place], [address] Erythrocyte distribution width (RBC) [Ratio] 12.6 % Normal 11.6-14.6 [facility] Comment on above: Performed By: #### L 100.0100, L501.9520, L500.4100, L501.5200, L500.2500, L500.3400, L506.0400 #### [facility] [address] [place], [address] Hematocrit (Bld) [Volume fraction] 42.0 % Normal 37-47 [facility] Comment on above: Performed By: #### L 100.0100, L501.9520, L500.4100, L501.5200, L500.2500, L500.3400, L506.0400 #### [facility] [address] [facility] [place], [address] Hemoglobin (Bld) [Mass/Vol] 13.9 g/dL Normal 12.0-15.0 [facility] Comment on above: Performed By: #### L 100.0100, L501.9520, L500.4100, L501.5200, L500.2500, L500.3400, L506.0400 #### [facility] [address] [place], [address] IG% 0.300 Normal 0.0-0.9 [facility] Comment on above: Result Comment: IG% - Immature Granulocytes (promyelocytes, myelocytes and metamyelocytes) > 1% indicates that a LEFT SHIFT is Present. Performed By: #### L 100.0100, L501.9520, L500.4100, L501.5200, L500.2500, L500.3400, L506.0400 #### [facility] [address] [place], [address] Lymphocytes/100 WBC (Bld) 19.2 % Normal 19-41 [facility] Comment on above: Performed By: #### L 100.0100, L501.9520, L500.4100, L501.5200, L500.2500, L500.3400, L506.0400 #### [facility] [address] [facility] [place], [address] MCH (RBC) [Entitic mass] 30.2 pg Normal 27.0-32.0 [facility] Comment on above: Performed By: #### L 100.0100, L501.9520, L500.4100, L501.5200, L500.2500, L500.3400, L506.0400 #### [facility] [address] [place], [address] MCHC (RBC) [Mass/Vol] 33.1 g/dL Normal 32-36 [facility] Comment on above: Performed By: #### L 100.0100, L501.9520, L500.4100, L501.5200, L500.2500, L500.3400, L506.0400 #### [facility] [address] [place], [address] MCV (RBC) [Entitic vol] 91.3 fL Normal 81-99 [facility] Comment on above: Performed By: #### L 100.0100, L501.9520, L500.4100, L501.5200, L500.2500, L500.3400, L506.0400 #### [facility] [address] [place], [address] Monocytes/100 WBC (Bld) 10.6 % High 0-10 [facility] Comment on above: Performed By: #### L 100.0100, L501.9520, L500.4100, L501.5200, L500.2500, L500.3400, L506.0400 #### [facility] [address] [place], [address] Neutrophils/100 WBC (Bld) 66.7 % Normal 47-70 [facility] Comment on above: Performed By: #### L 100.0100, L501.9520, L500.4100, L501.5200, L500.2500, L500.3400, L506.0400 #### [facility] [address] [place], [address] Nucleated RBC (Bld) [#/Vol] 0 10*3/uL Normal 0-5 [facility] Comment on above: Performed By: #### L 100.0100, L501.9520, L500.4100, L501.5200, L500.2500, L500.3400, L506.0400 #### [facility] [address] [place], [address] Platelet mean volume (Bld) [Entitic vol] 9.4 fL Normal 6.2-12.0 [facility] Comment on above: Performed By: #### L 100.0100, L501.9520, L500.4100, L501.5200, L500.2500, L500.3400, L506.0400 #### [facility] [address] [place], [address] Platelets (Bld) [#/Vol] 231 10*3/uL Normal 150-450 [facility] Comment on above: Performed By: #### L 100.0100, L501.9520, L500.4100, L501.5200, L500.2500, L500.3400, L506.0400 #### [facility] [address] [place], [address] RBC (Bld) [#/Vol] 4.60 10*6/uL Normal 4.2-5.4 [facility] Comment on above: Performed By: #### L 100.0100, L501.9520, L500.4100, L501.5200, L500.2500, L500.3400, L506.0400 #### [facility] [address] [place], [address] RDW SD 41.7 fl Normal 35.1-43.9 [facility] Comment on above: Performed By: #### L 100.0100, L501.9520, L500.4100, L501.5200, L500.2500, L500.3400, L506.0400 #### [facility] [address] [place], [address] WBC (Bld) [#/Vol] 6.2 10*3/uL Normal 4.4-11.0 [facility] Comment on above: Performed By: #### L 100.0100, L501.9520, L500.4100, L501.5200, L500.2500, L500.3400, L506.0400 #### [facility] [address] [place], [address] Calculated very low density lipoprotein (VLDL) cholesterol measurementOrdered By: Taj Lang on 04-04-2025 Calculated very low density lipoprotein (VLDL) cholesterol measurement 13 mg/dL 5-40 [facility] Carbon dioxide, total [Moles /volume] in Central venous bloodOrdered By: Taj Lang on 04-04-2025 CO2 [Moles/Vol] 25.7 mmol/L 21.0-32.0 [facility] Cardiology Visit Reporton Cardiology Visit Report [facility] [address] [place] [address] OFFICE VISIT Date of Service: 04/04/25 MR#: [id number] Acct: [id number] Name: GENNY AZUL Rep #: [id number] : 1965 Provider: SHAHRAM rosas Age/Sex: 59/F Location: [facility] Status: Signed with Addenda ADDENDUM by SHAHRAM Lang on 04/04/25 at 1012 Addendum Addendum Details:: She acknowledges chest pain and palpitations. She states minimal bilateral lower extreme edema. She acknowledges shortness breath with activity and shortness of breath with palpitations. She denies shortness of breath at rest, orthopnea, cough, or PND. She acknowledges dizziness and fatigue. She denies lightheadedness, near-syncope, syncope, or weakness. 04/04/25 1012 Date Taj Lang NP cc: Dr. Francisco Matthews MD * Signed HPI HPI History of Present Illness Details: This lady with history of anterior wall STEMI in 2017, status post percutaneous intervention with drug-eluting stent to the proximal LAD is here for follow-up visit. She denies chest, arm, jaw, or neck discomfort. She denies palpitations. She denies bilateral lower extremity edema. She denies claudication. She denies shortness of breath with activity, shortness of breath at rest, orthopnea, or PND. She denies chronic cough. She denies significant, sudden weight gain. She denies lightheadedness, dizziness, near-syncope, or syncope. She denies blood in urine, blood in stool, or epistaxis. He denies fever with chills. She denies myalgia. She denies fatigue. Her exercise level has remained stable. Intake Vital Signs 10/08/24 09:08 04/04/25 09:24 Height 5 ft 1 in 5 ft 1 in Weight: 116 lb 116 lb BMI 21.9 21.9 BP 108/76 112/74 Blood Pressure Location Lt brachial Lt brachial Position Sitting Sitting Respiration 18 18 Pulse 82 56 L Pulse Source NIBP Monitor Pulse Oximetry (%) 98 Oxygen Delivery Method room air Intake Visit Reasons: 6 M FU Tipple Greaser Required: No Accompanied by: Self Is patient in pain?: No Allergies egg Allergy (Verified 04/04/25 09:24) Hives sulfamethoxazole (From Bactrim) Allergy (Verified 04/04/25 09:24) Unknown trimethoprim (From Bactrim) Allergy (Verified 04/04/25 09:24) Unknown Penicillins Adverse Reaction (Verified 04/04/25 09:24) Vomiting Medications ???Medication ???Instructions ???Recorded ???Confirmed ???Type aspirin 81 mg tablet,delayed 81 mg PO DAILY@0800 03/06/1704/04 Rx release furosemide 20 mg tablet 20 mg PO DAILY PRN diuretic 04/04/25 History atogepant 30 mg tablet (Qulipta) 30 mg PO DAILY 10/11/23 04/04/25 H istory gabapentin 400 mg capsule 400 mg PO TID 10/11/23 04/04/25 Hi story interferon beta-1a (albumin) 44 0.5 ml subcut MOWEFR 10/11/2303/16 History mcg/0.5 mL subcutaneous syringe (Rebif (with albumin)) lidocaine 5 % topical patch 1 patch topical DAILY PRN Pain 04/04/25 History Score 1-10 baclofen 10 mg tablet 10 mg PO BID Pain Score 1-1004/04/25 History pramipexole 1 mg tablet mg PO 04/09/24 04/04/25 History clopidogrel 75 mg tablet 75 mg PO QDAY #90 tabs 05/23/24 Rx albuterol sulfate 90 mcg/actuation 2 puff inhalation Q4-6H PRN 09/1604/04/25 History aerosol inhaler atorvastatin 40 mg tablet 40 mg PO QDAY #90 tabs 10/08/24 Rx tiotropium bromide 2.5 inhalation DAILY 10/08/24 04/04/25 History mcg/actuation mist for inhalation (Spiriva Respimat) pantoprazole 40 mg tablet,delayed 40 mg PO DAILY #90 tabs 12/21/24 04/04/25 Rx release (Protonix) metoprolol tartrate 25 mg tablet 25 mg PO BID blood pressure #180 0 01/30/25 04/04/25 Rx tabs Have you fallen in the past year?: Yes PFSH Medical History Multiple sclerosis History of hiatal hernia History of stress test History of GI bleed Dyspnea on exertion Exocrine pancreatic insufficiency Constipation Epigastric pain Abnormal SPEP Epigastric abdominal tenderness History of Helicobacter pylori infection RUQ abdominal pain Palpitations Fatigue Dysphagia Gastritis GERD (gastroesophageal reflux disease) H. pylori infection Hypertension Wears glasses Post-menopausal HX: benign breast biopsy High cholesterol Restless legs Back pain Migraine headache Difficulty swallowing History of ulceration Gastric reflux Former smoker Leg cramps History of echocardiogram Cardiology follow-up encounter History of heart attack History of irregular heartbeat Reflux esophagitis Encounter for screening for COVID-19 URI (upper respiratory infection) Anemia Bronchitis Encounter for screening for COVID-19 (more content not included)... Normal [facility] Chloride assayOrdered By: Angeles Lang on 04-04-2025 Chloride [Moles/Vol] 102 mmol/L 98-108 [facility] Eosinophil percentageOrdered By: Taj Lang on 04-04-2025 Eosinophils/100 WBC (Bld) 2.6 % 0-5 [facility] Erythrocyte distribution wid th ratioOrdered By: Taj Lang on 04-04-2025 Erythrocyte distribution width (RBC) [Ratio] 12.6 % 11.6-14.6 [facility] Erythrocyte distribution wid th standard deviationOrdered By: Taj Lang on 04-04-2025 Erythrocyte distribution width (RBC) [Ratio] 41.7 fl 35.1-43.9 [facility] Glomerular filtration rate ( GFR) estimation/1.73 sq m using serum, plasma, or whole bOrdered By: Taj Lang on 04-04-2025 GFR/1.73 sq M.predicted among non-blacks MDRD (S/P/Bld) [Vol rate/Area] 105 mL/min/{1.73_m2} >60 [facility] Comment on above: mL/min/1.73m2 CKD-EP I Creatinine Equation (2020) Hematocrit Auto (Bld) [Volum e fraction]Ordered By: Taj Lang on 04-04-2025 Hematocrit (Bld) [Volume fraction] 42.0 % 37-47 [facility] Hemoglobin measurementOrdere d By: Taj Lang on 04-04-2025 Hemoglobin (Bld) [Mass/Vol] 13.9 g/dL 12.0-15.0 [facility] Immature granulocytes/100 WB C Auto (Bld)Ordered By: Taj Lang on 04-04-2025 Immature granulocytes/100 WBC (Bld) 0.300 % 0.0-0.9 [facility] Comment on above: IG% - Immature Granu locytes (promyelocytes, myelocytes and metamyelocytes) > 1% indicates that a LEFT SHIFT is Present. LDL calc ser/plasOrdered By: Taj Lang on 04-04-2025 Cholesterol in LDL [Mass/Vol] 65 mg/dL [facility] Comment on above: Jcztfsrbph=596-811 m g/dL & Higher Ocyz=137 mg/dL or greaterFriedwald Equation for LDL-C Laboratory - Chemistry and C hemistry - challengeOrdered By: Taj Lang on 04-04-2025 AST [Catalytic activity/Vol] 22 U/L <32 [facility] Lipid Profileon 04-04-2025 CHOL:HDL 2.45 Normal [facility] Comment on above: Performed By: #### L 100.0100, L500.4050, L500.4100, L501.4700 #### [facility] [address] [place], [address] Cholesterol [Mass/Vol] 132 mg/dL Normal <=200 [facility] Comment on above: Result Comment: Chol esterol level, Desirable <200 mg/dL Borderline high cholesterol 200-239 mg/dL High cholesterol >=240 mg/dL Recommendations of the NCEP Adult Treatment Panel for the following risk-cutoff thresholds for the [place] population. Performed By: #### L 100.0100, L500.4050, L500.4100, [id number] #### [facility] [address] [place], [address] Cholesterol in HDL [Mass/Vol] 54 mg/dL Normal [facility] Comment on above: Result Comment: Kad[place] onal Cholesterol Education Program (NCEP) guidelines: <40 mg/dL: Low HDL-cholesterol (major risk factor for CHD) >= 60 mg/dL: High HDL-cholesterol (negative risk factor for CHD) HDL-cholesterol is affected by a number of factors, e.g. smoking, exercise, hormones, sex and age. Performed By: #### L 100.0100, L500.4050, L500.4100, [id number] #### [facility] [address] [place], [address] Cholesterol in LDL [Mass/Vol] 65 mg/dL Normal [facility] Comment on above: Result Comment: Bord hbwnre=003-371 mg/dL Higher Rqsn=067 mg/dL or greater Friedwald Equation for LDL-C Performed By: #### L 100.0100, L500.4050, L500.4100, [id number] #### [facility] [address] [place], [address] Cholesterol in VLDL [Mass/Vol] 13 mg/dL Normal 5-40 [facility] Comment on above: Performed By: #### L 100.0100, L500.4050, L500.4100, [id number] #### [facility] [address] [place], [address] Triglyceride [Mass/Vol] 63 mg/dL Normal [facility] Comment on above: Result Comment: The drugs N-Acetylcysteine and Metamizole may falsely depress this assay. Normal range: <150 mg/dL Borderline High: 150-199 mg/dL High: 200-499 mg/dL Very High: >500 mg/dL Performed By: #### L 100.0100, L500.4050, L500.4100, [id number] #### [facility] [address] [place], [address] Liver Profileon 04-04-2025 Albumin [Mass/Vol] 4.0 g/dL Normal 3.5-5.0 [facility] Comment on above: Performed By: #### L 100.0100, L500.4050, L500.4100, [id number] #### [facility] [address] [place], [address] ALK PHOS 56 U/L Normal 35-104 [facility] Comment on above: Performed By: #### L 100.0100, L500.4050, L500.4100, [id number] #### [facility] [address] [place], [address] ALT [Catalytic activity/Vol] 19 U/L Normal <=34 [facility] Comment on above: Performed By: #### L 100.0100, L500.4050, L500.4100, [id number] #### [facility] [address] [place], [address] AST [Catalytic activity/Vol] 22 U/L Normal <=31 [facility] Comment on above: Performed By: #### L 100.0100, L500.4050, L500.4100, [id number] #### [facility] [address] [place], [address] Bilirubin [Mass/Vol] 0.45 mg/dL Normal 0.00-1.30 [facility] Comment on above: Performed By: #### L 100.0100, L500.4050, L500.4100, [id number] #### [facility] [address] [place], [address] Bilirubin.direct [Mass/Vol] 0.20 mg/dL Normal 0.00-0.30 [facility] Comment on above: Performed By: #### L 100.0100, L500.4050, L500.4100, [id number] #### [facility] [address] [place], [address] Globulin (S) [Mass/Vol] 2.9 g/dL Normal 2.2-4.2 [facility] Comment on above: Performed By: #### L 100.0100, L500.4050, L500.4100, [id number] #### [facility] [address] [place], [address] T PROT 6.9 g/dL Normal 5.9-8.4 [facility] Comment on above: Performed By: #### L 100.0100, L500.4050, L500.4100, [id number] #### [facility] [address] [place], [address] MCV (mean corpuscular volume ) determinationOrdered By: Taj Lang on 04-04-2025 MCV (RBC) [Entitic vol] 91.3 fL 81-99 [facility] Magnesiumon 04-04-2025 Magnesium [Mass/Vol] 2.2 mg/dL Normal 1.5-2.2 [facility] Comment on above: Performed By: #### L 100.0100, L500.4050, L500.4100, [id number] #### [facility] [place], [address] Magnesium measurement (mass/ volume)Ordered By: Taj Lang on 04-04-2025 Magnesium (Unsp spec) [Mass/Vol] 2.2 mg/dL 1.5-2.2 [facility] Mean corpuscular hemoglobin (MCH) determinationOrdered By: Taj Lang on 04-04-2025 MCH (RBC) [Entitic mass] 30.2 pg 27.0-32.0 [facility] Mean corpuscular hemoglobin concentration (MCHC) determinationOrdered By: Taj Lang on 04-04-2025 MCHC (RBC) [Mass/Vol] 33.1 g/dL 32-36 [facility] Mean platelet volume determi nationOrdered By: Taj Lang on 04-04-2025 Platelet mean volume (Bld) [Entitic vol] 9.4 fL 6.2-12.0 [facility] Monocyte percentageOrdered B y: Taj Lang on 04-04-2025 Monocytes/100 WBC (Bld) 10.6 % High 0-10 [facility] Neutrophil percentageOrdered By: Taj Lang on 04-04-2025 Neutrophils/100 WBC (Bld) 66.7 % 47-70 [facility] Nucleated red blood cell per centageOrdered By: Taj Lang on 04-04-2025 Nucleated RBC/100 WBC (Bld) [Ratio] 0 % 0-5 [facility] Platelet countOrdered By: Angeles Lang on 04-04-2025 Platelets (Bld) [#/Vol] 231 10*3/uL 150-450 [facility] Potassium measurement (mass/ volume)Ordered By: Taj Lang on 04-04-2025 Potassium (Unsp spec) [Mass/Vol] 4.3 mmol/L 3.3-5.1 [facility] RBC Auto (Bld) [#/Vol]Ordere d By: Taj Lang on 04-04-2025 RBC (Bld) [#/Vol] 4.60 10*6/uL 4.2-5.4 [facility] Screening total cholesterol/ high density lipoprotein (HDL) cholesterol ratioOrdered By: Taj Lang on 04-04-2025 Cholesterol.total/Chol esterol in HDL [Mass ratio] 2.45 {ratio} [facility] Serum creatinine measurement (mass/volume)Ordered By: Taj Lang on 04-04-2025 Creatinine [Mass/Vol] 0.57 mg/dL Low 0.70-1.20 [facility] Serum globulin measurementOr dered By: Taj Lang on 04-04-2025 Globulin (S) [Mass/Vol] 2.9 g/dL 2.2-4.2 [facility] Serum glucose measurement (m ass/volume)Ordered By: Taj Lang on 04-04-2025 Glucose [Mass/Vol] 99 mg/dL 70-99 [facility] Serum or plasma alanine heard otransferase (ALT) measurementOrdered By: Taj Lang on 04-04-2025 ALT [Catalytic activity/Vol] 19 U/L <35 [facility] Serum or plasma albumin jose urement (mass/volume)Ordered By: Taj Lang on 04-04-2025 Albumin [Mass/Vol] 4.0 g/dL 3.5-5.0 [facility] Serum or plasma alkaline juan alberto sphatase measurementOrdered By: Taj Lang on 04-04-2025 ALP [Catalytic activity/Vol] 56 U/L 35-104 [facility] Serum or plasma calcium jose urement (mass/volume)Ordered By: Taj Lang on 04-04-2025 Calcium [Mass/Vol] 9.6 mg/dL 7.6-11.0 [facility] Serum or plasma cholesterol in HDL measurement (mass/volume)Ordered By: Taj Lang on 04-04-2025 Cholesterol in HDL [Mass/Vol] 54 mg/dL >40 [facility] Comment on above: National Cholesterol Education Program (NCEP) guidelines:<40 mg/dL: Low HDL-cholesterol (major risk factor for CHD)>= 60 mg/dL: High HDL-cholesterol (negative risk factor for CHD)HDL-cholesterol is affected by a number of factors, e.g. smoking, exercise, hormones, sex and age. Serum or plasma cholesterol measurement (mass/volume)Ordered By: Taj Lang on 04-04-2025 Cholesterol [Mass/Vol] 132 mg/dL <201 [facility] Comment on above: Cholesterol level, D esirable <200 mg/dLBorderline high cholesterol 200-239 mg/dLHigh cholesterol >=240 mg/dLRecommendations of the NCEP Adult Treatment Panel for the following risk-cutoff thresholds for the [place] population. Serum or plasma urea nitroge n measurement (mass/volume)Ordered By: Taj Lang on 04-04-2025 Urea nitrogen [Mass/Vol] 10 mg/dL 4-19 [facility] Sodium levelOrdered By: Taj Lang on 04-04-2025 Sodium [Moles/Vol] 138 mmol/L 133-145 [facility] T4 Free Directon 04-04-2025 T4 FREE DIRECT 1.30 ng/dL Normal 0.76-1.46 [facility] Comment on above: Performed By: #### L 100.0100, L500.4050, L500.4100, L501.4700 #### [facility] [address] [place], [address] T4 freeOrdered By: Taj Lang on 04-04-2025 Free T4 [Mass/Vol] 1.30 ng/dL 0.76-1.46 [facility] TSH DL <= 0.005 mIU/L QnOrde red By: Taj Lang on 04-04-2025 TSH Qn 2.660 uIU/mL 0.300-4.20 0 [facility] Thyroid Stim Hormone (TSH)on 04-04-2025 TSH 2.660 uIU/mL Normal 0.300-4.20 0 [facility] Comment on above: Performed By: #### L 100.0100, L500.4050, L500.4100, L501.4700 #### [facility] [address] [place], [place], [id number] Total proteinOrdered By: Delvis Lang on 04-04-2025 Protein [Mass/Vol] 6.9 g/dL 5.9-8.4 [facility] Triglycerides measurementOrd ered By: Taj Lang on 04-04-2025 Triglyceride [Mass/Vol] 63 mg/dL <199 [facility] Comment on above: The drugs N-Acetylcy steine and Metamizole may falsely depress this assay. Normal range: <150 mg/dLBorderline High: 150-199 mg/dLHigh: 200-499 mg/dLVery High: >500 mg/dL White blood cell (WBC) count Ordered By: Taj Lang on 04-04-2025 WBC (Bld) [#/Vol] 6.2 10*3/uL 4.4-11.0 [facility] Anion gap in Serum or Plasma Ordered By: Loreta Duvall on 03-01-2025 Anion gap [Moles/Vol] 10 mmol/L 5-15 [facility] BUN/creatinine ratioOrdered By: Loreta Duvall on 03-01-2025 Urea nitrogen/Creatinine [Mass ratio] 19.6 mg/mg 10-20 [facility] Bilirubin directOrdered By: Loreta Duvall on 03-01-2025 Bilirubin.direct [Mass/Vol] 0.14 mg/dL 0.00-0.30 [facility] Bilirubin, Directon 03-01-20 25 Bilirubin.direct [Mass/Vol] 0.14 mg/dL Normal 0.00-0.30 [facility] Comment on above: Performed By: #### L 500.4050, L500.4100, L501.4700 #### [facility] [address] [place], [address] Bilirubin, totalOrdered By: Loreta Duvall on 03-01-2025 Bilirubin [Mass/Vol] 0.31 mg/dL 0.00-1.30 [facility] Calculated very low density lipoprotein (VLDL) cholesterol measurementOrdered By: Loreta Duvall on 03-01-2025 Calculated very low density lipoprotein (VLDL) cholesterol measurement 14 mg/dL 5-40 [facility] Carbon dioxide, total [Moles /volume] in Central venous bloodOrdered By: Loreta Duvall on 03-01-2025 CO2 [Moles/Vol] 25.9 mmol/L 21.0-32.0 [facility] Chloride assayOrdered By: Jossue Duvall on 03-01-2025 Chloride [Moles/Vol] 103 mmol/L 98-108 [facility] Comprehensive Metabolic Prof ilon 03-01-2025 Albumin [Mass/Vol] 3.9 g/dL Normal 3.5-5.0 [facility] Comment on above: Performed By: #### L 500.4050, L500.4100, L501.4700 #### [facility] [address] [place], [address] Albumin/Globulin [Mass ratio] 1.4 {ratio} Normal 0.9-2.4 [facility] Comment on above: Performed By: #### L 500.4050, L500.4100, [id number] #### [facility] [address] [place], [address] ALK PHOS 58 U/L Normal 35-104 [facility] Comment on above: Performed By: #### L 500.4050, L500.4100, [id number] #### [facility] [address] [place], [address] ALT [Catalytic activity/Vol] 20 U/L Normal <=34 [facility] Comment on above: Performed By: #### L 500.4050, L500.4100, [id number] #### [facility] [address] [place], [address] AST [Catalytic activity/Vol] 23 U/L Normal <=31 [facility] Comment on above: Performed By: #### L 500.4050, L500.4100, [id number] #### [facility] [address] [place], [address] Bilirubin [Mass/Vol] 0.31 mg/dL Normal 0.00-1.30 [facility] Comment on above: Performed By: #### L 500.4050, L500.4100, [id number] #### [facility] [address] [place], [address] BUN/CRE 19.6 RATIO Normal 10-20 [facility] Comment on above: Performed By: #### L 500.4050, L500.4100, [id number] #### [facility] [address] [place], [address] Calcium [Mass/Vol] 9.5 mg/dL Normal 7.6-11.0 [facility] Comment on above: Performed By: #### L 500.4050, L500.4100, [id number] #### [facility] [address] [place], [address] Chloride [Moles/Vol] 103 mmol/L Normal 98-108 [facility] Comment on above: Performed By: #### L 500.4050, L500.4100, [id number] #### [facility] [address] [place], [address] CO2 [Moles/Vol] 25.9 mmol/L Normal 21.0-32.0 [facility] Comment on above: Performed By: #### L 500.4050, L500.4100, [id number] #### [facility] [address] [place], [address] Creatinine [Mass/Vol] 0.64 mg/dL Low 0.70-1.20 [facility] Comment on above: Performed By: #### L 500.4050, L500.4100, [id number] #### [facility] [address] [place], [address] GAP 10 Normal 5-15 [facility] Comment on above: Performed By: #### L 500.4050, L500.4100, L501.4700 #### [facility] [address] [place], [address] GFR/1.73 sq M.predicted among non-blacks MDRD (S/P/Bld) [Vol rate/Area] 102 mL/min/{1.73_m2} Normal >60 [facility] Comment on above: Result Comment: mL/m in/1.73m2 CKD-EPI Creatinine Equation (2020) Performed By: #### L 500.4050, L500.4100, L501.4700 #### [facility] [address] [place], [address] Globulin (S) [Mass/Vol] 2.8 g/dL Normal 2.2-4.2 [facility] Comment on above: Performed By: #### L 500.4050, L500.4100, L501.4700 #### [facility] [address] [place], [address] Glucose [Mass/Vol] 90 mg/dL Normal 70-99 [facility] Comment on above: Performed By: #### L 500.4050, L500.4100, L501.4700 #### [facility] [address] [place], [address] Potassium [Moles/Vol] 4.3 mmol/L Normal 3.3-5.1 [facility] Comment on above: Performed By: #### L 500.4050, L500.4100, L501.4700 #### [facility] [address] [place], [address] Sodium [Moles/Vol] 139 mmol/L Normal 133-145 [facility] Comment on above: Performed By: #### L 500.4050, L500.4100, [id number] #### [facility] [address] [place], [address] T PROT 6.7 g/dL Normal 5.9-8.4 [facility] Comment on above: Performed By: #### L 500.4050, L500.4100, [id number] #### [facility] [address] [place], [address] Urea nitrogen [Mass/Vol] 13 mg/dL Normal 4-19 [facility] Comment on above: Performed By: #### L 500.4050, L500.4100, [id number] #### [facility] [address] [place], [address] Glomerular filtration rate ( GFR) estimation/1.73 sq m using serum, plasma, or whole bOrdered By: Loreta Duvall on 03-01-2025 GFR/1.73 sq M.predicted among non-blacks MDRD (S/P/Bld) [Vol rate/Area] 102 mL/min/{1.73_m2} >60 [facility] Comment on above: mL/min/1.73m2 CKD-EP I Creatinine Equation (2020) LDL calc ser/plasOrdered By: Loreta Duvall on 03-01-2025 Cholesterol in LDL [Mass/Vol] 64 mg/dL [facility] Comment on above: Zcnyacpayr=348-777 m g/dL & Higher Kgpb=197 mg/dL or greater Laboratory - Chemistry and C hemistry - challengeOrdered By: Loreta Duvall on 03-01-2025 AST [Catalytic activity/Vol] 23 U/L <32 [facility] Lipid Profileon 03-01-2025 CHOL:HDL 2.57 Normal [facility] Comment on above: Performed By: #### L 500.4050, L500.4100, L501.4700 #### [facility] [address] [place], [place], [address] Cholesterol [Mass/Vol] 128 mg/dL Normal <=200 [facility] Comment on above: Result Comment: Chol esterol level, Desirable <200 mg/dL Borderline high cholesterol 200-239 mg/dL High cholesterol >=240 mg/dL Recommendations of the NCEP Adult Treatment Panel for the following risk-cutoff thresholds for the [place] population. Performed By: #### L 500.4050, L500.4100, L501.4700 #### [facility] [address] [place], [address] Cholesterol in HDL [Mass/Vol] 50 mg/dL Normal [facility] Comment on above: Result Comment: [place] onal Cholesterol Education Program (NCEP) guidelines: <40 mg/dL: Low HDL-cholesterol (major risk factor for CHD) >= 60 mg/dL: High HDL-cholesterol (negative risk factor for CHD) HDL-cholesterol is affected by a number of factors, e.g. smoking, exercise, hormones, sex and age. Performed By: #### L 500.4050, L500.4100, L501.4700 #### [facility] [address] [place], [address] Cholesterol in LDL [Mass/Vol] 64 mg/dL Normal [facility] Comment on above: Result Comment: Bord stqbwy=137-896 mg/dL Higher Xnqn=611 mg/dL or greater Performed By: #### L 500.4050, L500.4100, [id number] #### [facility] [address] [place], [address] Cholesterol in VLDL [Mass/Vol] 14 mg/dL Normal 5-40 [facility] Comment on above: Performed By: #### L 500.4050, L500.4100, [id number] #### [facility] [address] [place], [address] Triglyceride [Mass/Vol] 72 mg/dL Normal [facility] Comment on above: Result Comment: The drugs N-Acetylcysteine and Metamizole may falsely depress this assay. Normal range: <150 mg/dL Borderline High: 150-199 mg/dL High: 200-499 mg/dL Very High: >500 mg/dL Performed By: #### L 500.4050, L500.4100, [id number] #### [facility] [address] [place], [address] Liver Profileon 03-01-2025 ALB Normal 3.5-5.0 [facility] Comment on above: Result Comment: DUPL ICATE Performed By: #### L 100.0100, L500.4050, L500.4100, L501.4700 #### [facility] [address] [place], [address] ALK PHOS Normal 35-104 [facility] Comment on above: Result Comment: DUPL ICATE Performed By: #### L 100.0100, L500.4050, L500.4100, [id number] #### [facility] [address] [place], [address] ALT Normal <=34 [facility] Comment on above: Result Comment: DUPL ICATE Performed By: #### L 100.0100, L500.4050, L500.4100, [id number] #### [facility] [address] [place], [address] AST Normal <=31 [facility] Comment on above: Result Comment: DUPL ICATE Performed By: #### L 100.0100, L500.4050, L500.4100, [id number] #### [facility] [address] [place], [address] D BILI Normal 0.00-0.30 [facility] Comment on above: Result Comment: DUPL ICATE Performed By: #### L 100.0100, L500.4050, L500.4100, [id number] #### [facility] [address] [place], [address] T BILI Normal 0.00-1.30 [facility] Comment on above: Result Comment: DUPL ICATE Performed By: #### L 100.0100, L500.4050, L500.4100, L501.4700 #### [facility] [address] [place], [address] T PROT Normal 5.9-8.4 [facility] [facility] Comment on above: Result Comment: DUPL ICATE Performed By: #### L 100.0100, L500.4050, L500.4100, L501.4700 #### [facility] [place], [address] Potassium measurement (mass/ volume)Ordered By: Loreta Duvall on 03-01-2025 Potassium (Unsp spec) [Mass/Vol] 4.3 mmol/L 3.3-5.1 [facility] Screening total cholesterol/ high density lipoprotein (HDL) cholesterol ratioOrdered By: Loreta Duvall on 03-01-2025 Cholesterol.total/Chol esterol in HDL [Mass ratio] 2.57 {ratio} [facility] Serum creatinine measurement (mass/volume)Ordered By: Loreta Duvall on 03-01-2025 Creatinine [Mass/Vol] 0.64 mg/dL Low 0.70-1.20 [facility] Serum globulin measurementOr dered By: Loreta Duvall on 03-01-2025 Globulin (S) [Mass/Vol] 2.8 g/dL 2.2-4.2 [facility] Serum glucose measurement (m ass/volume)Ordered By: Loreta Duvall on 03-01-2025 Glucose [Mass/Vol] 90 mg/dL 70-99 [facility] Serum or plasma alanine heard otransferase (ALT) measurementOrdered By: Loreta Duvall on 03-01-2025 ALT [Catalytic activity/Vol] 20 U/L <35 [facility] Serum or plasma albumin jose urement (mass/volume)Ordered By: Loreta Duvall on 03-01-2025 Albumin [Mass/Vol] 3.9 g/dL 3.5-5.0 [facility] Serum or plasma albumin/glob ulin mass ratioOrdered By: Loretaheather Duvall 03-01-2025 Albumin/Globulin [Mass ratio] 1.4 {ratio} 0.9-2.4 [facility] Serum or plasma alkaline juan alberto sphatase measurementOrdered By: Loretaheather Duvall 03-01-2025 ALP [Catalytic activity/Vol] 58 U/L 35-104 [facility] Serum or plasma calcium jose urement (mass/volume)Ordered By: Loreta Duvall on 03-01-2025 Calcium [Mass/Vol] 9.5 mg/dL 7.6-11.0 [facility] Serum or plasma cholesterol in HDL measurement (mass/volume)Ordered By: Loreta Duvall on 03-01-2025 Cholesterol in HDL [Mass/Vol] 50 mg/dL >40 [facility] Comment on above: National Cholesterol Education Program (NCEP) guidelines:<40 mg/dL: Low HDL-cholesterol (major risk factor for CHD)>= 60 mg/dL: High HDL-cholesterol (negative risk factor for CHD)HDL-cholesterol is affected by a number of factors, e.g. smoking, exercise, hormones, sex and age. Serum or plasma cholesterol measurement (mass/volume)Ordered By: Loreta Duvall on 03-01-2025 Cholesterol [Mass/Vol] 128 mg/dL <201 [facility] Comment on above: Cholesterol level, D esirable <200 mg/dLBorderline high cholesterol 200-239 mg/dLHigh cholesterol >=240 mg/dLRecommendations of the NCEP Adult Treatment Panel for the following risk-cutoff thresholds for the [place] population. Serum or plasma urea nitroge n measurement (mass/volume)Ordered By: Loreta Duvall on 03-01-2025 Urea nitrogen [Mass/Vol] 13 mg/dL 4-19 [facility] Sodium levelOrdered By: Roc Duvall on 03-01-2025 Sodium [Moles/Vol] 139 mmol/L 133-145 [facility] Total proteinOrdered By: Michelle Duvall on 03-01-2025 Protein [Mass/Vol] 6.7 g/dL 5.9-8.4 [facility] Triglycerides measurementOrd ered By: Loreta Duvall on 03-01-2025 Triglyceride [Mass/Vol] 72 mg/dL <199 [facility] Comment on above: The drugs N-Acetylcy steine and Metamizole may falsely depress this assay. Normal range: <150 mg/dLBorderline High: 150-199 mg/dLHigh: 200-499 mg/dLVery High: >500 mg/dL Cardiology Visit Reporton Cardiology Visit Report [facility] [address] [place] [address] OFFICE VISIT Date of Service: 10/08/24 MR#: [id number] Acct: [id number] Name: GENNY AZUL Rep #: [id number] : 1965 Provider: Dr. Loreta Duvall MD Age/Sex: 59/F Location: [facility] Status: Signed HPI HPI History of Present Illness Details: This lady with history of anterior wall STEMI in 2017, status post percutaneous intervention with drug-eluting stent to the proximal LAD is here for follow-up visit. Denies any complaints. No angina. Shortness of breath is much improved after she has been started on Spiriva. Denies orthopnea or PND. No ankle edema. Intake Vital Signs 04/09/24 09:14 10/08/24 09:08 Height 5 ft 1 in 5 ft 1 in Weight: 116 lb BMI 21.9 BP 108/76 Blood Pressure Location Lt brachial Position Sitting Respiration 18 Pulse 82 Pulse Source NIBP Intake Visit Reasons: 6 M FU Tipple Greaser Required: No Accompanied by: Self Is patient in pain?: No Allergies egg Allergy (Verified 10/08/24 12:58) Hives sulfamethoxazole (From Bactrim) Allergy (Verified 10/08/24 12:58) Unknown trimethoprim (From Bactrim) Allergy (Verified 10/08/24 12:58) Unknown Penicillins Adverse Reaction (Verified 10/08/24 12:58) Vomiting Medications ???Medication ???Instructions ???Recorded ???Confirmed ???Type aspirin 81 mg tablet,delayed 81 mg PO DAILY@0800 03/06/1710/08 Rx release furosemide 20 mg tablet 20 mg PO DAILY PRN diuretic 10/08/24 History atogepant 30 mg tablet (Qulipta) 30 mg PO DAILY 10/11/23 10/08/24 H istory atorvastatin 80 mg tablet 80 mg PO QHS #90 tabs 10/11/23 Rx gabapentin 400 mg capsule 400 mg PO TID 10/11/23 10/08/24 Hi story interferon beta-1a (albumin) 44 0.5 ml subcut MOWEFR 10/11/2309/16 History mcg/0.5 mL subcutaneous syringe (Rebif (with albumin)) lidocaine 5 % topical patch 1 patch topical DAILY PRN Pain 10/08/24 History Score 1-05/24 pantoprazole 40 mg tablet,delayed 40 mg PO DAILY #90 tabs 01/10/24 10/08/24 Rx release (Protonix) metoprolol tartrate 25 mg tablet 25 mg PO BID blood pressure #180 0 01/24/24 10/08/24 Rx tabs baclofen 10 mg tablet 10 mg PO BID Pain Score 1-05/2410/08/24 History pramipexole 1 mg tablet mg PO 04/09/24 10/08/24 History clopidogrel 75 mg tablet 75 mg PO QDAY #90 tabs 05/23/24 Rx albuterol sulfate 90 mcg/actuation 2 puff inhalation Q4-6H PRN 09/1610/08/24 History aerosol inhaler tiotropium bromide 2.5 inhalation DAILY 10/08/24 10/08/24 History mcg/actuation mist for inhalation (Spiriva Respimat) Ejection fraction %: 65 Have you fallen in the past year?: No PFSH Medical History Abnormal SPEP Acute cough Acute ST elevation myocardial infarction Anemia Atherosclerotic heart disease of [place] coronary artery without angina pectoris Back pain Bronchitis Cardiology follow-up encounter Constipation Cough Difficulty swallowing Dysphagia Dyspnea on exertion Edema Encounter for screening for COVID-19 Encounter for screening for COVID-19 Epigastric abdominal tenderness Epigastric pain Exocrine pancreatic insufficiency Fatigue Former smoker Gastric reflux Gastritis GERD (gastroesophageal reflux disease) H. pylori infection High cholesterol History of echocardiogram History of GI bleed History of heart attack History of Helicobacter pylori infection History of hiatal hernia History of irregular heartbeat History of stress test History of ulceration HX: benign breast biopsy Hyperlipidemia Hypertension Ischemic cardiomyopathy Leg cramps Long-term use of high-risk medication Migraine headache Multiple sclerosis Multiple sclerosis Palpitations Paroxysmal supraventricular tachycardia Post-menopausal Reflux esophagitis Restless legs RUQ abdominal pain Smoking addiction SVT (supraventricular tachycardia) URI (upper respiratory infection) Wears glasses Surgical History History of History of cardiac catheterization History of coronary artery stent placement (03/02/17) History of esophagogastroduodenoscopy (EGD) (12/04/21) Hx laparoscopic cholecystectomy Family History Mother CAD (coronary artery disease) Father CAD (coronary artery disease) CVA (cerebral vascular accident) Social History Smoking Status: Former smoker quit date: 07/26/17 pack-years: 18 how long ago did patient quit smokin03/02/2017 alcohol intake: never substance use type: does not use caffeine: Yes T (more content not included)... Normal [facility] Absolute neutrophil countOrd ered By: Loreta Duvall on 10-05-2024 Neutrophils (Bld) [#/Vol] 4.7 10*3/uL 2.0-7.7 [facility] Albumin to globulin ratioOrd ered By: Loreta Duvall on 10-05-2024 Albumin/Globulin [Mass ratio] 1.0 {ratio} 0.9-2.4 [facility] Basophil percentageOrdered B y: Loreta Duvall on 10-05-2024 Basophils/100 WBC (Bld) 0.5 % 0-1 [facility] Bilirubin directOrdered By: Loreta Duvall on 10-05-2024 Bilirubin.direct [Mass/Vol] 0.15 mg/dL 0.00-0.30 [facility] Bilirubin, Directon 10-05-19 25 Bilirubin.direct [Mass/Vol] 0.15 mg/dL Normal 0.00-0.30 [facility] Comment on above: Order Comment: LIVER , LIPID FOR DR. DUVALL CMP,CBCD FOR Performed By: #### L 100.0100, L500.4050, L500.4100, L501.4700 #### [facility] [address] [place], [address] Bilirubin, totalOrdered By: Loreta Duvall on 10-05-2024 Bilirubin [Mass/Vol] 0.50 mg/dL 0.20-1.00 [facility] Comment on above: For patients on eltr ombopag therapy, use of [place] TBIL is not recommended. Blood urea nitrogen (BUN)/cr eatinine ratioOrdered By: Loreta Duvall on 10-05-2024 Urea nitrogen/Creatinine [Mass ratio] 19.4 mg/mg - [facility] CBC W/Diff, Automatedon 09-16 Absolute Lymph 1.15 X10 3/uL Normal 0.83-4.51 [facility] Comment on above: Order Comment: LIVER , LIPID FOR DR. DUVALL CMP,CBCD FOR Performed By: #### L 100.0100, L500.4050, L500.4100, L501.4700 #### [facility] [address] [place], [address] Absolute Neut 4.7 X10 3/uL Normal 2.0-7.7 [facility] Comment on above: Order Comment: LIVER , LIPID FOR DR. DUVALL CMP,CBCD FOR Performed By: #### L 100.0100, L500.4050, L500.4100, L501.4700 #### [facility] [address] [place], [address] Basophils/100 WBC (Bld) 0.5 % Normal 0-1 [facility] Comment on above: Order Comment: LIVER , LIPID FOR DR. DUVALL CMP,CBCD FOR Performed By: #### L 100.0100, L500.4050, L500.4100, L501.4700 #### [facility] [address] [place], [address] Eosinophils/100 WBC (Bld) 2.6 % Normal 0-5 [facility] Comment on above: Order Comment: LIVER , LIPID FOR DR. DUVALL CMP,CBCD FOR Performed By: #### L 100.0100, L500.4050, L500.4100, L501.4700 #### [facility] [address] [place], [address] Erythrocyte distribution width (RBC) [Ratio] 12.2 % Normal 11.6-14.6 [facility] Comment on above: Order Comment: LIVER , LIPID FOR DR. DUVALL CMP,CBCD FOR Performed By: #### L 100.0100, L500.4050, L500.4100, L501.4700 #### [facility] [address] [place], [address] Hematocrit (Bld) [Volume fraction] 42.9 % Normal 37-47 [facility] Comment on above: Order Comment: LIVER , LIPID FOR DR. ELOINA JONES,CBCD FOR Performed By: #### L 100.0100, L500.4050, L500.4100, L501.4700 #### [facility] [address] [place], [address] Hemoglobin (Bld) [Mass/Vol] 13.9 g/dL Normal 12.0-15.0 [facility] Comment on above: Order Comment: LIVER , LIPID FOR DR. DUVALL CMP,CBCD FOR Performed By: #### L 100.0100, L500.4050, L500.4100, L501.4700 #### [facility] [address] [place], [address] IG% 0.300 Normal 0.0-0.9 [facility] Comment on above: Order Comment: LIVER , LIPID FOR DR. DUVALL CMP,CBCD FOR Result Comment: IG% - Immature Granulocytes (promyelocytes, myelocytes and metamyelocytes) > 1% indicates that a LEFT SHIFT is Present. Performed By: #### L 100.0100, L500.4050, L500.4100, L501.4700 #### [facility] [address] [place], [address] Lymphocytes/100 WBC (Bld) 17.5 % Low 19-41 [facility] Comment on above: Order Comment: LIVER , LIPID FOR DR. DUVALL CMP,CBCD FOR Performed By: #### L 100.0100, L500.4050, L500.4100, L501.4700 #### [facility] [address] [place], [address] MCH (RBC) [Entitic mass] 29.5 pg Normal 27.0-32.0 [facility] Comment on above: Order Comment: LIVER , LIPID FOR DR. DUVALL CMP,CBCD FOR Performed By: #### L 100.0100, L500.4050, L500.4100, L501.4700 #### [facility] [address] [place], [address] MCHC (RBC) [Mass/Vol] 32.4 g/dL Normal 32-36 [facility] Comment on above: Order Comment: LIVER , LIPID FOR DR. DUVALL CMP,CBCD FOR Performed By: #### L 100.0100, L500.4050, L500.4100, L501.4700 #### [facility] [address] [place], [address] MCV (RBC) [Entitic vol] 91.1 fL Normal 81-99 [facility] Comment on above: Order Comment: LIVER , LIPID FOR DR. DUVALL CMP,CBCD FOR Performed By: #### L 100.0100, L500.4050, L500.4100, L501.4700 #### [facility] [address] [place], [address] Monocytes/100 WBC (Bld) 7.8 % Normal 0-10 [facility] Comment on above: Order Comment: LIVER , LIPID FOR DR. DUVALL CMP,CBCD FOR Performed By: #### L 100.0100, L500.4050, L500.4100, L501.4700 #### [facility] [address] [place], [address] Neutrophils/100 WBC (Bld) 71.3 % High 47-70 [facility] Comment on above: Order Comment: LIVER , LIPID FOR DR. DUVALL CMP,CBCD FOR Performed By: #### L 100.0100, L500.4050, L500.4100, L501.4700 #### [facility] [address] [place], [address] Nucleated RBC (Bld) [#/Vol] 0 10*3/uL Normal 0-5 [facility] Comment on above: Order Comment: LIVER , LIPID FOR DR. DUVALL CMP,CBCD FOR Performed By: #### L 100.0100, L500.4050, L500.4100, L501.4700 #### [facility] [address] [place], [address] Platelet mean volume (Bld) [Entitic vol] 9.3 fL Normal 6.2-12.0 [facility] Comment on above: Order Comment: LIVER , LIPID FOR DR. DUVALL CMP,CBCD FOR Performed By: #### L 100.0100, L500.4050, L500.4100, L501.4700 #### [facility] [address] [place], [address] Platelets (Bld) [#/Vol] 239 10*3/uL Normal 150-450 [facility] Comment on above: Order Comment: LIVER , LIPID FOR DR. DUVALL CMP,CBCD FOR Performed By: #### L 100.0100, L500.4050, L500.4100, L501.4700 #### [facility] [address] [place], [address] RBC (Bld) [#/Vol] 4.71 10*6/uL Normal 4.2-5.4 [facility] Comment on above: Order Comment: LIVER , LIPID FOR DR. DUVALL CMP,CBCD FOR Performed By: #### L 100.0100, L500.4050, L500.4100, L501.4700 #### [facility] [address] [place], [address] RDW SD 41.1 fl Normal 35.1-43.9 [facility] Comment on above: Order Comment: LIVER , LIPID FOR DR. DUVALL CMP,CBCD FOR Performed By: #### L 100.0100, L500.4050, L500.4100, L501.4700 #### [facility] [address] [place], [address] WBC (Bld) [#/Vol] 6.6 10*3/uL Normal 4.4-11.0 [facility] Comment on above: Order Comment: LIVER , LIPID FOR DR. DUVALL CMP,CBCD FOR Performed By: #### L 100.0100, L500.4050, L500.4100, L501.4700 #### [facility] [address] [place], [address] Carbon dioxide measurementOr dered By: Loreta Duvall on 10-05-2024 CO2 [Moles/Vol] 27.0 mmol/L 21.0-32.0 [facility] Chloride measurementOrdered By: Loreta Duvall on 10-05-2024 Chloride [Moles/Vol] 106 mmol/L 98-107 [facility] Comprehensive Metabolic Prof ilon 10-05-2024 Albumin [Mass/Vol] 3.5 g/dL Normal 3.2-5.0 [facility] Comment on above: Order Comment: LIVER , LIPID FOR DR. DUVALL CMP,CBCD FOR Performed By: #### L 100.0100, L500.4050, L500.4100, L501.4700 #### [facility] [address] [place], [address] Albumin/Globulin [Mass ratio] 1.0 {ratio} Normal 0.9-2.4 [facility] Comment on above: Order Comment: LIVER , LIPID FOR DR. DUVALL CMP,CBCD FOR Performed By: #### L 100.0100, L500.4050, L500.4100, L501.4700 #### [facility] [address] [place], [address] ALK P 64 U/L Normal 45-117 [facility] Comment on above: Order Comment: LIVER , LIPID FOR DR. DUVALL CMP,CBCD FOR Performed By: #### L 100.0100, L500.4050, L500.4100, L501.4700 #### [facility] [address] [place], [address] ALT [Catalytic activity/Vol] 27 U/L Normal 13-56 [facility] Comment on above: Order Comment: LIVER , LIPID FOR DR. DUVALL CMP,CBCD FOR Performed By: #### L 100.0100, L500.4050, L500.4100, L501.4700 #### [facility] [address] [place], [address] AST [Catalytic activity/Vol] 16 U/L Normal 15-37 [facility] Comment on above: Order Comment: LIVER , LIPID FOR DR. DUVALL CMP,CBCD FOR Performed By: #### L 100.0100, L500.4050, L500.4100, L501.4700 #### [facility] [address] [place], [address] Bilirubin [Mass/Vol] 0.50 mg/dL Normal 0.20-1.00 [facility] Comment on above: Order Comment: LIVER , LIPID FOR DR. DUVALL CMP,CBCD FOR Result Comment: For patients on eltrombopag therapy, use of [place] TBIL is not recommended. Performed By: #### L 100.0100, L500.4050, L500.4100, L501.4700 #### [facility] [address] [place], [address] BUN/CRE 19.4 RATIO Normal 10-20 [facility] Comment on above: Order Comment: LIVER , LIPID FOR DR. ELOINA JONES,CBCD FOR Performed By: #### L 100.0100, L500.4050, L500.4100, L501.4700 #### [facility] [address] [place], [address] CA,Total 9.6 mg/dL Normal 8.5-10.1 [facility] Comment on above: Order Comment: LIVER , LIPID FOR DR. ELOINA JONES,CBCD FOR Performed By: #### L 100.0100, L500.4050, L500.4100, L501.4700 #### [facility] [address] [place], [address] Chloride [Moles/Vol] 106 mmol/L Normal 98-107 [facility] Comment on above: Order Comment: LIVER , LIPID FOR DR. ELOINA JONES,CBCD FOR Performed By: #### L 100.0100, L500.4050, L500.4100, L501.4700 #### [facility] [address] [place], [address] CO2 [Moles/Vol] 27.0 mmol/L Normal 21.0-32.0 [facility] Comment on above: Order Comment: LIVER , LIPID FOR DR. ELOINA JONES,CBCD FOR Performed By: #### L 100.0100, L500.4050, L500.4100, L501.4700 #### [facility] [address] [place], [address] Creatinine [Mass/Vol] 0.62 mg/dL Normal 0.55-1.02 [facility] Comment on above: Order Comment: LIVER , LIPID FOR DR. ELOINA JONES,CBCD FOR Result Comment: The validity of the calculated GFR GFRAA in patients over 70 years has not been determined. Clinical correlation is essential. Performed By: #### L 100.0100, L500.4050, L500.4100, L501.4700 #### [facility] [address] [place], [address] EST GFR - AA 128 mL/min Normal >60 [facility] Comment on above: Order Comment: LIVER , LIPID FOR DR. DUVALL CMP,CBCD FOR Result Comment: Afri can [place] GFR Calc Performed By: #### L 100.0100, L500.4050, L500.4100, L501.4700 #### [facility] [address] [place], [address] GAP 6 Normal 5-15 [facility] Comment on above: Order Comment: LIVER , LIPID FOR DR. DUVALL CMP,CBCD FOR Performed By: #### L 100.0100, L500.4050, L500.4100, L501.4700 #### [facility] [address] [place], [address] GFR/1.73 sq M.predicted among non-blacks MDRD (S/P/Bld) [Vol rate/Area] 105 mL/min/{1.73_m2} Normal >60 [facility] Comment on above: Order Comment: LIVER , LIPID FOR DR. DUVALL CMP,CBCD FOR Result Comment: Non- GFR Calc Performed By: #### L 100.0100, L500.4050, L500.4100, L501.4700 #### [facility] [address] [place], [address] Globulin (S) [Mass/Vol] 3.6 g/dL Normal 2.2-4.2 [facility] Comment on above: Order Comment: LIVER , LIPID FOR DR. DUVALL CMP,CBCD FOR Performed By: #### L 100.0100, L500.4050, L500.4100, L501.4700 #### [facility] [address] [place], [address] Glucose [Mass/Vol] 88 mg/dL Normal 74-106 [facility] Comment on above: Order Comment: LIVER , LIPID FOR DR. ELOINA JONES,CBCD FOR Performed By: #### L 100.0100, L500.4050, L500.4100, L501.4700 #### [facility] [address] [place], [address] Potassium [Moles/Vol] 4.0 mmol/L Normal 3.5-5.1 [facility] Comment on above: Order Comment: LIVER , LIPID FOR DR. ELOINA JONES,CBCD FOR Performed By: #### L 100.0100, L500.4050, L500.4100, L501.4700 #### [facility] [address] [place], [address] Sodium [Moles/Vol] 139 mmol/L Normal 136-145 [facility] Comment on above: Order Comment: LIVER , LIPID FOR DR. DUVALL CMP,CBCD FOR Performed By: #### L 100.0100, L500.4050, L500.4100, L501.4700 #### [facility] [address] [place], [address] T PROT 7.1 g/dL Normal 6.4-8.2 [facility] Comment on above: Order Comment: LIVER , LIPID FOR DR. DUVALL CMP,CBCD FOR Performed By: #### L 100.0100, L500.4050, L500.4100, L501.4700 #### [facility] [address] [place], [address] Urea nitrogen [Mass/Vol] 12 mg/dL Normal 7-18 [facility] Comment on above: Order Comment: LIVER , LIPID FOR DR. DUVALL CMP,CBCD FOR Performed By: #### L 100.0100, L500.4050, L500.4100, L501.2330 #### [facility] [address] [place], [address] Eosinophil percentageOrdered By: Loreta Duvall on 10-05-2024 Eosinophils/100 WBC (Bld) 2.6 % 0-5 [facility] Erythrocyte distribution wid th ratioOrdered By: Loreta Duvall on 10-05-2024 Erythrocyte distribution width (RBC) [Ratio] 12.2 % 11.6-14.6 [facility] Erythrocyte distribution wid th standard deviationOrdered By: Loreta Duvall on 10-05-2024 Erythrocyte distribution width (RBC) [Entitic vol] 41.1 fL 35.1-43.9 [facility] Estimated glomerular filtrat ion rate (GFR) AmericanOrdered By: Loreta Duvall on 10-05-2024 Estimated GFR (MDRD) Amer 128 mL/min >60 [facility] Comment on above: GFR Calc Glomerular filtration rate ( GFR) estimationOrdered By: Loreta Duvall on 10-05-2024 Estimated GFR (MDRD) Non-Af Amer 105 mL/min >60 [facility] Comment on above: Non- GFR Calc Glucose measurementOrdered B y: Loreta Duvall on 10-05-2024 Glucose [Mass/Vol] 88 mg/dL 74-106 [facility] Hematocrit Auto (Bld) [Volum e fraction]Ordered By: Loreta Duvall 10-05-2024 Hematocrit (Bld) [Volume fraction] 42.9 % 37-47 [facility] Hemoglobin measurementOrdere d By: Loreta Duvall 10-05-2024 Hemoglobin (Bld) [Mass/Vol] 13.9 g/dL 12.0-15.0 [facility] High density lipoprotein (HD L) measurementOrdered By: Loreta Duvall 10-05-2024 Cholesterol in HDL [Mass/Vol] 54 mg/dL >40 [facility] Comment on above: The drugs N-Acetylcy steine and Metamizole may falsely depress this assay. Reference Range HDL <40 mg/dL Low HDL Cholesterol HDL >or= 60 mg/dL High HDL Cholesterol Immature granulocytes/100 WB C Auto (Bld)Ordered By: Loreta Duvall on 10-05-2024 Immature granulocytes/100 WBC (Bld) 0.300 % 0.0-0.9 [facility] Comment on above: IG% - Immature Granu locytes (promyelocytes, myelocytes and metamyelocytes) > 1% indicates that a LEFT SHIFT is Present. Laboratory - Chemistry and C hemistry - challengeOrdered By: Loreta Duvall on 10-05-2024 AST [Catalytic activity/Vol] 16 U/L 15-37 [facility] Lipid Profileon 10-05-2024 Cholesterol [Mass/Vol] 117 mg/dL Normal 200 [facility] Comment on above: Order Comment: LIVER , LIPID FOR DR. DUVALL CMP,CBCD FOR Result Comment: <200 mg/dL Desirable 200-240 mg/dL Borderline >240 mg/dL High Risk Performed By: #### L 100.0100, L500.4050, L500.4100, L501.4700 #### [facility] [address] [place], [address] Cholesterol in HDL [Mass/Vol] 54 mg/dL Normal [facility] Comment on above: Order Comment: LIVER , LIPID FOR DR. DUVALL CMP,CBCD FOR Result Comment: The drugs N-Acetylcysteine and Metamizole may falsely depress this assay. Reference Range HDL <40 mg/dL Low HDL Cholesterol HDL >or= 60 mg/dL High HDL Cholesterol Performed By: #### L 100.0100, L500.4050, L500.4100, L501.4700 #### [facility] [address] [place], [address] Cholesterol in LDL [Mass/Vol] 50 mg/dL Normal 0-130 [facility] Comment on above: Order Comment: LIVER , LIPID FOR DR. DUVALL CMP,CBCD FOR Performed By: #### L 100.0100, L500.4050, L500.4100, L501.4700 #### [facility] [address] [place], [address] Cholesterol in VLDL [Mass/Vol] 13 mg/dL Normal 5-40 [facility] Comment on above: Order Comment: LIVER , LIPID FOR DR. DUVALL CMP,CBCD FOR Performed By: #### L 100.0100, L500.4050, L500.4100, L501.4700 #### [facility] [address] [place], [address] Triglyceride [Mass/Vol] 67 mg/dL Normal [facility] Comment on above: Order Comment: LIVER , LIPID FOR DR. DUVALL CMP,CBCD FOR Result Comment: The drugs N-Acetylcysteine and Metamizole may falsely depress this assay. Serum Triglycerides Reference Interval Normal <150 mg/dL Borderline high 150 - 199 mg/dL High 200 - 499 mg/dL Very High > or = 500 mg/dL Performed By: #### L 100.0100, L500.4050, L500.4100, L501.4700 #### [facility] [address] [place], [address] Low density lipoprotein (LDL ) cholesterol measurementOrdered By: Loreta Duvall on 10-05-2024 Cholesterol in LDL [Mass/Vol] 50 mg/dL 0-130 [facility] Lymphocytes Auto (Unsp spec) [#/Vol]Ordered By: Loreta Duvall on 10-05-2024 Lymphocytes (Bld) [#/Vol] 1.15 10*3/uL 0.83-4.51 [facility] Lymphocytes/100 WBC Auto (Un sp spec)Ordered By: Loreta Duvall on 10-05-2024 Lymphocytes/100 WBC (Bld) 17.5 % Low 19-41 [facility] MCV (mean corpuscular volume ) determinationOrdered By: Loreta Duvall on 10-05-2024 MCV (RBC) [Entitic vol] 91.1 fL 81-99 [facility] Mean corpuscular hemoglobin (MCH) determinationOrdered By: Loreta Duvall on 10-05-2024 MCH (RBC) [Entitic mass] 29.5 pg 27.0-32.0 [facility] Mean corpuscular hemoglobin concentration (MCHC) determinationOrdered By: Loreta Duvall on 10-05-2024 MCHC (RBC) [Mass/Vol] 32.4 g/dL 32-36 [facility] Mean platelet volume determi nationOrdered By: Loreta Duvall on 10-05-2024 Platelet mean volume (Bld) [Entitic vol] 9.3 fL 6.2-12.0 [facility] Monocyte percentageOrdered B y: Loreta Duvall on 10-05-2024 Monocytes/100 WBC (Bld) 7.8 % 0-10 [facility] Neutrophil percentageOrdered By: Loreta Duvall on 10-05-2024 Neutrophils/100 WBC (Bld) 71.3 % High 47-70 [facility] Nucleated red blood cell per centageOrdered By: Loreta Duvall on 10-05-2024 Nucleated RBC/100 WBC (Bld) [Ratio] 0 % 0-5 [facility] Platelet countOrdered By: Jossue Duvall on 10-05-2024 Platelets (Bld) [#/Vol] 239 10*3/uL 150-450 [facility] Potassium measurementOrdered By: Loreta Duvall on 10-05-2024 Potassium [Moles/Vol] 4.0 mmol/L 3.5-5.1 [facility] RBC Auto (Bld) [#/Vol]Ordere d By: Loreta Duvall on 10-05-2024 RBC (Bld) [#/Vol] 4.71 10*6/uL 4.2-5.4 [facility] Serum anion gap measurementO rdered By: Loreta Duvall on 10-05-2024 Anion gap [Moles/Vol] 6 mmol/L 5-15 [facility] Serum globulin measurementOr dered By: Loreta Duvall on 10-05-2024 Globulin (S) [Mass/Vol] 3.6 g/dL 2.2-4.2 [facility] Serum or plasma alanine heard otransferase (ALT) measurementOrdered By: Loreta Duvall on 10-05-2024 ALT [Catalytic activity/Vol] 27 U/L 13-56 [facility] Serum or plasma albumin jose urement (mass/volume)Ordered By: Loreta Duvall on 10-05-2024 Albumin [Mass/Vol] 3.5 g/dL 3.2-5.0 [facility] Serum or plasma alkaline juan alberto sphatase measurementOrdered By: Loreta Duvall on 10-05-2024 ALP [Catalytic activity/Vol] 64 U/L 45-117 [facility] Serum or plasma calcium jose urement (mass/volume)Ordered By: Loreta Duvall on 10-05-2024 Calcium [Mass/Vol] 9.6 mg/dL 8.5-10.1 [facility] Serum or plasma cholesterol measurement (mass/volume)Ordered By: Loreta Duvall on 10-05-2024 Cholesterol [Mass/Vol] 117 mg/dL <200 [facility] Comment on above: <200 mg/dL Desirable 200-240 mg/dL Borderline >240 mg/dL High Risk Serum or plasma creatinine m easurement (mass/volume)Ordered By: Loreta Duvall on 10-05-2024 Creatinine [Mass/Vol] 0.62 mg/dL 0.55-1.02 [facility] Comment on above: The validity of the calculated GFR & GFRAA in patients over 70 years has not been determined. Clinical correlation is essential. Serum or plasma urea nitroge n measurement (mass/volume)Ordered By: Loreta Duvall on 10-05-2024 Urea nitrogen [Mass/Vol] 12 mg/dL 7-18 [facility] Sodium levelOrdered By: Roc Duvall on 10-05-2024 Sodium [Moles/Vol] 139 mmol/L 136-145 [facility] Total proteinOrdered By: Michelle Duvall on 10-05-2024 Protein [Mass/Vol] 7.1 g/dL 6.4-8.2 [facility] Triglycerides measurementOrd ered By: Loreta Duvall on 10-05-2024 Triglyceride [Mass/Vol] 67 mg/dL <199 [facility] Comment on above: The drugs N-Acetylcy steine and Metamizole may falsely depress this assay.Serum Triglycerides Reference Interval Normal <150 mg/dL Borderline high 150 - 199 mg/dL High 200 - 499 mg/dL Very High > or = 500 mg/dL Very low density lipoprotein (VLDL) cholesterol measurementOrdered By: Loreta Duvall on 10-05-2024 VLDL Cholesterol 13 mg/dL 5-40 [facility] White blood cell (WBC) count Ordered By: Loreta Duvall on 10-05-2024 WBC (Bld) [#/Vol] 6.6 10*3/uL 4.4-11.0 [facility] 3D MAMM BILAT SCREENon 09-07 3D MAMM BILAT SCREEN [place] [address] Patient: GENNY AZUL Phone#: : [phone] Age: 59 Gender: F Pt. Type: Out Account: [id number] Location: [facility] Ordering: CARA GARZA Exam Date: 09/07/2024/8:48 Family Phys: Charge Code: 685205 Physician: Jackson Order #: [id number] Dose#: PROCEDURE: BILATERAL SCREENING BREAST TOMOSYNTHESIS MAMMOGRAM WITH CAD COMPARISON: [facility], 3D BILAT SCREEN, 08/19/2023, 9:25. [facility], 3D BILAT SCREEN, 07/07/2022, 14:49. INDICATIONS: Screening. BREAST COMPOSITION: Scattered areas fibroglandular density. FINDINGS: DIAGNOSTIC CATEGORY 1--NEGATIVE NO CHANGE FROM COMPARISON ASSESSMENT. RIGHT BREAST: No significant suspicious finding. No significant change has occurred. LEFT BREAST: No significant suspicious finding. No significant change has occurred. RECOMMENDATIONS: ROUTINE MAMMOGRAM AND CLINICAL EVALUATION IN 12 MONTHS. PLEASE NOTE: A NORMAL MAMMOGRAM DOES NOT EXCLUDE THE POSSIBILITY OF BREAST CANCER. A CLINICALLY SUSPICIOUS PALPABLE LUMP SHOULD BE BIOPSIED. THIS FACILITY UTILIZES A REMINDER SYSTEM TO ENSURE THAT ALL PATIENTS RECEIVE REMINDER LETTERS FOR APPOINTMENTS. THIS INCLUDES REMINDERS FOR ROUTINE MAMMOGRAMS, DIAGNOSITC MAMMOGRAMS, OR OTHER BREAST IMAGING INTERVENTIONS WHEN APPROPRIATE. THIS PATIENT WILL BE PLACED IN THE APPROPRIATE REMINDER SYSTEM. Dictated by: Justyna Medel MD on 09/07/2024 at 14:07 Approved by: Justyna Medel MD on 09/07/2024 at 14:09 [facility] - Microbiology an d Antimicrobial susceptibilityon 07-20-2024 FLUAV Ag IA Ql (Throat) Negative Normal [facility].; [facility] Er SARS-CoV-2 (COVID-19) RNA FRANCES+probe Ql (Unsp spec) Negative Normal [facility].; [facility]. Basophil percentageOrdered B y: Loreta Duvall on 11-04-2023 Bilirubin [Mass/Vol] 0.50 mg/dL 0.20-1.00 [facility] Comment on above: For patients on eltr ombopag therapy, use of [place] TBIL is not recommended. Chloride [Moles/Vol] 105 mmol/L 98-107 [facility] Glucose [Mass/Vol] 81 mg/dL 74-106 [facility] Potassium [Moles/Vol] 4.3 mmol/L 3.5-5.1 [facility] Protein [Mass/Vol] 7.0 g/dL 6.4-8.2 [facility] Sodium [Moles/Vol] 138 mmol/L 136-145 [facility] Basophil percentageOrdered B y: Taj Lang on 11-04-2023 Cholesterol [Mass/Vol] 122 mg/dL <200 [facility] Comment on above: <200 mg/dL Desirable 200-240 mg/dL Borderline >240 mg/dL High Risk Triglyceride [Mass/Vol] 76 mg/dL <199 [facility] Comment on above: The drugs N-Acetylcy steine and Metamizole may falsely depress this assay.Serum Triglycerides Reference Interval Normal <150 mg/dL Borderline high 150 - 199 mg/dL High 200 - 499 mg/dL Very High > or = 500 mg/dL Laboratory - Chemistry and C hemistry - challengeOrdered By: Loreta Duvall on 11-04-2023 Albumin/Globulin [Mass ratio] 1.0 {ratio} 0.9-2.4 [facility] ALP [Catalytic activity/Vol] 60 U/L 45-117 [facility] ALT [Catalytic activity/Vol] 27 U/L 13-56 [facility] CO2 [Moles/Vol] 28.0 mmol/L 21.0-32.0 [facility] Globulin (S) [Mass/Vol] 3.5 g/dL 2.2-4.2 [facility] Magnesium [Mass/Vol] 2.4 mg/dL 1.6-2.6 [facility] Urea nitrogen/Creatinine [Mass ratio] 26.5 mg/mg 10-20 [facility] - Chemistry and C hemistry - challengeOrdered By: Taj Lang on 11-04-2023 Cholesterol in HDL [Mass/Vol] 54 mg/dL >40 [facility] Comment on above: The drugs N-Acetylcy steine and Metamizole may falsely depress this assay. Reference Range HDL <40 mg/dL Low HDL Cholesterol HDL >or= 60 mg/dL High HDL Cholesterol Cholesterol in LDL [Mass/Vol] 53 mg/dL 0-130 [facility] No Panel InformationOrdered By: Loreta Duvall on 11-04-2023 Estimated GFR (MDRD) Amer 142 mL/min >60 [facility] Comment on above: GFR Calc Estimated GFR (MDRD) Non-Af Amer 117 mL/min >60 [facility] Comment on above: Non- GFR Calc No Panel InformationOrdered By: Taj Lang on 11-04-2023 VLDL Cholesterol 15 mg/dL 5-40 [facility] Serum or plasma calcium jose urement (mass/volume)Ordered By: Loreta Duvall on 11-04-2023 Calcium [Mass/Vol] 9.3 mg/dL 8.5-10.1 [facility] Serum or plasma creatinine m easurement (mass/volume)Ordered By: Loreta Duvall on 11-04-2023 Creatinine [Mass/Vol] 0.57 mg/dL 0.55-1.02 [facility] Comment on above: The validity of the calculated GFR & GFRAA in patients over 70 years has not been determined. Clinical correlation is essential. Serum or plasma urea nitroge n measurement (mass/volume)Ordered By: Loreta Duvall on 11-04-2023 Urea nitrogen [Mass/Vol] 15 mg/dL 7-18 [facility] Thin prep Papanicolaou smear with manual screeningOrdered By: Loreta Duvall on 11-04-2023 Thin prep Papanicolaou smear with manual screening 3.5 g/dL 3.2-5.0 [facility] Thin prep Papanicolaou smear with manual screening 23 U/L 15-37 [facility] Thin prep Papanicolaou smear with manual screening 5 5-15 [facility] THINPREP PAP AND HPV mRNA E6 /E7on 06-22-2023 CLINICAL INFORMATION: Normal [facility] Comment on above: Result Comment: CX B ROOM ONLY Performed By: #### 9 0931 #### [facility] [address], [address] [place] [address] Final Finisher: Shaquille Lawrence MD COMMENT Normal [facility] Comment on above: Result Comment: EXPL ANATORY NOTE: The Pap is a screening test for cervical cancer. It is not a diagnostic test and is subject to false negative and false positive results. It is most reliable when a satisfactory sample, regularly obtained, is submitted with relevant clinical findings and history, and when the Pap result is evaluated along with historic and current clinical information. EFFECTIVE JULY 11, 2023, the version of ThinPrep you ordered, commonly known as manual ThinPrep, will be DISCONTINUED. An alternative form of ThinPrep, called ThinPrep Imaging, will continue to be available. For a copy of the client communication (TIS Client Letter) showing TIS test codes, see [email or web address], and navigate to [facility]>Physician Materials>TIS Client Letter. You can also call for test code assistance. Performed By: #### 9 0931 #### [facility] [address], [address] [place] [address] Final Finisher: Shaquille Lawrence MD COMMENT: Normal [facility] Comment on above: Result Comment: Para basal cells in smears that lack maturation due to atrophy or other hormonal reasons cannot be differentiated from transformation zone cells. Accordingly, presence or absence of endocervical or transformation zone components cannot be reported in this patient. Performed By: #### 9 0931 #### [facility] [address], [address] [place] [address] Final Finisher: Shaquille Lawrence MD GRANULATOR TENDER: Normal [facility] Comment on above: Result Comment: MRS, CT(ASCP) CT screening location: [place] [address]. Performed By: #### 9 0931 #### [facility] of [place] [address] Final Finisher: Shaquille Lawrence MD HPV mRNA E6/E7 Not detected Normal Not Detected [facility] Comment on above: Result Comment: Meth odology: Fur Cutting Machine Operator-Mediated Amplification This assay detects E6/E7 viral messenger RNA (mRNA) from 14 high-risk HPV types (16,18,31,33,35,39,45,51,52,56,58,59,66,68). Cervical sources are required for HPV testing. If a vaginal source from a patient who has had a total hysterectomy with removal of cervix was submitted, please contact the testing laboratory for alternative testing options. For additional information, please refer to http://education.Aiming/faq/HHB127y5 (This link if provided for information/ educational purposes only.) Performed By: #### 9 0931 #### [facility] [place] [address] Final Finisher: Shaquille Lawrence MD INTERPRETATION/RESULT: [facility] Comment on above: Result Comment: Cyto logy Results: Negative for intraepithelial lesion or malignancy. Atrophic pattern; predominantly parabasal cells Performed By: #### 9 0931 #### [facility] [place] [address] Final Finisher: Shaquille Lawrence MD LMP: Normal [facility] Comment on above: Result Comment: None given Performed By: #### 9 0931 #### [facility] [place] [address] Final Finisher: Shaquille Lawrence MD PREV. BX: Normal [facility] Comment on above: Result Comment: NEG Performed By: #### 9 0931 #### [facility] [place] [address] Final Finisher: Shaquille Lawrence MD PREV. PAP: Normal [facility] Comment on above: Result Comment: 2017 NORMAL Performed By: #### 9 0931 #### [facility] of [address], [address] [place] [address] Final Finisher: Shaquille Lawrence MD REVIEW GRANULATOR TENDER: Normal [facility] Comment on above: Result Comment: MLH, CT(ASCP) CT screening location: [place] [address]. Performed By: #### 9 0931 #### [facility] of [address], [address] [place] [address] Final Finisher: Shaquille Lawrence MD SOURCE: Normal [facility] Comment on above: Result Comment: Endo cervix Performed By: #### 9 0931 #### [facility] of [address], [address] [place] [address] Final Finisher: Shaquille Lawrence MD STATEMENT OF ADEQUACY: Normal [facility] Comment on above: Result Comment: SATI SFACTORY FOR EVALUATION Partially obscuring inflammation Performed By: #### 9 0931 #### [facility] of [address], [address] [place] [address] Final Finisher: Shaquille Lawrence MD No Panel Informationon 06-20 [id number] SEE NOTE Normal [email or web address] CLINICAL INFORMATION: SEE NOTE Normal [facility] [employer] COMMENT: SEE NOTE Normal [employer] GRANULATOR TENDER: SEE NOTE Normal [employer] HPV mRNA E6/E7 Not detected Normal [employer] INTERPRETATION/RESULT: SEE NOTE Normal [facility] [employer] LMP: SEE NOTE Normal [employer] PREV. BX: SEE NOTE Normal [employer] PREV. PAP: SEE NOTE Normal [email or web address] REVIEW GRANULATOR TENDER: SEE NOTE Normal [facility]. SOURCE: SEE NOTE Normal [facility].; [facility]. STATEMENT OF ADEQUACY: SEE NOTE Normal [facility] [employer] [facility], [facility]. Absolute lymphocyte countOrd ered By: Taj Lang on 04-04-2023 Lymphocytes Auto (Unsp spec) [#/Vol] 1.26 10*3/uL 0.83-4.51 [facility] Basophil percentageOrdered B y: Taj Lang on 04-04-2023 Basophils/100 WBC (Bld) 0.4 % 0-1 [facility] Chloride [Moles/Vol] 103 mmol/L 98-107 [facility] Eosinophils/100 WBC (Bld) 3.0 % 0-5 [facility] Glucose [Mass/Vol] 92 mg/dL 74-106 [facility] Neutrophils (Bld) [#/Vol] 3.3 10*3/uL 2.0-7.7 [facility] Neutrophils/100 WBC (Bld) 62.0 % 47-70 [facility] Potassium [Moles/Vol] 4.0 mmol/L 3.5-5.1 [facility] Sodium [Moles/Vol] 136 mmol/L 136-145 [facility] WBC (Bld) [#/Vol] 5.3 10*3/uL 4.4-11.0 [facility] Blood erythrocytes count (nu mber/volume)Ordered By: Taj Lang on 04-04-2023 RBC (Bld) [#/Vol] 4.75 10*6/uL 4.2-5.4 [facility] Blood hemoglobin measurement (mass/volume)Ordered By: Taj Lang on 04-04-2023 Hemoglobin (Bld) [Mass/Vol] 14.6 g/dL 12.0-15.0 [facility] Blood lymphocytes/100 leukoc ytesOrdered By: Taj Lang on 04-04-2023 Lymphocytes/100 WBC (Bld) 23.8 % 19-41 [facility] Blood monocytes/100 leukocyt esOrdered By: Taj Lang on 04-04-2023 Monocytes/100 WBC (Bld) 10.4 % 0-10 [facility] Blood platelet mean volumeOr dered By: Taj Lang on 04-04-2023 Platelet mean volume (Bld) [Entitic vol] 9.5 fL 6.2-12.0 [facility] Determination of erythrocyte mean corpuscular volume (MCV)Ordered By: Taj Lang on 04-04-2023 MCV (RBC) [Entitic vol] 94.1 fL 81-99 [facility] Hematocrit Auto (Bld) [Volum e fraction]Ordered By: Taj Lang on 04-04-2023 Hematocrit (Bld) [Volume fraction] 44.7 % 37-47 [facility] - Chemistry and C hemistry - challengeOrdered By: Taj Lang on 04-04-2023 CO2 [Moles/Vol] 29.0 mmol/L 21.0-32.0 [facility] Free T4 [Mass/Vol] 1.05 ng/dL 0.76-1.46 [facility] Natriuretic peptide B (Bld) [Mass/Vol] 26.7 pg/mL 0-100 [facility] Urea nitrogen/Creatinine [Mass ratio] 24.5 mg/mg 10-20 [facility] - Hematology and Cell countsOrdered By: Taj Lang on 04-04-2023 Erythrocyte distribution width (RBC) [Entitic vol] 42.8 fL 35.1-43.9 [facility] Erythrocyte distribution width (RBC) [Ratio] 12.3 % 11.6-14.6 [facility] Immature granulocytes/100 WBC (Bld) 0.400 % 0.0-0.9 [facility] Comment on above: IG% - Immature Granu locytes (promyelocytes, myelocytes and metamyelocytes) > 1% indicates that a LEFT SHIFT is Present. MCH (RBC) [Entitic mass] 30.7 pg 27.0-32.0 [facility] Nucleated RBC/100 WBC (Bld) [Ratio] 0 % 0-5 [facility] MCHC Auto (RBC) [Mass/Vol]Or dered By: Taj Lang on 04-04-2023 MCHC (RBC) [Mass/Vol] 32.7 g/dL 32-36 [facility] No Panel InformationOrdered By: Taj Lang on 04-04-2023 Estimated GFR (MDRD) Amer 120 mL/min >60 [facility] Comment on above: GFR Calc Estimated GFR (MDRD) Non-Af Amer 99 mL/min >60 [facility] Comment on above: Non- GFR Calc Thyroid Stimulating Hormone (TSH) 2.62 uIU/mL 0.358-3.74 [facility] Platelets bldOrdered By: Delvis Lang on 04-04-2023 Platelets (Bld) [#/Vol] 214 10*3/uL 150-450 [facility] Serum or plasma calcium jose urement (mass/volume)Ordered By: Taj Lang on 04-04-2023 Calcium [Mass/Vol] 9.4 mg/dL 8.5-10.1 [facility] Serum or plasma creatinine m easurement (mass/volume)Ordered By: Taj Lang on 04-04-2023 Creatinine [Mass/Vol] 0.65 mg/dL 0.55-1.02 [facility] Comment on above: The validity of the calculated GFR & GFRAA in patients over 70 years has not been determined. Clinical correlation is essential. Serum or plasma urea nitroge n measurement (mass/volume)Ordered By: Taj Lang on 04-04-2023 Urea nitrogen [Mass/Vol] 16 mg/dL 7-18 [facility] Thin prep Papanicolaou smear with manual screeningOrdered By: Taj Lang on 04-04-2023 Thin prep Papanicolaou smear with manual screening 4 5-15 [facility] Basophil percentageOrdered B y: Luisa Smith on 03-08-2023 Basophil percentage < 0.9 mg/dL 0.55-1.02 [facility] No Panel InformationOrdered By: Luisa Smith on 03-08-2023 Bedside Estimated GFR (eGFR) > 60.0000 mL/min >60 [facility] Absolute lymphocyte counton 05-27-2022 Lymphocytes Auto (Unsp spec) [#/Vol] 1.00 10*3/uL 0.83-4.51 [facility] Work Phone: Albumin Elph [Mass/Vol]on Albumin [Mass/Vol] 3.6 g/dL 2.9-4.4 [facility] Work Phone: Basophil percentageon 2021 Amylase [Catalytic activity/Vol] 47 U/L 25-115 [facility] Work Phone: Basophils/100 WBC (Bld) 0.6 % 0-1 [facility] Work Phone: Bilirubin [Mass/Vol] 0.40 mg/dL 0.20-1.00 [facility] Work Phone: Comment on above: For patients on eltr ombopag therapy, use of [place] TBIL is not recommended. Chloride [Moles/Vol] 103 mmol/L 98-107 [facility] Work Phone: Eosinophils/100 WBC (Bld) 3.3 % 0-5 [facility] Work Phone: Glucose [Mass/Vol] 86 mg/dL 74-106 [facility] Work Phone: Neutrophils (Bld) [#/Vol] 4.4 10*3/uL 2.0-7.7 [facility] Work Phone: Neutrophils/100 WBC (Bld) 69.3 % 47-70 [facility] Work Phone: Potassium [Moles/Vol] 4.3 mmol/L 3.5-5.1 [facility] Work Phone: Protein [Mass/Vol] 7.1 g/dL 6.4-8.2 [facility] Work Phone: Sodium [Moles/Vol] 137 mmol/L 136-145 [facility] Work Phone: WBC (Bld) [#/Vol] 6.4 10*3/uL 4.4-11.0 [facility] Work Phone: Blood erythrocytes count (nu mber/volume)on 05-27-2022 RBC (Bld) [#/Vol] 4.55 10*6/uL 4.2-5.4 [facility] Work Phone: Blood hemoglobin measurement (mass/volume)on 05-27-2022 Hemoglobin (Bld) [Mass/Vol] 14.0 g/dL 12.0-15.0 [facility] Work Phone: Blood lymphocytes/100 leukoc yteson 05-27-2022 Lymphocytes/100 WBC (Bld) 15.7 % 19-41 [facility] Work Phone: [phone] Blood monocytes/100 leukocyt eson 05-27-2022 Monocytes/100 WBC (Bld) 10.8 % 0-10 [facility] Work Phone: Blood platelet mean volumeon 05-27-2022 Platelet mean volume (Bld) [Entitic vol] 9.8 fL 6.2-12.0 [facility] Work Phone: Determination of erythrocyte mean corpuscular volume (MCV)on 05-27-2022 MCV (RBC) [Entitic vol] 94.5 fL 81-99 [facility] Work Phone: Erythrocyte sedimentation ra xiao 05-27-2022 ESR (Bld) [Velocity] 6 mm/h 0-30 [facility] Work Phone: Hematocrit Auto (Bld) [Volum e fraction]on 05-27-2022 Hematocrit (Bld) [Volume fraction] 43.0 % 37-47 [facility] Work Phone: Interpretation of serum or p lasma protein pattern by immunofixation (narrative resulton 05-27-2022 Protein Fractions Immunofixation Toni [Interp] See comment [facility] Work Phone: Comment on above: Result: Not Observed Laboratory - Chemistry and C hemistry - challengeon 05-27-2022 ALP [Catalytic activity/Vol] 59 U/L 45-117 [facility] Work Phone: ALT [Catalytic activity/Vol] 32 U/L 13-56 [facility] Work Phone: [phone] CO2 [Moles/Vol] 28.0 mmol/L 21.0-32.0 [facility] Work Phone: Globulin (S) [Mass/Vol] 3.7 g/dL 2.2-4.2 [facility] Work Phone: [phone] Lipase [Catalytic activity/Vol] 145 U/L 73-393 [facility] Work Phone: [phone] Urea nitrogen/Creatinine [Mass ratio] 23.5 mg/mg 10-20 [facility] Work Phone: [phone] Laboratory - Hematology and Cell countson 05-27-2022 Erythrocyte distribution width (RBC) [Entitic vol] 43.3 fL 35.1-43.9 [facility] Work Phone: [phone] Erythrocyte distribution width (RBC) [Ratio] 12.5 % 11.6-14.6 [facility] Work Phone: [phone] Immature granulocytes/100 WBC (Bld) 0.300 % 0.0-0.9 [facility] Work Phone: [phone] Comment on above: IG% - Immature Granu locytes (promyelocytes, myelocytes and metamyelocytes) > 1% indicates that a LEFT SHIFT is Present. MCH (RBC) [Entitic mass] 30.8 pg 27.0-32.0 [facility] Work Phone: [phone] Nucleated RBC/100 WBC (Bld) [Ratio] 0 % 0-5 [facility] Work Phone: [phone] MCHC Auto (RBC) [Mass/Vol]on 05-27-2022 MCHC (RBC) [Mass/Vol] 32.6 g/dL 32-36 [facility] Work Phone: [phone] Panel Informationon 05-27 Addendum Document Comment . [facility] Work Phone: [phone] Comment on above: Protein electrophore sis scan will follow via computer,mail, or link trainer teacher delivery. Estimated GFR (MDRD) Amer 134 mL/min >60 [facility] Work Phone: [phone] Comment on above: GFR Calc Estimated GFR (MDRD) Non-Af Amer 111 mL/min >60 [facility] Work Phone: [phone] Comment on above: Non- GFR Calc Immunoglobulin E 1320 IU/mL 6-495 [facility] Work Phone: Platelets bldon 05-27-2022 Platelets (Bld) [#/Vol] 234 10*3/uL 150-450 [facility] Work Phone: Serum [id number] measu rement by electrophoresison 05-27-2022 Alpha 1 globulin Elph [Mass/Vol] 0.3 g/dL 0.0-0.4 [facility] Work Phone: [phone] 1 globulin Elph [Mass/Vol] 0.8 g/dL 0.4-1.0 [facility] Work Phone: [phone] Serum globulin measurement ( mass/volume)on 05-27-2022 Globulin (S) [Mass/Vol] 3.1 g/dL 2.2-3.9 [facility] Work Phone: Serum mitochondria antibody detectionon 05-27-2022 Mitochondria Ab Ql (S) <20.0 Units 0.0-20.0 [facility] Work Phone: Comment on above: Negative 0.0 - 20.0 Equivocal 20.1 - 24.9 Positive >24.9Mitochondrial (M2) Antibodies are found in 90-96% ofpatients with primary biliary cirrhosis.Performed at: [address] [id number] Director: Abraham Breen PhD, Phone: [phone] Serum or plasma C reactive p rotein measurement (mass/volume)on 05-27-2022 CRP [Mass/Vol] mg/L 0.0-3.0 [facility] Work Phone: Comment on above: C-Reactive Protein ( CRP) provides useful information for thediagnosis, therapy and monitoring of inflammatory processesand associated diseases. For the evaluation of Relative Riskfor Cardiovascular Disease, a High Sensitivity CRP (HSCRP)should be ordered. Serum or plasma IgA measurem ent (mass/volume)on 05-27-2022 IgA [Mass/Vol] 164 mg/dL 87-352 [facility] Work Phone: Serum or plasma IgG measurem ent (mass/volume)on 05-27-2022 IgG [Mass/Vol] 1078 mg/dL 586-1602 [facility] Work Phone: [phone] Serum or plasma IgM measurem ent (mass/volume)on 05-27-2022 IgM [Mass/Vol] 34 mg/dL 26-217 [facility] Work Phone: [phone] Serum or plasma actin IgG an tibody assay (units/volume)on 05-27-2022 Actin IgG Qn 6 Units 0-19 [facility] Work Phone: [phone] Comment on above: Negative 0 - 19 Weak positive 20 - 30 Moderate to strong positive >30 Actin Antibodies are found in 52-85% of patients with autoimmune hepatitis or chronic active hepatitis and in 22% of patients with primary biliary cirrhosis.Performed at: [facility] [address] [id number] Director: Abraham Breen PhD, Phone: [phone] at: [facility] [address] [id number] Director: Sadia Morales MD, Phone: [phone] Serum or plasma albumin jose urement (mass/volume)on 05-27-2022 Albumin [Mass/Vol] 3.4 g/dL 3.2-5.0 [facility] Work Phone: [phone] Serum or plasma albumin/glob ulin mass ratioon 05-27-2022 Albumin/Globulin [Mass ratio] 0.9 {ratio} 0.9-2.4 [facility] Work Phone: [phone] Serum or plasma beta globuli n measurement by electrophoresis (mass/volume)on 05-27-2022 Beta globulin Elph [Mass/Vol] 1.0 g/dL 0.7-1.3 [facility] Work Phone: [phone] Serum or plasma calcium jose urement (mass/volume)on 05-27-2022 Calcium [Mass/Vol] 9.2 mg/dL 8.5-10.1 [facility] Work Phone: [phone] Serum or plasma creatinine m easurement (mass/volume)on 05-27-2022 Creatinine [Mass/Vol] 0.60 mg/dL 0.55-1.02 [facility] Work Phone: Comment on above: The validity of the calculated GFR & GFRAA in patients over 70 years has not been determined. Clinical correlation is essential. Serum or plasma gamma globul in measurement by electrophoresis (mass/volume)on 05-27-2022 Gamma globulin Elph [Mass/Vol] 1.1 g/dL 0.4-1.8 [facility] Work Phone: [phone] Serum or plasma immunoelectr ophoresis interpretation (nominal result)on 05-27-2022 Interpretation IEP [Interp] Comment . [facility] Work Phone: Comment on above: No monoclonality det ected. Serum or plasma urea nitroge n measurement (mass/volume)on 05-27-2022 Urea nitrogen [Mass/Vol] 14 mg/dL 7-18 [facility] Work Phone: Thin prep Papanicolaou smear with manual screeningon 05-27-2022 Thin prep Papanicolaou smear with manual screening 26 U/L 15-37 [facility] Work Phone: [phone] Thin prep Papanicolaou smear with manual screening 6 5-15 [facility] Work Phone: [phone] Thin prep Papanicolaou smear with manual screening 1.2 0.7-1.7 [facility] Work Phone: [phone] Total protein bloodon 2021 Protein [Mass/Vol] 6.7 g/dL 6.0-8.5 [facility] Work Phone: [phone] Panel Informationon 04-11 Stool Neutral Fats Normal . [facility] Work Phone: [phone] Comment on above: Normal (<60 Droplets /HPF) Stool Pancreatic Elastase 128 >200 [facility] Work Phone: [phone] Comment on above: Result Units: ug [address] st./g Severe Pancreatic Insufficiency: <100 Moderate Pancreatic Insufficiency: 100 - 200 Normal: >200Performed at: - [address] [id number] Director: Sadia Morales MD, Phone: [phone] Qualitative fecal fat or lip idson 04-11-2022 Fat Ql (Stl) Normal . [facility] Work Phone: Comment on above: Normal (<100 Droplet s/HPF)Performed at: - [address] [id number] Director: Abraham Breen PhD, Phone: [phone] Absolute lymphocyte counton 04-01-2022 Lymphocytes Auto (Unsp spec) [#/Vol] 0.82 10*3/uL 0.83-4.51 [facility] Work Phone: [phone] Albumin Elph [Mass/Vol]on Albumin [Mass/Vol] 3.7 g/dL 2.9-4.4 [facility] Work Phone: [phone] Atypical perinuclear antineu trophil cytoplasmic antibodies measurementon 04-01-2022 Neutrophil cytoplasmic Ab.perinuclear.atypica l IF (S) [Titer] <1:20 titer Neg:<1:20 [facility] Work Phone: Comment on above: The atypical pANCA p attern has been observed in asignificant percentage of patients with ulcerative colitis,primary sclerosing cholangitis and autoimmune hepatitis. Basophil percentageon 2021 Amylase [Catalytic activity/Vol] 44 U/L 25-115 [facility] Work Phone: Basophils/100 WBC (Bld) 0.7 % 0-1 [facility] Work Phone: [phone] Bilirubin [Mass/Vol] 0.40 mg/dL 0.20-1.00 [facility] Work Phone: Comment on above: For patients on eltr ombopag therapy, use of [place] TBIL is not recommended. Chloride [Moles/Vol] 104 mmol/L 98-107 [facility] Work Phone: Eosinophils/100 WBC (Bld) 6.9 % 0-5 [facility] Work Phone: Glucose [Mass/Vol] 86 mg/dL 74-106 [facility] Work Phone: Neutrophils (Bld) [#/Vol] 4.0 10*3/uL 2.0-7.7 [facility] Work Phone: [phone] Neutrophils/100 WBC (Bld) 67.5 % 47-70 [facility] Work Phone: [phone] Potassium [Moles/Vol] 4.9 mmol/L 3.5-5.1 [facility] Work Phone: [phone] Protein [Mass/Vol] 7.1 g/dL 6.4-8.2 [facility] Work Phone: [phone] Sodium [Moles/Vol] 138 mmol/L 136-145 [facility] Work Phone: [phone] WBC (Bld) [#/Vol] 5.9 10*3/uL 4.4-11.0 [facility] Work Phone: [phone] Blood erythrocytes count (nu mber/volume)on 04-01-2022 RBC (Bld) [#/Vol] 4.64 10*6/uL 4.2-5.4 [facility] Work Phone: [phone] Blood hemoglobin measurement (mass/volume)on 04-01-2022 Hemoglobin (Bld) [Mass/Vol] 14.1 g/dL 12.0-15.0 [facility] Work Phone: [phone] Blood lymphocytes/100 leukoc yteson 04-01-2022 Lymphocytes/100 WBC (Bld) 13.9 % 19-41 [facility] Work Phone: [phone] Blood monocytes/100 leukocyt eson 04-01-2022 Monocytes/100 WBC (Bld) 10.8 % 0-10 [facility] Work Phone: Blood platelet mean volumeon 04-01-2022 Platelet mean volume (Bld) [Entitic vol] 9.8 fL 6.2-12.0 [facility] Work Phone: Determination of erythrocyte mean corpuscular volume (MCV)on 04-01-2022 MCV (RBC) [Entitic vol] 94.0 fL 81-99 [facility] Work Phone: [phone] Hematocrit Auto (Bld) [Volum e fraction]on 04-01-2022 Hematocrit (Bld) [Volume fraction] 43.6 % 37-47 [facility] Work Phone: [phone] Interpretation of serum or p lasma protein pattern by immunofixation (narrative resulton 04-01-2022 Protein Fractions Immunofixation Toni [Interp] See comment [facility] Work Phone: [phone] Comment on above: Result: Not Observed Laboratory - Chemistry and C hemistry - challengeon 04-01-2022 ALP [Catalytic activity/Vol] 58 U/L 45-117 [facility] Work Phone: [phone] ALT [Catalytic activity/Vol] 30 U/L 13-56 [facility] Work Phone: [phone] CO2 [Moles/Vol] 32.0 mmol/L 21.0-32.0 [facility] Work Phone: [phone] Globulin (S) [Mass/Vol] 3.7 g/dL 2.2-4.2 [facility] Work Phone: [phone] Lipase [Catalytic activity/Vol] 155 U/L 73-393 [facility] Work Phone: [phone] Urea nitrogen/Creatinine [Mass ratio] 22.6 mg/mg 10-20 [facility] Work Phone: [phone] Laboratory - Hematology and Cell countson 04-01-2022 Erythrocyte distribution width (RBC) [Entitic vol] 42.4 fL 35.1-43.9 [facility] Work Phone: [phone] Erythrocyte distribution width (RBC) [Ratio] 12.2 % 11.6-14.6 [facility] Work Phone: [phone] Immature granulocytes/100 WBC (Bld) 0.200 % 0.0-0.9 [facility] Work Phone: [phone] Comment on above: IG% - Immature Granu locytes (promyelocytes, myelocytes and metamyelocytes) > 1% indicates that a LEFT SHIFT is Present. MCH (RBC) [Entitic mass] 30.4 pg 27.0-32.0 [facility] Work Phone: [phone] Nucleated RBC/100 WBC (Bld) [Ratio] 0 % 0-5 [facility] Work Phone: [phone] MCHC Auto (RBC) [Mass/Vol]on 04-01-2022 MCHC (RBC) [Mass/Vol] 32.3 g/dL 32-36 [facility] Work Phone: [phone] Panel Informationon 04-01 Addendum Document Comment . [facility] Work Phone: [phone] Comment on above: Protein electrophore sis scan will follow via computer,mail, or link trainer teacher delivery. CA 19-9 Antigen 5 U/mL 0-35 [facility] Work Phone: [phone] Comment on above: [facility] El ectrochemiluminescence Immunoassay(ECLIA)Values obtained with different assay methods or kits cannotbe used interchangeably. Results cannot be interpreted asabsolute evidence of the presence or absence of malignantdisease. Endomysial IgA Antibody Negative Negative [facility] Work Phone: [phone] Estimated GFR (MDRD) Amer 140 mL/min >60 [facility] Work Phone: [phone] Comment on above: GFR Calc Estimated GFR (MDRD) Non-Af Amer 116 mL/min >60 [facility] Work Phone: [phone] Comment on above: Non- GFR Calc Immunoglobulin E 1245 IU/mL 6-495 [facility] Work Phone: [phone] Immunoglobulin G4 25 mg/dL 2-96 [facility] Work Phone: [phone] Platelets bldon 04-01-2022 Platelets (Bld) [#/Vol] 209 10*3/uL 150-450 [facility] Work Phone: [phone] Serum IgA measurement (units /volume)on 04-01-2022 IgA Qn (S) 171 mg/dL 87-352 [facility] Work Phone: Comment on above: Performed at: - [facility] [id number] [place], [place] [id number] Director: Abraham Breen PhD, Phone: [phone] Serum IgG subclass 1 measure ment (mass/volume)on 04-01-2022 IgG subclass 1 (S) [Mass/Vol] 742 mg/dL 248-810 [facility] Work Phone: [phone] Serum IgG subclass 2 measure ment (mass/volume)on 04-01-2022 IgG subclass 2 (S) [Mass/Vol] 147 mg/dL 130-555 [facility] Work Phone: [phone] Serum IgG subclass 3 measure ment (mass/volume)on 04-01-2022 IgG subclass 3 (S) [Mass/Vol] 41 mg/dL 15-102 [facility] Work Phone: [phone] Serum [id number] measu rement by electrophoresison 04-01-2022 Alpha 1 globulin Elph [Mass/Vol] 0.2 g/dL 0.0-0.4 [facility] Work Phone: [phone] Alpha 1 globulin Elph [Mass/Vol] 0.7 g/dL 0.4-1.0 [facility] Work Phone: [phone] Serum classic neutrophil cyt oplasmic antibody assay (units/volume)on 04-01-2022 Neutrophil cytoplasmic Ab.classic Qn (S) <1:20 titer Neg:<1:20 [facility] Work Phone: [phone] Serum globulin measurement ( mass/volume)on 04-01-2022 Globulin (S) [Mass/Vol] 2.7 g/dL 2.2-3.9 [facility] Work Phone: [phone] Serum or plasma IgA measurem ent (mass/volume)on 04-01-2022 IgA [Mass/Vol] 160 mg/dL 87-352 [facility] Work Phone: [phone] Serum or plasma IgG measurem ent (mass/volume)on 04-01-2022 IgG [Mass/Vol] 1038 mg/dL [facility] Work Phone: [phone] Serum or plasma IgM measurem ent (mass/volume)on 04-01-2022 IgM [Mass/Vol] 31 mg/dL 26-217 [facility] Work Phone: Serum or plasma albumin jose urement (mass/volume)on 04-01-2022 Albumin [Mass/Vol] 3.4 g/dL 3.2-5.0 [facility] Work Phone: Serum or plasma albumin/glob ulin mass ratioon 04-01-2022 Albumin/Globulin [Mass ratio] 0.9 {ratio} 0.9-2.4 [facility] Work Phone: Serum or plasma beta globuli n measurement by electrophoresis (mass/volume)on 04-01-2022 Beta globulin Elph [Mass/Vol] 0.9 g/dL 0.7-1.3 [facility] Work Phone: Serum or plasma calcium jose urement (mass/volume)on 04-01-2022 Calcium [Mass/Vol] 8.9 mg/dL 8.5-10.1 [facility] Work Phone: Serum or plasma creatinine m easurement (mass/volume)on 04-01-2022 Creatinine [Mass/Vol] 0.57 mg/dL 0.55-1.02 [facility] Work Phone: Comment on above: The validity of the calculated GFR & GFRAA in patients over 70 years has not been determined. Clinical correlation is essential. Serum or plasma gamma globul in measurement by electrophoresis (mass/volume)on 04-01-2022 Gamma globulin Elph [Mass/Vol] 1.0 g/dL 0.4-1.8 [facility] Work Phone: Serum or plasma gastrin jose urement (mass/volume)on 04-01-2022 Gastrin [Mass/Vol] 35 pg/mL 0-115 [facility] Work Phone: Comment on above: Siemens Immulite 200 0 Immunochemiluminometric assay (ICMA)Values obtained with different assay methods or kits cannotbe used interchangeably. Results cannot be interpreted asabsolute evidence of the presence or absence of malignantdisease.Performed at: - [facility] [id number] [place], [place] [id number] Director: Abraham Breen PhD, Phone: [phone] at: [facility] [id number] Director: Sadia Morales MD, Phone: [phone] Serum or plasma immunoelectr ophoresis interpretation (nominal result)on 04-01-2022 Interpretation IEP [Interp] Comment: . [facility] Work Phone: Comment on above: Presence of monoclon al protein is unclear at this time. Suggestrepeat in 3 to 6 months if clinically indicated. Serum or plasma urea nitroge n measurement (mass/volume)on 04-01-2022 Urea nitrogen [Mass/Vol] 13 mg/dL 03-01 [facility] Work Phone: Serum perinuclear neutrophil cytoplasmic antibody titer by immunofluorescenceon 04-01-2022 Neutrophil cytoplasmic Ab.perinuclear IF (S) [Titer] <1:20 titer Neg:<1:20 [facility] Work Phone: Comment on above: The presence of posi tive fluorescence exhibiting P-ANCA orC-ANCA patterns alone is not specific for the diagnosis ofWegener's Granulomatosis (WG) or microscopic polyangiitis.Decisions about treatment should not be based solely onANCA IFA results. The [employer] ANCA Group Consensusrecommends follow up testing of positive sera with both DE-3 and MPO-ANCA enzyme immunoassays. As many as 5% serumsamples are positive only by EIA. Ref. AM J Clin [id number];111:507-513. Serum tissue transglutaminas e IgA antibody assay (units/volume)on 04-01-2022 tTG IgA Qn (S) <2 U/mL 0-3 [facility] Work Phone: Comment on above: Negative 0 - 3 Weak Positive 4 - 10 Positive >10 Tissue Transglutaminase (tTG) has been identified as the endomysial antigen. Studies have demonstr- ated that endomysial IgA antibodies have over 99% specificity for gluten sensitive enteropathy. Thin prep Papanicolaou smear with manual screeningon 04-01-2022 Thin prep Papanicolaou smear with manual screening 22 U/L 15-37 [facility] Work Phone: [phone] Thin prep Papanicolaou smear with manual screening 2 5-15 [facility] Work Phone: [phone] Thin prep Papanicolaou smear with manual screening 171 U/L 84-246 [facility] Work Phone: [phone] Thin prep Papanicolaou smear with manual screening 1.4 0.7-1.7 [facility] Work Phone: [phone] Total protein bloodon 2021 Protein [Mass/Vol] 6.4 g/dL 6.0-8.5 [facility] Work Phone: [phone] Laboratory - Chemistry and C hemistry - challengeon 02-08-2022 Free T4 [Mass/Vol] 1.04 ng/dL 0.76-1.46 [facility] Work Phone: [phone] Panel Informationon 02-08 Thyroid Stimulating Hormone (TSH) 1.89 uIU/mL 0.358-3.74 [facility] Work Phone: [phone] Basophil percentageon 2021 Bilirubin [Mass/Vol] 0.50 mg/dL 0.20-1.00 [facility] Work Phone: [phone] Comment on above: For patients on eltr ombopag therapy, use of [place] TBIL is not recommended. Cholesterol [Mass/Vol] 115 mg/dL <200 [facility] Work Phone: [phone] Comment on above: <200 mg/dL Desirable 200-240 mg/dL Borderline >240 mg/dL High Risk Protein [Mass/Vol] 7.0 g/dL 6.4-8.2 [facility] Work Phone: [phone] Triglyceride [Mass/Vol] 65 mg/dL <199 [facility] Work Phone: [phone] Comment on above: The drugs N-Acetylcy steine and Metamizole may falsely depress this assay.Serum Triglycerides Reference Interval Normal <150 mg/dL Borderline high 150 - 199 mg/dL High 200 - 499 mg/dL Very High > or = 500 mg/dL Direct bilirubinon Bilirubin.direct [Mass/Vol] 0.12 mg/dL 0.00-0.30 [facility] Work Phone: [phone] Laboratory - Chemistry and C hemistry - challengeon 02-05-2022 ALP [Catalytic activity/Vol] 62 U/L 45-117 [facility] Work Phone: [phone] ALT [Catalytic activity/Vol] 29 U/L 13-56 [facility] Work Phone: [phone] Globulin (S) [Mass/Vol] 3.7 g/dL 2.2-4.2 [facility] Work Phone: [phone] Serum or plasma albumin jose urement (mass/volume)on 02-05-2022 Albumin [Mass/Vol] 3.3 g/dL 3.2-5.0 [facility] Work Phone: [phone] Serum or plasma cholesterol in HDL measurement (mass/volume)on 02-05-2022 Cholesterol in HDL [Mass/Vol] 51 mg/dL >40 [facility] Work Phone: Comment on above: The drugs N-Acetylcy steine and Metamizole may falsely depress this assay. Reference Range HDL <40 mg/dL Low HDL Cholesterol HDL >or= 60 mg/dL High HDL Cholesterol Serum or plasma cholesterol in VLDL measurement (mass/volume)on 02-05-2022 Cholesterol in VLDL [Mass/Vol] 13 mg/dL 5-40 [facility] Work Phone: [phone] Serum or plasma low density lipoprotein (LDL) cholesterol measurement (mass/volume)on 02-05-2022 Cholesterol in LDL [Mass/Vol] 51 mg/dL 0-130 [facility] Work Phone: [phone] Thin prep Papanicolaou smear with manual screeningon 02-05-2022 Thin prep Papanicolaou smear with manual screening 27 U/L 15-37 [facility] Work Phone: [phone] Absolute lymphocyte counton 01-18-2022 Lymphocytes Auto (Unsp spec) [#/Vol] 1.67 10*3/uL 0.83-4.51 [facility] Work Phone: Basophil percentageon 2021 Basophils/100 WBC (Bld) 0.3 % 0-1 [facility] Work Phone: Eosinophils/100 WBC (Bld) 2.5 % 0-5 [facility] Work Phone: Neutrophils (Bld) [#/Vol] 3.6 10*3/uL 2.0-7.7 [facility] Work Phone: Neutrophils/100 WBC (Bld) 60.0 % 47-70 [facility] Work Phone: WBC (Bld) [#/Vol] 5.9 10*3/uL 4.4-11.0 [facility] Work Phone: Blood erythrocytes count (nu mber/volume)on 01-18-2022 RBC (Bld) [#/Vol] 4.41 10*6/uL 4.2-5.4 [facility] Work Phone: Blood hemoglobin measurement (mass/volume)on 01-18-2022 Hemoglobin (Bld) [Mass/Vol] 13.6 g/dL 12.0-15.0 [facility] Work Phone: Blood lymphocytes/100 leukoc yteson 01-18-2022 Lymphocytes/100 WBC (Bld) 28.1 % 19-41 [facility] Work Phone: [phone] Blood monocytes/100 leukocyt eson 01-18-2022 Monocytes/100 WBC (Bld) 8.8 % 0-10 [facility] Work Phone: Blood platelet mean volumeon 01-18-2022 Platelet mean volume (Bld) [Entitic vol] 10.0 fL 6.2-12.0 [facility] Work Phone: Determination of erythrocyte mean corpuscular volume (MCV)on 01-18-2022 MCV (RBC) [Entitic vol] 92.5 fL 81-99 [facility] Work Phone: Hematocrit Auto (Bld) [Volum e fraction]on 01-18-2022 Hematocrit (Bld) [Volume fraction] 40.8 % 37-47 [facility] Work Phone: [phone] Hemoglobin in reticulocytes (mass per reticulocyte)on 01-18-2022 Hemoglobin (Reticulocytes) [Entitic mass] 34.0 pg 30-35 [facility] Work Phone: [phone] Iron measurement (mass/mass) on 01-18-2022 Iron (Unsp spec) [Mass/Mass] 69 ug/dL 50-170 [facility] Work Phone: [phone] Laboratory - Hematology and Cell countson 01-18-2022 Erythrocyte distribution width (RBC) [Entitic vol] 43.5 fL 35.1-43.9 [facility] Work Phone: [phone] Erythrocyte distribution width (RBC) [Ratio] 12.8 % 11.6-14.6 [facility] Work Phone: [phone] Immature granulocytes/100 WBC (Bld) 0.300 % 0.0-0.9 [facility] Work Phone: [phone] Comment on above: IG% - Immature Granu locytes (promyelocytes, myelocytes and metamyelocytes) > 1% indicates that a LEFT SHIFT is Present. MCH (RBC) [Entitic mass] 30.8 pg 27.0-32.0 [facility] Work Phone: [phone] Nucleated RBC/100 WBC (Bld) [Ratio] 0 % 0-5 [facility] Work Phone: [phone] MCHC Auto (RBC) [Mass/Vol]on 01-18-2022 MCHC (RBC) [Mass/Vol] 33.3 g/dL 32-36 [facility] Work Phone: [phone] Panel Informationon 01-18 Immature Reticulocyte Fraction 9.50 % 3.00-15.90 [facility] Work Phone: [phone] Reticulocyte Count 1.36 % 0.5-1.5 [facility] Work Phone: [phone] Total Iron Binding Capacity 233 ug/dL 250-450 [facility] Work Phone: Platelets bldon 01-18-2022 Platelets (Bld) [#/Vol] 232 10*3/uL 150-450 [facility] Work Phone: Serum or plasma ferritin gar[place] surement (mass/volume)on 01-18-2022 Ferritin [Mass/Vol] 124 ng/mL 8-252 [facility] Work Phone: [phone] Serum or plasma iron saturat ion measurement (mass fraction)on 01-18-2022 Iron saturation [Mass fraction] 29.6 % 15.0-55.0 [facility] Work Phone: [phone] Stool Helicobacter pylori an tigen detection by immunoassayon 01-18-2022 H. pylori Ag IA Ql (Stl) Negative Negative [facility] Work Phone: [phone] Comment on above: Performed at: [address] [id number] Director: Sadia Morales MD, Phone: [phone] No Panel Informationon 09-03 POC SARS CoV-2 Antigen Negative [facility] Work Phone: [phone] Basophil percentageon 2020 Basophil percentage < 0.2 AI [facility] Work Phone: [phone] Dilute Didier's viper venom timeon 08-12-2021 dRVVT Coag (PPP) [Time] 36.7 s [facility] Work Phone: [phone] Functional protein C measure menton 08-12-2021 Protein C actual/normal Chromogenic method (PPP) [Rel catalytic activity/Vol] 148 % [facility] Work Phone: No Panel Informationon 08-12 Centromere B Antibody <0.2 AI [facility] Work Phone: Factor V Leiden Mutation Comment [facility] Work Phone: Comment on above: Result: c.1601G>A (p .[id number]) - Not DetectedThis result is not associated with an increased risk for venousthromboembolism. See Additional Clinical Information andComments.Additional Clinical Information:Venous thromboembolism is a multifactorial diseaseinfluenced by genetic, environmental, and circumstantialrisk factors. The c.1601G>A (p. [id number]) variant in theF5 gene, commonly referred to as Factor V Leiden, is agenetic risk factor for venous thromboembolism.Heterozygous carriers of this variant have a 6- to 8-foldincreased risk for venous thromboembolism. Individualshomozygous for this variant (ie, with a copy of the varianton each chromosome) have an approximately 80-fold increasedrisk for venous thromboembolism. Individuals who carry ludwin c.*97G>A variant in the F2 gene and Factor V Leiden havean approximately 20-fold increased risk for venousthromboembolism. Risks are likely to be even higher in morecomplex genotype combinations involving the F2 c.*97G>Avariant and Factor V Leiden (PMID: 97606856). Additionalrisk factors include but are not limited to: deficiency ofprotein C, protein S, or antithrombin III, age, male sex,personal or family history of deep vein thromboembolism,smoking, surgery, prolonged immobilization, malignantneoplasm, tamoxifen treatment, raloxifene treatment, oralcontraceptive use, hormone replacement therapy, andpregnancy. Management of thrombotic risk and thromboticevents should follow established guidelines and fit theclinical circumstance. This result cannot predict theoccurrence or recurrence of a thrombotic event.Comment:Genetic counseling is recommended to discuss thepotential clinical implications of positive results, aswell as recommendations for testing family members.Genetic Coordinators are available for health careproviders to discuss results at [phone] Details:Variant Analyzed: c.1601G>A (p. [id number]), referred toas Factor V LeidenMethods/Limitations:DNA analysis of the F5 gene (NM_000130.5) was performedby PCR amplification followed by restriction enzymeanalysis. The diagnostic sensitivity is >99%. Results mustbe combined with clinical information for the most accurateinterpretation. Molecular-based testing is highly accurate,but as in any laboratory test, diagnostic errors may occur.False positive or false negative results may occur forreasons that include genetic variants, blood transfusions,bone marrow transplantation, somatic or tissue-specificmosaicism, mislabeled samples, or erroneous representationof family relationships.This test was developed and its performance characteristicsdetermined by [employer]. It has not been cleared orapproved by the Food and Drug Administration.References:Lucila Teixeira, Debbie RAMIRES, Gilbert R, Max WW, Juan Manuel JH; ACMGProfessional Practice and Guidelines Committee. Addendum:[employer] consensus statement onfactor V Leiden mutation testing. Elvira Med. 2020Oct 17.doi: 10.1038/v55254-363-41902-b. PMID: 12479294.Obdulio JASSO. Factor V Leiden Thrombophilia. 1998December 26[Updated 2017Aug 18]. In: Jackson MP, Cleo HH, Pedro RA,et al., editors. Ace(R) [Internet]. [place] ([place]):[facility]; 2583-2660. Availablefrom: https://www.ncbi.nlm.nih.gov/books/FCK9055/Lars Teixeira, Debbie RAMIRES, Danny X, Joel B, Yonathan EB, Angelina P,Sohail CS; AC Laboratory Bottom Liner Committee.Venous thromboembolism laboratory testing (factor V Leidenand factor II c.*97G>A), 2018 update: a technical standardof the [employer] and [employer]omics(ACMG). Elvira Med. 2017;20(12):2537-0639. doi:10.1038/m32305-585-4852-x. Epub 2017May 19. PMID: 70777489.Shelly Gipson, PhD, Shereen Ward, PhD, Amelia Vargas, PhD, Teagan Mattson, PhD, FACMGW Renuka Baldwin, PhD, Katie Lester, PhD, FAC AGRICULTURAL EXTENSION OFFICER Antibody 0.3 AI [facility] Work Phone: Platelet poor plasma antithr ombin actual/normal ratio by chromogenic method (relativeon 08-12-2021 Antithrombin actual/normal Chromogenic method (PPP) [Rel catalytic activity/Vol] 134 % [facility] Work Phone: Comment on above: Direct Xa inhibitor anticoagulants such as rivaroxaban,apixaban and edoxaban will lead to spuriously elevatedantithrombin activity levels possibly masking a deficiency. Platelet poor plasma antithr ombin antigen detection by immunoassayon 08-12-2021 Antithrombin Ag IA Ql (PPP) 111 % [facility] Work Phone: Comment on above: This test was develo ped and its performance characteristicsdetermined by [employer]. It has not been cleared orapproved by the Food and Drug Administration. Platelet poor plasma protein S actual/normal ratio (relative time)on 08-12-2021 Protein S actual/normal Coag (PPP) [Relative time] 97 % [facility] Work Phone: Comment on above: Protein S activity m ay be falsely increased (masking anabnormal, low result) in patients receiving direct Xainhibitor (e.g., rivaroxaban, apixaban, edoxaban) or adirect thrombin inhibitor (e.g., dabigatran) anticoagulanttreatment due to assay interference by these drugs. Protein C antigen assayon Protein C Ag actual/normal IA (PPP) [Relative mass conc] 115 % [facility] Work Phone: Protein S measurement in deepthi telet poor plasma by coagulation assay (units/volume)on 08-12-2021 Protein S Coag Qn (PPP) 139 % [facility] Work Phone: Comment on above: This test was develo ped and its performance characteristicsdetermined by [employer]. It has not been cleared orapproved by the Food and Drug Administration. Protein S, freeon 08-12-2021 Protein S Free Ag IA Qn (PPP) 94 % [facility] Work Phone: Serum DNA double strand anti body assay (units/volume)on 08-12-2021 DNA double strand Ab Qn (S) [IU]/mL [facility] Work Phone: Comment on above: Negative <5 Equivoca l 5 - 9 Positive >9 Serum Angeles-1 antibody assay (u nits/volume)on 08-12-2021 Angeles-1 extractable nuclear Ab Qn (S) <0.2 AI [facility] Work Phone: Serum Scl-70 extractable nuc lear antibody assay (units/volume)on 08-12-2021 SCL-70 extractable nuclear Ab Qn (S) <0.2 AI [facility] Work Phone: Serum Barrera extractable nucl ear antibody detectionon 08-12-2021 Barrera extractable nuclear Ab Ql (S) <0.2 AI [facility] Work Phone: Thin prep Papanicolaou smear with manual screeningon 08-12-2021 Thin prep Papanicolaou smear with manual screening 40.8 sec [facility] Work Phone: Thin prep Papanicolaou smear with manual screening 1.22 Ratio [facility] Work Phone: Thin prep Papanicolaou smear with manual screening 31.8 sec [facility] Work Phone: Thin prep Papanicolaou smear with manual screening Comment: [facility] Work Phone: Comment on above: No lupus anticoagula nt was detected. Thrombin time in platelet po or plasmaon 08-12-2021 Thrombin time Coag (PPP) [Time] 18.4 sec [facility] Work Phone: Von Willebrand factor (vWF) ristocetin cofactor actual/normal in platelet poor plasmaon 08-12-2021 vWf ristocetin cofactor act actual/normal Platelet aggregation (PPP) [Relative time] 132 % [facility] Work Phone: Comment on above: Performed at: [facility] - [place] [address] [id number] Director: Sadia Morales MD, Phone: [phone] at: [facility] - [facility] [id number] [place], [place] [id number] Director: Dorian Yañez [facility], Phone: [phone] Absolute lymphocyte counton 08-10-2021 Lymphocytes Auto (Unsp spec) [#/Vol] 1.72 10*3/uL 0.83-4.51 [facility] Work Phone: Basophil percentageon 2020 Eosinophils/100 WBC (Bld) 2.8 % 0-5 [facility] Work Phone: [phone] Neutrophils (Bld) [#/Vol] 4.9 10*3/uL 2.0-7.7 [facility] Work Phone: WBC (Bld) [#/Vol] 7.4 10*3/uL 4.4-11.0 [facility] Work Phone: Blood erythrocytes count (nu mber/volume)on 08-10-2021 RBC (Bld) [#/Vol] 3.55 10*6/uL 4.2-5.4 [facility] Work Phone: Blood hemoglobin measurement (mass/volume)on 08-10-2021 Hemoglobin (Bld) [Mass/Vol] 10.3 g/dL 12.0-15.0 [facility] Work Phone: [phone] Blood lymphocytes/100 leukoc yteson 08-10-2021 Lymphocytes/100 WBC (Bld) 23.1 % 19-41 [facility] Work Phone: [phone] Blood monocytes/100 leukocyt eson 08-10-2021 Monocytes/100 WBC (Bld) 8.1 % 0-10 [facility] Work Phone: [phone] Blood platelet mean volumeon 08-10-2021 Platelet mean volume (Bld) [Entitic vol] 8.3 fL 6.2-12.0 [facility] Work Phone: Determination of erythrocyte mean corpuscular volume (MCV)on 08-10-2021 MCV (RBC) [Entitic vol] 96.3 fL 81-99 [facility] Work Phone: Hematocrit Auto (Bld) [Volum e fraction]on 08-10-2021 Hematocrit (Bld) [Volume fraction] 34.2 % 37-47 [facility] Work Phone: Laboratory - Hematology and Cell countson 08-10-2021 Basophils/100 WBC (Unsp spec) 0.5 % 0-1 [facility] Work Phone: Erythrocyte distribution width (RBC) [Entitic vol] 64.5 fL 35.1-43.9 [facility] Work Phone: Erythrocyte distribution width (RBC) [Ratio] 18.2 % 11.6-14.6 [facility] Work Phone: Immature granulocytes/100 WBC (Bld) 0.300 % 0.0-0.9 [facility] Work Phone: [phone] Comment on above: IG% - Immature Granu locytes (promyelocytes, myelocytes and metamyelocytes) > 1% indicates that a LEFT SHIFT is Present. MCH (RBC) [Entitic mass] 29.0 pg 27.0-32.0 [facility] Work Phone: Neutrophils/100 WBC (Bld) 65.2 % 47-70 [facility] Work Phone: Nucleated RBC/100 WBC (Bld) [Ratio] 0 % 0-5 [facility] Work Phone: MCHC Auto (RBC) [Mass/Vol]on 08-10-2021 MCHC (RBC) [Mass/Vol] 30.1 g/dL 32-36 [facility] Work Phone: Platelets bldon 08-10-2021 Platelets (Bld) [#/Vol] 517 10*3/uL 150-450 [facility] Work Phone: Laboratory - Chemistry and C hemistry - challengeon 12-03-2020 Albumin [Mass/Vol] 3.5 g/dL Normal 3.4 - 5.0 g/dL [facility], [facility].; [facility], [facility]. Albumin [Mass/Vol] 0.9 g/dL Normal 0.9 - 1.6 [facility], [facility].; [facility], [facility]. ALP [Catalytic activity/Vol] 75 U/L Normal 46 - 116 U/L [facility], [facility].; [facility], [facility]. ALT [Catalytic activity/Vol] 27 U/L Normal 14 - 59 U/L [facility].; [facility], [facility]. ALT No additional P-5'-P [Catalytic activity/Vol] 27 U/L Normal 14 - 59 U/L [facility].; [facility], [facility]. Anion gap [Moles/Vol] 12 mmol/L Normal 10 - 2 0 mmol/L [facility], [facility].; [facility], [facility]. AST [Catalytic activity/Vol] 18 U/L Normal 13 - 39 U/L [facility].; [facility], [facility]. Bilirubin [Mass/Vol] 0.3 mg/dL Normal 0.2 - 1 .0 mg/dL [facility], [facility].; [facility], [facility]. Calcium [Mass/Vol] 9.2 mg/dL Normal 8.5 - 10. 1 mg/dL [facility].; [facility], [facility]. Chloride [Moles/Vol] 106 mmol/L Normal 98 - 10 7 mmol/L [facility].; [facility], [facility]. CO2 [Moles/Vol] 29.0 mmol/L Normal 21.0 - 32.0 mmol/L [facility].; [facility], [facility]. Comprehensive metabolic 2000 panel CMP with eGFR Normal [facility]; [facility], [facility]. Creatinine [Mass/Vol] 0.6 mg/dL Normal 0.5 - 1.0 mg/dL [facility], [facility].; [facility], [facility]. CRP [Mass/Vol] mg/L Normal 0.00 - 0.90 mg/dL [facility], [facility].; [facility], [facility]. GFR/1.73 sq M.predicted among blacks MDRD (S/P/Bld) [Vol rate/Area] mL/min/{1.73_m2} Normal 60 - 999 {ML/MINUTE } [facility], [facility].; [facility], [facility]. GFR/1.73 sq M.predicted MDRD (S/P/Bld) [Vol rate/Area] mL/min/{1.73_m2} Normal 60 - 999 {ML/MINUTE } [facility], [facility].; [facility], [facility]. Globulin (S) [Mass/Vol] 3.7 g/dL Normal 1.5 - 3.8 g/dL [facility].; [facility], [facility] Glucose [Mass/Vol] 92 mg/dL Normal 74 - 106 mg/dL [facility].; [facility], [facility] Potassium [Moles/Vol] 4.6 mmol/L Normal 3.5 - 5.1 mmol/L [facility].; [facility], [facility] Protein [Mass/Vol] 7.2 g/dL Normal 6.4 - 8.2 g/dL [facility].; [facility], [facility] Sodium [Moles/Vol] 142 mmol/L Normal 136 - 145 mmol/L [facility]; [facility], [facility] Urea nitrogen [Mass/Vol] 10 mg/dL Normal 7 - 18 mg/dL [facility]; [facility], [facility] Urea nitrogen/Creatinine [Mass ratio] 17 {ratio} Normal 0 - 30 {ratio} [facility].; [facility] Laboratory - Hematology and Cell countson 12-03-2020 Basophils (Bld) [#/Vol] 0.10 {3/UL} Normal 0.00 - 0.10 {3/UL} [facility]; [facility], [facility] Basophils/100 WBC (Bld) 1.2 % Normal 0.0 - 2.0 % [facility]; [facility], [facility] CBC W Auto Differential panel (Bld) CBC + DIFF Normal [facility]; [facility], [facility] Eosinophils (Bld) [#/Vol] 0.20 {3/UL} Normal 0.00 - 0.50 {3/UL} [facility].; [facility], [facility] Eosinophils/100 WBC (Bld) 3.9 % Normal 0.0 - 7.0 % [facility].; [facility], [facility] Erythrocyte distribution width (RBC) [Ratio] 15.3 % Normal 12.0 - 15.6 % [facility].; [facility], [facility] Hematocrit (Bld) [Volume fraction] 37.0 % Normal 34.0 - 46.0 % [facility].; [facility], [facility]. Hemoglobin (Bld) [Mass/Vol] 12.4 g/dL Normal 12.0 - 16.0 g/dL [facility].; [place] [employer] [facility], [facility] Lymphocytes (Bld) [#/Vol] 1.30 {3/UL} Normal 0.80 - 2.80 {3/UL} [facility], [facility].; [place] [employer], [employer]. Lymphocytes/100 WBC (Bld) 23.8 % Normal 20.0 - 45.0 % [facility].; [place] [employer], [facility]. MCH (RBC) [Entitic mass] 26 pg Abnormal 27 - 33 pg [place] [employer].; [place] [facility], [facility]. MCHC (RBC) [Mass/Vol] 34 {X10_3} Normal 32 - 3 6 {X10_3} [facility], [facility].; [place] [employer], [employer]. MCV (RBC) [Entitic vol] 79 fL Abnormal 80 - 99 fL [place] [facility].; [email or web address], [employer]. Monocytes (Bld) [#/Vol] 0.50 {3/UL} Normal 0.20 - 1.00 {3/UL} [place] [facility], [facility].; [facility], [employer]. Monocytes/100 WBC (Bld) 9.3 % Normal 0.0 - 10.0 % [place] [facility], [facility].; [email or web address], [employer]. Morphology Toni (Bld) [Interp] N/A Normal [facility] [employer] [facility].; [facility], [facility]. Neutrophils (Bld) [#/Vol] 3.40 {3/UL} Normal 1.50 - 7.10 {3/UL} [place] [facility], [facility].; [email or web address], [employer]. Neutrophils/100 WBC (Bld) 61.8 % Normal 46.0 - 76.0 % [facility] [facility], [facility].; [email or web address] Platelet mean volume (Bld) [Entitic vol] 7.6 fL Normal 6.6 - 10.5 fL [place] [employer].; [email or web address], [employer]. Platelets (Bld) [#/Vol] 344 {3/UL} Normal 150 - 450 {3/UL} [employer].; [employer]. RBC (Bld) [#/Vol] 4.69 {6/UL} Normal 4.10 - 5.30 {6/UL} [employer]. WBC (Bld) [#/Vol] 5.6 {3/UL} Normal 4.5 - 10.8 {3/UL} [employer]. Laboratory - Microbiology an d Antimicrobial susceptibilityon 12-03-2020 SARS-CoV-2 (COVID-19) RNA FRANCES+probe Ql (Unsp spec) Negative Normal [employer]; [employer] No Panel Informationon 12-03 AGE 55 {years} Normal [employer] MANUAL DIFF N/A Normal [facility]; [employer] SEND TO IC? YES Normal [employer] [employer]. Laboratory - Chemistry and C hemistry - challengeon 06-26-2019 Albumin [Mass/Vol] 4.0 g/dL Normal 3.6 - 5.1 g/dL [employer].; [employer]. Albumin/Globulin [Mass ratio] 1.7 {ratio} Normal 1.0 - 2.5 [employer].; [employer]. ALP [Catalytic activity/Vol] 62 U/L Normal 33 - 130 U/L [employer].; [employer]. ALT [Catalytic activity/Vol] 16 U/L Normal 6 - 29 U/L [employer].; [employer]. AST [Catalytic activity/Vol] 16 U/L Normal 10 - 35 U/L [employer]. Bilirubin [Mass/Vol] 0.5 mg/dL Normal 0.2 - 1 .2 mg/dL [employer].; [employer]. Calcium [Mass/Vol] 9.4 mg/dL Normal 8.6 - 10. 4 mg/dL [employer].; [facility] Chloride [Moles/Vol] 105 mmol/L Normal 98 - 11 0 mmol/L [facility].; [facility], [facility]. Cholesterol [Mass/Vol] 123 mg/dL Normal [facility].; [facility], [facility] Cholesterol in HDL [Mass/Vol] 43 mg/dL Abnormal [facility].; [facility], [facility] Cholesterol in LDL [Mass/Vol] 65 mg/dL Normal 0 - 100 mg/dL [facility].; [facility], [facility] Cholesterol non HDL [Mass/Vol] 80 mg/dL Normal [facility], [facility].; [facility], [facility] Cholesterol.total/Chol esterol in HDL [Mass ratio] 2.9 {ratio} Normal [facility].; [facility], [facility] CO2 [Moles/Vol] 28 mmol/L Normal 20 - 32 mmol/L [facility].; [facility], [facility] Creatinine [Mass/Vol] 0.66 mg/dL Normal 0.50 - 1.05 mg/dL [facility].; [facility], [facility]. Ferritin [Mass/Vol] 23 ng/mL Normal 16 - 232 ng/mL [facility].; [facility], [facility]. GFR/1.73 sq M.predicted among blacks MDRD (S/P/Bld) [Vol rate/Area] 117 {ML/MIN/1.73M2} Normal [facility].; [facility], [facility]. GFR/1.73 sq M.predicted MDRD (S/P/Bld) [Vol rate/Area] 101 {ML/MIN/1.73M2} Normal [facility], [facility].; [place] [employer] [facility], [facility]. Globulin (S) [Mass/Vol] 2.4 g/dL Normal 1.9 - 3.7 g/dL [facility].; [facility] Glucose [Mass/Vol] 74 mg/dL Normal 65 - 99 mg/dL [facility], [facility].; [facility], [facility]. Iron [Mass/Vol] 130 ug/dL Normal 45 - 160 ug/dL [facility] [employer].; [facility], [facility]. Potassium [Moles/Vol] 4.2 mmol/L Normal 3.5 - 5.3 mmol/L [facility].; [place] [employer] [facility]. Protein [Mass/Vol] 6.4 g/dL Normal 6.1 - 8.1 g/dL [facility].; [place] [employer], [employer]. Sodium [Moles/Vol] 141 mmol/L Normal 135 - 146 mmol/L [facility].; [place] [employer]. Triglyceride [Mass/Vol] 69 mg/dL Normal [facility].; [place] [employer] Urea nitrogen [Mass/Vol] 13 mg/dL Normal 7 - 25 mg/dL [facility]; [place] [employer] Urea nitrogen/Creatinine [Mass ratio] 19.1 mg/mg Normal 6 - 22 [facility].; [employer] No Panel Informationon 05-08 PANEL NAME THIN PREP (QU) HPV DNA-HIGH RISK Normal [place] [employer] [facility]; [facility] Laboratory - Chemistry and C hemistry - challengeon 05-01-2018 ALT No additional P-5'-P [Catalytic activity/Vol] 16 U/L Normal 8 - 35 U/L [place] [employer] [facility]; [place] [employer]. Cholesterol [Mass/Vol] 142 mg/dL Normal 0 - 2 00 mg/dL [place] [employer] [facility].; [email or web address], [employer]. Cholesterol in HDL [Mass or moles/Vol] 51 mg/dL Normal 40 - 60 mg/dL [facility].; [place] [employer]. Cholesterol in LDL [Mass/Vol] 56 mg/dL Normal 0 - 129 mg/dL [place] [facility].; [employer]. Cholesterol.total/Chol esterol in HDL [Mass ratio] 2.8 {ratio} Normal 0.0 - 5.0 [place] [employer].; [employer]. Glucose [Mass/Vol] 83 mg/dL Normal 74 - 106 mg/dL [place] [employer] [facility].; [employer] Lipid 1996 panel LIPID PROFILE Normal [facility].; [facility] [facility] Triglyceride [Mass/Vol] 176 mg/dL Abnormal 0 - 150 mg/dL [facility].; [facility]. Lab Report: Lipid Profileon 04-27-2017 Cholesterol 118 mg/dL Invalid Interpretation Code 200 [facility] Work Phone: [phone] HDL Cholesterol 43 mg/dL Invalid Interpretation Code [facility] Work Phone: [phone] LDL Cholesterol 51 mg/dL Invalid Interpretation Code 0-130 [facility] Work Phone: [phone] Triglyceride 118 mg/dL Invalid Interpretation Code [facility] Work Phone: [phone] very low density lipoproteins 24 mg/dL Invalid Interpretation Code 5-40 [facility] Work Phone: [phone] Lab Report: Liver Profileon 04-27-2017 Alanine aminotransferase (ALT) 94 U/L High 12-78 [facility] Work Phone: [phone] Albumin 3.1 g/dL Low 3.4-5.0 [facility] Work Phone: [phone] Alkaline phosphatase (ALP) 222 U/L High 45-117 [facility] Work Phone: [phone] Aspartate aminotransferase (AST) 75 U/L High 15-37 [facility] Work Phone: [phone] Bilirubin (direct) 0.09 mg/dL Invalid Interpretation Code 0.00-0.30 [facility] Work Phone: [phone] Bilirubin (total) 0.30 mg/dL Invalid Interpretation Code 0.20-1.00 [facility] Work Phone: [phone] Globulin 4.0 g/dL High 2.3-3.5 [facility] Work Phone: [phone] Protein 7.1 g/dL Invalid Interpretation Code 6.4-8.2 [facility] Phone: [phone] Office Visiton 04-11-2017 Documentation of current medications (procedure) Done Invalid Interpretation Code [facility] Phone: [phone] Protein mass conc Done [facility] Work Phone: [phone] Tobacco smoking status NHIS Former smoker [facility] Work Phone: [phone] Tobacco use [facility] Former smoker Invalid Interpretation Code [facility] Work Phone: [phone] Clinical Lists Update: 04-08-2017 Tobacco use [facility] Current every day smoker Invali d Interpretation Code [facility] Work Phone: [phone] Clinical Lists Update: 03-03-2017 Left ventricular Ejection fraction 45 % Invalid Interpretation Code [facility] Work Phone: [phone] Laboratory - Chemistry and C hemistry - challengeon 12-05-2015 Albumin [Mass/Vol] 4.0 g/dL Normal 3.6 - 5.1 g/dL [facility]. Albumin/Globulin [Mass ratio] 1.4 {ratio} Normal 1.0 - 2.5 [facility]. ALP [Catalytic activity/Vol] 60 U/L Normal 33 - 115 U/L [facility]. ALT [Catalytic activity/Vol] 11 U/L Normal 6 - 29 U/L [facility]. AST [Catalytic activity/Vol] 15 U/L Normal 10 - 35 U/L [facility]. Bilirubin [Mass/Vol] 0.3 mg/dL Normal 0.2 - 1 .2 mg/dL [facility]. Bilirubin Ql (U) Negative Normal [facility]. Bilirubin.direct [Mass/Vol] 0.1 mg/dL Normal [facility]. Globulin (S) [Mass/Vol] 2.9 g/dL Normal 1.9 - 3.7 g/dL [facility]. Ketones Ql (U) Negative Normal [facility]. Lipase [Catalytic activity/Vol] 20 U/L Normal 7 - 60 U/L [facility]. pH (U) 7.0 [pH] Normal [facility]. Protein [Mass/Vol] 6.9 g/dL Normal 6.1 - 8.1 g/dL [facility] Specific gravity (U) [Rel density] 1.010 Normal [facility]; [facility]. Urobilinogen Qn (U) 0.2 mg/dL Normal [facility]. Laboratory - Hematology and Cell countson 12-05-2015 Hemoglobin Ql (U) Negative Normal [facility]. Laboratory - Specimen inform ationon 12-05-2015 Appearance (U) clear Normal [employer]; [facility]. Color (U) yellow Normal [facility]; [facility]. Laboratory - Urinalysison Glucose Test strip (U) [Mass/Vol] Negative Normal [employer]; [facility]. Leukocyte esterase Test strip Ql (U) Negative Normal [facility]. Nitrite Ql (U) Negative Normal [facility]. Protein Ql (U) Negative Normal [facility] Laboratory - Cytologyon 05-16 Microscopic observation Cyto stain Nom (Cvx) Normal [employer]; [facility]. Laboratory - Chemistry and C hemistry - challengeon 03-13-2015 Bilirubin Ql (U) Negative Normal [employer]; [employer]. Ketones Ql (U) 40 mg/dL Abnormal [facility] pH (U) 6.0 [pH] Normal [facility]. Specific gravity (U) [Rel density] <=1.005 Normal [facility]. Urobilinogen Qn (U) 0.2 mg/dL Normal [facility]; [facility]. Laboratory - Hematology and Cell countson 03-13-2015 Hemoglobin Ql (U) Negative Normal [facility] [employer]. Laboratory - Microbiology an d Antimicrobial susceptibilityon 03-13-2015 Microscopic observation Wet prep Nom (Unsp spec) Negative Normal [place] [facility]. Laboratory - Specimen inform ationon 03-13-2015 Appearance (U) clear Normal [facility]. Color (U) yellow Normal [facility]. Laboratory - Urinalysison Glucose Test strip (U) [Mass/Vol] Negative Normal [facility] [employer] [employer]. Leukocyte esterase Test strip Ql (U) Negative Normal [facility]. Nitrite Ql (U) Negative Normal [facility] [employer] [employer]. Protein Ql (U) Negative Normal [facility]. Laboratory - Chemistry and C hemistry - challengeon 03-07-2015 Bilirubin Ql (U) small Abnormal [place] [employer] [employer]. Ketones Ql (U) trace Normal [facility] [employer] [employer]. pH (U) 6.0 [pH] Normal [facility] [employer] [employer]. Specific gravity (U) [Rel density] 1.020 Normal [facility] [employer]. Urobilinogen Qn (U) 0.2 mg/dL Normal [facility].; [facility]. Laboratory - Hematology and Cell countson 03-07-2015 Hemoglobin Ql (U) Negative Normal [facility]. Laboratory - Microbiology an d Antimicrobial susceptibilityon 03-07-2015 Bacteria identified Cx Nom (U) Normal [facility]. Laboratory - Specimen inform ationon 03-07-2015 Appearance (U) cloudy Abnormal [facility]. Color (U) yellow Normal [facility]. Specimen source Nom (Unsp spec) URINE Normal [facility]; [facility] Laboratory - Urinalysison Glucose Test strip (U) [Mass/Vol] Negative Normal [facility]; [facility], [facility] Leukocyte esterase Test strip Ql (U) Negative Normal [facility].; [facility], [facility] Nitrite Ql (U) Negative Normal [facility]; [facility] Protein Ql (U) Negative Normal [facility]; [facility], [facility] Laboratory - Chemistry and C hemistry - challengeon 03-06-2015 Albumin [Mass/Vol] 3.8 g/dL Normal 3.6 - 5.1 g/dL [facility]; [facility], [facility] Albumin/Globulin [Mass ratio] 1.4 {ratio} Normal 1.0 - 2.5 [facility]; [facility] ALP [Catalytic activity/Vol] 48 U/L Normal 33 - 115 U/L [facility]; [facility], [facility]. ALT [Catalytic activity/Vol] 6 U/L Normal 6 - 29 U/L [facility]; [facility], [facility]. AST [Catalytic activity/Vol] 11 U/L Normal 10 - 35 U/L [facility].; [facility], [facility]. Bilirubin [Mass/Vol] 0.3 mg/dL Normal 0.2 - 1 .2 mg/dL [facility].; [facility], [facility]. Calcium [Mass/Vol] 8.7 mg/dL Normal 8.6 - 10. 2 mg/dL [facility].; [facility], [facility]. Chloride [Moles/Vol] 107 mmol/L Normal 98 - 11 0 mmol/L [facility].; [facility], [facility] Cholesterol [Mass/Vol] 201 mg/dL Abnormal 125 - 200 mg/dL [facility].; [facility], [facility]. Cholesterol in HDL [Mass/Vol] 50 mg/dL Normal [facility].; [facility], [facility]. Cholesterol in LDL [Mass/Vol] 120 mg/dL Normal [facility], [facility].; [facility], [facility] Cholesterol non HDL [Mass/Vol] 150 mg/dL Normal [facility], [facility].; [facility], [facility]. Cholesterol.total/Chol esterol in HDL [Mass ratio] 4.0 {ratio} Normal [facility], [facility].; [facility], [facility]. CO2 [Moles/Vol] 23 mmol/L Normal 19 - 30 mmol/L [facility], [facility].; [facility], [facility]. Creatinine [Mass/Vol] 0.65 mg/dL Normal 0.50 - 1.10 mg/dL [facility], [facility].; [facility], [facility]. GFR/1.73 sq M.predicted among blacks MDRD (S/P/Bld) [Vol rate/Area] 122 {ML/MIN/1.73M2} Normal [facility], [facility].; [facility], [facility]. GFR/1.73 sq M.predicted MDRD (S/P/Bld) [Vol rate/Area] 105 {ML/MIN/1.73M2} Normal [facility], [facility].; [facility], [facility]. Globulin (S) [Mass/Vol] 2.7 g/dL Normal 1.9 - 3.7 g/dL [facility], [facility].; [facility], [facility]. Glucose [Mass/Vol] 83 mg/dL Normal 65 - 99 mg/dL [facility], [facility].; [facility], [facility]. Potassium [Moles/Vol] 4.4 mmol/L Normal 3.5 - 5.3 mmol/L [facility], [facility].; [facility], [facility]. Protein [Mass/Vol] 6.5 g/dL Normal 6.1 - 8.1 g/dL [facility], [facility].; [facility], [facility]. Sodium [Moles/Vol] 137 mmol/L Normal 135 - 146 mmol/L [facility], [facility].; [facility] Triglyceride [Mass/Vol] 155 mg/dL Abnormal [facility], [facility].; [facility], [facility]. Urea nitrogen [Mass/Vol] 6 mg/dL Abnormal 7 - 25 mg/dL [facility], [facility].; [facility] Urea nitrogen/Creatinine [Mass ratio] 9.5 mg/mg Normal 6 - [facility], [facility].; [facility], [facility] Vital Signs Date Time Vital Sign Value Performing Clinician Facility 04-04-2025 09:24-0400 Body height 154.[address] Francisco Matthews MD Work Phone: [facility] 04-04-2025 09:24-0400 Body mass index (BMI) [Ratio] 21.9 kg/m2 Dr. Francisco Matthews MD Work Phone: [phone] [address] 04-04-2025 09:24-0400 Body weight 52.[address] Francisco Matthews MD Work Phone: [phone](765)[phone] [place] [address] 04-04-2025 09:24-0400 Diastolic blood pressure 74 mm[Hg] Dr. Francisco Matthews MD Work Phone: [phone] [address] 04-04-2025 09:24-0400 Heart rate 56 /min Dr. Francisco Matthews MD Work Phone: [phone])[phone] [address] 04-04-2025 09:24-0400 Respiratory rate 18 /min Dr. Francisco Matthews MD Work Phone: [phone] [place] [address] 04-04-2025 09:24-0400 SaO2% (BldA) [Mass fraction] 98 % Dr. Francisco Matthews MD Work Phone: [phone] [address] 04-04-2025 09:24-0400 Systolic blood pressure 112 mm[Hg] Dr. Francisco Matthews MD Work Phone: [phone])[phone] [address] 03-06-2025 08:23-0400 Body height 157.48 cm Hailey Carrasco MA [facility], [facility]. 03-06-2025 08:23-0400 Body mass index (BMI) [Ratio] 21.11 kg/m2 Hailey Carrasco MA [facility] 03-06-2025 08:23-0400 Body surface area Derived from formula 1.51 m2 Hailey Carrasco MA [facility], [facility]. 03-06-2025 08:23-0400 Body weight 52.36 kg Hailey Carrasco MA [facility].; [facility]. 03-06-2025 08:23-0400 Diastolic blood pressure 81 mm[Hg] Hailey Carrasco MA [facility].; [facility], [facility]. Comment on above: Patient Position: Sitting; Cuff Location : Left Arm; Cuff Size: Standard 03-06-2025 08:23-0400 Heart rate 64 /min Hailey Carrasco MA [facility].; [facility], [facility]. Comment on above: Pattern: Regular 03-06-2025 08:23-0400 Systolic blood pressure 122 mm[Hg] Hailey Carrasco MA [facility].; [facility], [facility]. Comment on above: Patient Position: Sitting; Cuff Location : Left Arm; Cuff Size: Standard 10-08-2024 09:08-0500 Body mass index (BMI) [Ratio] 21.9 kg/m2 Dr. Francisco Matthews MD Work Phone: [facility] 10-08-2024 09:08-0500 Body weight 52.[address] Francisco Matthews MD Work Phone: [facility] 10-08-2024 09:08-0500 Diastolic blood pressure 76 mm[Hg] Dr. Francisco Matthews MD Work Phone: [facility] 10-08-2024 09:08-0500 Heart rate 82 /min Dr. Francisco Matthews MD Work Phone: [facility] 10-08-2024 09:08-0500 Respiratory rate 18 /min Dr. Francisco Matthews MD Work Phone: [facility] 10-08-2024 09:08-0500 Systolic blood pressure 108 mm[Hg] Dr. Francisco Matthews MD Work Phone: [facility] 08-27-2024 08:49-0500 Body height 157.48 cm Sarah Blanchard RN [facility].; [facility]. 08-27-2024 08:49-0500 Body mass index (BMI) [Ratio] 21.58 kg/m2 Sarah Blanchard RN [facility].; [facility]. 08-27-2024 08:49-0500 Body surface area Derived from formula 1.53 m2 Sarah Blanchard RN [facility].; [facility]. 08-27-2024 08:49-0500 Body temperature 98.8 [degF] Sarah [facility]anch[facility]. Comment on above: Method: Tympanic 08-27-2024 08:49-0500 Body weight 53.52 kg Sarah Blanchard [facility]. 08-27-2024 08:49-0500 Diastolic blood pressure 60 mm[Hg] Sarah Blanchard RN [facility].; [facility]. Comment on above: Patient Position: Sitting; Cuff Location : Left Arm; Cuff Size: Small 08-27-2024 08:49-0500 Heart rate 65 /min Sarah Blanch[facility]. Comment on above: Pattern: Regular 08-27-2024 08:49-0500 Inhaled oxygen concentration 21 % Sarah Blanchard RN [place] [facility].; [facility]. Comment on above: Room air 08-27-2024 08:49-0500 SaO2% (BldA) [Mass fraction] 98 % Sarah Blanch[facility].; [facility] [employer] 08-27-2024 08:49-0500 Systolic blood pressure 94 mm[Hg] Sarah Blanchard RN [place] [facility].; [facility]. Comment on above: Patient Position: Sitting; Cuff Location : Left Arm; Cuff Size: Small 07-24-2024 09:07-0500 Body height 157.48 cm Hailey Carrasco MA [facility].; [facility] [employer] 07-24-2024 09:07-0500 Body mass index (BMI) [Ratio] 21.58 kg/m2 Hailey Carrasco MA [place] [facility].; [place] [employer]. 07-24-2024 09:07-0500 Body surface area Derived from formula 1.53 m2 Hailey [facility]rasco [facility]. 07-24-2024 09:07-0500 Body temperature 97.3 [degF] Hailey Carrasco MA [place] [facility].; [facility]. 07-24-2024 09:07-0500 Body weight 53.52 kg Hailey Carrasco MA [place] [facility].; [employer]. 07-24-2024 09:07-0500 Diastolic blood pressure 80 mm[Hg] Hailey Carrasco MA [place] [facility].; [employer]. Comment on above: Patient Position: Sitting; Cuff Location : Left Arm; Cuff Size: Standard 07-24-2024 09:07-0500 Heart rate 70 /min Hailey Carrasco MA [place] [facility] [employer]. Comment on above: Pattern: Regular 07-24-2024 09:07-0500 Inhaled oxygen concentration 21 % Hailey Carrasco MA [facility].; [employer]. Comment on above: Room air 07-24-2024 09:07-0500 SaO2% (BldA) [Mass fraction] 98 % Hailey [facility]. 07-24-2024 09:07-0500 Systolic blood pressure 119 mm[Hg] Hailey Carrasco MA [place] [facility].; [employer]. Comment on above: Patient Position: Sitting; Cuff Location : Left Arm; Cuff Size: Standard 07-20-2024 13:27-0500 Body height 157.48 cm Hailey Carrasco MA [place] [facility].; [facility]. 07-20-2024 13:27-0500 Body mass index (BMI) [Ratio] 20.94 kg/m2 Hailey Carrasco MA [place] [facility].; [employer]. 07-20-2024 13:27-0500 Body surface area Derived from formula 1.51 m2 Hailey Carrasco MA [place] [facility].; [employer]. 07-20-2024 13:27-0500 Body weight 51.94 kg Hailey Carrasco [facility] [employer] 07-20-2024 13:27-0500 Diastolic blood pressure 70 mm[Hg] Hailey Carrasco [facility]. Comment on above: Patient Position: Sitting; Cuff Location : Left Arm; Cuff Size: Standard 07-20-2024 13:27-0500 Heart rate 71 /min Hailey Carrasco [facility]. Comment on above: Pattern: Regular 07-20-2024 13:27-0500 Inhaled oxygen concentration 21 % Hailey Carrasco [facility]. Comment on above: Room air 07-20-2024 13:27-0500 SaO2% (BldA) [Mass fraction] 97 % Hailey Carrasco [facility]. 07-20-2024 13:27-0500 Systolic blood pressure 103 mm[Hg] Hailey Carrasco MA [facility] Comment on above: Patient Position: Sitting; Cuff Location : Left Arm; Cuff Size: Standard 05-30-2024 08:22-0400 Body height 157.48 cm Hailey Carrasco [facility]. 05-30-2024 08:22-0400 Body mass index (BMI) [Ratio] 20.68 kg/m2 Hailey Carrasco MA [place] [facility].; [facility]. 05-30-2024 08:22-0400 Body surface area Derived from formula 1.5 m2 Hailey Carrasco MA [place] [facility].; [facility]. 05-30-2024 08:22-0400 Body weight 51.29 kg Hailey Carrasco MA [place] [facility].; [facility]. 05-30-2024 08:22-0400 Diastolic blood pressure 79 mm[Hg] Hailey Carrasco MA [facility] [employer] [employer]. Comment on above: Patient Position: Sitting; Cuff Location : Left Arm; Cuff Size: Standard 05-30-2024 08:22-0400 Heart rate 55 /min Hailey [facility]rasco [facility]. Comment on above: Pattern: Regular 05-30-2024 08:22-0400 Systolic blood pressure 118 mm[Hg] Hailey Carrasco MA [facility] [employer]. Comment on above: Patient Position: Sitting; Cuff Location : Left Arm; Cuff Size: Standard 04-23-2024 10:00-0400 Body height 157.48 cm Sarah Blanchard [facility] 04-23-2024 10:00-0400 Body mass index (BMI) [Ratio] 20.12 kg/m2 Sarah Blanchard RN [place] [employer] [employer]. 04-23-2024 10:00040 Body surface area Derived from formula 1.48 m2 Sarah Blanchard RN [place] [employer].; [employer]. 04-23-2024 10:00-0400 Body temperature 97.3 [degF] Sarah Blanchard RN [facility] [employer]. Comment on above: Method: Tympanic 04-23-2024 10:00-0400 Body weight 49.9 kg Sarah Blanchard RN [facility] [employer]. 04-23-2024 10:00-0400 Diastolic blood pressure 68 mm[Hg] Sarah Blanchard RN [employer] [employer]. Comment on above: Patient Position: Sitting; Cuff Location : Left Arm; Cuff Size: Standard 04-23-2024 10:00-0400 Heart rate 68 /min Sarah Blanchard RN [employer] [employer]. Comment on above: Pattern: Regular 04-23-2024 10:00-0400 Inhaled oxygen concentration 21 % Sarah Blanchard RN [employer] [employer]. Comment on above: Room air 04-23-2024 10:00-0400 SaO2% (BldA) [Mass fraction] 98 % Sarah Blanchard RN [facility].; [facility] 04-23-2024 10:00-0400 Systolic blood pressure 103 mm[Hg] Sarah Blanchard RN [facility].; [facility]. Comment on above: Patient Position: Sitting; Cuff Location : Left Arm; Cuff Size: Standard 11-17-2023 11:20-0400 Body temperature 97 [degF] Dr. Francisco Matthews Work Phone: [phone] [address] 11-17-2023 11:20-0400 Diastolic blood pressure 65 mm[Hg] Dr. Francisco Matthews Work Phone: 3([phone] [address] 11-17-2023 11:20-0400 Heart rate 72 /min Dr. Francisco Matthews Work Phone: [phone] [address] 11-17-2023 11:20-0400 Respiratory rate 16 /min Dr. Francisco Matthews Work Phone: 5(012)[phone] [place] [address] 11-17-2023 11:20-0400 SaO2% (BldA) [Mass fraction] 98 % Dr. Francisco Matthews Work Phone: 3([phone])[phone] [place] [address] 11-17-2023 11:20-0400 Systolic blood pressure 92 mm[Hg] Dr. Francisco Matthews Work Phone: 8(722)060-346360 [place] [address] 11-17-2023 11:00-0400 Inhaled oxygen flow rate 2 L/min Dr. Francisco Matthews Work Phone: 6(767)364-889260 [place] [address] 11-17-2023 09:13-0400 Body height 154.[address] Francisco Matthews Work Phone: [phone](443)[phone] [place] [address] 11-17-2023 09:13-0400 Body mass index (BMI) [Ratio] 20.8 kg/m2 Dr. Francisco Matthews Work Phone: [phone])[phone] [place] [address] 11-17-2023 09:13-0400 Body weight [address] Francisco Matthews Work Phone: [phone](575)[phone] [address] 10-11-2023 12:13-0500 Body height [address] Francisco Matthews Work Phone: 9(801)238-668960 [place] [address] 10-11-2023 12:13-0500 Body mass index (BMI) [Ratio] 21.1 kg/m2 Dr. Francisco Matthews Work Phone: [facility] 10-11-2023 12:13-0500 Body weight 50.[address] Francisco Matthews Work Phone: 3(857)219-329842 [address] 10-11-2023 12:13-0500 Diastolic blood pressure 64 mm[Hg] Dr. Francisco Matthews Work Phone: 1(730)612-750342 [address] 10-11-2023 12:13-0500 Heart rate 62 /min Dr. Francisco Matthews Work Phone: 3(235)716-915860 [place] [address] 10-11-2023 12:13-0500 Respiratory rate 16 /min Dr. Francisco Matthews Work Phone: 3(664)101-639760 [place] [address] 10-11-2023 12:13-0500 Systolic blood pressure 96 mm[Hg] Dr. Francisco Matthews Work Phone: 4(049)940-995460 [place] [address] 06-20-2023 11:58-0500 Body height 157.48 cm Sarah Blanchard RN [facility], [facility].; [employer] [facility], [facility]. 06-20-2023 11:58-0500 Body mass index (BMI) [Ratio] 21.03 kg/m2 Sarah Blanchard RN [facility], [facility].; [facility]. 06-20-2023 11:58-0500 Body surface area Derived from formula 1.51 m2 Sarah Blanchard RN [facility].; [facility], [facility]. 06-20-2023 11:58-0500 Body weight 52.16 kg Sarah Blanchard RN [facility].; [place] [employer] [facility], [facility]. 06-20-2023 11:58-0500 Diastolic blood pressure 67 mm[Hg] Sarah Blanchard RN [facility], [facility].; [place] [employer] [facility]. Comment on above: Patient Position: Sitting; Cuff Location : Left Arm; Cuff Size: Standard 06-20-2023 11:58-0500 Heart rate 71 /min [facility] [place] [employer]. Comment on above: Pattern: Regular 06-20-2023 11:58-0500 Systolic blood pressure 101 mm[Hg] [facility] [place] [employer]. Comment on above: Patient Position: Sitting; Cuff Location : Left Arm; Cuff Size: Standard 04-20-2023 09:42-0400 Body height 157.48 cm Romana Lux [facility].; [facility]. 04-20-2023 09:42-0400 Body mass index (BMI) [Ratio] 21.03 kg/m2 Rom[facility].; [place] [employer]. 04-20-2023 09:42-0400 Body surface area Derived from formula 1.51 m2 Rom[facility].; [employer]. 04-20-2023 09:42-0400 Body temperature 97.7 [degF] [facility] [employer]. Comment on above: Method: Tympanic 04-20-2023 09:42-0400 Body weight 52.16 kg Romana [facility] [employer]. 04-20-2023 09:42-0400 Diastolic blood pressure 74 mm[Hg] Rom[facility] [employer]. Comment on above: Patient Position: Sitting; Cuff Location : Left Arm; Cuff Size: Standard 04-20-2023 09:42-0400 Heart rate 60 /min Rom[facility].; [employer]. Comment on above: Pattern: Regular 04-20-2023 09:42-0400 Inhaled oxygen concentration 20 % Romana [facility] [employer]. Comment on above: Room air 04-20-2023 09:42-0400 Inhaled oxygen concentration 21 % Romana Lux MA [facility].; [facility]. Comment on above: Room air 04-20-2023 09:42-0400 SaO2% (BldA) [Mass fraction] 97 % Romana Lux MA [facility].; [facility]. 04-20-2023 09:42-0400 Systolic blood pressure 106 mm[Hg] Romana Lux MA [facility].; [facility], [facility]. Comment on above: Patient Position: Sitting; Cuff Location : Left Arm; Cuff Size: Standard 04-04-2023 08:29-0400 Body height 154.[address] Francisco Matthews Work Phone: 2(473)801-245460 [place] [address] 04-04-2023 08:24-0400 Body mass index (BMI) [Ratio] 21.3 kg/m2 Dr. Francisco Matthews Work Phone: 3(522)155-011560 [place] [address] 04-04-2023 08:24-0400 Body weight 51.[address] Francisco Matthews Work Phone: 3(529)223-601360 [place] [address] 04-04-2023 08:24-0400 Diastolic blood pressure 68 mm[Hg] Dr. Francisco Matthews Work Phone: 6(088)347-783942 [address] 04-04-2023 08:24-0400 Heart rate 66 /min Dr. Francisco Matthews Work Phone: [facility] 04-04-2023 08:24-0400 Respiratory rate 18 /min Dr. Francisco Matthews Work Phone: 8(088)879-388960 [place] [address] 04-04-2023 08:24-0400 SaO2% (BldA) [Mass fraction] 96 % Dr. Francisco Matthews Work Phone: 8(531)881-552460 [place] [address] 04-04-2023 08:24-0400 Systolic blood pressure 101 mm[Hg] Dr. Francisco Matthews Work Phone: 1(985)043-845542 [address] 06-28-2022 10:46-0500 Body height 157.48 cm Sarah Blanchard RN [facility].; [facility]. 06-28-2022 10:46-0500 Body mass index (BMI) [Ratio] 20.85 kg/m2 Sarah [facility]anch[facility].; [employer]. 06-28-2022 10:46-0500 Body surface area Derived from formula 1.51 m2 Sarah Blanchard [facility].; [employer]. 06-28-2022 10:46-0500 Body temperature 98 [degF] Sarah Blanchard RN [place] [employer] [facility].; [employer]. Comment on above: Method: Tympanic 06-28-2022 10:46-0500 Body weight 51.71 kg Sarah Blanchard RN [employer] [facility].; [employer]. 06-28-2022 10:46-0500 Diastolic blood pressure 65 mm[Hg] Sarah Blanchard RN [employer].; [employer]. Comment on above: Patient Position: Sitting; Cuff Location : Left Arm; Cuff Size: Standard 06-28-2022 10:46-0500 Heart rate 76 /min Sarah Blanchard RN [employer] [facility].; [employer]. Comment on above: Pattern: Regular 06-28-2022 10:46-0500 Inhaled oxygen concentration 20 % Sarah Blanchard RN [employer] [facility].; [employer]. Comment on above: Room air 06-28-2022 10:46-0500 Inhaled oxygen concentration 21 % Sarah Blanchard RN [employer] [facility].; [employer]. Comment on above: Room air 06-28-2022 10:46-0500 SaO2% (BldA) [Mass fraction] 96 % Sarah Blanchard RN [employer].; [employer]. 06-28-2022 10:46-0500 Systolic blood pressure 99 mm[Hg] Sarah Blanchard RN [employer].; [employer]. Comment on above: Patient Position: Sitting; Cuff Location : Left Arm; Cuff Size: Standard 05-27-2022 08:56-0400 Body height 154.[address] Francisco Matthews Work Phone: [facility] Work Phone: 05-27-2022 08:56-0400 Body mass index (BMI) [Ratio] 21.5 kg/m2 Dr. Francisco Matthews Work Phone: [facility] Work Phone: 05-27-2022 08:56-0400 Body weight 51.[address] Francisco Matthews Work Phone: [facility] Work Phone: 05-27-2022 08:56-0400 Diastolic blood pressure 70 mm[Hg] Dr. Francisco Matthews Work Phone: [facility] Work Phone: 05-27-2022 08:56-0400 Heart rate 65 /min Dr. Francisco Matthews Work Phone: [facility] Work Phone: 05-27-2022 08:56-0400 SaO2% (BldA) [Mass fraction] 95 % Dr. Francisco Matthews Work Phone: [facility] Work Phone: 05-27-2022 08:56-0400 Systolic blood pressure 103 mm[Hg] Dr. Francisco Matthews Work Phone: [facility] Work Phone: 04-01-2022 08:20-0400 Body height 154.[address] Francisco Matthews Work Phone: [facility] Work Phone: 04-01-2022 08:20-0400 Body mass index (BMI) [Ratio] 21.3 kg/m2 Dr. Francisco Matthews Work Phone: [facility] Work Phone: 04-01-2022 08:20-0400 Body weight 51.[address] Francisco Matthews Work Phone: [facility] Work Phone: 04-01-2022 08:20-0400 Diastolic blood pressure 71 mm[Hg] Dr. Francisco Matthews Work Phone: [facility] Work Phone: 04-01-2022 08:20-0400 Heart rate 56 /min Dr. Francisco Matthews Work Phone: [facility] Work Phone: 04-01-2022 08:20-0400 SaO2% (BldA) [Mass fraction] 64 % Dr. Francisco Matthews Work Phone: [facility] Work Phone: 04-01-2022 08:20-0400 Systolic blood pressure 117 mm[Hg] Dr. Francisco Matthews Work Phone: [facility] Work Phone: 02-18-2022 07:54-0400 Body height 154.[address] Francisco Matthews Work Phone: [facility] Work Phone: 02-18-2022 07:54-0400 Body mass index (BMI) [Ratio] 21.1 kg/m2 Dr. Francisco Matthews Work Phone: [facility] Work Phone: 02-18-2022 07:54-0400 Body weight 50.[address] Francisco Matthews Work Phone: [facility] Work Phone: 02-18-2022 07:54-0400 Diastolic blood pressure 71 mm[Hg] Dr. Francisco Matthews Work Phone: [facility] Work Phone: 02-18-2022 07:54-0400 Heart rate 74 /min Dr. Francisco Matthews Work Phone: [facility] Work Phone: 02-18-2022 07:54-0400 SaO2% (BldA) [Mass fraction] 92 % Dr. Francisco Matthews Work Phone: [facility] Work Phone: 02-18-2022 07:54-0400 Systolic blood pressure 108 mm[Hg] Dr. Francisco Matthews Work Phone: [facility] Work Phone: 02-08-2022 08:53-0400 Body height 154.[address] Francisco Matthews Work Phone: [facility] Work Phone: 02-08-2022 08:53-0400 Body mass index (BMI) [Ratio] 21.3 kg/m2 Dr. Francisco Matthews Work Phone: [facility] Work Phone: 02-08-2022 08:53-0400 Body weight 51.[address] Francisco Matthews Work Phone: [facility] Work Phone: 02-08-2022 08:53-0400 Diastolic blood pressure 69 mm[Hg] Dr. Francisco Matthews Work Phone: [facility] Work Phone: 02-08-2022 08:53-0400 Heart rate 63 /min Dr. Francisco Matthews Work Phone: [facility] Work Phone: 02-08-2022 08:53-0400 Respiratory rate 16 /min Dr. Francisco Matthews Work Phone: [facility] Work Phone: 02-08-2022 08:53-0400 Systolic blood pressure 122 mm[Hg] Dr. Francisco Matthews Work Phone: [facility] Work Phone: 12-17-2021 07:53-0400 Body mass index (BMI) [Ratio] 22.1 kg/m2 Dr. Francisco Matthews Work Phone: [facility] Work Phone: 12-17-2021 07:53-0400 Body weight 53.[address] Francisco Matthews Work Phone: [facility] Work Phone: 12-17-2021 07:53-0400 Diastolic blood pressure 76 mm[Hg] Dr. Francisco Matthews Work Phone: [facility] Work Phone: 12-17-2021 07:53-0400 Heart rate 94 /min Dr. Francisco Matthews Work Phone: [facility] Work Phone: 12-17-2021 07:53-0400 SaO2% (BldA) [Mass fraction] 93 % Dr. Francisco Matthews Work Phone: [facility] Work Phone: 12-17-2021 07:53-0400 Systolic blood pressure 108 mm[Hg] Dr. Francisco Matthews Work Phone: [facility] Work Phone: 12-17-2021 07:53-0400 Body height 154.[address] Francisco Matthews Work Phone: [facility] Work Phone: 12-17-2021 07:53-0400 Body mass index (BMI) [Ratio] 22.1 kg/m2 Dr. Francisco Matthews Work Phone: [facility] Work Phone: 12-17-2021 07:53-0400 Body weight 53.[address] Francisco Matthews Work Phone: [facility] Work Phone: 12-17-2021 07:53-0400 Diastolic blood pressure 76 mm[Hg] Dr. Francisco Matthews Work Phone: [facility] Work Phone: 12-17-2021 07:53-0400 Heart rate 94 /min Dr. Francisco Matthews Work Phone: [facility] Work Phone: 12-17-2021 07:53-0400 SaO2% (BldA) [Mass fraction] 93 % Dr. Francisco Matthews Work Phone: [facility] Work Phone: 12-17-2021 07:53-0400 Systolic blood pressure 108 mm[Hg] Dr. Francisco Matthews Work Phone: [facility] Work Phone: 12-03-2021 08:28-0400 Body temperature 97.3 [degF] Dr. Francisco Matthews Work Phone: [facility] Work Phone: 12-03-2021 08:28-0400 Diastolic blood pressure 70 mm[Hg] Dr. Francisco Matthews Work Phone: [facility] Work Phone: 12-03-2021 08:28-0400 Heart rate 69 /min Dr. Francisco Matthews Work Phone: [facility] Work Phone: 12-03-2021 08:28-0400 Respiratory rate 16 /min Dr. Francisco Matthews Work Phone: [facility] Work Phone: 12-03-2021 08:28-0400 SaO2% (BldA) [Mass fraction] 93 % Dr. Francisco Matthews Work Phone: [facility] Work Phone: 12-03-2021 08:28-0400 Systolic blood pressure 101 mm[Hg] Dr. Francisco Matthews Work Phone: [facility] Work Phone: 12-03-2021 08:09-0400 Inhaled oxygen flow rate 4 L/min Dr. Francisco Matthews Work Phone: [facility] Work Phone: 12-03-2021 06:50-0400 Body height 154.[address] Francisco Matthews Work Phone: [facility] Work Phone: 12-03-2021 06:50-0400 Body mass index (BMI) [Ratio] 21.7 kg/m2 Dr. Francisco Matthews Work Phone: [facility] Work Phone: 12-03-2021 06:50-0400 Body weight [address] Francisco Matthews Work Phone: [facility] Work Phone: 09-03-2021 11:42-0500 Body temperature 97.2 [degF] Dr. Francisco Matthews Work Phone: [facility] Work Phone: 09-03-2021 11:42-0500 Diastolic blood pressure 68 mm[Hg] Dr. Francisco Matthews Work Phone: [facility] Work Phone: 09-03-2021 11:42-0500 Heart rate 70 /min Dr. Francisco Matthews Work Phone: [facility] Work Phone: 09-03-2021 11:42-0500 Respiratory rate 16 /min Dr. Francisco Matthews Work Phone: [facility] Work Phone: 09-03-2021 11:42-0500 SaO2% (BldA) [Mass fraction] 97 % Dr. Francisco Matthews Work Phone: [facility] Work Phone: 09-03-2021 11:42-0500 Systolic blood pressure 118 mm[Hg] Dr. Francisco Matthews Work Phone: [facility] Work Phone: 08-06-2021 08:31-0500 Body height 157.48 cm Pao Pedersen LPN [facility], [facility].; [facility] 08-06-2021 08:31-0500 Body mass index (BMI) [Ratio] 21.4 kg/m2 Pao Pedersen LPN [facility], [facility].; [facility]. 08-06-2021 08:31-0500 Body surface area Derived from formula 1.52 m2 Pao Pedersen LPN [facility], [facility].; [facility] 08-06-2021 08:31-0500 Body temperature 97.3 [degF] Pao Pedersen LPN [facility], [facility].; [employer] [facility]. Comment on above: Method: Tympanic 08-06-2021 08:31-0500 Body weight 53.07 kg Pao Pedersen LPN [facility], [facility].; [employer]. 08-06-2021 08:31-0500 Diastolic blood pressure 63 mm[Hg] Pao Pedersen LPN [facility], [facility].; [employer]. Comment on above: Patient Position: Sitting; Cuff Location : Right Arm; Cuff Size: Standard 08-06-2021 08:31-0500 Heart rate 74 /min [facility].; [employer]. Comment on above: Pattern: Regular 08-06-2021 08:31-0500 Systolic blood pressure 103 mm[Hg] Pao Pedersen LPN [facility], [facility].; [employer]. Comment on above: Patient Position: Sitting; Cuff Location : Right Arm; Cuff Size: Standard 06-25-2021 14:30-0500 Body height 157.48 cm Cara Garza PA-C Work Phone: [facility], [facility].; [employer]. 06-25-2021 14:30-0500 Body mass index (BMI) [Ratio] 21.03 kg/m2 Cara Garza PA-C Work Phone: [facility], [facility].; [employer] [facility]. 06-25-2021 14:30-0500 Body surface area Derived from formula 1.51 m2 Cara Garza PA-C Work Phone: [place] [employer] [facility].; [employer]. 06-25-2021 14:30-0500 Body temperature 98.9 [degF] Cara Garza PA-C Work Phone: [place] [employer] [facility].; [employer]. Comment on above: Method: Tympanic 06-25-2021 14:30-0500 Body weight 52.16 kg Cara Garza PA-C Work Phone: [facility]; [place] [employer] [facility] 06-25-2021 14:30-0500 Diastolic blood pressure 74 mm[Hg] Cara Garza PA-C Work Phone: [facility]; [employer]. Comment on above: Patient Position: Sitting; Cuff Location : Left Arm; Cuff Size: Standard 06-25-2021 14:30-0500 Heart rate 92 /min Cara Garza PA-C Work Phone: [facility]; [employer]. Comment on above: Pattern: Regular 06-25-2021 14:30-0500 Inhaled oxygen concentration 20 % Cara Garza PA-C Work Phone: [facility]; [employer]. Comment on above: Room air 06-25-2021 14:30-0500 Inhaled oxygen concentration 21 % Cara Garza PA-C Work Phone: [facility]; [employer]. Comment on above: Room air 06-25-2021 14:30-0500 SaO2% (BldA) [Mass fraction] 93 % Cara Garza PA-C Work Phone: [facility]; [employer] 06-25-2021 14:30-0500 Systolic blood pressure 114 mm[Hg] Cara Garza PA-C Work Phone: [facility]; [employer]. Comment on above: Patient Position: Sitting; Cuff Location : Left Arm; Cuff Size: Standard 12-03-2020 11: Body height 157.48 cm Neida Lopez LPN [facility].; [place] [employer] [facility]. 12-03-2020 11:040 Body mass index (BMI) [Ratio] 20.48 kg/m2 Neida Lopez LPN [facility].; [place] [employer] [facility]. 12-03-2020 11:11040 Body surface area Derived from formula 1.49 m2 Neida Lopez LPN [facility].; [facility] 12-03-2020 11:110400 Body temperature 96.8 [degF] Neida Lopez LPN [facility], [facility].; [facility] Comment on above: Method: Tympanic 12-03-2020 11:110400 Body weight 50.8 kg Neida Lopez LPN [facility] 12-03-2020 11:110400 Diastolic blood pressure 73 mm[Hg] Neida Lopez LPN [facility], [facility].; [facility] Comment on above: Patient Position: Sitting; Cuff Location : Left Arm; Cuff Size: Standard 12-03-2020 11:11040 Heart rate 61 /min Neida Lopez LPN [facility], [facility].; [place] [employer] [facility], [facility] Comment on above: Pattern: Regular 12-03-2020 11:110400 Inhaled oxygen concentration 20 % Neida Lopez LPN [facility] Comment on above: Room air 12-03-2020 11:110400 Inhaled oxygen concentration 21 % Neida Lopez [facility], [facility].; [place] [employer] [facility], [facility] Comment on above: Room air 12-03-2020 11:110400 SaO2% (BldA) [Mass fraction] 97 % Neida Lopez [employer] [facility] [place] [employer] [facility], [facility] 12-03-2020 11:110400 Systolic blood pressure 118 mm[Hg] Neida Lopez LPN [facility], [facility].; [place] [employer]. Comment on above: Patient Position: Sitting; Cuff Location : Left Arm; Cuff Size: Standard 03-17-2020 09:160400 Body height 157.48 cm Reyna Cali [facility], [facility].; [facility] 03-17-2020 09:160400 Body mass index (BMI) [Ratio] 20.12 kg/m2 Reyna Cali [facility] [place] [employer] [facility], [facility] 03-17-2020 09:16-0400 Body surface area Derived from formula 1.48 m2 Irene Leiva [employer] [facility], [facility].; [facility], [employer]. 03-17-2020 09:16-0400 Body temperature 97.4 [degF] Irene Leiva [facility], [facility].; [employer] [facility], [employer]. Comment on above: Method: Tympanic 03-17-2020 09:16-0400 Body weight 49.9 kg Irene Leiva [facility], [facility].; [employer] [facility], [employer]. 03-17-2020 09:16-0400 Diastolic blood pressure 79 mm[Hg] Irene Leiva [facility], [facility].; [employer] [facility], [employer]. Comment on above: Patient Position: Sitting; Cuff Location : Left Arm; Cuff Size: Large 03-17-2020 09:16-0400 Heart rate 68 /min Irene Leiva [facility], [facility].; [employer] [facility], [employer]. Comment on above: Pattern: Regular 03-17-2020 09:16-0400 Inhaled oxygen concentration 20 % Irene Leiva [facility] [employer] [facility], [employer]. Comment on above: Room air 03-17-2020 09:16-0400 Inhaled oxygen concentration 21 % Reyna Stuckey [facility], [facility].; [email or web address]. Comment on above: Room air 03-17-2020 09:16-0400 SaO2% (BldA) [Mass fraction] 98 % Irene Leiva [facility], [facility].; [employer] [facility], [employer]. 03-17-2020 09:16-0400 Systolic blood pressure 115 mm[Hg] Irene Leiva [facility], [facility].; [employer], [employer]. Comment on above: Patient Position: Sitting; Cuff Location : Left Arm; Cuff Size: Large 07-05-2019 13:18-0500 Body height 157.48 cm Sarah Blanchard RN [facility], [employer].; [employer]. 07-05-2019 13:18-0500 Body mass index (BMI) [Ratio] 21.22 kg/m2 Sarah Blanchard RN [employer].; [employer]. 07-05-2019 13:18-0500 Body surface area Derived from formula 1.52 m2 Sarah Blanchard RN [employer].; [employer]. 07-05-2019 13:18-0500 Body weight 52.62 kg Sarah Blanchard RN [employer].; [employer]. 07-05-2019 13:18-0500 Diastolic blood pressure 55 mm[Hg] Sarah Blanchard RN [employer].; [employer]. Comment on above: Patient Position: Sitting; Cuff Location : Left Arm; Cuff Size: Standard 07-05-2019 13:18-0500 Heart rate 59 /min Sarah Blanchard RN [email or web address], [employer].; [employer]. Comment on above: Pattern: Regular 07-05-2019 13:18-0500 Systolic blood pressure 89 mm[Hg] Sarah Blanchard RN [employer]. Comment on above: Patient Position: Sitting; Cuff Location : Left Arm; Cuff Size: Standard 04-25-2019 08:55-0400 Body height 157.48 cm Irene Leiva LPN [email or web address], [employer] [employer]. 04-25-2019 08:55-0400 Body mass index (BMI) [Ratio] 21.03 kg/m2 Irene Leiva LPN [email or web address], [employer]. 04-25-2019 08:55-0400 Body surface area Derived from formula 1.51 m2 Irene Leiva LPN [employer]. 04-25-2019 08:55-0400 Body temperature 97.4 [degF] Irene Leiva LPN [employer].; [employer]. Comment on above: Method: Tympanic 04-25-2019 08:55-0400 Body weight 52.16 kg Irene Leiva LPN [email or web address], [employer].; [employer]. 04-25-2019 08:55-0400 Inhaled oxygen concentration 20 % Irene Leiva LPN [facility], [facility].; [employer]. Comment on above: Room air 04-25-2019 08:55-0400 Inhaled oxygen concentration 21 % Irene Leiva [facility], [facility].; [employer]. Comment on above: Room air 04-25-2019 08:55-0400 SaO2% (BldA) [Mass fraction] 98 % Irene Leiva [facility], [facility].; [place], [employer]. 01-01-2019 09:01-0400 Body height 157.48 cm Irene Leiva [facility], [employer].; [place], [employer]. 01-01-2019 09:01-0400 Body mass index (BMI) [Ratio] 21.03 kg/m2 Reyna Cali [facility], [facility].; [email or web address], [employer]. 01-01-2019 09:01-0400 Body surface area Derived from formula 1.51 m2 Irene Leiva [facility], [facility].; [place], [employer]. 01-01-2019 09:01-0400 Body temperature 7.6 [degF] Irene Leiva [facility] [employer] [facility], [facility].; [place], [employer]. Comment on above: Method: Tympanic 01-01-2019 09:01-0400 Body weight 52.16 kg Irene Leiva [facility], [facility].; [place], [employer] 01-01-2019 09:01-0400 Diastolic blood pressure 67 mm[Hg] Irene Leiva [facility] [employer] [facility], [facility].; [employer]. Comment on above: Patient Position: Sitting; Cuff Location : Left Arm; Cuff Size: Large 01-01-2019 09:01-0400 Heart rate 70 /min ReynaHaylee Leiva [facility], [facility].; [employer]. Comment on above: Pattern: Regular 01-01-2019 09:01-0400 Inhaled oxygen concentration 20 % Irene Leiva [facility], [employer].; [employer]. Comment on above: Room air 01-01-2019 09:01-0400 Inhaled oxygen concentration 21 % Irene Leiva [facility], [facility] [employer]. Comment on above: Room air 01-01-2019 09:01-0400 SaO2% (BldA) [Mass fraction] 94 % Irene Leiva [facility], [facility].; [employer]. 01-01-2019 09:01-0400 Systolic blood pressure 111 mm[Hg] Irene Leiva [facility], [facility] [place], [employer]. Comment on above: Patient Position: Sitting; Cuff Location : Left Arm; Cuff Size: Large 05-08-2018 14:54-0400 Body height 157.48 cm Irene Leiva [facility], [facility].; [place], [employer]. 05-08-2018 14:54-0400 Body mass index (BMI) [Ratio] 21.77 kg/m2 Irene Leiva [facility], [facility].; [place], [employer] 05-08-2018 14:54-0400 Body surface area Derived from formula 1.53 m2 Reyna Cali [facility], [facility].; [place], [employer]. 05-08-2018 14:54-0400 Body weight 53.98 kg Irene Leiva [facility], [facility].; [place], [employer]. 05-08-2018 14:54-0400 Diastolic blood pressure 58 mm[Hg] Irene Leiva [facility] [employer]. Comment on above: Patient Position: Sitting; Cuff Location : Left Arm; Cuff Size: Large 05-08-2018 14:54-0400 Heart rate 65 /min ReynaHaylee Leiva [facility], [employer].; [employer]. Comment on above: Pattern: Regular 05-08-2018 14:54-0400 Systolic blood pressure 104 mm[Hg] Irene Leiva [facility] [employer]. Comment on above: Patient Position: Sitting; Cuff Location : Left Arm; Cuff Size: Large 04-20-2018 12:07-0400 Body height 157.48 cm Sarah Blanchard RN [employer]. 04-20-2018 12:07-0400 Body mass index (BMI) [Ratio] 21.22 kg/m2 Sarah Blanchard RN [employer] 04-20-2018 12:07-0400 Body surface area Derived from formula 1.52 m2 Sarah Blanchard RN [employer].; [employer]. 04-20-2018 12:07-0400 Body temperature 98.5 [degF] Sarah Blanchard RN [employer].; [employer]. Comment on above: Method: Tympanic 04-20-2018 12:07-0400 Body weight 52.62 kg Sarah Blanchard RN [employer].; [employer]. 04-20-2018 12:07-0400 Diastolic blood pressure 79 mm[Hg] Sarah Blanchard RN [employer].; [employer]. Comment on above: Patient Position: Sitting; Cuff Location : Left Arm; Cuff Size: Standard 04-20-2018 12:07-0400 Heart rate 92 /min Sarah Blanchard RN [employer].; [employer]. Comment on above: Pattern: Regular 04-20-2018 12:07-0400 Inhaled oxygen concentration 20 % Sarah Blanchard RN [employer]. Comment on above: Room air 04-20-2018 12:07-0400 Inhaled oxygen concentration 21 % Sarah Blanchard RN [employer]. Comment on above: Room air 04-20-2018 12:07-0400 SaO2% (BldA) [Mass fraction] 93 % Sarah Blanchard RN [employer]. 04-20-2018 12:07-0400 Systolic blood pressure 110 mm[Hg] Sarah Blanchard RN [employer].; [employer]. Comment on above: Patient Position: Sitting; Cuff Location : Left Arm; Cuff Size: Standard 09-26-2017 07:57-0500 Body height 157.48 cm Sarah Blanchard RN [employer].; [employer] 09-26-2017 07:57-0500 Body mass index (BMI) [Ratio] 21.4 kg/m2 Sarah Blanchard RN [employer] 09-26-2017 07:57-0500 Body surface area Derived from formula 1.52 m2 Sarah Blanchard RN [employer].; [employer]. 09-26-2017 07:57-0500 Body weight 53.07 kg Sarah Blanchard RN [employer].; [employer]. 09-26-2017 07:57-0500 Diastolic blood pressure 68 mm[Hg] Sarah Blanchard RN [employer].; [employer]. Comment on above: Patient Position: Sitting; Cuff Location : Left Arm; Cuff Size: Standard 09-26-2017 07:57-0500 Heart rate 50 /min Sarah Blanchard RN [employer].; [employer]. Comment on above: Pattern: Regular 09-26-2017 07:57-0500 Systolic blood pressure 108 mm[Hg] Sarah Blanchard RN [employer].; [employer]. Comment on above: Patient Position: Sitting; Cuff Location : Left Arm; Cuff Size: Standard 08-16-2017 16:18-0500 Body height 154.94 cm Sarah Blanchard RN [employer].; [employer] 08-16-2017 16:18-0500 Body mass index (BMI) [Ratio] 21.54 kg/m2 Sarah Blanchard RN [employer].; [employer] 08-16-2017 16:18-0500 Body surface area Derived from formula 1.49 m2 Sarah Blanchard RN [employer].; [employer]. 08-16-2017 16:18-0500 Body temperature 98.5 [degF] [facility] [employer]. Comment on above: Method: Tympanic 08-16-2017 16:18-0500 Body weight 51.71 kg Sarah Blanchard RN [place] [facility] [employer]. 08-16-2017 16:18-0500 Diastolic blood pressure 66 mm[Hg] [facility] [employer]. Comment on above: Patient Position: Sitting; Cuff Location : Left Arm; Cuff Size: Standard 08-16-2017 16:18-0500 Heart rate 70 /min Sarah [facility] [employer]. Comment on above: Pattern: Regular 08-16-2017 16:18-0500 Systolic blood pressure 110 mm[Hg] Sarah [facility] [employer]. Comment on above: Patient Position: Sitting; Cuff Location : Left Arm; Cuff Size: Standard 04-11-2017 10:040 BMI (Body Mass Index) 23.24 kg/m2 [employer] Work Phone: 04-11-2017 10:040 BP Diastolic 64 mm[Hg] [facility] Work Phone: 04-11-2017 10:040 BP Systolic 110 mm[Hg] [facility] Work Phone: 04-11-2017 10:040 Height 154.94 cm [facility] Work Phone: 04-11-2017 10:040 Pulse (Heart Rate) 58 /min Veronaren [employer] Work Phone: 04-11-2017 [id number] Respiratory Rate 18 /min [facility] [employer] Work Phone: 04-11-2017 10:19-0400 Weight 55.79 kg [facility] Work Phone: 03-21-2017 15:40-0400 Body height 154.94 cm Sarah Blanchard RN [employer].; [employer] 03-21-2017 15:40-0400 Body mass index (BMI) [Ratio] 23.62 kg/m2 Sarah Blanchard RN [employer].; [employer]. 03-21-2017 15:40-0400 Body surface area Derived from formula 1.55 m2 Sarah Blanchard RN [employer].; [employer]. 03-21-2017 15:40-0400 Body temperature 98.4 [degF] Sarah Blanchard RN [employer].; [employer]. Comment on above: Method: Tympanic 03-21-2017 15:40-0400 Body weight 56.7 kg Sarah Blanchard RN [employer].; [employer]. 03-21-2017 15:40-0400 Diastolic blood pressure 54 mm[Hg] Sarah Blanchard RN [employer].; [employer]. Comment on above: Patient Position: Sitting; Cuff Location : Right Arm; Cuff Size: Standard 03-21-2017 15:40-0400 Heart rate 70 /min Sarah Blanchard RN [employer].; [employer]. Comment on above: Pattern: Regular 03-21-2017 15:40-0400 Inhaled oxygen concentration 20 % Sarah Blanchard RN [employer].; [employer]. Comment on above: Room air 03-21-2017 15:40-0400 Inhaled oxygen concentration 21 % Sarah Blanchard RN [employer].; [employer]. Comment on above: Room air 03-21-2017 15:40-0400 SaO2% (BldA) [Mass fraction] 98 % Sarah Blanchard RN [employer].; [employer]. 03-21-2017 15:40-0400 Systolic blood pressure 86 mm[Hg] Sarah Blanchard RN [employer]. Comment on above: Patient Position: Sitting; Cuff Location : Right Arm; Cuff Size: Standard 02-24-2017 14:30-0400 Body height 154.94 cm Amita Kovacs Baker PA-C Work Phone: [employer].; [employer] 02-24-2017 14:30-0400 Body mass index (BMI) [Ratio] 24.75 kg/m2 Amita Kovacs Baker PA-C Work Phone: [employer].; [employer] 02-24-2017 14:30-0400 Body surface area Derived from formula 1.58 m2 Amita Bethanie Baker PA-C Work Phone: [employer].; [employer]. 02-24-2017 14:30-0400 Body weight 59.42 kg Amita Bethanie Baker PA-C Work Phone: [employer].; [employer]. 02-24-2017 14:30-0400 Diastolic blood pressure 79 mm[Hg] Amita Bethanie Baker PA-C Work Phone: [employer].; [employer]. Comment on above: Patient Position: Sitting; Cuff Location : Left Arm; Cuff Size: Standard 02-24-2017 14:30-0400 Heart rate 92 /min Amita Bethanie Baker PA-C Work Phone: [employer].; [employer]. Comment on above: Pattern: Regular 02-24-2017 14:30-0400 Systolic blood pressure 114 mm[Hg] Amita Bethanie Baker PA-C Work Phone: [employer]. Comment on above: Patient Position: Sitting; Cuff Location : Left Arm; Cuff Size: Standard 10-13-2016 15:35-0500 Body temperature 98.2 [degF] Cara Garza PA-C Work Phone: [place] [employer].; [employer]. Comment on above: Method: Tympanic 10-13-2016 15:35-0500 Body weight 59.83 kg Cara Garza PA-C Work Phone: [facility] [employer]. 10-13-2016 15:35-0500 Diastolic blood pressure 76 mm[Hg] Cara Garza PA-C Work Phone: [place] [employer].; [employer]. Comment on above: Patient Position: Sitting; Cuff Location : Left Arm; Cuff Size: Standard 10-13-2016 15:35-0500 Heart rate 76 /min Cara Garza PA-C Work Phone: [place] [employer].; [employer]. Comment on above: Pattern: Regular 10-13-2016 15:35-0500 Systolic blood pressure 128 mm[Hg] Cara Garza PA-C Work Phone: [facility] [employer].; [employer]. Comment on above: Patient Position: Sitting; Cuff Location : Left Arm; Cuff Size: Standard 08-27-2016 07:58-0500 Body height 157.48 cm Jennifer Marcos LPN [facility], [facility].; [employer]. 08-27-2016 07:58-0500 Body mass index (BMI) [Ratio] 24.51 kg/m2 Jennifer Marcos LPN [place] [employer] [facility], [facility].; [employer]. 08-27-2016 07:58-0500 Body surface area Derived from formula 1.61 m2 Jennifer Katheryn Marcos LPN [employer] [facility], [facility].; [email or web address], [employer]. 08-27-2016 07:58-0500 Body weight 60.78 kg Jennifer Katheryn Marcos LPN [place] [employer] [facility], [facility].; [email or web address], [employer]. 08-27-2016 07:58-0500 Diastolic blood pressure 80 mm[Hg] Jennifer Marcos LPN [place] [employer] [facility], [employer].; [employer]. Comment on above: Patient Position: Sitting; Cuff Location : Left Arm; Cuff Size: Standard 08-27-2016 07:58-0500 Heart rate 111 /min Jennifer K Mutersbaugh [employer] [facility], [facility] [employer]. Comment on above: Pattern: Regular 08-27-2016 07:58-0500 Systolic blood pressure 118 mm[Hg] Jennifer K Mutersbaugh [employer] [place] [employer]. Comment on above: Patient Position: Sitting; Cuff Location : Left Arm; Cuff Size: Standard 08-10-2016 11:24-0500 Body height 157.48 cm Jennifer K Mutersbaugh [employer] [place] [employer], [employer].; [employer]. 08-10-2016 11:24-0500 Body mass index (BMI) [Ratio] 24.14 kg/m2 Jennifer K Mutersbaugh [employer] [place] [employer] [facility], [facility].; [email or web address], [employer]. 08-10-2016 11:24-0500 Body surface area Derived from formula 1.6 m2 Jennifer K Mutersbaugh [employer] [place] [employer], [employer] [place], [employer]. 08-10-2016 11:24-0500 Body temperature 98.4 [degF] Jennifer K Mutersbaugh [employer] [place] [employer] [facility], [facility].; [place], [employer]. 08-10-2016 11:24-0500 Body weight 59.88 kg Jennifer K Mutersbaugh [employer] [place] [employer], [employer]. 08-10-2016 11:24-0500 Diastolic blood pressure 85 mm[Hg] Jennifer K Mutersbaugh [email or web address], [employer].; [employer]. Comment on above: Patient Position: Sitting; Cuff Location : Left Arm; Cuff Size: Standard 08-10-2016 11:24-0500 Heart rate 107 /min Jennifer K Mutersbaugh [email or web address], [employer].; [employer]. Comment on above: Pattern: Regular 08-10-2016 11:24-0500 Systolic blood pressure 135 mm[Hg] Jennifer K Mutersbaugh [employer] [facility], [facility] [employer] [facility], [employer]. Comment on above: Patient Position: Sitting; Cuff Location : Left Arm; Cuff Size: Standard 03-29-2016 10:45-0400 Body height 157.48 cm Irene Leiva [facility], [facility].; [employer] [facility], [employer]. 03-29-2016 10:45-0400 Body mass index (BMI) [Ratio] 22.86 kg/m2 Irene Leiva [facility], [facility].; [employer] [facility], [employer]. 03-29-2016 10:45-0400 Body surface area Derived from formula 1.57 m2 Irene Leiva [facility] [employer] [facility], [employer]. 03-29-2016 10:45-0400 Body temperature 97.3 [degF] Irene Leiva [facility], [facility] [place], [employer]. Comment on above: Method: Tympanic 03-29-2016 10:45-0400 Body weight 56.7 kg Irene Leiva [facility], [facility].; [employer] [facility], [employer]. 03-29-2016 10:45-0400 Diastolic blood pressure 89 mm[Hg] Irene Leiva [facility], [facility].; [email or web address], [employer]. Comment on above: Patient Position: Sitting; Cuff Location : Left Arm; Cuff Size: Large 03-29-2016 10:45-0400 Heart rate 79 /min Irene Leiva [employer] [facility], [facility] [email or web address], [employer]. Comment on above: Pattern: Regular 03-29-2016 10:45-0400 Systolic blood pressure 129 mm[Hg] Irene Leiva [facility], [facility].; [email or web address], [employer]. Comment on above: Patient Position: Sitting; Cuff Location : Left Arm; Cuff Size: Large 03-12-2016 14:01-0400 Body height 157.48 cm Jennifer Marcos LPN [facility], Inc.; [place], [employer]. 03-12-2016 14:01-0400 Body mass index (BMI) [Ratio] 23.41 kg/m2 Jennifer Marcos LPN [facility], [facility].; [employer] [facility]. 03-12-2016 14:01-0400 Body surface area Derived from formula 1.58 m2 Jennifer Marcos [employer] [facility], [facility].; [employer] [facility]. 03-12-2016 14:01-0400 Body temperature 98.1 [degF] Jennifer Marcos [employer] [place] [employer] [facility], [facility].; [employer] [facility]. 03-12-2016 14:01-0400 Body weight 58.06 kg Jennifer Marcos [employer]PER[employer] [place] [employer] [facility].; [employer] [facility]. 03-12-2016 14:01-0400 Diastolic blood pressure 96 mm[Hg] Jennifer Estevezugh SUPERVISOR [employer] [place] [employer] [facility].; [employer] [facility]. Comment on above: Patient Position: Sitting; Cuff Location : Left Arm; Cuff Size: Standard 03-12-2016 14:01-0400 Heart rate 111 /min Jennifer Marcos [facility] [employer] [facility].; [employer]. Comment on above: Pattern: Regular 03-12-2016 14:01-0400 Systolic blood pressure 121 mm[Hg] Jennifer Estevezugh [employer]PER[employer]OR [employer] [place] [employer] [facility].; [employer] [facility]. Comment on above: Patient Position: Sitting; Cuff Location : Left Arm; Cuff Size: Standard 12-18-2015 12:35-0400 Body height 157.48 cm Cara Garza PA-C Work Phone: [place] [employer] [facility].; [employer] [facility]. 12-18-2015 12:35-0400 Body mass index (BMI) [Ratio] 24.14 kg/m2 Cara Garza PA-C Work Phone: [employer].; [employer] 12-18-2015 12:35-0400 Body surface area Derived from formula 1.6 m2 Cara Garza PA-C Work Phone: [employer].; [employer]. 12-18-2015 12:35-0400 Body temperature 98.5 [degF] Cara Garza PA-C Work Phone: [employer]. Comment on above: Method: Tympanic 12-18-2015 12:35-0400 Body weight 59.88 kg Cara Garza PA-C Work Phone: [employer] 12-18-2015 12:35-0400 Diastolic blood pressure 79 mm[Hg] Cara Garza PA-C Work Phone: [employer] Comment on above: Patient Position: Sitting; Cuff Location : Left Arm; Cuff Size: Standard 12-18-2015 12:35-0400 Heart rate 81 /min Cara Garza PA-C Work Phone: [employer]; [employer]. Comment on above: Pattern: Regular 12-18-2015 12:35-0400 Systolic blood pressure 128 mm[Hg] Cara Garza PA-C Work Phone: [employer]. Comment on above: Patient Position: Sitting; Cuff Location : Left Arm; Cuff Size: Standard 12-05-2015 08:23-0400 Body height 157.48 cm Sarah Blanchard RN [employer]. 12-05-2015 08:23-0400 Body mass index (BMI) [Ratio] 23.96 kg/m2 Sarah Blanchard RN [employer].; [employer]. 12-05-2015 08:23-0400 Body surface area Derived from formula 1.6 m2 Sarah Blanchard RN [employer].; [employer] 12-05-2015 08:23-0400 Body temperature 98.9 [degF] Sarah Blanchard RN [employer].; [employer]. Comment on above: Method: Tympanic 12-05-2015 08:23-0400 Body weight 59.42 kg Sarah Blanchard RN [place] [employer] [facility], [employer].; [employer]. 12-05-2015 08:23-0400 Diastolic blood pressure 90 mm[Hg] [facility] [employer]. Comment on above: Patient Position: Sitting; Cuff Location : Left Arm; Cuff Size: Standard 12-05-2015 08:23-0400 Heart rate 95 /min Sarah Blanchard RN [facility], [employer].; [employer]. Comment on above: Pattern: Regular 12-05-2015 08:23-0400 Inhaled oxygen concentration 20 % Sarah Blanchard RN [place] [employer] [facility] [employer]. Comment on above: Room air 12-05-2015 08:23-0400 Inhaled oxygen concentration 21 % Sarah Blanchard RN [place] [employer] [facility], [employer].; [employer]. Comment on above: Room air 12-05-2015 08:23-0400 SaO2% (BldA) [Mass fraction] 96 % Sarah Blanchard RN [place] [employer] [facility] [employer]. 12-05-2015 08:23-0400 Systolic blood pressure 125 mm[Hg] Sarah Blanchard RN [place] [employer] [facility].; [employer]. Comment on above: Patient Position: Sitting; Cuff Location : Left Arm; Cuff Size: Standard 10-11-2015 09:25-0500 Body height 157.48 cm Irene Leiva LPN [facility], [employer].; [employer]. 10-11-2015 09:25-0500 Body mass index (BMI) [Ratio] 24.33 kg/m2 Irene Leiva LPN [place] [employer] [facility], [facility].; [place], [employer]. 10-11-2015 09:25-0500 Body surface area Derived from formula 1.61 m2 Irene Leiva LPN [facility], [facility].; [place], [employer]. 10-11-2015 09:25-0500 Body temperature 98.8 [degF] Irene Leiva LPN [place] [employer] [facility], [employer].; [employer]. Comment on above: Method: Tympanic 10-11-2015 09:25-0500 Body weight 60.33 kg Irene Leiva LPN [facility], [facility].; [employer] [facility], Inc[facility] 10-11-2015 09:25-0500 Diastolic blood pressure 84 mm[Hg] Irene Leiva LPN [facility], [facility].; [email or web address], [employer]. Comment on above: Patient Position: Sitting; Cuff Location : Left Arm; Cuff Size: Large 10-11-2015 09:25-0500 Heart rate 110 /min Irene Leiva [employer] [facility], [facility].; [place], [employer]. Comment on above: Pattern: Regular 10-11-2015 09:25-0500 Inhaled oxygen concentration 20 % Irene Leiva [facility], [facility].; [email or web address], [employer]. Comment on above: Room air 10-11-2015 09:25-0500 Inhaled oxygen concentration 21 % Irene Leiva [facility], [facility] [place], [employer]. Comment on above: Room air 10-11-2015 09:25-0500 SaO2% (BldA) [Mass fraction] 99 % Irene Leiva [facility], [facility].; [employer] [facility], [employer]. 10-11-2015 09:25-0500 Systolic blood pressure 138 mm[Hg] Irene Leiva LPN [facility], [facility].; [email or web address], [employer]. Comment on above: Patient Position: Sitting; Cuff Location : Left Arm; Cuff Size: Large 07-07-2015 15:55-0500 Body height 157.48 cm Sarah Blanchard RN [facility], [employer].; [employer]. 07-07-2015 15:55-0500 Body mass index (BMI) [Ratio] 23.96 kg/m2 Sarah Blanchard RN [place] [employer] [facility], [employer].; [employer]. 07-07-2015 15:55-0500 Body surface area Derived from formula 1.6 m2 Sarah Blanchard RN [place] [employer] [facility], [employer].; [employer]. 07-07-2015 15:55-0500 Body temperature 98 [degF] Sarah Blanchard RN [employer].; [employer]. Comment on above: Method: Tympanic 07-07-2015 15:55-0500 Body weight 59.42 kg Sarah Blanchard RN [employer].; [employer] 07-07-2015 15:55-0500 Diastolic blood pressure 90 mm[Hg] Sarah Blanchard RN [employer]. Comment on above: Patient Position: Sitting; Cuff Location : Right Arm; Cuff Size: Standard 07-07-2015 15:55-0500 Heart rate 96 /min Sarah Blanchard RN [employer].; [employer]. Comment on above: Pattern: Regular 07-07-2015 15:55-0500 Systolic blood pressure 131 mm[Hg] Sarah Blanchard RN [employer].; [employer]. Comment on above: Patient Position: Sitting; Cuff Location : Right Arm; Cuff Size: Standard 06-27-2015 14:40-0500 Body temperature 98.4 [degF] Sarah Blanchard RN [employer].; [employer]. Comment on above: Method: Tympanic 06-27-2015 14:40-0500 Body weight 59.42 kg Sarah Blanchard RN [employer].; [employer] 06-27-2015 14:40-0500 Diastolic blood pressure 87 mm[Hg] Sarah Blanchard RN [employer].; [employer]. Comment on above: Patient Position: Sitting; Cuff Location : Left Arm; Cuff Size: Standard 06-27-2015 14:40-0500 Heart rate 90 /min Sarah Blanchard RN [employer] Comment on above: Pattern: Regular 06-27-2015 14:40-0500 Systolic blood pressure 132 mm[Hg] Sarah Blanchard RN [employer]. Comment on above: Patient Position: Sitting; Cuff Location : Left Arm; Cuff Size: Standard 06-09-2015 08:52-0400 Body height 157.48 cm Sarah Blanchard RN [place] [employer] [facility] [employer] 06-09-2015 08:52-0400 Body mass index (BMI) [Ratio] 23.96 kg/m2 Sarah [facility] [employer] 06-09-2015 08:52-0400 Body surface area Derived from formula 1.6 m2 Sarah Blanchard RN [place] [employer] [facility] [employer]. 06-09-2015 08:52-0400 Body temperature 97.8 [degF] Sarah Blanchard RN [employer] [facility] [employer]. Comment on above: Method: Tympanic 06-09-2015 08:52-0400 Body weight 59.42 kg Sarah Blanchard RN [place] [employer] [facility] [employer]. 06-09-2015 08:52-0400 Diastolic blood pressure 81 mm[Hg] Sarah Blanchard RN [employer]. Comment on above: Patient Position: Sitting; Cuff Location : Left Arm; Cuff Size: Standard 06-09-2015 08:52-0400 Heart rate 97 /min Sarah Blanchard RN [place] [employer] [facility] [employer]. Comment on above: Pattern: Regular 06-09-2015 08:52-0400 Systolic blood pressure 125 mm[Hg] Sarah Blanchard RN [place] [employer] [facility] [employer]. Comment on above: Patient Position: Sitting; Cuff Location : Left Arm; Cuff Size: Standard 06-02-2015 08:01-0400 Body height 157.48 cm Sarah Blanchard RN [employer] [facility] [employer] 06-02-2015 08:01-0400 Body mass index (BMI) [Ratio] 23.78 kg/m2 Sarah Blanchard RN [employer] [facility] [employer]. 06-02-2015 08:01-0400 Body surface area Derived from formula 1.59 m2 Sarah Blanchard RN [employer] [facility] [employer]. 06-02-2015 08:01-0400 Body temperature 97.7 [degF] Sarah Blanchard RN [place] [employer] [facility] [employer]. Comment on above: Method: Tympanic 06-02-2015 08:010400 Body weight 58.97 kg Sarah Blanchard RN [place] [employer] [facility] [employer]. 06-02-2015 08:01-0400 Diastolic blood pressure 87 mm[Hg] Sarah Blanchard RN [employer] [facility] [employer]. Comment on above: Patient Position: Sitting; Cuff Location : Left Arm; Cuff Size: Standard 06-02-2015 08:01-0400 Heart rate 94 /min Sarah Blanchard RN [place] [employer] [facility] [employer]. Comment on above: Pattern: Regular 06-02-2015 08:01-0400 Systolic blood pressure 134 mm[Hg] Sarah Blanchard RN [employer] [facility] [employer]. Comment on above: Patient Position: Sitting; Cuff Location : Left Arm; Cuff Size: Standard 03-13-2015 15:06-0400 Body height 157.48 cm Sarah Blanchard RN [place] [employer] [facility] [employer]. 03-13-2015 15:06-0400 Body mass index (BMI) [Ratio] 23.41 kg/m2 Sarah Blanchard RN [place] [employer] [facility] [employer]. 03-13-2015 15:06-0400 Body surface area Derived from formula 1.58 m2 Sarah Blanchard RN [employer] [facility] [employer]. 03-13-2015 15:060400 Body temperature 99.6 [degF] Sarah Blanchard RN [employer]. Comment on above: Method: Tympanic 03-13-2015 15:060400 Body weight 58.06 kg Sarah Blanchard RN [place] [employer] [facility] [employer]. 03-13-2015 15:06-0400 Diastolic blood pressure 76 mm[Hg] Sarah Blanchard RN [employer]. Comment on above: Patient Position: Sitting; Cuff Location : Left Arm; Cuff Size: Standard 03-13-2015 15:06-0400 Heart rate 92 /min Sarah Blanchard RN [place] [employer] [facility] [employer]. Comment on above: Pattern: Regular 03-13-2015 15:06-0400 Systolic blood pressure 127 mm[Hg] Sarah Blanchard RN [employer]. Comment on above: Patient Position: Sitting; Cuff Location : Left Arm; Cuff Size: Standard 03-07-2015 11:05-0400 Body height 157.48 cm Sarah Blanchard RN [place] [employer] [facility] [employer] 03-07-2015 11:05-0400 Body mass index (BMI) [Ratio] 23.33 kg/m2 Sarah Blanchard RN [place] [employer] 03-07-2015 11:05-0400 Body surface area Derived from formula 1.58 m2 Sarah Blanchard RN [employer] 03-07-2015 11:05-0400 Body temperature 97.7 [degF] Sarah Blanchard RN [employer]. Comment on above: Method: Tympanic 03-07-2015 11:05-0400 Body weight 57.86 kg Sarah Blanchard RN [employer]. 03-07-2015 11:05-0400 Diastolic blood pressure 85 mm[Hg] Sarah Blanchard RN [employer]. Comment on above: Patient Position: Sitting; Cuff Location : Left Arm; Cuff Size: Standard 03-07-2015 11:05-0400 Heart rate 85 /min Sarah Blanchard RN [employer]. Comment on above: Pattern: Regular 03-07-2015 11:05-0400 Systolic blood pressure 127 mm[Hg] Sarah Blanchard RN [employer]. Comment on above: Patient Position: Sitting; Cuff Location : Left Arm; Cuff Size: Standard 02-28-2015 13:36-0400 Body height 157.48 cm Sarah Blanchard RN [employer]. 02-28-2015 13:36-0400 Body mass index (BMI) [Ratio] 23.05 kg/m2 Sarah Blanchard RN [employer]. 02-28-2015 13:36-0400 Body surface area Derived from formula 1.57 m2 Sarah Blanchard RN [employer]. 02-28-2015 13:36-0400 Body weight 57.15 kg Sarah Blanchard RN [employer]. 02-28-2015 13:36-0400 Diastolic blood pressure 81 mm[Hg] Sarah Blanchard RN [employer]. Comment on above: Patient Position: Sitting; Cuff Location : Right Arm; Cuff Size: Standard 02-28-2015 13:36-0400 Heart rate 86 /min Sarah Blanchard RN [employer]. Comment on above: Pattern: Regular 02-28-2015 13:36-0400 Systolic blood pressure 127 mm[Hg] Sarah Blanchard RN [employer]. Comment on above: Patient Position: Sitting; Cuff Location : Right Arm; Cuff Size: Standard 01-24-2015 16:23-0400 Body height 157.48 cm Sarah Blanchard RN [employer] 01-24-2015 16:23-0400 Body mass index (BMI) [Ratio] 24.17 kg/m2 Sarah Blanchard RN [employer]. 01-24-2015 16:23-0400 Body surface area Derived from formula 1.6 m2 Sarah Blanchard RN [employer]. 01-24-2015 16:23-0400 Body temperature 99 [degF] Sarah Blanchard RN [employer]. Comment on above: Method: Tympanic 01-24-2015 16:23-0400 Body weight 59.93 kg Sarah Blanchard RN [employer]. 01-24-2015 16:23-0400 Diastolic blood pressure 82 mm[Hg] Sarah Blanchard RN [employer]. Comment on above: Patient Position: Sitting; Cuff Location : Left Arm; Cuff Size: Standard 01-24-2015 16:23-0400 Heart rate 88 /min Sarah Blanchard RN [employer]. Comment on above: Pattern: Regular 01-24-2015 16:23-0400 Systolic blood pressure 145 mm[Hg] Sarah Blanchard RN [employer]. Comment on above: Patient Position: Sitting; Cuff Location : Left Arm; Cuff Size: Standard 08-16-2014 14:19-0500 Body temperature 98.8 [degF] Veronica Flynn LPN [employer]. Comment on above: Method: Tympanic 08-16-2014 14:19-0500 Body weight 58.06 kg Veronica Flynn LPN [employer]. 08-16-2014 14:19-0500 Diastolic blood pressure 82 mm[Hg] Veronica Flynn LPN [employer]. Comment on above: Patient Position: Sitting; Cuff Location : Left Arm; Cuff Size: Standard 08-16-2014 14:19-0500 Heart rate 92 /min Veronica Flynn LPN [employer] [facility] Comment on above: Pattern: Regular 08-16-2014 14:19-0500 Inhaled oxygen concentration 20 % Veronica Flynn LPN [facility]. Comment on above: Room air 08-16-2014 14:19-0500 Inhaled oxygen concentration 21 % Veronica Flynn LPN [facility].; [employer] [facility]. Comment on above: Room air 08-16-2014 14:19-0500 SaO2% (BldA) [Mass fraction] 99 % Veronica Flynn LPN [facility].; [employer] 08-16-2014 14:19-0500 Systolic blood pressure 134 mm[Hg] Veronica Flynn LPN [facility].; [facility]. Comment on above: Patient Position: Sitting; Cuff Location : Left Arm; Cuff Size: Standard Encounters Encounter Date Encounter Type Care Provider Facility Start: 05-02-2025 ambulatory Francisco Matthews Facility:[facility] Start: 04-10-2025 Encounter for genera l adult medical examination without abnormal findings Neida DICKINSON [facility] Start: 04-04-2025 End: 04-04-2025 Patient encounter procedure Taj OMALLEY [facility] Work Phone: Start: 04-04-2025 End: 04-04-[address] Francisco Matthews MD Work Phone: -[facility] Start: 04-04-2025 End: 04-04-2025 ambulatory Neida DICKINSON Facility:[facility] Start: 03-06-2025 End: 03-06-2025 Periodic preventive med est patient 40-64yrs Cara Garza PA-C Work Phone: [facility]. Start: 03-06-2025 End: 03-06-2025 Physical examination Cara Garza PA-C Work Phone: [facility] Start: 03-04-2025 End: 03-04-2025 Historical Summary Cara Garza PA-C Work Phone: [employer] Start: 03-01-2025 End: 03-01-[address] Francisco Matthews MD Work Phone: -Laboratory Start: 03-01-2025 End: 03-01-2025 Patient encounter procedure Taj Lang POST ADOPTION COORDINATOR-C -Laboratory Work Phone: Start: 03-01-2025 End: 03-01-2025 ambulatory Taj Lang POST ADOPTION COORDINATOR Facility:[facility] Start: 10-08-2024 End: 10-08-[address] Loreta Duvall MD -[facility] Work Phone: Start: 10-08-2024 End: 10-08-2024 ambulatory Francisco Matthews Facility:[facility] Start: 10-05-2024 End: 10-05-[address] Francisco Matthews MD Work Phone: [facility] Work Phone: Start: 10-05-2024 End: 10-05-2024 Patient encounter procedure Luisa Luis PA -Laboratory Work Phone: Start: 10-05-2024 End: 10-05-2024 ambulatory Francisco Matthews Facility:[facility] Start: 09-18-2024 ambulatory KENDALL MEYER [facility] Start: 09-07-2024 End: 09-07-2024 ambulatory [facility] Start: 08-27-2024 End: 08-27-2024 Office outpatient visit 15 minutes Cara Garza PA-C Work Phone: [employer] Start: 08-27-2024 Review Cara Garza P A-C Work Phone: [employer]. Start: 08-10-2024 End: 08-12-2024 Orders Cara Garza PA-C Work Phone: [employer]. Start: 07-24-2024 End: 07-24-2024 Office outpatient visit 15 minutes Cara Garza PA-C Work Phone: [facility] Start: 07-20-2024 End: 07-20-2024 Office outpatient visit 15 minutes Cara Garza PA-C Work Phone: [facility] Start: 05-30-2024 End: 05-30-2024 Periodic preventive med est patient 40-64yrs Cara Garza PA-C Work Phone: [facility] Start: 05-30-2024 End: 05-30-2024 Physical examination Cara Bethanie Garza PA-C Work Phone: [facility] Start: 04-23-2024 Review Cara Garza P A-C Work Phone: [facility] Start: 04-23-2024 End: 04-23-2024 Office outpatient visit 15 minutes Cara Garza PA-C Work Phone: [employer] [facility] Start: 11-22-2023 End: 11-22-[address] Francisco Matthews Work Phone: [facility] Work Phone: Start: 11-22-2023 End: 11-22-[address] Francisco Matthews Work Phone: [facility]-Nuclear Medicine, [facility] Work Phone: Start: 11-18-2023 End: 11-18-[address] Francisco Matthews Work Phone: [facility] Work Phone: Start: 11-18-2023 End: 11-18-[address] Francisco Matthews Work Phone: [facility]-Cat Scan, [facility] Work Phone: Start: 11-17-2023 Non-patient / Non-visit Dr. Francisco Matthews Work Phone: [facility] Start: 11-17-2023 End: 11-17-2023 Admission to same day surgery center Dr. Francisco Matthews Work Phone: [facility]-Endoscopy Work Phone: Start: 11-17-2023 End: 11-17-[address] Francisco Matthews Work Phone: [facility] Work Phone: Start: 11-04-2023 End: 11-04-[address] Francisco Matthews Work Phone: [facility] Work Phone: Start: 11-04-2023 End: 11-04-[address] Francisco Matthews Work Phone: [facility] Work Phone: Start: 10-14-2023 ambulatory KENDALL MEYER [facility] Start: 10-11-2023 End: 10-11-[address] Francisco Matthews Work Phone: [facility] Work Phone: Start: 06-20-2023 End: 06-20-2023 Manual pelvic examination Cara Garza PA-C Work Phone: [facility]; [facility] Start: 06-20-2023 End: 06-20-2023 Periodic preventive med est patient 40-64yrs Cara Garza PA-C Work Phone: [facility] Start: 06-03-2023 End: 06-03-2023 Orders Cara Garza PA-C [facility] Phone: [facility] Start: 04-28-2023 Non-patient / Non-visit Dr. Francisco Matthews Work Phone: [facility] Work Phone: Start: 04-27-2023 Non-patient / Non-visit Dr. Francisco Matthews Work Phone: [facility] Start: 04-27-2023 End: 04-27-[address] Francisco Matthews Work Phone: [facility] Work Phone: Start: 04-27-2023 End: 04-27-[address] Francisco Matthews Work Phone: [facility]-Cardiovascular Services Work Phone: Start: 04-20-2023 End: 04-20-2023 Office outpatient visit 15 minutes Cara DICKINSON-C Work Phone: [facility], [facility] Start: 04-04-2023 End: 04-04-[address] Francisco Matthews Work Phone: [facility] Work Phone: Start: 04-04-2023 End: 04-04-[address] Francisco Matthews Work Phone: [facility] Work Phone: Start: 03-08-2023 End: 03-08-[address] Francisco Matthews Work Phone: [facility] Work Phone: Start: 06-28-2022 End: 06-28-2022 Office outpatient visit 15 minutes Cara DICKINSON-C Work Phone: [facility], [facility] Start: 06-07-2022 End: 06-07-2022 Orders Cara DICKINSON-C Work Phone: [facility], [facility] Start: 06-03-2022 End: 06-03-[address] Francisco Matthews Work Phone: [facility] Work Phone: Start: 06-03-2022 End: 06-03-[address] Francisco Matthews Work Phone: [facility], [facility] Start: 05-27-2022 End: 05-27-[address] Francisco Matthews Work Phone: [facility] Work Phone: Start: 05-27-2022 End: 05-27-[address] Francisco Matthews Work Phone: [facility] Start: 04-11-2022 End: 04-11-[address] Francisco Matthews Work Phone: [facility] Work Phone: Start: 04-11-2022 End: 04-11-[address] Francisco Matthews Work Phone: [facility]-Laboratory, Specimen Start: 04-01-2022 End: 04-01-[address] Francisco Matthews Work Phone: [facility] Work Phone: Start: 04-01-2022 End: 04-01-[address] Francisco Matthews Work Phone: [facility] Start: 03-03-2022 End: 03-03-[address] Francisco Matthews [facility] Start: 02-19-2022 Non-patient / Non-visit Dr. Francisco Matthews Work Phone: [facility] Start: 02-19-2022 End: 02-19-[address] Francisco Matthews Work Phone: [facility]-Cardiovascular Services Start: 02-18-2022 End: 02-18-[address] Francisco Matthews Work Phone: [facility] Start: 02-08-2022 End: 02-08-[address] Francisco Matthews Work Phone: [facility]-Laboratory Start: 02-08-2022 End: 02-08-[address] Francisco Matthews Work Phone: [facility] Start: 02-05-2022 End: 02-05-[address] Francisco Matthews Work Phone: [facility]-Laboratory Start: 01-18-2022 End: 01-18-[address] Francisco Matthews Work Phone: [facility]-Laboratory Start: 12-17-2021 End: 12-17-[address] Francisco Matthews Work Phone: [facility] Start: 12-03-2021 Non-patient / Non-visit Dr. Francisco Matthews Work Phone: [facility] Start: 12-03-2021 End: 12-03-2021 Admission to same day surgery center Dr. Francisco Matthews Work Phone: [facility]-Endoscopy Start: 09-03-2021 End: 09-03-[address] Francisco Matthews Work Phone: [facility] Start: 08-12-2021 End: 08-12-[address] Francisco Matthews Work Phone: [facility] Start: 08-10-2021 End: 08-10-2021 Telephone follow-up Cara Garza PA-C Work Phone: [employer] Start: 08-10-[address] Francisco Matthews Work Phone: [facility]-Laboratory Start: 08-06-2021 End: 08-06-2021 Office outpatient visit 15 minutes Cara Garza PA-C Work Phone: [employer] Start: 06-25-2021 End: 06-25-2021 Office outpatient visit 15 minutes Cara Garza PA-C Work Phone: [employer] Start: 05-19-2021 End: 05-19-2021 Orders Cara Garza PA-C Work Phone: [employer] Start: 12-03-2020 End: 12-03-2020 Office outpatient visit 25 minutes Cara Garza PA-C Work Phone: [employer] Start: 06-17-2020 End: 06-17-2020 Nursing evaluation of patient and report Caar Garza PA-C Work Phone: [employer] Start: 05-16-2020 End: 05-16-2020 Orders Cara Garza PA-C Work Phone: [employer] Start: 03-17-2020 End: 03-17-2020 Office outpatient visit 15 minutes Cara Garza PA-C Work Phone: [employer] Start: 01-08-2020 End: 01-08-2020 Telephone follow-up Cara Garza PA-C Work Phone: [employer] Start: 07-05-2019 End: 07-08-2019 Patient encounter status Cara Garza PA-C Work Phone: [employer] Start: 07-05-2019 End: 07-08-2019 Periodic preventive med est patient 40-64yrs Cara Garza PA-C Work Phone: [employer]. Start: 06-26-2019 End: 06-26-2019 Orders Cara Garza PA-C Work Phone: [employer] Start: 05-21-2019 End: 05-21-2019 Orders Cara Garza PA-C Work Phone: [employer] Start: 05-07-2019 End: 05-21-2019 Orders Cara Garza PA-C Work Phone: [employer] Start: 04-25-2019 End: 04-25-2019 Office outpatient visit 15 minutes Cara Garza PA-C Work Phone: [employer] Start: 01-01-2019 End: 01-01-2019 Office outpatient visit 15 minutes Cara Garza PA-C Work Phone: [employer] Start: 05-08-2018 End: 05-08-2018 Patient encounter status Harley Mulligan (scribe) [employer] Start: 05-08-2018 End: 05-08-2018 Periodic preventive med est patient 40-64yrs Cara Garza PA-C Work Phone: [employer]. Start: 05-01-2018 End: 05-11-2018 Orders Cara Garza PA-C Work Phone: [employer] Start: 04-20-2018 End: 04-20-2018 Office outpatient visit 15 minutes Cara Garza PA-C Work Phone: [employer] Start: 04-03-2018 End: 04-03-2018 Orders Cara Garza PA-C Work Phone: [employer] Start: 09-26-2017 End: 09-26-2017 Office outpatient visit 25 minutes Cara Garza PA-C Work Phone: [employer] Start: 08-16-2017 End: 08-16-2017 Office outpatient visit 15 minutes Cara Garza PA-C Work Phone: [employer] Start: 03-21-2017 End: 03-21-2017 Office outpatient visit 25 minutes Cara Garza PA-C Work Phone: [employer]. Start: 02-28-2017 End: 02-28-2017 Medication Cara Garza PA-C Work Phone: [employer] Start: 02-24-2017 End: 02-24-2017 Office outpatient visit 15 minutes Cara Garza PA-C Work Phone: [employer] Start: 10-13-2016 End: 10-13-2016 Patient encounter procedure Cara Garza PA-C Work Phone: [employer] Start: 08-27-2016 End: 08-27-2016 Patient encounter procedure Cara Garza PA-C Work Phone: [employer] Start: 08-10-2016 End: 08-10-2016 Patient encounter procedure Cara Garza PA-C Work Phone: [employer] Start: 08-05-2016 End: 08-05-2016 Medication Cara Garza PA-C Work Phone: [employer]. Start: 08-04-2016 End: 08-04-2016 Phone Encounter Cara Garza PA-C Work Phone: [employer] Start: 03-29-2016 End: 03-29-2016 Patient encounter procedure Cara Garza PA-C Work Phone: [employer] Start: 03-17-2016 End: 03-17-2016 Orders Cara Garza PA-C Work Phone: [employer] Start: 03-12-2016 End: 03-14-2016 Patient encounter procedure Cara Garza PA-C Work Phone: [employer] Start: 02-23-2016 End: 02-23-2016 Historical Summary Cara Garza PA-C Work Phone: [employer] Start: 12-24-2015 End: 12-24-2015 Patient encounter procedure Cara Garza PA-C Work Phone: [employer] Start: 12-18-2015 End: 12-18-2015 Office outpatient visit 15 minutes Cara Garza PA-C Work Phone: [employer] Start: 12-05-2015 End: 12-05-2015 Office outpatient visit 15 minutes Cara Garza PA-C Work Phone: [employer] Start: 10-11-2015 End: 10-11-2015 Office outpatient visit 15 minutes Cara Garza PA-C Work Phone: [employer] Start: 07-07-2015 End: 07-07-2015 Office outpatient visit 15 minutes Cara Garza PA-C Work Phone: [employer] Start: 06-27-2015 End: 06-27-2015 Office outpatient visit 15 minutes Cara Garza PA-C Work Phone: [employer] Start: 06-09-2015 End: 06-09-2015 Patient encounter procedure Cara Garza PA-C Work Phone: [employer]. Start: 06-09-2015 End: 06-09-2015 Patient encounter status Cara Garza PA-C Work Phone: [employer] Start: 06-02-2015 End: 06-02-2015 Patient encounter procedure Cara Garza PA-C Work Phone: [employer]; [employer]. Start: 06-02-2015 End: 06-02-2015 Periodic preventive med est patient 65yrs& older Cara Garza PA-C Work Phone: [employer] Start: 05-30-2015 End: 05-30-2015 Nursing evaluation of patient and report Cara Garza PA-C Work Phone: [employer] Start: 03-13-2015 End: 03-13-2015 Office outpatient visit 15 minutes Cara Garza PA-C Work Phone: [employer] Start: 03-11-2015 End: 03-11-2015 Medication Cara Garza PA-C Work Phone: [employer] Start: 03-07-2015 End: 03-07-2015 Office outpatient visit 15 minutes Cara Garza PA-C Work Phone: [employer] Start: 03-06-2015 End: 03-06-2015 Orders Cara Garza PA-C Work Phone: [employer] Start: 02-28-2015 End: 02-28-2015 Office outpatient visit 25 minutes Cara Garza PA-C Work Phone: [employer] Start: 01-24-2015 End: 01-24-2015 Office outpatient visit 10 minutes Carastephy Garza PA-C Work Phone: [facility] Start: 01-20-2015 End: 01-20-2015 Orders Cara Garza PA-C Work Phone: [facility] Start: 08-16-2014 End: 08-16-2014 Patient encounter procedure Carastephy Garza PA-C Work Phone: [facility] Manual pelvic examination Carastephy Garza PA-C Work Phone: [facility]; [facility] Patient encounter procedure Genny Roman MD Work Phone: [facility]; [facility] Patient encounter status Genny Roman MD Work Phone: [facility]; [facility] Patient encounter status Sarah Blanchard RN [facility]; [facility] Physical examination Hailey Carrasco MA [facility] [employer]; [employer] [facility] Physical examination Hailey Carrasco MA [facility]; [employer] [facility] Procedures Date Procedure Procedure Detail Performing Clinician Start: 04-04-2025 End: 04-04-2025 Most Recent Cardio Report Cara Garza P A-C Work Phone: Start: 03-06-2025 End: 03-05-2025 Depression screening Cara Garza PA-C Work Phone: Start: 03-06-2025 End: 03-05-2025 Pos clin depres scrn f/u doc Cara Mitchell ean PA-C Work Phone: Start: 03-06-2025 End: 03-05-2025 Scr dep neg, no plan reqd Cara Garza PA-C Work Phone: Start: 02-12-2025 End: 02-12-2025 Lab findings surveillance Haileyavelina Jose Comment on above: cmp 90 Start: 02-12-2025 End: 02-12-2025 Lipid panel Hailey Danilo [place] Start: 10-08-2024 End: 10-08-2024 Most Recent Cardio Report Hailey Carrasco D[place] Rebeca Start: 08-15-2024 End: 08-15-2024 Screening mammography Haileyavelina Carrasco MA Comment on above: Within Normal Limits. Start: 08-10-2024 End: 09-07-2024 Screening mammography bi 2-view breast inc cad Cara J Garza PA-C Work Phone: Start: 05-30-2024 End: 05-29-2024 Depression screening Cara J Garza PA-C Work Phone: Start: 05-30-2024 End: 05-29-2024 Scr dep neg, no plan reqd Cara J Garza PA-C Work Phone: Start: 03-15-2024 End: 03-15-2024 Lab findings surveillance Hailey Danilo Jose Comment on above: BMP 88 Start: 03-15-2024 End: 03-15-2024 Lipid panel Hailey Danilo [place] Start: 11-22-2023 [address] empt[address] study Dr. Francisco Matthews Work Phone: Start: 11-18-2023 Computed tomography of abdomen and pelvis with contrast Dr. Francisco Matthews Work Phone: Start: 11-17-[address] Francisco talamantes Work Phone: Start: 08-19-2023 End: 08-19-2023 Screening mammography Sarah Blanchard RN Comment on above: Within Normal Limits. Start: 06-20-2023 End: 06-20-2023 Depression screening Cara J Garza PA-C Work Phone: Start: 06-20-2023 End: 06-20-2023 Flu immunize order/admin Cara J Garza PA-C Work Phone: Start: 06-20-2023 End: 06-20-2023 Microscopic examination of cervical Papanicolaou smear Sarah Blanchard RN Comment on above: Normal. Negative HPV Start: 06-20-2023 End: 06-20-2023 Scr dep neg, no plan reqd Cara DICKINSON-C Work Phone: Start: 06-03-2023 End: 08-19-2023 Screening mammography bi 2-view breast inc cad Cara Garza PA-C Work Phone: Start: 05-13-2023 End: 05-13-2023 Lipid panel Sarah Blanchard RN Start: 04-27-2023 Cardiovascular stress test using pharmacologic stress agent Dr. Francisco Matthews Work Phone: Start: 04-04-2023 Plain chest X-ray Dr. Francisco Matthews Work Phone: Start: 03-08-2023 MRI of cervical spine with contrast Dr. Francisco Matthews Work Phone: Start: 07-07-2022 End: 07-07-2022 Screening mammography Sarah Blanchard RN Comment on above: Normal. Benign Start: 06-07-2022 End: 07-09-2022 Screening digital breast tomosynthesis bi Cara Garza PA-C Work Phone: Start: 06-03-2022 Radiologic examination of upper gastrointestinal tract and small bowel with serial films Dr. Francisco Matthews Work Phone: Start: 03-03-[address] Francisco talamantes Work Phone: Start: 02-19-2022 Cardiovascular stress test using pharmacologic stress agent Dr. Francisco Matthews Work Phone: Start: 12-03-[address] Francisco talamantes Work Phone: Start: 12-02-2021 End: 12-02-[address] Francisco Matthews Work Phone: Start: 05-19-2021 End: 06-15-2021 Screening mammography bi 2-view breast inc cad Cara Garza PA-C Work Phone: Start: 12-03-2020 End: 12-03-2020 Radiologic exam chest 2 views Arron stein MD Work Phone: Start: 06-17-2020 End: 06-17-2020 Flu immunize order/admin Arron Cadena Work Phone: Start: 05-16-2020 End: 06-18-2020 Screening mammography bi 2-view breast inc cad Arron Soto MD Work Phone: Start: 07-05-2019 End: 07-05-2019 Depression screening Arron Soto MD Work Phone: Start: 07-05-2019 End: 07-05-2019 Flu immunize order/admin Arron Cadena Work Phone: Start: 07-05-2019 End: 07-05-2019 Scr dep neg, no plan reqd Arron Soto MD Work Phone: Start: 05-07-2019 End: 05-25-2019 Screening mammography bi 2-view breast inc cad Arron Soto MD Work Phone: Start: 05-08-2018 End: 05-08-2018 Flu imm no admin doc tien Arron Cadena Work Phone: Start: 05-08-2018 End: 05-08-2018 Microscopic examination of cervical Papanicolaou smear Sarah Blanchard RN Comment on above: Normal. Start: 04-20-2018 End: 08-24-2018 Pressurized/nonpressurized inhalation treatment Arron Soto MD Work Phone: Start: 04-03-2018 End: 05-05-2018 Screening mammography bi 2-view breast inc cad Arron Soto MD Work Phone: Start: 09-26-2017 End: 09-26-2017 Body mass index documented Arron Soto MD Work Phone: Start: 09-26-2017 End: 09-26-2017 Most recent diastolic blood pressure < 80 mm hg Arron Soto MD Work Phone: Start: 09-26-2017 End: 09-26-2017 Most recent systolic blood pressure <130 mm hg Arron Soto MD Work Phone: Start: 08-16-2017 End: 08-16-2017 Body mass index documented Arron Soto MD Work Phone: Start: 04-25-2017 End: 04-27-2017 *Hepatic Function Panel Casron De La Torre MD Work Phone: Start: 04-25-2017 End: 04-27-2017 Lipid panel [AGGREGATE] Carson De La Torre MD Work Phone: Start: 04-15-2017 End: 05-12-2017 Screening mammography bi 2-view breast inc cad Arron Soto MD Work Phone: Start: 04-11-2017 End: 04-11-2017 DJN Carson De La Torre MD Work Phone: Start: 04-11-2017 End: 04-22-2017 Echocardiography Carson De La Torre MD Work Phone: Start: 04-11-2017 End: 04-11-2017 Follow Up Appt 4 months Carson De La Torre MD Work Phone: Start: 03-09-2017 End: 03-09-2017 Nurse, Teaching, Wound Check (no charge) Carson De La Torre MD Work Phone: Start: 03-07-2017 Placement of stent in coronary artery Status post cardiac stent placement Cielo Barrios RN Start: 03-07-2017 End: 04-11-2017 Referral to human resources operations manager Carson De La Torre MD Work Phone: Start: 03-02-2017 History of placement of stent for coronary artery disease History of coronary artery stent placement Dr. Loreta Duvall MD Comment on above: PCI-DONNIE-LAD 03/02/17 Start: 03-17-2016 End: 03-25-2016 Mammogram, screening Arron Soto MD Work Phone: Start: 02-11-2016 End: 02-11-2016 Screening colonoscopy Sarah Blanchard RN Comment on above: Normal. Dr Yeung, [facility] Start: 12-18-2015 End: 12-23-2015 Hepatobiliary syst imaging including gallbladder Genny Roman MD Work Phone: Start: 12-05-2015 End: 12-09-2015 Us abdominal real time w/image limited Genny Roman MD Work Phone: Start: 06-02-2015 End: 06-02-2015 PPPS, initial visit Genny Roman MD Work Phone: Start: 06-02-2015 End: 06-02-2015 Tobacco use cessation ivntj counseling Genny Roman MD Work Phone: Start: 04-15-2015 End: 04-15-2015 Ophthalmic examination and evaluation Sarah Blanchard RN Comment on above: Dr Will, [facility] Start: 02-28-2015 End: 02-28-2015 Tobacco use cessation ivntj counseling Genny Roman MD Work Phone: Start: 01-24-2015 End: 02-28-2015 Mammogram, both breasts Genny Roman MD Work Phone: Comment on above: s/p right breast bx for calcifications l ast year (benign); now with right breast pain; due for routine mammo too; normal exam Breast biopsy Sarah Blanchard RN Comment on above: 2013 Breast biopsy Sarah Blanchard RN Comment on above: 2013 Breast biopsy Hailey Jose Comment on above: 2013 Breast biopsy Hailey Chawla A Comment on above: 2013 Breast biopsy Hailey Chawla A Comment on above: 2013 Breast biopsy Sarah Blanchard RN Comment on above: 2013 Breast biopsy Hailey Chawla A Comment on above: 2013 section Sarah Blanchard RN Comment on above: 1988 and 1991 at [facility] section Sarah Blanchard RN Comment on above: 1988 and 1991 at [facility] section Hailey cadena MA Comment on above: 1988 and 1991 at [facility] section Hailey cadena MA Comment on above: 1988 and 1991 at [facility] section Hailey cadena MA Comment on above: 1988 and 1991 at [facility] section Sarah Blanchard RN Comment on above: 1988 and 1991 at [facility] section Hailey cadena MA Comment on above: 1988 and 1991 at [facility] Cholecystectomy Sarah Blanchard RN Cholecystectomy Sarah Blanchard RN Cholecystectomy Haileyjeff Carrasco MA Cholecystectomy Hailey Carrasco MA Cholecystectomy Hailey Hood MA Cholecystectomy Sarah Blanchard RN Cholecystectomy Hailey Danilo MA stent Sarah Blanchard RN Comment on above: 2016 stent Sarah Blanchard RN Comment on above: 2016 stent Hailey Carrasco MA Comment on above: 2016 stent Hailey Carrasco MA Comment on above: 2016 stent Hailey Carrasco MA Comment on above: 2016 stent Sarah Blanchard RN Comment on above: 2016 stent Hailey Carrasco MA Comment on above: [address] Pablo Matthews Work Phone: Plan of Treatment Date Care Activity Detail Author Start: 03-07-2026 Patient encounter procedure Medical; PHYSICAL - [facility]. Start: 07-Mar-2026 08:30-04:00 ROWENA Garza Appointment Request [facility]. Start: 04-04-2025 Evaluation of diagnostic study results [facility] Start: 03-06-2025 Patient encounter procedure ID [employer] [facility] [employer]. Start: 08-10-2024 Screening mammography bi 2-view breast inc cad Mammogram Bilateral Screening Digital w/CAD (30988) with 3D (tomosynthesis), bilateral (53846) Start: 10-Aug-2024 Intent [facility] Start: 05-30-2024 Iiv4 vacc presrv free 0.5 ml dos for im use Flu Vaccine, Quadrivalent [id number] (6mo and older) Date: 30-May-2024 [facility]. Start: 05-30-2024 Patient encounter procedure Medical; PHYSICAL - [facility]. Start: 30-May-2024 08:20-04:00 ROWENA Garza Appointment Request [facility]. Start: 04-23-2024 Patient encounter procedure Medical; EXTENDED RTN - f/u pulm func @ [facility], referred to PCP [facility]. Start: 23-Apr-2024 09:50-04:00 ROWENA Garza Appointment Request [facility]. Start: 11-22-2023 Radionuclide gastric emptying study [facility] Start: 11-17-2023 Egd transoral biopsy single/multiple EGD BIOPSY SINGLE/MULTIPLE [facility] Start: 11-17-2023 Patient discharge [facility] Start: 05-27-2022 Immunoglobulin measurement [facility] Work Phone: Start: 05-27-2022 Serum immunofixation [facility] Work Phone: Start: 05-27-2022 Smooth muscle Ab [Presence] in Serum [facility] Work Phone: Start: 04-11-2022 Elastase, pancreatic (el-1), fecal; quantitative [facility] Work Phone: Start: 04-11-2022 Fat [Presence] in Stool [facility] Work Phone: Start: 04-01-2022 Cancer Ag 19-9 [Units/volume] in Serum or Plasma [facility] Work Phone: Start: 04-01-2022 Gastrin [Mass/volume] in Serum or Plasma [facility] Work Phone: Start: 04-01-2022 IgG subclass panel [Mass/volume] - Serum [facility] Work Phone: Start: 04-01-2022 Immunoglobulin measurement [facility] Work Phone: Start: 04-01-2022 Serum immunofixation [facility] Work Phone: Start: 04-01-2022 [facility] Work Phone: Start: 12-03-2021 Egd transoral biopsy single/multiple EGD BIOPSY SINGLE/MULTIPLE [facility] Work Phone: Start: 10-25-2017 End: 04-29-2017 *Hepatic Function Panel *Hepatic Function Panel [facility] Work Phone: Start: 10-25-2017 End: 04-29-2017 Lipid panel [AGGREGATE] *Lipid Profile CC PCP [facility] Work Phone: Start: 07-25-2017 End: 07-25-2017 Appointment [facility] Work Phone: Start: 04-25-2017 End: 04-27-2017 *Hepatic Function Panel *Hepatic Function Panel [facility] Work Phone: Start: 04-25-2017 End: 04-27-2017 Lipid panel [AGGREGATE] *Lipid Profile CC PCP [facility] Work Phone: Start: 04-11-2017 End: 04-11-2017 Appointment Appointment [facility] Work Phone: Start: 04-11-2017 End: 04-11-2017 DJN JESSICA [facility] Work Phone: Start: 04-11-2017 End: 04-11-2017 Echocardiography Echocardiogram (complete) [facility] Work Phone: Start: 04-11-2017 End: 04-11-2017 Follow Up Appt 4 months Follow Up Appt 4 months [facility] Work Phone: Start: 03-09-2017 End: 03-09-2017 Appointment Appointment [facility] Work Phone: Start: 03-07-2017 End: 03-09-2017 Cardiac Rehab [facility] [address] [facility], [address] [facility] Work Phone: Albumin [Moles/volum e] in Serum or Plasma [facility] Work Phone: Albumin/Globulin ratio [facility] Work Phone: Basic metabolic 2008 panel with ionized calcium - Serum or Plasma [facility] Cancer Ag 19-9 [Units/volume] in Serum or Plasma [facility] Work Phone: CBC W Auto Different ial panel - Blood [facility] Comprehensive metabo lic 2000 panel - Serum or Plasma [facility] CT Abdomen [facility] Work Phone: CT Abdomen and Pelvis [facility] Elastase, pancreatic (el-1), fecal; quantitative [facility] Work Phone: Electrophoresis: [id number] [facility] Work Phone: Electrophoresis: ry ma globulin [facility] Work Phone: Fat [Mass/mass] in Stool [facility] Work Phone: Fat [Presence] in Stool [facility] Work Phone: Fat.neutral [Presenc e] in Stool [facility] Work Phone: Gastrin [Mass/volume ] in Serum or Plasma [facility] Work Phone: Globulin measurement [facility] Work Phone: IgA [Mass/volume] in Serum or Plasma [facility] Work Phone: IgE [Units/volume] i n Serum or Plasma [facility] Work Phone: IgG [Mass/volume] in Serum or Plasma [facility] Work Phone: IgG subclass 1 [Mass/volume] in Serum [facility] Work Phone: IgG subclass 2 [Mass/volume] in Serum [facility] Work Phone: IgG subclass 3 [Mass/volume] in Serum [facility] Work Phone: IgG subclass 4 [Mass/volume] in Serum [facility] Work Phone: IgM [Mass/volume] in Serum or Plasma [facility] Work Phone: Lipid 1996 panel - S merline or Plasma [facility] Magnesium measurement [facility] MR Biliary ducts and Pancreatic duct WO contrast [facility] Work Phone: Neutrophil cytoplasm ic Ab.classic [Units/volume] in Serum [facility] Work Phone: NM Heart Views W str ess and W radionuclide IV [facility] Work Phone: NM Heart Views W str ess and W radionuclide IV [facility] NM Heart Views W str ess and W radionuclide IV [facility] P-ANCA measurement [facility] Work Phone: Patient referral [facility] Work Phone: Protein electrophore sis panel - Serum or Plasma [facility] Work Phone: Radionuclide gastric emptying study [facility] Radionuclide imaging of liver and/or biliary tract using radioactive isotope [facility] Work Phone: Serum protein electrophoresis [facility] Work Phone: Smooth muscle Ab [Pr esence] in Serum [facility] Work Phone: T4 free measurement [facility] Thyroid stimulating hormone measurement [facility] US Heart [facility] XR Unspecified body region Views [facility] Work Phone: [facility] Influenza vaccin e, quadrivalent (IIV4), 0.5 mL Scheduled for Administration Intent [facility] [employer] [facility] Immunizations Immunization Date Immunization Notes Care Provider [facility] 05-30-2024 influenza, injectabl e, quadrivalent, preservative free Cara Garza PA-C Work Phone: [facility]; [facility]. Comment on above: Site: Right ArmVIS G iven: * Influenza (Flu) Vaccine (Inactivated or Recombinant) (03/20/21) 06-20-2023 influenza, injectabl e, quadrivalent, preservative free Cara Garza PA-C Work Phone: [employer] [facility]; [facility]. Comment on above: Site: Right DeltoidV IS Given: * Influenza (Flu) Vaccine (Inactivated or Recombinant) (03/20/21) 06-17-2020 influenza, injectabl e, quadrivalent, contains preservative Cara Garza PA-C Work Phone: [employer] [facility]; [facility] Comment on above: Site: Left DeltoidVI S Given: * Influenza - Inactivated (03/29/19) 07-05-2019 tetanus toxoid, redu karen diphtheria toxoid, and acellular pertussis vaccine, adsorbed Cara Garza PA-C Work Phone: [facility]; [employer] Comment on above: Site: Left DeltoidVI S Given: * Tdap (Tetanus, Diphtheria, Pertussis) (10/08/14) 07-05-2019 influenza, injectabl e, quadrivalent, contains preservative Cara Garza PA-C Work Phone: [facility]; [employer] Comment on above: Site: Right DeltoidV IS Given: * Influenza - Inactivated (03/21/15) 08-27-2016 unknown vaccine or i mmune globulin Cara Garza PA-C Work Phone: [employer]; [employer] 08-27-2016 influenza, injectabl e, quadrivalent, contains preservative Cara Garza PA-C Work Phone: [facility]; [employer]. Comment on above: Site: Deltoid (Right )VIS Given: * Influenza - Inactivated (03/21/15) 06-09-2015 ADMINISTRATION OF INFLUENZA VIRUS VACCINE (G0008) Cara Garza PA-C Work Phone: [employer]; [employer] 06-09-2015 influenza, seasonal, injectable Cara Garza PA-C Work Phone: [facility]; [employer]. Comment on above: Site: Deltoid (Right )VIS Given: * Inactivated Influenza (03/21/2015) 10-25-2007 TD(adult) unspecifie d formulation Cara Garza PA-C Work Phone: [facility]; [employer] Payers Date Payer Category Payer Self-pay [id number] 2024 Unknown [id number] 2016 Private Health Insurance [id number] 2013 Medicare [id number] 1966 Unknown [id number] 1966 Unknown [id number] 1966 Unknown [id number] Private Health Insurance [facility] [id number] Unknown [id number] Unknown Unknown [id number] Unknown [id number] Unknown [id number] Unknown [id number] Unknown [id number] Unknown [id number] Social History Date Type Detail Facility Start: 12-01-2021 End: 11-15-2023 Tobacco smoking status MTIS Unknown if ever smoked [facility] Start: 03-02-2017 None [facility] Start: 03-02-2017 Spouse/ Signif icant Other [facility] Start: 03-02-2017 Cigarettes [facility] Start: 1965 Sex Assigned At Female [facility] Caffeine Use Caffeine Use [facility] Tobacco Use: Tobacco Use: ; F ormer smoker. [facility] [employer] [facility] Never smoked tobacco [facility].; [employer] [facility] Work Phone: Smokes tobacco daily [facility]; [employer] [facility] Work Phone: Start: 11-15-2023 End: 11-15-2023 Ex-smoker [facility] Start: 10-18-2024 Sex Female (finding) [facility] NEGATED: Highlighted row [facility] Medical Equipment Procedure Code Equipment Code Equipment Origin al Text Equipment Identifier Dates EGD, with monitored anesthesia care RESOLUTION 360 CLIP 235 CM FDA Start: 07-27-2021 EGD, with monitored anesthesia care RESOLUTION 360 CLIP 235 CM FDA Start: 07-27-2021 EGD, with monitored anesthesia care RESOLUTION 360 CLIP 235 CM FDA Start: 07-27-2021 EGD, with monitored anesthesia care RESOLUTION 360 CLIP 235 CM FDA Start: 07-27-2021 EGD, with monitored anesthesia care RESOLUTION 360 CLIP 235 CM FDA Start: 07-27-2021 EGD, with monitored anesthesia care RESOLUTION 360 CLIP 235 CM FDA Start: 07-27-2021 EGD, with monitored anesthesia care RESOLUTION 360 CLIP 235 CM FDA Start: 07-27-2021 EGD, with monitored anesthesia care RESOLUTION 360 CLIP 235 CM FDA Start: 07-27-2021 EGD, with monitored anesthesia care RESOLUTION 360 CLIP 235 CM FDA Start: 07-27-2021 EGD, with monitored anesthesia care RESOLUTION 360 CLIP 235 CM FDA Start: 07-27-2021 EGD, with monitored anesthesia care RESOLUTION 360 CLIP 235 CM FDA Start: 07-27-2021 EGD, with monitored anesthesia care RESOLUTION 360 CLIP 235 CM FDA Start: 07-27-2021 EGD, with monitored anesthesia care RESOLUTION 360 CLIP 235 CM FDA Start: 07-27-2021 EGD, with monitored anesthesia care RESOLUTION 360 CLIP 235 CM FDA Start: 07-27-2021 EGD, with monitored anesthesia care RESOLUTION 360 CLIP 235 CM FDA Start: 07-27-2021 EGD, with monitored anesthesia care RESOLUTION 360 CLIP 235 CM FDA Start: 07-27-2021 EGD, with monitored anesthesia care RESOLUTION 360 CLIP 235 CM FDA Start: 07-27-2021 EGD, with monitored anesthesia care RESOLUTION 360 CLIP 235 CM FDA Start: 07-27-2021 EGD, with monitored anesthesia care RESOLUTION 360 CLIP 235 CM FDA Start: 07-27-2021 EGD, with monitored anesthesia care RESOLUTION 360 CLIP 235 CM FDA Start: 07-27-2021 EGD, with monitored anesthesia care RESOLUTION 360 CLIP 235 CM FDA Start: 07-27-2021 EGD, with monitored anesthesia care RESOLUTION 360 CLIP 235 CM FDA Start: 07-27-2021 EGD, with monitored anesthesia care RESOLUTION 360 CLIP 235 CM FDA Start: 07-27-2021 EGD, with monitored anesthesia care RESOLUTION 360 CLIP 235 CM FDA Start: 07-27-2021 EGD, with monitored anesthesia care RESOLUTION 360 CLIP 235 CM FDA Start: 07-27-2021 EGD, with monitored anesthesia care RESOLUTION 360 CLIP 235 CM FDA Start: 07-27-2021 EGD, with monitored anesthesia care RESOLUTION 360 CLIP 235 CM FDA Start: 07-27-2021 EGD, with monitored anesthesia care RESOLUTION 360 CLIP 235 CM FDA Start: 07-27-2021 EGD, with monitored anesthesia care RESOLUTION 360 CLIP 235 CM FDA Start: 07-27-2021 EGD, with monitored anesthesia care RESOLUTION 360 CLIP 235 CM FDA Start: 07-27-2021 EGD, with monitored anesthesia care RESOLUTION 360 CLIP 235 CM FDA Start: 07-27-2021 EGD, with monitored anesthesia care RESOLUTION 360 CLIP 235 CM FDA Start: 07-27-2021 EGD, with monitored anesthesia care RESOLUTION 360 CLIP 235 CM FDA Start: 07-27-2021 EGD, with monitored anesthesia care RESOLUTION 360 CLIP 235 CM FDA Start: 07-27-2021 EGD, with monitored anesthesia care RESOLUTION 360 CLIP 235 CM FDA Start: 07-27-2021 EGD, with monitored anesthesia care RESOLUTION 360 CLIP 235 CM FDA Start: 07-27-2021 EGD, with monitored anesthesia care RESOLUTION 360 CLIP 235 CM FDA Start: 07-27-2021 EGD, with monitored anesthesia care RESOLUTION 360 CLIP 235 CM FDA Start: 07-27-2021 EGD, with monitored anesthesia care RESOLUTION 360 CLIP 235 CM FDA Start: 07-27-2021 EGD, with monitored anesthesia care RESOLUTION 360 CLIP 235 CM FDA Start: 07-27-2021 EGD, with monitored anesthesia care RESOLUTION 360 CLIP 235 CM FDA Start: 07-27-2021 EGD, with monitored anesthesia care RESOLUTION 360 CLIP 235 CM FDA Start: 07-27-2021 EGD, with monitored anesthesia care RESOLUTION 360 CLIP 235 CM FDA Start: 07-27-2021 EGD, with monitored anesthesia care RESOLUTION 360 CLIP 235 CM FDA Start: 07-27-2021 EGD, with monitored anesthesia care RESOLUTION 360 CLIP 235 CM FDA Start: 07-27-2021 EGD, with monitored anesthesia care RESOLUTION 360 CLIP 235 CM FDA Start: 07-27-2021 EGD, with monitored anesthesia care RESOLUTION 360 CLIP 235 CM FDA Start: 07-27-2021 EGD, with monitored anesthesia care RESOLUTION 360 CLIP 235 CM FDA Start: 07-27-2021 EGD, with monitored anesthesia care RESOLUTION 360 CLIP 235 CM FDA Start: 07-27-2021 EGD, with monitored anesthesia care RESOLUTION 360 CLIP 235 CM FDA Start: 07-27-2021 EGD, with monitored anesthesia care RESOLUTION 360 CLIP 235 CM FDA Start: 07-27-2021 EGD, with monitored anesthesia care RESOLUTION 360 CLIP 235 CM FDA Start: 07-27-2021 EGD, with monitored anesthesia care RESOLUTION 360 CLIP 235 CM FDA Start: 07-27-2021 EGD, with monitored anesthesia care RESOLUTION 360 CLIP 235 CM FDA Start: 07-27-2021 EGD, with monitored anesthesia care RESOLUTION 360 CLIP 235 CM FDA Start: 07-27-2021 EGD, with monitored anesthesia care RESOLUTION 360 CLIP 235 CM FDA Start: 07-27-2021 EGD, with monitored anesthesia care RESOLUTION 360 CLIP 235 CM FDA Start: 07-27-2021 EGD, with monitored anesthesia care RESOLUTION 360 CLIP 235 CM FDA Start: 07-27-2021 EGD, with monitored anesthesia care RESOLUTION 360 CLIP 235 CM FDA Start: 07-27-2021 EGD, with monitored anesthesia care RESOLUTION 360 CLIP 235 CM FDA Start: 07-27-2021 EGD, with monitored anesthesia care RESOLUTION 360 CLIP 235 CM FDA Start: 07-27-2021 EGD, with monitored anesthesia care RESOLUTION 360 CLIP 235 CM FDA Start: 07-27-2021 EGD, with monitored anesthesia care RESOLUTION 360 CLIP 235 CM FDA Start: 07-27-2021 EGD, with monitored anesthesia care RESOLUTION 360 CLIP 235 CM FDA Start: 07-27-2021 EGD, with monitored anesthesia care RESOLUTION 360 CLIP 235 CM FDA Start: 07-27-2021 EGD, with monitored anesthesia care RESOLUTION 360 CLIP 235 CM FDA Start: 07-27-2021 EGD, with monitored anesthesia care RESOLUTION 360 CLIP 235 CM FDA Start: 07-27-2021 EGD, with monitored anesthesia care RESOLUTION 360 CLIP 235 CM FDA Start: 07-27-2021 EGD, with monitored anesthesia care RESOLUTION 360 CLIP 235 CM FDA Start: 07-27-2021 EGD, with monitored anesthesia care RESOLUTION 360 CLIP 235 CM FDA Start: 07-27-2021 EGD, with monitored anesthesia care RESOLUTION 360 CLIP 235 CM FDA Start: 07-27-2021 EGD, with monitored anesthesia care RESOLUTION 360 CLIP 235 CM FDA Start: 07-27-2021 EGD, with monitored anesthesia care RESOLUTION 360 CLIP 235 CM FDA Start: 07-27-2021 EGD, with monitored anesthesia care RESOLUTION 360 CLIP 235 CM FDA Start: 07-27-2021 EGD, with monitored anesthesia care RESOLUTION 360 CLIP 235 CM FDA Start: 07-27-2021 EGD, with monitored anesthesia care RESOLUTION 360 CLIP 235 CM FDA Start: 07-27-2021 Goals Date Patient Goal Desired Activity /State Mental Status Date Assessment Result Facility 11-17-2023 Cognitive function Level Of Consciousness Sedated [facility] Work Phone: 12-03-2021 Cognitive function Voice/Name [facility] Work Phone: Clinical Notes 03-02-2017 to 04-04-2025 Note Date & Type Note Facility 04-04-2025 Evaluation note Diagnosis Onset Date Resolution Chest pain acute April 04, 2025 9:20am PVC (premature ventricular contraction) acute April 04, 2025 9:20am History of coronary artery stent placement March 02, 2017 chronic April 04, 2025 9:20am Ischemic cardiomyopathy chronic April 04, 2025 9:20am [facility] Work Phone: 1(353) 622-252902-24-2025 Evaluation note* Diagnosis Onset Date Resolution Status Admit Date COPD (chronic obstructive pulmonary disease) chronic September 12:48pm Coronary artery disease chronic F ebruary 2024 12:48pm Dyslipidemia chronic September 12:48pm History of coronary artery stent placement March 02, 2017 chronic October 08, 2 025 12:48pm Multiple sclerosis chronic Februa ry 2024 12:48pm Peptic ulcer disease resolved Febr uary 2024 12:48pm [facility] Work Phone: 1(693) 645-724404-04-[address] [facility] 11-17-[address] [facility]07-19-2017 Evaluation note* Diagnosis Onset Date Resolution Status Fatigue acute Palpitations acute Atherosclerotic heart diseas e of [place] coronary artery without angina pectoris chronic History of coronary artery stent placement March 02, 2017 chronic Hyperlipidemia chronic Ischemic cardiomyopathy iron handler jorge Paroxysmal supraventricular tachycardia chronic Dysphagia acute Gastritis acute GERD (gastroesophageal reflux disease) acute History of Helicobacter pylori infection acute RUQ abdominal pain acute Epigastric abdominal tenderness acute RUQ abdominal pain acute Constipation acute Epigastric pain acute Exocrine pancreatic insufficiency acute [facility] Work Phone: 1(235) 354-331807-19-2017 Evaluation note* Diagnosis Onset Date Resolution Status Coronary artery disease iron handler jorge Dyslipidemia chronic History of coronary artery stent placement March 02, 2017 chronic Multiple sclerosis chronic Intermittent palpitations re solved Constipation chronic RUQ abdominal pain chronic [facility] Work Phone: 1(715) 671-732907-19-2017 Evaluation note* Diagnosis Onset Date Resolution Status Admit Date Chest pain acute April 04, 2 025 9:20am PVC (premature ventricular contraction) acute April 04 9:20am History of coronary artery stent placement March 02, 2017 chronic April 04 9:20am Ischemic cardiomyopathy chronic A ug2024 9:20am [facility] Work Phone: Evaluation note* Diagnosis Onset Date Resolution Status Anemia acute Acute ST elevation myocardial infarction chronic Encounter for screening for COVID-19 acute URI (upper respiratory infection) acute [facility] Work Phone: Evaluation note* Diagnosis Onset Date Resolution Status Dysphagia acute Gastritis acute GERD (gastroesophageal reflux disease) acute H. pylori infection acute [facility] Work Phone: Evaluation note* Diagnosis Onset Date Resolution Status Dysphagia acute Gastritis acute GERD (gastroesophageal reflux disease) acute H. pylori infection acute Fatigue acute Palpitations acute Atherosclerotic heart diseas e of [place] coronary artery without angina pectoris chronic History of coronary artery stent placement March 02, 2017 chronic Hyperlipidemia chronic Ischemic cardiomyopathy iron handler jorge Paroxysmal supraventricular tachycardia chronic [facility] Work Phone: Evaluation note* Diagnosis Onset Date Resolution Status Dysphagia acute Gastritis acute GERD (gastroesophageal reflux disease) acute H. pylori infection acute Fatigue acute Palpitations acute Atherosclerotic heart diseas e of [place] coronary artery without angina pectoris chronic History of coronary artery stent placement March 02, 2017 chronic Hyperlipidemia chronic Ischemic cardiomyopathy iron handler jorge Paroxysmal supraventricular tachycardia chronic Dysphagia acute Gastritis acute GERD (gastroesophageal reflux disease) acute History of Helicobacter pylori infection acute RUQ abdominal pain acute [facility] Work Phone: Evaluation note* Diagnosis Onset Date Resolution Status Dysphagia acute Gastritis acute GERD (gastroesophageal reflux disease) acute H. pylori infection acute Fatigue acute Palpitations acute Atherosclerotic heart diseas e of [place] coronary artery without angina pectoris chronic History of coronary artery stent placement March 02, 2017 chronic Hyperlipidemia chronic Ischemic cardiomyopathy iron handler jorge Paroxysmal supraventricular tachycardia chronic Dysphagia acute Gastritis acute GERD (gastroesophageal reflux disease) acute History of Helicobacter pylori infection acute RUQ abdominal pain acute Epigastric abdominal tenderness acute RUQ abdominal pain acute [facility] Work Phone: Evaluation note* Diagnosis Onset Date Resolution Status Dysphagia acute Gastritis acute GERD (gastroesophageal reflux disease) acute History of Helicobacter pylori infection acute RUQ abdominal pain acute Epigastric abdominal tenderness acute RUQ abdominal pain acute Constipation acute Epigastric pain acute Exocrine pancreatic insufficiency acute [facility] Work Phone: Evaluation note* Diagnosis Onset Date Resolution Status Dyspnea on exertion acute Fatigue acute Atherosclerotic heart diseas e of [place] coronary artery without angina pectoris chronic Hyperlipidemia chronic Ischemic cardiomyopathy iron handler jorge Paroxysmal supraventricular tachycardia chronic [facility] Work Phone: Evaluation noteNo assessment information available [facility] Work Phone: History and physical note Author Mike Friend [facility] November 17, 2023 10:10am Note Date/Time November 17, 2023 10:1 0am [facility] Medical Records Department [facility] [place] [address] History & Physical Exam 11/17/23 1010 MR#: [id number] Acct: [id number] Name: GENNY AZUL Rep #:[id number] : 1965 58 From: Mike Friend DO PCP: Dr. Francisco Matthews MD Status:REG SD C Location: [place] [address] History and Physical Date of Admission: 11/17/23 GENNY AZUL, is a 58 F who presents to the office today for *[facility] hospitalization 07.26.21-07.30.21 for management of GIB with PRBC transfusion required. ? CT abd/pel 07.26.21 hepatic cyst; colonic diverticulosis ? EGD 07.27.21 LA Grade B esophagitis; dieulafoy lesion of stomach;clotted blood throughout stomach. No specimens. GI outpatient: ? Biochemical 07.31.21 CBC, ESR, CMP, TIBC, ferritin without pertinent abnormality? Iron L21, CRP H17.3, B12 >2000 ? Biochemical 08.03.21 ESR H44 OV 08.12.21 doing well since discharge and feeling more energetic each day ? Biochemical 08.12.21 Anti-dbl strand DNA, AT III, Factor V leiden, lupus, [place] comp, protein C, protein S, von Willebrand without pertinent abnormality ? EGD 12.03.21 LA Grade A esophagitis; small hiatal hernia; non- bleeding erosive gastropathy, gastritis; erythematous duodenopathy. 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 H.pylori + OV 5.01.03 with intermittent dysphagia that she feels is r/t MS diagnosis. Start flagyl and tetracycline ? Biochemical 6.02.03 CBC, LFT, ferritin, iron, TIBC (L233), retic, lipid, TSH, T4 without pertinent abnormality ? Stool h.pylori WNL OV 7.7.22 with RUQ discomfort ? US abd 03.03.22 hepatic measurement 13.1cm with normal echogenicity, cyst remains; normal pancreas; s/p cholecystectomy OV 04.01.22 RUQ pain, sometimes postprandial continues. ? Biochemical 04.01.22 CBC, CMP, LDH, gastrin, amylase, lipase, CA 19-9, RY, [place] comp, ANCA, celiac, MADDISON without pertinent abnormality ? IgE H1245 ? Stool fat WNL? Elastase L128 OV 05.27.22 continues to have pain ? Biochemical 05.27.22 CBC, ESR, CMP/LFT, CRP, lipase, RY, MADDISON, AMA, ASM without pertinent abnormality? IgE H1320 ? Upper GI SBFT 06.03.22 colonic fecal retention; small hiatal hernia; GE reflux; ?hypermotility of small bowel ? MRCP 11.2.22 without acute/chronic finding OV 11.8.22 with epigastric pain. Zenpep continues increase of dosing caused nausea; did not improve pain. OV 1.06.06 Start amitriptyline, continue Zenpep OV 3.23 attempt baclofen next time pain occurs. Stop zenpep and amitriptyline OV 3.. RUQ burning or aching pain progressively worsening over the last month that can last hours 3-4 days a week.Pressure or laying down with help. Unsure of aggravating factors, although at times it may occur soon after eating.Nausea frequent after eating, vomiting infrequently but did occur couple days ago. Taking baclofen taken rarely. ROS Const Constitutional: Positive for fatigue; No fever(s), frequent falls, headache(s), weakness or weight change ENT ENT: No headache(s) or difficulty swallowing Cardio Cardiology: No leg pain with exertion Gastro GI: Positive for abdominal pain, nausea/dyspepsia and vomiting; No bloating, change in bowel habits, constipation, diarrhea, heartburn, difficulty swallowing, excessive flatus, Vomiting blood/hematemesis or Blood in stool Musc Musculoskeletal: Positive for back pain and restless legs; No joint pain, joint swelling, muscle cramps, muscle weakness, numbness, stiffness, tingling, Arthritis, sciatica, leg pain at night or leg pain with exertion Skin Skin: No dry skin, lesions, itchy eyes or rash Neuro Neurology: Positive for restless legs; No behavioral changes, unsteady gait/balance, weakness, frequent falls, headache(s), numbness, tingling, tremor(s), Increased tone in limbs, paralysis or seizures Psych Psychiatric: No anxiety, No behavioral changes, No depression, No paranoia, No Compulsive Behavior, No hyperactivity, No inattentiveness, No obsessions/compulsions, No Temper Tantrums and No suicidal ideation Endo Endocrine: Positive for fatigue; No weight change Aller/Imm Allergy/Immunologic: No itchy eyes Peter/Lymp Hematologic/Lymphatic: No easy bleeding or easy bruising Exam Const General: cooperative, healthy appearing and comfortable Nutritional Appearance: average body habitus Orientation: alert, awake and oriented x3 Quality Reporting Tobacco Screening ([facility] 138) Smoking Status: Former smoker Assessment and Plan Assessment and Plan (1) RUQ abdominal pain: Status: Chronic (2) Constipation: Status: Chronic Plan: 57-year-old white female months for outpatient cardiovascular follow-up of her history of hypercholesterolemia, hypertension, CAD status post STEMI status postLAD thrombectomy and DONNIE, PSVT, multiple sclerosis and continued smoker.?She presented on 03/02/17 with right-sided chest pain and her EKG showed acute anterior ST elevation myocardial infarction.? She underwent emergent angioplastyand stenting of her ostial LAD receiving a 3.5X 16 Synergy drug-eluting stent.? Her RCA and left circumflex were angiographically normal.? Her LV at the time was 45%. An echocardiogram post procedure on 03/03/17 showed an EF of 45% with anterior apex and inferior apex akinesis. Repeat echocardiogram dated 04/21/17 demonstrated complete resolution of her anterior ischemia with an EF around 55-60%, and an RVSP of 23 mmHg. She was evaluated at [facility] emergency department on 07/26/2021 for GI bleed. 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 she received 4 hemostatic clips and total 5 units PRBC. She had a repeat upper endoscopy that did show it was healed and she had normal improvement of her hemoglobin. Currently she is on aspirin and Plavix, atorvastatin and metoprolol for her coronary artery disease. She comes back in for the evaluation of Persistent epigastric and right upper quadrant pain. She was determined to be H. pylori positive on her repeat upper endoscopy and was treated for H. pylori. She had stool antigen that confirmed H. pylori was resolved. She still maintains a same weight around 112 pounds but she does not eat much because of her abdominal pain. She denies any chest pain or shortness of breath. Her CT scan abdomen pelvis had shown severe constipation along with retained food in her stomach. She has not had a gastric emptying study. She does have daily nausea but does not throw up on a daily basis. She still does suffer fromnicotine addiction. The differential diagnosis for her abdominal pain does include superior mesenteric artery syndrome, gastroparesis, celiac artery syndrome, IBS. She will undergo gastric emptying study, CT angiography of the abdomen pelvis. Pending with a show she would likely also need an upper endoscopy. She is okay with this plan. Orders: Orders CTA Abd/Pelvis W/WO Contrast Today K55.1 - Chronic vascular disorders of intestine Gastric Emptying Study Today R14.0 - Abdominal distension (gaseous) I have examined the patient and the H&P has been reviewed. There are no clinicalchanges since date of exam. 11/17/23 1010 <Electronically signed by Mike Rutledge DO> Cosigner Signature (if applicable): CC: Dr. Francisco Matthews MD; Mike Rutledge DO~ Signed [facility] Work Phone: Reason for referral (narrative)No reason for referral information [facility] Work Phone: Chief Complaint and Reason for Visit Chief Complaint INT LABS 2 WK S/P [facility] E ORDER Exposed. Headache, sore throat Pre-Surgical Testing PAT Reason for Visit Anemia Acute ST elevation myocardial infarction Encounter for screening for COVID-19 URI (upper respiratory infection) Chief Complaint Pre-Surgical Testing PAT 2 WK FU PROC E-ORDER/STOOL DROP-OFF Reason for Visit Dysphagia Gastritis GERD (gastroesophageal reflux disease) H. pylori infection Chief Complaint Pre-Surgical Testing PAT 2 WK FU PROC E-ORDER/STOOL DROP-OFF INT LABS 6 M FU E ORDERS Reason for Visit Dysphagia Gastritis GERD (gastroesophageal reflux disease) H. pylori infection Fatigue Palpitations Atherosclerotic heart disease of [place] coronary artery without angina pectoris History of coronary artery stent placement Hyperlipidemia Ischemic cardiomyopathy Paroxysmal supraventricular tachycardia Chief Complaint Pre-Surgical Testing PAT 2 WK FU PROC E-ORDER/STOOL DROP-OFF INT LABS 6 M FU E ORDERS 2 MO FU cardiomyopathy cardiomyopathy Reason for Visit Dysphagia Gastritis GERD (gastroesophageal reflux disease) H. pylori infection Fatigue Palpitations Atherosclerotic heart disease of [place] coronary artery without angina pectoris History of coronary artery stent placement Hyperlipidemia Ischemic cardiomyopathy Paroxysmal supraventricular tachycardia Dysphagia Gastritis GERD (gastroesophageal reflux disease) History of Helicobacter pylori infection RUQ abdominal pain Chief Complaint Pre-Surgical Testing PAT 2 WK FU PROC E-ORDER/STOOL DROP-OFF INT LABS 6 M FU E ORDERS 2 MO FU cardiomyopathy cardiomyopathy RUQ PAIN/TENDERNESS Reason for Visit Dysphagia Gastritis GERD (gastroesophageal reflux disease) H. pylori infection Fatigue Palpitations Atherosclerotic heart disease of [place] coronary artery without angina pectoris History of coronary artery stent placement Hyperlipidemia Ischemic cardiomyopathy Paroxysmal supraventricular tachycardia Dysphagia Gastritis GERD (gastroesophageal reflux disease) History of Helicobacter pylori infection RUQ abdominal pain Chief Complaint 2 WK FU PROC E-ORDER/STOOL DROP-OFF INT LABS 6 M FU E ORDERS 2 MO FU cardiomyopathy cardiomyopathy RUQ PAIN/TENDERNESS 6 WK FU Reason for Visit Dysphagia Gastritis GERD (gastroesophageal reflux disease) H. pylori infection Fatigue Palpitations Atherosclerotic heart disease of [place] coronary artery without angina pectoris History of coronary artery stent placement Hyperlipidemia Ischemic cardiomyopathy Paroxysmal supraventricular tachycardia Dysphagia Gastritis GERD (gastroesophageal reflux disease) History of Helicobacter pylori infection RUQ abdominal pain Epigastric abdominal tenderness RUQ abdominal pain Chief Complaint INT LABS 6 M FU E ORDERS 2 MO FU cardiomyopathy cardiomyopathy RUQ PAIN/TENDERNESS 6 WK FU 2 MO FU EORDERS Reason for Visit Fatigue Palpitations Atherosclerotic heart disease of [place] coronary artery without angina pectoris History of coronary artery stent placement Hyperlipidemia Ischemic cardiomyopathy Paroxysmal supraventricular tachycardia Dysphagia Gastritis GERD (gastroesophageal reflux disease) History of Helicobacter pylori infection RUQ abdominal pain Epigastric abdominal tenderness RUQ abdominal pain Constipation Epigastric pain Exocrine pancreatic insufficiency Chief Complaint 2 MO FU cardiomyopathy cardiomyopathy RUQ PAIN/TENDERNESS 6 WK FU 2 MO FU EORDERS EPIGASTRIC PAIN Reason for Visit Dysphagia Gastritis GERD (gastroesophageal reflux disease) History of Helicobacter pylori infection RUQ abdominal pain Epigastric abdominal tenderness RUQ abdominal pain Constipation Epigastric pain Exocrine pancreatic insufficiency Chief Complaint CERVICALGIA 6 M FU Reason for Visit Dyspnea on exertion Fatigue Atherosclerotic heart disease of [place] coronary artery without angina pectoris Hyperlipidemia Ischemic cardiomyopathy Paroxysmal supraventricular tachycardia Chief Complaint CERVICALGIA 6 M FU SOB, HX CAD SOB, HX CAD Amb Documentation Reason for Visit Dyspnea on exertion Fatigue Atherosclerotic heart disease of [place] coronary artery without angina pectoris Hyperlipidemia Ischemic cardiomyopathy Paroxysmal supraventricular tachycardia Chief Complaint 6 M FU E ORDERS 1 YR FU Reason for Visit Coronary artery dise ase Dyslipidemia History of coronary artery stent placement Multiple sclerosis Intermittent palpitations Constipation RUQ abdominal pain Chief Complaint 6 M FU E ORDERS 1 YR FU CHRONIC VASCULAR DISORDERS OF INTESTINE ABD BLOATING Reason for Visit Coronary artery dise ase Dyslipidemia History of coronary artery stent placement Multiple sclerosis Intermittent palpitations Constipation RUQ abdominal pain Chief Complaint Admit Date 2 ORDERING CEZAR October 05, 2024 7:22am 6 M FU October 08, 2024 12:48pm Reason for Visit Admit Date COPD (chronic obstructive pulmonary dise ase) October 08, 2024 12:48pm Coronary artery disease October 08, 025 12:48pm Dyslipidemia October 08, 2024 12:48pm History of coronary artery stent placeme nt October 08, 2024 12:48pm Multiple sclerosis October 08, 2024 12:48pm Peptic ulcer disease October 08, 2024 12:48pm Chief Complaint Admit Date 6 M FU April 04, 2025 9: 20am Reason for Visit Admit Date Chest pain April 04, 2025 9: 20am PVC (premature ventricular contraction) April 04, 2025 9:20am History of coronary artery stent placeme nt April 04, 2025 9:20am Ischemic cardiomyopathy April 04 9:20am Family History No Family History Records Found Relationship Condition Age at Onset Recorded Date/T stephanie mother Coronary artery disease Unknown father Coronary artery disease Unknown Cerebrovascular accident (CVA) Unknown Cerebrovascular Accident Status:Active Comment s:Father. 65 Congestive Heart Failure Status:Active Comment s:Mother. had valve issues Coronary Artery Disease Status:Active Comments :Father. age 69 Diabetes Mellitus Type II Status:Active Commen ts:Mother. Brother. Heart Disease Status:Active Comments:Mother. Father. Hypertension Status:Active Comments:Mother. Father. Brothers Multiple Sclerosis Status:Active Comments:cous in Cerebrovascular Accident Status:Active Comment s:Father. 65 Congestive Heart Failure Status:Active Comment s:Mother. had valve issues Coronary Artery Disease Status:Active Comments :Father. age 69 Diabetes Mellitus Type II Status:Active Commen ts:Mother. Brother. Heart Disease Status:Active Comments:Mother. Father. Hypertension Status:Active Comments:Mother. Father. Brothers Multiple Sclerosis Status:Active Comments:cous in Cerebrovascular Accident Status:Active Comment s:Father. 65 Congestive Heart Failure Status:Active Comment s:Mother. had valve issues Coronary Artery Disease Status:Active Comments :Father. age 69 Diabetes Mellitus Type II Status:Active Commen ts:Mother. Brother. Heart Disease Status:Active Comments:Mother. Father. Hypertension Status:Active Comments:Mother. Father. Brothers Multiple Sclerosis Status:Active Comments:cous in Cerebrovascular Accident Status:Active Comment s:Father. 65 Congestive Heart Failure Status:Active Comment s:Mother. had valve issues Coronary Artery Disease Status:Active Comments :Father. age 69 Diabetes Mellitus Type II Status:Active Commen ts:Mother. Brother. Heart Disease Status:Active Comments:Mother. Father. Hypertension Status:Active Comments:Mother. Father. Brothers Multiple Sclerosis Status:Active Comments:cous in Cerebrovascular Accident Status:Active Comment s:Father. 65 Congestive Heart Failure Status:Active Comment s:Mother. had valve issues Coronary Artery Disease Status:Active Comments :Father. age 69 Diabetes Mellitus Type II Status:Active Commen ts:Mother. Brother. Heart Disease Status:Active Comments:Mother. Father. Hypertension Status:Active Comments:Mother. Father. Brothers Multiple Sclerosis Status:Active Comments:cous in Cerebrovascular Accident Status:Active Comment s:Father. 65 Congestive Heart Failure Status:Active Comment s:Mother. had valve issues Coronary Artery Disease Status:Active Comments :Father. age 69 Diabetes Mellitus Type II Status:Active Commen ts:Mother. Brother. Heart Disease Status:Active Comments:Mother. Father. Hypertension Status:Active Comments:Mother. Father. Brothers Multiple Sclerosis Status:Active Comments:cous in Cerebrovascular Accident Status:Active Comment s:Father. 65 Congestive Heart Failure Status:Active Comment s:Mother. had valve issues Coronary Artery Disease Status:Active Comments :Father. age 69 Diabetes Mellitus Type II Status:Active Commen ts:Mother. Brother. Heart Disease Status:Active Comments:Mother. Father. Hypertension Status:Active Comments:Mother. Father. Brothers Multiple Sclerosis Status:Active Comments:cous in Cerebrovascular Accident Status:Active Comment s:Father. 65 Congestive Heart Failure Status:Active Comment s:Mother. had valve issues Coronary Artery Disease Status:Active Comments :Father. age 69 Diabetes Mellitus Type II Status:Active Commen ts:Mother. Brother. Heart Disease Status:Active Comments:Mother. Father. Hypertension Status:Active Comments:Mother. Father. Brothers Multiple Sclerosis Status:Active Comments:cous in Cerebrovascular Accident Status:Active Comment s:Father. 65 Congestive Heart Failure Status:Active Comment s:Mother. had valve issues Coronary Artery Disease Status:Active Comments :Father. age 69 Diabetes Mellitus Type II Status:Active Commen ts:Mother. Brother. Heart Disease Status:Active Comments:Mother. Father. Hypertension Status:Active Comments:Mother. Father. Brothers Multiple Sclerosis Status:Active Comments:cous in Cerebrovascular Accident Status:Active Comment s:Father. 65 Congestive Heart Failure Status:Active Comment s:Mother. had valve issues Coronary Artery Disease Status:Active Comments :Father. age 69 Diabetes Mellitus Type II Status:Active Commen ts:Mother. Brother. Heart Disease Status:Active Comments:Mother. Father. Hypertension Status:Active Comments:Mother. Father. Brothers Multiple Sclerosis Status:Active Comments:cous in Cerebrovascular Accident Status:Active Comment s:Father. 65 Congestive Heart Failure Status:Active Comment s:Mother. had valve issues Coronary Artery Disease Status:Active Comments :Father. age 69 Diabetes Mellitus Type II Status:Active Commen ts:Mother. Brother. Heart Disease Status:Active Comments:Mother. Father. Hypertension Status:Active Comments:Mother. Father. Brothers Multiple Sclerosis Status:Active Comments:cous in Cerebrovascular Accident Status:Active Comment s:Father. 65 Congestive Heart Failure Status:Active Comment s:Mother. had valve issues Coronary Artery Disease Status:Active Comments :Father. age 69 Diabetes Mellitus Type II Status:Active Commen ts:Mother. Brother. Heart Disease Status:Active Comments:Mother. Father. Hypertension Status:Active Comments:Mother. Father. Brothers Multiple Sclerosis Status:Active Comments:cous in Cerebrovascular Accident Status:Active Comment s:Father. 65 Congestive Heart Failure Status:Active Comment s:Mother. had valve issues Coronary Artery Disease Status:Active Comments :Father. age 69 Diabetes Mellitus Type II Status:Active Commen ts:Mother. Brother. Heart Disease Status:Active Comments:Mother. Father. Hypertension Status:Active Comments:Mother. Father. Brothers Multiple Sclerosis Status:Active Comments:cous in Cerebrovascular Accident Status:Active Comment s:Father. 65 Congestive Heart Failure Status:Active Comment s:Mother. had valve issues Coronary Artery Disease Status:Active Comments :Father. age 69 Diabetes Mellitus Type II Status:Active Commen ts:Mother. Brother. Heart Disease Status:Active Comments:Mother. Father. Hypertension Status:Active Comments:Mother. Father. Brothers Multiple Sclerosis Status:Active Comments:cous in Cerebrovascular Accident Status:Active Comment s:Father. 65 Congestive Heart Failure Status:Active Comment s:Mother. had valve issues Coronary Artery Disease Status:Active Comments :Father. age 69 Diabetes Mellitus Type II Status:Active Commen ts:Mother. Brother. Heart Disease Status:Active Comments:Mother. Father. Hypertension Status:Active Comments:Mother. Father. Brothers Multiple Sclerosis Status:Active Comments:cous in Cerebrovascular Accident Status:Active Comment s:Father. 65 Congestive Heart Failure Status:Active Comment s:Mother. had valve issues Coronary Artery Disease Status:Active Comments :Father. age 69 Diabetes Mellitus Type II Status:Active Commen ts:Mother. Brother. Heart Disease Status:Active Comments:Mother. Father. Hypertension Status:Active Comments:Mother. Father. Brothers Multiple Sclerosis Status:Active Comments:cous in Cerebrovascular Accident Status:Active Comment s:Father. 65 Congestive Heart Failure Status:Active Comment s:Mother. had valve issues Coronary Artery Disease Status:Active Comments :Father. age 69 Diabetes Mellitus Type II Status:Active Commen ts:Mother. Brother. Heart Disease Status:Active Comments:Mother. Father. Hypertension Status:Active Comments:Mother. Father. Brothers Multiple Sclerosis Status:Active Comments:cous in Cerebrovascular Accident Status:Active Comment s:Father. 65 Congestive Heart Failure Status:Active Comment s:Mother. had valve issues Coronary Artery Disease Status:Active Comments :Father. age 69 Diabetes Mellitus Type II Status:Active Commen ts:Mother. Brother. Heart Disease Status:Active Comments:Mother. Father. Hypertension Status:Active Comments:Mother. Father. Brothers Multiple Sclerosis Status:Active Comments:cous in Cerebrovascular Accident Status:Active Comment s:Father. 65 Congestive Heart Failure Status:Active Comment s:Mother. had valve issues Coronary Artery Disease Status:Active Comments :Father. age 69 Diabetes Mellitus Type II Status:Active Commen ts:Mother. Brother. Heart Disease Status:Active Comments:Mother. Father. Hypertension Status:Active Comments:Mother. Father. Brothers Multiple Sclerosis Status:Active Comments:cous in Cerebrovascular Accident Status:Active Comment s:Father. 65 Congestive Heart Failure Status:Active Comment s:Mother. had valve issues Coronary Artery Disease Status:Active Comments :Father. age 69 Diabetes Mellitus Type II Status:Active Commen ts:Mother. Brother. Heart Disease Status:Active Comments:Mother. Father. Hypertension Status:Active Comments:Mother. Father. Brothers Multiple Sclerosis Status:Active Comments:cous in Cerebrovascular Accident Status:Active Comment s:Father. 65 Congestive Heart Failure Status:Active Comment s:Mother. had valve issues Coronary Artery Disease Status:Active Comments :Father. age 69 Diabetes Mellitus Type II Status:Active Commen ts:Mother. Brother. Heart Disease Status:Active Comments:Mother. Father. Hypertension Status:Active Comments:Mother. Father. Brothers Multiple Sclerosis Status:Active Comments:cous in Cerebrovascular Accident Status:Active Comment s:Father. 65 Congestive Heart Failure Status:Active Comment s:Mother. had valve issues Coronary Artery Disease Status:Active Comments :Father. age 69 Diabetes Mellitus Type II Status:Active Commen ts:Mother. Brother. Heart Disease Status:Active Comments:Mother. Father. Hypertension Status:Active Comments:Mother. Father. Brothers Multiple Sclerosis Status:Active Comments:cous in Cerebrovascular Accident Status:Active Comment s:Father. 65 Congestive Heart Failure Status:Active Comment s:Mother. had valve issues Coronary Artery Disease Status:Active Comments :Father. age 69 Diabetes Mellitus Type II Status:Active Commen ts:Mother. Brother. Heart Disease Status:Active Comments:Mother. Father. Hypertension Status:Active Comments:Mother. Father. Brothers Multiple Sclerosis Status:Active Comments:cous in Cerebrovascular Accident Status:Active Comment s:Father. 65 Congestive Heart Failure Status:Active Comment s:Mother. had valve issues Coronary Artery Disease Status:Active Comments :Father. age 69 Diabetes Mellitus Type II Status:Active Commen ts:Mother. Brother. Heart Disease Status:Active Comments:Mother. Father. Hypertension Status:Active Comments:Mother. Father. Brothers Multiple Sclerosis Status:Active Comments:cous in Cerebrovascular Accident Status:Active Comment s:Father. 65 Congestive Heart Failure Status:Active Comment s:Mother. had valve issues Coronary Artery Disease Status:Active Comments :Father. age 69 Diabetes Mellitus Type II Status:Active Commen ts:Mother. Brother. Heart Disease Status:Active Comments:Mother. Father. Hypertension Status:Active Comments:Mother. Father. Brothers Multiple Sclerosis Status:Active Comments:cous in Cerebrovascular Accident Status:Active Comment s:Father. 65 Congestive Heart Failure Status:Active Comment s:Mother. had valve issues Coronary Artery Disease Status:Active Comments :Father. age 69 Diabetes Mellitus Type II Status:Active Commen ts:Mother. Brother. Heart Disease Status:Active Comments:Mother. Father. Hypertension Status:Active Comments:Mother. Father. Brothers Multiple Sclerosis Status:Active Comments:cous in Cerebrovascular Accident Status:Active Comment s:Father. 65 Congestive Heart Failure Status:Active Comment s:Mother. had valve issues Coronary Artery Disease Status:Active Comments :Father. age 69 Diabetes Mellitus Type II Status:Active Commen ts:Mother. Brother. Heart Disease Status:Active Comments:Mother. Father. Hypertension Status:Active Comments:Mother. Father. Brothers Multiple Sclerosis Status:Active Comments:cous in Cerebrovascular Accident Status:Active Comment s:Father. 65 Congestive Heart Failure Status:Active Comment s:Mother. had valve issues Coronary Artery Disease Status:Active Comments :Father. age 69 Diabetes Mellitus Type II Status:Active Commen ts:Mother. Brother. Heart Disease Status:Active Comments:Mother. Father. Hypertension Status:Active Comments:Mother. Father. Brothers Multiple Sclerosis Status:Active Comments:cous in Cerebrovascular Accident Status:Active Comment s:Father. 65 Congestive Heart Failure Status:Active Comment s:Mother. had valve issues Coronary Artery Disease Status:Active Comments :Father. age 69 Diabetes Mellitus Type II Status:Active Commen ts:Mother. Brother. Heart Disease Status:Active Comments:Mother. Father. Hypertension Status:Active Comments:Mother. Father. Brothers Multiple Sclerosis Status:Active Comments:cous in Cerebrovascular Accident Status:Active Comment s:Father. 65 Congestive Heart Failure Status:Active Comment s:Mother. had valve issues Coronary Artery Disease Status:Active Comments :Father. age 69 Diabetes Mellitus Type II Status:Active Commen ts:Mother. Brother. Heart Disease Status:Active Comments:Mother. Father. Hypertension Status:Active Comments:Mother. Father. Brothers Multiple Sclerosis Status:Active Comments:cous in Cerebrovascular Accident Status:Active Comment s:Father. 65 Congestive Heart Failure Status:Active Comment s:Mother. had valve issues Coronary Artery Disease Status:Active Comments :Father. age 69 Diabetes Mellitus Type II Status:Active Commen ts:Mother. Brother. Heart Disease Status:Active Comments:Mother. Father. Hypertension Status:Active Comments:Mother. Father. Brothers Multiple Sclerosis Status:Active Comments:cous in Cerebrovascular Accident Status:Active Comment s:Father. 65 Congestive Heart Failure Status:Active Comment s:Mother. had valve issues Coronary Artery Disease Status:Active Comments :Father. age 69 Diabetes Mellitus Type II Status:Active Commen ts:Mother. Brother. Heart Disease Status:Active Comments:Mother. Father. Hypertension Status:Active Comments:Mother. Father. Brothers Multiple Sclerosis Status:Active Comments:cous in Cerebrovascular Accident Status:Active Comment s:Father. 65 Congestive Heart Failure Status:Active Comment s:Mother. had valve issues Coronary Artery Disease Status:Active Comments :Father. age 69 Diabetes Mellitus Type II Status:Active Commen ts:Mother. Brother. Heart Disease Status:Active Comments:Mother. Father. Hypertension Status:Active Comments:Mother. Father. Brothers Multiple Sclerosis Status:Active Comments:cous in Cerebrovascular Accident Status:Active Comment s:Father. 65 Congestive Heart Failure Status:Active Comment s:Mother. had valve issues Coronary Artery Disease Status:Active Comments :Father. age 69 Diabetes Mellitus Type II Status:Active Commen ts:Mother. Brother. Heart Disease Status:Active Comments:Mother. Father. Hypertension Status:Active Comments:Mother. Father. Brothers Multiple Sclerosis Status:Active Comments:cous in Cerebrovascular Accident Status:Active Comment s:Father. 65 Congestive Heart Failure Status:Active Comment s:Mother. had valve issues Coronary Artery Disease Status:Active Comments :Father. age 69 Diabetes Mellitus Type II Status:Active Commen ts:Mother. Brother. Heart Disease Status:Active Comments:Mother. Father. Hypertension Status:Active Comments:Mother. Father. Brothers Multiple Sclerosis Status:Active Comments:cous in Cerebrovascular Accident Status:Active Comment s:Father. 65 Congestive Heart Failure Status:Active Comment s:Mother. had valve issues Coronary Artery Disease Status:Active Comments :Father. age 69 Diabetes Mellitus Type II Status:Active Commen ts:Mother. Brother. Heart Disease Status:Active Comments:Mother. Father. Hypertension Status:Active Comments:Mother. Father. Brothers Multiple Sclerosis Status:Active Comments:cous in Cerebrovascular Accident Status:Active Comment s:Father. 65 Congestive Heart Failure Status:Active Comment s:Mother. had valve issues Coronary Artery Disease Status:Active Comments :Father. age 69 Diabetes Mellitus Type II Status:Active Commen ts:Mother. Brother. Heart Disease Status:Active Comments:Mother. Father. Hypertension Status:Active Comments:Mother. Father. Brothers Multiple Sclerosis Status:Active Comments:cous in Cerebrovascular Accident Status:Active Comment s:Father. 65 Congestive Heart Failure Status:Active Comment s:Mother. had valve issues Coronary Artery Disease Status:Active Comments :Father. age 69 Diabetes Mellitus Type II Status:Active Commen ts:Mother. Brother. Heart Disease Status:Active Comments:Mother. Father. Hypertension Status:Active Comments:Mother. Father. Brothers Multiple Sclerosis Status:Active Comments:cous in Cerebrovascular Accident Status:Active Comment s:Father. 65 Congestive Heart Failure Status:Active Comment s:Mother. had valve issues Coronary Artery Disease Status:Active Comments :Father. age 69 Diabetes Mellitus Type II Status:Active Commen ts:Mother. Brother. Heart Disease Status:Active Comments:Mother. Father. Hypertension Status:Active Comments:Mother. Father. Brothers Multiple Sclerosis Status:Active Comments:cous in Cerebrovascular Accident Status:Active Comment s:Father. 65 Congestive Heart Failure Status:Active Comment s:Mother. had valve issues Coronary Artery Disease Status:Active Comments :Father. age 69 Diabetes Mellitus Type II Status:Active Commen ts:Mother. Brother. Heart Disease Status:Active Comments:Mother. Father. Hypertension Status:Active Comments:Mother. Father. Brothers Multiple Sclerosis Status:Active Comments:cous in Cerebrovascular Accident Status:Active Comment s:Father. 65 Congestive Heart Failure Status:Active Comment s:Mother. had valve issues Coronary Artery Disease Status:Active Comments :Father. age 69 Diabetes Mellitus Type II Status:Active Commen ts:Mother. Brother. Heart Disease Status:Active Comments:Mother. Father. Hypertension Status:Active Comments:Mother. Father. Brothers Multiple Sclerosis Status:Active Comments:cous in Cerebrovascular Accident Status:Active Comment s:Father. 65 Congestive Heart Failure Status:Active Comment s:Mother. had valve issues Coronary Artery Disease Status:Active Comments :Father. age 69 Diabetes Mellitus Type II Status:Active Commen ts:Mother. Brother. Heart Disease Status:Active Comments:Mother. Father. Hypertension Status:Active Comments:Mother. Father. Brothers Multiple Sclerosis Status:Active Comments:cous in Cerebrovascular Accident Status:Active Comment s:Father. 65 Congestive Heart Failure Status:Active Comment s:Mother. had valve issues Coronary Artery Disease Status:Active Comments :Father. age 69 Diabetes Mellitus Type II Status:Active Commen ts:Mother. Brother. Heart Disease Status:Active Comments:Mother. Father. Hypertension Status:Active Comments:Mother. Father. Brothers Multiple Sclerosis Status:Active Comments:cous in Advance Directives No Advanced Directives Records Found Advance Directive Response Recorded Date/ Time Living Will No December 01, 2021 10:28am Power of Resident Director No December 01 10:28am Advance Directive Response Recorded Date/ Time Living Will No November 15, 2023 9:32am Power of Resident Director No November 14 9:32am Summary Purpose Additional Source Comments Goals (unrecognized section and content) Goals may be documented in a n alternate sectionGoals may be documented in an alternate sectionGoals may be documented in an alternate sectionGoals may be documented in an alternate sectionGoals may be documented in an alternate sectionGoals may be documented in an alternate sectionGoals may be documented in an alternate sectionGoals may be documented in an alternate sectionGoals may be documented in an alternate sectionGoals may be documented in an alternate sectionGoals may be documented in an alternate sectionGoals may be documented in an alternate sectionGoals may be documented in an alternate section Care Teams (unrecognized sec tion and content) Team Status: Active Member Role Status Dates Dr. Arron Soto MD Family Provider Active Dr. Francisco Matthews MD Primary Care Provider Active Team Status: Inactive Member Role Status Dates Dr. Francisco Matthews MD Primary Care Provider, Referring Provider Active Taj Lang NP, POST ADOPTION COORDINATOR-C Attending Provider Active Team Status: Inactive Member Role Status Dates Dr. Francisco Matthews MD Primary Care Provider Active TEENA Gray Attending Provider, Referring Provid er Active Team Status: Inactive Member Role Status Dates Dr. Francisco Matthews MD Primary Care Provider Active Taj Lang POST ADOPTION COORDINATOR, POST ADOPTION COORDINATOR-C Attending Provider, Referring Pro vider Active Team Status: Active Member Role Status Dates Dr. Francisco Matthews MD Primary Care Provider Active Taj Lang POST ADOPTION COORDINATOR, POST ADOPTION COORDINATOR-C Referring Provider, Other Provide r Active TEENA Gray Other Provider Active Dr. Loreta Duvall MD Attending Provider Active Team Status: Active Member Role Status Dates Dr. Francisco Matthews MD Primary Care Provider Active Taj Lang POST ADOPTION COORDINATOR, POST ADOPTION COORDINATOR-C Attending Provider Active Team Status: Inactive Member Role Status Dates Dr. Francisco Matthews MD Primary Care Provider Active Taj Lang POST ADOPTION COORDINATOR, POST ADOPTION COORDINATOR-C Attending Provider, Referring Pro vider Active TEENA Gray Other Provider Active Team Status: Inactive Member Role Status Dates Dr. Francisco Matthews MD Primary Care Provider, Referring Provider Active Dr. Mike Rutledge DO Attending Provider Active Team Status: Inactive Member Role Status Dates Dr. Francisco Matthews MD Primary Care Provider, Referring Provider Active Dr. Loreta Duvall MD Attending Provider Active Team Status: Inactive Member Role Status Dates Dr. Francisco Matthews MD Primary Care Provider Active Dr. Loreta Duvall MD Attending Provider, Referring Pr ovider Active Taj Lang POST ADOPTION COORDINATOR, POST ADOPTION COORDINATOR-C Other Provider Active Team Status: Active Member Role Status Dates Dr. Francisco Matthews MD Primary Care Provider, Referring Provider Active Dr. Mike Rutledge DO Attending Provider, Other Prov ider Active Team Status: Active Member Role Status Dates Dr. Francisco Matthews MD Primary Care Provider Active Dr. Mike Rutledge DO Attending Provider, Referring Provider Active Team Status: Inactive Member Role Status Dates Dr. Francisco Matthews MD Primary Care Provider Active Dr. Mike Rutledge DO Attending Provider, Referring Provider Active Team Status: Active Member Role Status Dates Dr. Francisco Matthews MD Primary Care Provider Active Team Status: Inactive Member Role Status Dates Dr. Francisco Matthews MD Primary Care Provider Active Start: October 05, 2024 End: October 05, 2024 TEENA Gray Attending Provider Active Star t: October 05, 2024 End: October 05, 2024 TEENA Gray Referring Provider Active Star t: October 05, 2024 End: October 05, 2024 Dr. Loreta Duvall MD Other Provider Active Star t: October 05, 2024 End: October 05, 2024 Team Status: Inactive Member Role Status Dates Dr. Francisco Matthews MD Primary Care Provider Active Start: October 08, 2024 End: October 08, 2024 Dr. Francisco Matthews MD Referring Provider Active S tart: October 08, 2024 End: October 08, 2024 Dr. Loreta Duvall MD Attending Provider Active Start: October 08, 2024 End: October 08, 2024 Team Status: Active Member Role/Relationship Status Dates Dr. Francisco Matthews MD Primary Care Provider Active Team Status: Inactive Member Role/Relationship Status Dates Dr. Francisco Matthews MD Primary Care Provider Active Start: March 01, 2025 End: March 01, 2025 Taj Lang POST ADOPTION COORDINATOR, POST ADOPTION COORDINATOR-C Attending Provider Active S tart: March 01, 2025 End: March 01, 2025 Taj Lang POST ADOPTION COORDINATOR, POST ADOPTION COORDINATOR-C Referring Provider Active S tart: March 01, 2025 End: March 01, 2025 Team Status: Inactive Member Role/Relationship Status Dates Dr. Francisco Matthews MD Primary Care Provider Active Start: April 04, 2025 End: April 04, 2025 Dr. Francisco Matthews MD Referring Provider Active S tart: April 04, 2025 End: April 04, 2025 Taj Lang POST ADOPTION COORDINATOR, POST ADOPTION COORDINATOR-C Attending Provider Active S tart: April 04, 2025 End: April 04, 2025 Team Status: Inactive Member Role/Relationship Status Dates Dr. Francisco Matthews MD Primary Care Provider Active Start: April 04, 2025 End: April 04, 2025 Neida DICKINSON, PA Attending Provider Active Start: April 04, 2025 End: April 04, 2025 INFORMATION SOURCE (unrecogn ized section and content) DATE CREATED AUTHOR 06/23/2023 [facility] DATE CREATED AUTHOR AUTHOR'S ORGANIZ ATION 09/20/2024 [facility] DATE CREATED AUTHOR AUTHOR'S ORGANIZ ATION 04/29/2025 [facility] FOR RECORDS PERTAINING TO PATIENTS WHO ARE OR HAVE BEEN ENROLLED IN A CHEMICAL DEPENDENCY/SUBSTANCEABUSE PROGRAM, SOME INFORMATION MAY BE OMITTED. This clinical summary was aggregated from multiple sources. Caution should be exercised in using it in the provision of clinical care. This summary normalizes information from multiple sources, and as a consequence, information in this document may materially change the coding, format and clinical context of patient data. In addition, data may be omitted in some cases. CLINICAL DECISIONS SHOULD BE BASED ON THE PRIMARY CLINICAL RECORDS. [facility] provides no warranty or guarantee of the accuracy or completeness of information in this document.
--- NOTE | 2025-05-02 12:24 | STRESSREP ---
Stress Test Report Date: 05/02/2025 Procedure: Pharmacologic stress nuclear imaging study Indications: Coronary artery disease Consent: Per the patient Procedure: The patient underwent pharmacologic (Regadenoson 0.4mg ) evaluation with a peak heart rate of 98 beats per minute (60%predicted maximal heart rate) and a peak blood pressure of 106/64 mmHg. The baseline ECG demonstrated sinus rhythm. The peak pharmacologic ECG no ischemic change. Frequent PACs pretest that resolved during pharmacologic infusion and in recovery. There was no complaint of chest discomfort during pharmacologic infusion or recovery. The patient was injected with 11.6 millicuries of technetium 99m Cardiolite and subsequently rest SPECT Cardiolite nuclear imaging was obtained in the horizontal long, vertical long, and short axis views. The patient underwent pharmacologic (Regadenoson) evaluation. The patient was injected with 35.6 millicuries of technetium 99m Cardiolite and subsequently stress SPECT Cardiolite nuclear imaging was obtained in the horizontal long, vertical long, and short axis views. A gated Cardiolite study at peak stress was obtained. The examination was stopped secondary to completion of protocol. Rest and stress SPECT Cardiolite nuclear imaging status post realignment, normalization, and attenuation correction demonstrate no fixed or reversible perfusion defects. There is end systolic thickening and brightening. The gated Cardiolite study demonstrates myocardial thickening and inward wall motion. The reported LVEF is 83%. Impression: 1. Pharmacologic (Regadenoson) evaluation 2. Peak pharmacologic ECG with no ischemic changes. 3. Frequent PACs pretest. No arrhythmias during pharmacologic infusion or in recovery. 5. Rest and stress SPECT Cardiolite nuclear imaging demonstrate relative uniform tracer uptake and myocardial perfusion appearing within normal limits. 6. The gated Cardiolite study reports an LVEF of 83%. This note was generated with [employer] software. It may contain incorrect words, spelling, and punctuation that were not noted in checking the note before signing.
== END | disposition home or self-care (01) ==
LOC: CVS 06:04
PROVIDERS: PCP Family Medicine; Referring Provider Nurse Practitioner Family; Visit Provider Nurse Practitioner Family
DX: Z95.5 Presence of coronary angioplasty implant and graft (principal); I25.5 Ischemic cardiomyopathy; R07.9 Chest pain, unspecified; I49.3 Ventricular premature depolarization
CPT/HCPCS: 78452; 93017; A9500; A4216; J2785

== ENCOUNTER → 2025-05-17 | Outpatient (CLI) | payer OTHER, MEDICARE, SELFPAY ==
[2017-03-03 15:40] VITALS: BMI 24.5
== END | disposition home or self-care (01) ==
PROVIDERS: PCP Family Medicine; Referring Provider Nurse Practitioner Family; Visit Provider Nurse Practitioner Family
DX: I49.3 Ventricular premature depolarization (principal); I25.10 Atherosclerotic heart disease of native coronary artery without angina pectoris; R00.2 Palpitations; Z95.5 Presence of coronary angioplasty implant and graft
CPT/HCPCS: 93225; 93226

== ENCOUNTER → 2025-05-30 | Outpatient (CLI) | payer OTHER, MEDICARE, SELFPAY ==
[2017-03-03 15:40] VITALS: BMI 24.5
--- NOTE | 2025-05-30 14:45 | ECHOD_ITS ---
Reason For Study Reason For Study: PVCs Procedure This was a 2D Doppler, Color Flow transthoracic echocardiogram. Exam performed in department. Left Ventricle Normal size and thickness. The left ventricular ejection fraction is 65 %. Normal diastololic function. Right Ventricle Normal right ventricle. Atria The left and right atria are normal. Mitral Valve Trivial mitral valve insufficiency. Tricuspid Valve Mild (1+) tricuspid valve insufficiency. Normal pulmonary artery pressure. Aortic Valve Trisinus/trileaflet aortic valve. Pulmonic Valve The pulmonic valve is not well visualized. Great Vessels Normal sized aortic root. Pericardium/Pleural No pericardial effusion. MMode/2D Measurements & Calculations LVIDd: 4.0 cm IVSd: 0.80 cm Ao root diam: 3.1 cm LVIDs: 2.8 cm LVPWd: 0.64 cm RVDd: 2.6 cm FS: 30.7 % LAV(MOD-bp): 24.7 ml LVAd ap4: 18.5 cm2 LVAd ap2: 21.0 cm2 LAV(MOD-bp) Indexed: 16.5 ml/m2 LVLd ap4: 6.1 cm LVLd ap2: 6.9 cm LAV(MOD-sp2): 26.0 ml EDV(MOD-sp4): 46.1 ml EDV(MOD-sp2): 56.7 ml LAV(MOD-sp4): 22.1 ml EDV(sp4-el): 47.3 ml EDV(sp2-el): 54.8 ml LVAs ap4: 9.5 cm2 LVAs ap2: 10.9 cm2 LVLs ap4: 4.5 cm LVLs ap2: 5.4 cm ESV(MOD-sp4): 17.5 ml ESV(MOD-sp2): 19.4 ml ESV(sp4-el): 16.8 ml ESV(sp2-el): 18.5 ml EF(MOD-sp4): 62.0 % EF(MOD-sp2): 65.8 % EF(sp4-el): 64.4 % SV(MOD-sp4): 28.6 ml SV(MOD-sp2): 37.3 ml SV(sp4-el): 30.4 ml SI(MOD-sp4): 19.1 ml/m2 SI(MOD-sp2): 24.9 ml/m2 LA A4 area: 10.4 cm2 LA dimension(2D): 3.5 cm RA A4 area: 10.1 cm2 TAPSE: 2.3 cm Time Measurements MV dec time: 0.18 sec Doppler Measurements & Calculations MV E max valdemar: 82.3 cm/sec Lat Peak E' Valdemar: 13.5 cm/sec Med Peak E' Valdemar: 11.3 cm/sec MV A max valdemar: 57.9 cm/sec E/E' lat: 6.1 E/E' med: 7.3 MV E/A: 1.4 MV V2 max: 82.3 cm/sec MV P1/2t max valdemar: 71.7 cm/sec Ao V2 max: 102.1 cm/sec MV max P.7 mmHg MV P1/2t: 50.7 msec Ao max P.2 mmHg MV V2 mean: 47.5 cm/sec Ao V2 mean: 71.8 cm/sec MV mean P.0 mmHg MV dec slope: 414.3 cm/sec2 Ao mean P.3 mmHg MV V2 VTI: 20.0 cm MVA(P1/2t): 4.3 cm2 Ao V2 VTI: 20.8 cm AV (velocity ratio): 0.80 LV V1 max: 77.8 cm/sec PA V2 max: 82.3 cm/sec TR max valdemar: 246.8 cm/sec LV V1 max P.4 mmHg PA V2 mean: 55.1 cm/sec TR max P.5 mmHg LV V1 mean P.3 mmHg LV V1 mean: 54.1 cm/sec LV V1 VTI: 16.7 cm ECHO/Echo Complete Interpretation Summary The left ventricular ejection fraction is 65 %. Mild (1+) tricuspid valve insufficiency. Ordering Physician: Taj Lang Referring Physician: Francisco Hong Performed By: Lindsey Powell RDCS, RVT
== END | disposition home or self-care (01) ==
LOC: CVS 14:42
PROVIDERS: PCP Family Medicine; Referring Provider Nurse Practitioner Family; Visit Provider Nurse Practitioner Family
DX: I49.3 Ventricular premature depolarization (principal); I25.10 Atherosclerotic heart disease of native coronary artery without angina pectoris; R00.2 Palpitations; Z95.5 Presence of coronary angioplasty implant and graft
CPT/HCPCS: 93306